=== PATIENT | female | born 1935 | race Caucasian/White ===

== ENCOUNTER → 2019-05-09 10:50 | Outpatient (BNVA) | payer MEDICARE, OTHER, SELFPAY | PROVIDERS: Family Provider Family Medicine; PCP Family Medicine; Visit Provider Family Medicine | DX: E78.5 Hyperlipidemia, unspecified (principal); R53.83 Other fatigue; I10 Essential (primary) hypertension | CPT/HCPCS: 80061; 84443 ==

== ENCOUNTER → 2019-06-29 11:04 | Outpatient (BNVA) | payer MEDICARE, OTHER, SELFPAY | PROVIDERS: Family Provider Family Medicine; PCP Family Medicine; Visit Provider Family Medicine | DX: R32 Unspecified urinary incontinence (principal) | CPT/HCPCS: 81000 ==

== ENCOUNTER 2019-06-30 12:39 | Outpatient (CLI) | payer MEDICARE, OTHER, SELFPAY | END 2019-06-30 12:40 | disposition home or self-care (01) | LOC: LAB 12:43 | PROVIDERS: Family Provider Family Medicine; PCP Family Medicine; Visit Provider Family Medicine | DX: R32 Unspecified urinary incontinence (principal) | CPT/HCPCS: 87086 ==

== ENCOUNTER 2019-07-04 10:34 | Outpatient (CLI) | payer MEDICARE, OTHER, SELFPAY ==
--- NOTE | 2019-07-04 10:44 | MR_ITS ---
WS: [id number] MRI LUMBAR SPINE NONCONTRAST TECHNIQUE: Sagittal T1, T2 and STIR imaging. Axial T1 and T2 imaging. CLINICAL INFORMATION: LOW BACK PAIN COMPARISON: MRI November 12, 2018 FINDINGS: Lumbar scoliosis convex left. No acute compression fractures. Multilevel degenerative disc disease. I ncidental hemangioma L2 vertebral body. Mild disc bulging lower thoracic spine. Slight anterolisthesi s L4 on L5 and L5 on S1. L1-L2: Mild disc bulging with narrowing of the right subarticular recess. Moderate facet arthropathy. Mild right and no significant left foraminal narrowing. L2-L3: Disc osteophyte complex with endplate ridging. Impingement on the subarticular recess bilatera lly. Impingement on the traversing L3 nerve roots. Mild central canal stenosis. Moderate facet arthro tia. Mild bilateral foraminal narrowing right greater than left. L3-L4: Disc osteophyte complex with endplate ridging. Moderate central canal stenosis. Impingement tr aversing L4 nerve roots. Moderate facet arthropathy with small facet effusions. Moderate right and mild left foraminal narrowing. L4-L5: Disc osteophyte protrusion impinges the left L5 nerve root with moderate central canal stenosi s. Advanced facet arthropathy. Mild to moderate left and no significant right foraminal narrowing. L5-S1: Mild disc bulging with osteophytic ridging. Impingement traversing S1 nerve roots. Advanced fa cet arthropathy. Moderate bilateral foraminal narrowing worse in the left. Small disc osteophyte protrusions in the cervical spine with mild/moderate central canal stenosis at C5-C6 and C6-C7. MR/MR lumbar spine wo con* [id number] IMPRESSION: 1. Lumbar scoliosis convex left. No acute appearing compression fractures. 2. Moderate central canal stenosis L3-L4 and moderate to severe central canal stenosis L4-5 due to disc osteophyte complexes with facet arthropathy ligament flavum hypertrophy. 3. Impingement on the subarticular recess and traversing bilateral L4 and L5 n erve roots at L3-4 and L4-5. The 4. Advanced facet arthropathy L3-L5. 5. Moderate foraminal narrowing worse at right L2-3, right L3-4, left L4-5, an d left L5-S1. 6. Overall no significant changes since November 12, 2018
--- NOTE | 2019-07-04 11:00 | XR_ITS ---
WS: [id number] Lumbar spine with flexion, extension, and neutral lateral, 07/04/2019 Clinical Data: Low back pain Comparison: Lateral lumbar spine, 12/22/2018. Findings: There is disc space narrowing of the lower thoracic and all the lumbar intervertebral disc spaces. T here is a 0.7 cm anterolisthesis of L4 on L5. On flexion it increases to 1.0 cm and does not change o n extension. There is osteoarthritis of the lower thoracic and all the lumbar vertebral bodies along with osteoporosis. No compression fractures are seen. There is calcification of the abdominal aorta b ut no aneurysm is present. There is limitation of motion on flexion and extension. XR/XR lumbar spine f/e only [id number] Impression: 1. Anterolisthesis of L4 on L5 which increases on flexion. 2. Extensive osteoarthritis and degenerative disc disease. 3. Osteoporosis.
== END 2019-07-04 10:35 | disposition home or self-care (01) ==
LOC: RADWPI 10:38
PROVIDERS: Family Provider Family Medicine; PCP Family Medicine; Visit Provider Licensed Practical Nurse
DX: M51.36 Other intervertebral disc degeneration, lumbar region (principal); M81.0 Age-related osteoporosis without current pathological fracture; M41.86 Other forms of scoliosis, lumbar region; M48.061 Spinal stenosis, lumbar region without neurogenic claudication; M47.816 Spondylosis without myelopathy or radiculopathy, lumbar region
CPT/HCPCS: 72120; 72148

== ENCOUNTER 2019-07-18 14:34 | Outpatient (CLI) | payer MEDICARE, OTHER, SELFPAY ==
--- NOTE | 2019-07-18 16:30 | CT_ITS ---
WS: [id number] CT LUMBAR SPINE, noncontrast. HISTORY: Low back pain TECHNIQUE: Contiguous 2.5 mm axial imaging are performed. Sagittal and coronal reformats are submitte d and reviewed. All CT scans at [facility] use at least one of these dose optimization te chniques: automated exposure control; mA and/or kV adjustment per patient size (includes targeted exa ms where dose is matched to clinical indication); or iterative reconstruction. IV contrast: None DLP: 1984.98 mGycm COMPARISON: 09/06/2016 and MRI 07/04/2019 Moderate LEFT convex curvature the lumbar spine. Advanced degenerative disc disease with vacuum disc phenomenon. Hemangioma at L2. L4 anterolisthesis by 5 mm. No fracture. T12-L1: Moderate osteophytic ridging around the vertebral bodies. Mild bilateral foraminal narrowing. L1-2: Osteophytic ridging with advanced degenerative disc disease. Osteophytes from the facet and bia tebral body causing mild RIGHT subarticular stenosis. L2-3: Diffuse osteophytic ridging around the vertebral bodies with additional facet joint osteophyte encroaching upon the thecal sac. Mild central stenosis with mild bilateral foraminal stenosis and mod erate subarticular recess stenosis. L3-4: Diffuse annular disc bulging and osteophytic ridging with facet joint osteophytes encroaching o n the thecal sac. Mild widening of the facet joints. Moderate central stenosis with moderate bilatera l foraminal stenosis and subarticular recess stenosis, greatest on the RIGHT. L4-5: Diffuse osteophytic ridging with severe facet joint arthritis. Osteophytes and facet disease an d ligamentum flavum disease causing significant central, subarticular recess and LEFT foraminal steno sis. Mild RIGHT foraminal stenosis. L5-S1: Diffuse osteophytic ridging and broad-based disc bulging. Moderate bilateral foraminal stenosi s. Disc and osteophyte encroachment into the subarticular recesses and foramen. Severe facet joint ar thritis. Atherosclerotic plaque throughout the visualized abdominal aorta. Diverticulosis without diverticulit is. Mild degenerative changes in the SI joints bilaterally. CT/CT lumbar spine wo con* [id number] IMPRESSION: 1. RIGHT convex lumbar scoliosis. Multilevel moderate to severe degenerative c hanges throughout the spine with marked facet arthritis. 2. Moderate to severe central stenosis at L3-4 and L4-5. Moderate bilateral fo raminal stenosis and subarticular recess stenosis at L3-4 and on the LEFT at L4 -5. 3. Severe facet joint arthritis throughout the lumbar spine. 4. Mild central with moderate subarticular recess stenosis at L2-3. 5. Moderate bilateral foraminal stenosis and subarticular recess stenosis at L 5-S1.
== END 2019-07-18 14:35 | disposition home or self-care (01) ==
LOC: RADWPI 14:36
PROVIDERS: Family Provider Family Medicine; PCP Family Medicine; Visit Provider Licensed Practical Nurse
DX: M54.5 Low back pain (principal); M48.062 Spinal stenosis, lumbar region with neurogenic claudication; M47.9 Spondylosis, unspecified; M48.07 Spinal stenosis, lumbosacral region
CPT/HCPCS: 72131

== ENCOUNTER 2019-07-21 12:25 | Outpatient (RCR) | payer MEDICARE, OTHER, SELFPAY | END 2019-08-16 23:59 | disposition home or self-care (01) | LOC: SPT 12:25 | PROVIDERS: PCP Family Medicine; Referring Provider Licensed Practical Nurse; Visit Provider Licensed Practical Nurse | DX: M43.16 Spondylolisthesis, lumbar region (principal); G62.9 Polyneuropathy, unspecified; M48.062 Spinal stenosis, lumbar region with neurogenic claudication | CPT/HCPCS: 97110; 97161; L0637 ==

== ENCOUNTER 2019-08-09 12:23 | Outpatient (CLI) | payer MEDICARE, OTHER, SELFPAY ==
--- NOTE | 2019-08-09 12:34 | MR_ITS ---
WS: [id number] MRI CERVICAL SPINE NONCONTRAST TECHNIQUE: Sagittal T1, T2 and STIR imaging. Axial T2, gradient, and fiesta imaging. CLINICAL INFORMATION: M50.020 Cervical disc disorder with myelopathy, mid-cervi... COMPARISON: None. FINDINGS: Straightening of the normal cervical lordosis. Disc bulging worse at C5-C6 and C6-C7 with moderate ce ntral canal stenosis. Cord signal remains normal. C2-C3: Normal. C3-C4: Mild disc osteophytic ridging. Moderate facet arthropathy. Mild bilateral bony foraminal narro wing. Spinal canal is patent. C4-C5: Mild disc osteophytic ridging. Spinal canal is patent. Mild bilateral foraminal narrowing. Mod erate facet arthropathy. C5-C6: Disc osteophyte complex with moderate central canal stenosis. Moderate left and mild right bon y foraminal narrowing. Moderate right facet arthropathy. C6-C7: Disc osteophyte complex with endplate ridging. Moderate central canal stenosis. Mild to modera te left greater than right bony foraminal narrowing. C7-T1: Mild/moderate left and no significant right foraminal narrowing. Visualized brain stem structures: Normal. Prevertebral soft tissues: Normal. MR/MR cervical spin wo con* [id number] IMPRESSION: 1. Disc osteophyte protrusion C5-C6 and C6-C7 with moderate central canal sten osis and indentation on the cervical cord. Cord signal remains normal. 2. Mild to moderate bony foraminal narrowing worse at left C5-C6, bilateral C6 -7, and left C7-T1. 3. Moderate facet arthropathy worse at right C3-4, bilateral C4-5, right C5-C6 ,
--- NOTE | 2019-08-09 13:45 | MR_ITS ---
WS: [id number] MRI LUMBAR SPINE NONCONTRAST TECHNIQUE: Sagittal T1, T2 and STIR imaging. Axial T1 and T2 imaging. CLINICAL INFORMATION: Low back pain COMPARISON: MRI July 04, [address] July 18, 2019 FINDINGS: Lumbar scoliosis convex Incidental hemangioma L2 vertebral body. Mild disc bulging lower thoracic spi ne. Slight anterolisthesis L4 on L5 and L5 on S1. L1-L2: Mild disc bulging with narrowing of the right subarticular recess. Moderate facet arthropathy. Mild right and no significant left foraminal narrowing. L2-L3: Disc osteophyte complex with endplate ridging. Impingement on the subarticular recess bilatera lly. Impingement on the traversing L3 nerve roots. Mild central canal stenosis. Moderate facet arthro tia. Mild bilateral foraminal narrowing right greater than left. L3-L4: Disc osteophyte complex with endplate ridging. Moderate central canal stenosis. Impingement tr aversing L4 nerve roots. Moderate facet arthropathy with small facet effusions unchanged. Moderate ri ght and mild left foraminal narrowing. L4-L5: Disc osteophyte protrusion impinges the left L5 nerve r oot with moderate central canal stenosis. Advanced facet arthropathy. Mild to moderate left and no si gnificant right foraminal narrowing. L5-S1: Mild disc bulging with osteophytic ridging. Impingement traversing S1 nerve roots. Advanced fa cet arthropathy. Moderate bilateral foraminal narrowing worse on the left. Small disc osteophyte protrusions in the cervical spine with mild/moderate central canal stenosis at C5-C6 and C6-C7 as previously described. MR/MR lumbar spine wo con* [id number] IMPRESSION: 1. Lumbar scoliosis convex left. No acute appearing compression fractures. 2. Moderate central canal stenosis L3-L4 and moderate to severe central canal stenosis L4-5 due to disc osteophyte complexes with facet arthropathy in combin ation with ligament flavum hypertrophy. 3. Moderate bony foraminal narrowing worse at right L2-3, right L3-4, left L4- 5, and left L5-S1 unchanged from previous. 4. Moderate to advanced facet arthropathy L3-L4, L4-L5 and L5-S1. 5. Overall no significant interval changes since July 04, 2019
--- NOTE | 2019-08-09 14:30 | XR_ITS ---
WS: [id number] CERVICAL SPINE FLEXION EXTENSION TECHNIQUE: 3 views of the cervical spine: lateral neutral, flexion and extension views. CLINICAL INFORMATION: Neck pain COMPARISON: None. FINDINGS: Straightening of the normal cervical lordosis. Osteopenia. Moderate spondylitic changes. No rmal C1-2 articulation. Disc space narrowing worse at C4-C5 C5-C6 and C6-C7 with anterior hypertrophi c changes. Slight anterolisthesis C3 on C4. No instability on flexion extension. XR/XR cervical spine fl/ex [id number] IMPRESSION: Moderate spondylitic changes. No instability on flexion extension.
== END 2019-08-09 12:24 | disposition home or self-care (01) ==
LOC: RADWPI 12:26
PROVIDERS: PCP Family Medicine; Visit Provider Licensed Practical Nurse
DX: M50.020 Cervical disc disorder with myelopathy, mid-cervical region, unspecified level (principal); M47.816 Spondylosis without myelopathy or radiculopathy, lumbar region; M48.061 Spinal stenosis, lumbar region without neurogenic claudication; M25.78 Osteophyte, vertebrae; M48.02 Spinal stenosis, cervical region; M47.812 Spondylosis without myelopathy or radiculopathy, cervical region
CPT/HCPCS: 72040; 72141; 72148

== ENCOUNTER → 2019-09-15 13:13 | Outpatient (BNVA) | payer MEDICARE, OTHER, SELFPAY | PROVIDERS: PCP Family Medicine; Visit Provider Family Medicine | DX: I10 Essential (primary) hypertension (principal); Z13.6 Encounter for screening for cardiovascular disorders; E11.9 Type 2 diabetes mellitus without complications; E66.9 Obesity, unspecified; R32 Unspecified urinary incontinence; F41.1 Generalized anxiety disorder | CPT/HCPCS: 80053; 80061; 82043; 82306 ==

== ENCOUNTER 2019-11-29 07:40 | Outpatient (CLI) | payer MEDICARE, OTHER, SELFPAY ==
--- NOTE | 2019-11-29 08:00 | US_ITS ---
WS: [id number] RIGHT UPPER QUADRANT ULTRASOUND HISTORY: ruq pain COMPARISON: None available. Liver: 15.9 cm in length. Normal size liver. No bile duct dilatation or mass. Gallbladder: Normally distended gallbladder with no stones or wall thickening. CBD: 0.4 cm Pancreas: Normal size and echogenicity. Right kidney: 10.7 cm in length. Normal size and echogenicity. No hydronephrosis or mass. Small extra renal pelvis. Aorta and IVC: Aorta is not well seen. Negative IVC. No ascites. US/US gall bladder [id number] IMPRESSION: Normal RIGHT upper quadrant ultrasound.
== END 2019-11-29 07:41 | disposition home or self-care (01) ==
LOC: RAD 07:43
PROVIDERS: PCP Family Medicine; Visit Provider Family Medicine
DX: R10.11 Right upper quadrant pain (principal)
CPT/HCPCS: 76705

== ENCOUNTER → 2020-02-02 15:23 | Outpatient (BNVA) | payer MEDICARE, OTHER, SELFPAY | PROVIDERS: PCP Family Medicine; Visit Provider Family Medicine | DX: R35.0 Frequency of micturition (principal); N39.3 Stress incontinence (female) (male); M51.16 Intervertebral disc disorders with radiculopathy, lumbar region | CPT/HCPCS: 81000; 87077; 87086; 87184 ==

== ENCOUNTER → 2020-02-16 13:15 | Outpatient (BNVA) | payer MEDICARE, OTHER, SELFPAY | PROVIDERS: PCP Family Medicine; Referring Provider Family Medicine; Visit Provider Nurse Practitioner Family | DX: R35.0 Frequency of micturition (principal) | CPT/HCPCS: 81003 ==

== ENCOUNTER → 2020-03-08 10:18 | Outpatient (BNVA) | payer MEDICARE, OTHER, SELFPAY | PROVIDERS: PCP Family Medicine; Visit Provider Family Medicine | DX: M79.641 Pain in right hand (principal); M79.642 Pain in left hand | CPT/HCPCS: 73130 ==

== ENCOUNTER 2020-03-08 11:11 | Outpatient (CLI) | payer MEDICARE, OTHER, SELFPAY | END 2020-03-08 11:12 | disposition home or self-care (01) | LOC: LAB 11:20 | PROVIDERS: PCP Family Medicine; Visit Provider Internal Medicine Cardiovascular Disease | DX: Z51.81 Encounter for therapeutic drug level monitoring (principal); Z79.01 Long term (current) use of anticoagulants | CPT/HCPCS: 36415; 80053; 81000; 85025; 85610; 85651; 86038; 86140; 86431 ==

== ENCOUNTER → 2020-03-09 10:04 | Outpatient (BNVA) | payer MEDICARE, OTHER, SELFPAY | PROVIDERS: PCP Family Medicine; Visit Provider Family Medicine | DX: R30.0 Dysuria (principal) | CPT/HCPCS: 81000; 87077; 87086; 87184 ==

== ENCOUNTER → 2020-03-15 13:44 | Outpatient (BNVA) | payer MEDICARE, OTHER, SELFPAY | PROVIDERS: PCP Family Medicine; Visit Provider Nurse Practitioner Family | DX: R30.0 Dysuria (principal); N39.46 Mixed incontinence | CPT/HCPCS: 81003 ==

== ENCOUNTER → 2020-04-06 09:02 | Outpatient (BNVA) | payer MEDICARE, OTHER, SELFPAY | PROVIDERS: PCP Family Medicine; Visit Provider Internal Medicine Cardiovascular Disease | DX: I48.92 Unspecified atrial flutter (principal) | CPT/HCPCS: 85610 ==

== ENCOUNTER → 2020-04-12 12:01 | Outpatient (BNVA) | payer MEDICARE, OTHER, SELFPAY | PROVIDERS: PCP Family Medicine; Visit Provider Internal Medicine Cardiovascular Disease | DX: Z51.81 Encounter for therapeutic drug level monitoring (principal); Z79.01 Long term (current) use of anticoagulants | CPT/HCPCS: 85610 ==

== ENCOUNTER → 2020-04-25 15:12 | Outpatient (BNVA) | payer MEDICARE, OTHER, SELFPAY | PROVIDERS: PCP Family Medicine; Visit Provider Family Medicine | DX: R30.0 Dysuria (principal); M15.9 Polyosteoarthritis, unspecified; Z68.30 Body mass index [BMI] 30.0-30.9, adult | CPT/HCPCS: 81000; 87077; 87086; 87184 ==

== ENCOUNTER → 2020-05-24 13:45 | Outpatient (BNVA) | payer MEDICARE, OTHER, SELFPAY | PROVIDERS: PCP Family Medicine; Visit Provider Nurse Practitioner Family | DX: N39.9 Disorder of urinary system, unspecified (principal); R35.0 Frequency of micturition; N39.0 Urinary tract infection, site not specified; N39.46 Mixed incontinence | CPT/HCPCS: 81003; 87077; 87086; 87184 ==

== ENCOUNTER → 2020-05-25 09:57 | Outpatient (BNVA) | payer MEDICARE, OTHER, SELFPAY | PROVIDERS: PCP Family Medicine; Visit Provider Family Medicine | DX: M79.672 Pain in left foot (principal); M21.612 Bunion of left foot; M77.32 Calcaneal spur, left foot | CPT/HCPCS: 73630 ==

== ENCOUNTER → 2020-07-11 14:33 | Outpatient (BNVA) | payer MEDICARE, OTHER, SELFPAY | PROVIDERS: PCP Family Medicine; Visit Provider Nurse Practitioner Family | DX: N39.0 Urinary tract infection, site not specified (principal); N39.46 Mixed incontinence | CPT/HCPCS: 81003 ==

== ENCOUNTER 2020-08-17 08:12 | Emergency (ER) | payer MEDICARE, OTHER, SELFPAY ==
[2020-08-17 08:27] VITALS: BP 171/79; PULSE 77; RESP 18; TEMP 36.6; O2SAT 93; BMI 29.9
--- NOTE | 2020-08-17 08:38 | CT_ITS ---
WS: [id number] CT HEAD NONCONTRAST HISTORY: L side headache; htn; on eliquis TECHNIQUE: Contiguous axial imaging performed through the brain in 2.5 mm imaging. Bone and soft tiss ue windows. Sagittal and coronal reformats reviewed. All CT scans at [facility] use at le ast one of these dose optimization techniques: automated exposure control; mA and/or kV adjustment pe r patient size (includes targeted exams where dose is matched to clinical indication); or iterative r econstruction. DLP: 891.4 mGy.cm COMPARISON: 09/04/2016 No acute intracranial hemorrhage, midline shift or mass effect. Mild atrophy with moderate chronic microvascular ischemic type changes in the white matter. Ventricles: Normal size with no hydrocephalus. Paranasal sinuses: As visualized are clear. Mastoid air cells: Well pneumatized. Calvarium and scalp: Skull is intact with no soft tissue edema or swelling. CT/CT head wo con* [id number] IMPRESSION: 1. No acute intracranial hemorrhage or edema. 2. Mild atrophy with moderate small vessel ischemic changes.
--- NOTE | 2020-08-17 08:38 | W.ED.HA ---
HPI - Headache General: Chief Complaint: Headache Stated Complaint: HEAD PAIN Time Seen by Provider: 08/17/20 08:26 Source: patient Mode of arrival: ambulatory Limitations: no limitations History of Present Illness: HPI Narrative: Headache started 2 days ago. Headache is intermittent. Patient states the pain starts in the left upper parietal scalp and radiates to the left upper forehead. Patient denies any injury. Patient states she does have hypertension and recently had her blood pressure medication increased. She is on Eliquis. elicited complaint: headache Pertinent past history: hypertension Onset (ago): day(s) (2) Onset description: while at rest Location: left, parietal and other (L upper forehead) Severity: mild Quality & Timing: sharp and intermittent Exacerbating factors: none Relieving factors: nothing Associated symptoms: Reports other (No trauma.); Deny chest pain, confusion, diaphoresis, eye pain, eye redness, fever(s), lightheadedness, loss of vision, malaise, nausea, neck stiffness, numbness, paresthesias, photophobia, pre-syncope, rash, short of breath, sound sensitivity, syncope, vomiting or weakness Review of Systems Const: Denies: fever(s), chills, body aches, malaise or diaphoresis Eyes: Denies: change in vision ENMT: Denies: throat pain Card: Denies: chest pain, lightheadedness, syncope or pre-syncope Resp: Denies: dyspnea or wheezing GI: Denies: abdominal pain, nausea or vomiting : Denies: flank pain Musc: Denies: neck pain or back pain Skin/Breast: Denies: rash Neuro: Reports: headache(s); Denies: numbness in extremities, weakness in extremities, sensory changes, lack of coordination, difficulty walking, dizziness, vertigo, confusion, Slurred speech present or involuntary movements Psych: Denies: anxiety Timothy/Lymph: Denies: enlarged lymph nodes PFSH ED PFSH: Medical History Allergic rhinitis ASHD (arteriosclerotic heart disease) Atrial flutter with rapid ventricular response AV heart block Benign essential HTN Central sleep apnea Cervical disc disorder with myelopathy of mid-cervical region Dyslipidemia Fibromyalgia KHUSHI (generalized anxiety disorder) Intervertebral disc disorder with radiculopathy of lumbar region Joint instability Lumbar stenosis with neurogenic claudication Menopausal syndrome (hot flashes) Nocturnal hypoxia Polyneuropathy Polyneuropathy, peripheral sensorimotor axonal Recurrent UTI Spinal stenosis of lumbar region with radiculopathy Spondylolisthesis, lumbar region Urinary incontinence, mixed URTI (infection of the upper respiratory tract) Surgical History H/O knee surgery H/O lumpectomy H/O: hysterectomy Family History Grandfather Diabetes Father Stroke Heart attack CAD (coronary artery disease) Mother Cancer Denies family history of Clotting disorder Dementia Chronic kidney disease (CKD) Suicide Anesthesia complication Bleeding disorder Lung disease Social History Smoking and tobacco status: never smoked Alcohol intake: never Household members: none Marital status: / Current occupational status: retired History of recent travel: No Physical Exam Const: COMMON NORMALS: no acute distress, patient oriented x3, no limitations and well nourished EXAM LIMITATIONS: altered mental status GENERAL APPEARANCE: cooperative HENMT: COMMON NORMALS: normocephalic and atraumatic HEAD & SCALP: normocephalic and atraumatic FACE & SINUS: normal facial exam OTHER: No pain with palpation of the scalp. No rash noticed. Eye: COMMON NORMALS: EOMs intact bilaterally DIRECT OPHTHALMOSCOPY: No photophobia Neck/C-Spine: COMMON NORMALS: full ROM, no lymphadenopathy, supple and no meningeal signs GENERAL: Yes normal visual inspection Lymph: LYMPHATIC: no lymphadenopathy noted Chest: COMMONS NORMALS: normal inspection of the chest and normal palpation of entire chest wall CHEST: No Ecchymosis present and No rash Resp: COMMON NORMALS: normal respiratory effort, No retractions and clear to auscultation bilaterally EFFORT & INSPECTION: No respiratory distress AUSCULTATION: clear to auscultation bilaterally Cardio: COMMON NORMALS: regular rate, regular rhythm and Peripheral pulses 2+ throughout JUGULAR VENOUS DISTENTION: no JVD RATE: regular rate RHYTHM: regular rhythm PERIPHERAL PULSES: Peripheral pulses 2+ throughout GI: COMMON NORMALS: Normal to inspection, nondistended, normoactive bowel sounds present and non-tender : COMMON NORMALS: Yes no CVA tenderness BLADDER/KIDNEY EXAM: Yes no CVA tenderness Back/Pelvis: COMMON NORMALS: no CVA tenderness Extremity: COMMON NORMALS: normal to inspection, full ROM and capillary refill normal Neuro: COMMON NORMALS: patient oriented x3, CN's II-XII intact bilaterally, no focal motor deficits, no sensory deficits noted and deep tendon reflexes 2+ bilaterally MENINGEAL SIGNS: Yes no meningeal signs and No nuccal rigidity SPEECH: speech normal Psych: COMMON NORMALS: mental status grossly normal and Normal thought process present THOUGHT PROCESS: Normal thought process present Skin: COMMON NORMALS: no rashes or lesions noted and no wounds GENERAL SKIN EXAM: no rashes or lesions noted Course Vital Signs: Vital signs: Vital Signs Temperature 97.9 F 08/17/20 08:27 Pulse Rate 69 08/17/20 09:12 Respiratory Rate 18 08/17/20 09:12 Blood Pressure 167/79 08/17/20 09:12 Pulse Oximetry 96 08/17/20 09:12 MDM - Headache MDM Narrative: Medical decision making narrative: I find no evidence of zoster. Patient already on tramadol, gabapentin, Lyrica. Since patient is on anticoagulant, will hold off on NSAIDs. Imaging Data^: CT Head: Radiologist's impression: [address] [id number] Scan ReportSigned Patient: Raven Elizondo #: [id number]: [id number]#:[id number]/Sex: 85 / FADM Date: 08/17/20Loc: ERRoom/Bed:Attending Dr: Ordering Provider/Ordering MD: Gerardo Sanford MD Date of Service: 08/17/20 Procedure(s): CT head wo con* [id number] Accession Number(s): [id number] Report Number: [id number] WS: [id number] CT HEAD NONCONTRAST HISTORY: L side headache; htn; on eliquis TECHNIQUE: Contiguous axial imaging performed through the brain in 2.5 mm imaging. Bone and soft tissue windows. Sagittal and coronal reformats reviewed. All CT scans at [facility] use at least one of these dose optimization techniques: automated exposure control; mA and/or kV adjustment per patient size (includes targeted exams where dose is matched to clinical indication); or iterative reconstruction. DLP: 891.4 mGy.cm COMPARISON: 09/04/2016 No acute intracranial hemorrhage, midline shift or mass effect. Mild atrophy with moderate chronic microvascular ischemic type changes in the white matter. Ventricles: Normal size with no hydrocephalus. Paranasal sinuses: As visualized are clear. Mastoid air cells: Well pneumatized. Calvarium and scalp: Skull is intact with no soft tissue edema or swelling. CT/CT head wo con* [id number] IMPRESSION: 1. No acute intracranial hemorrhage or edema. 2. Mild atrophy with moderate small vessel ischemic changes. Dictated By:Kristin Bai DOSigned By:Kristin Bai DOSigned Date/Time:08/17/20905 Discharge Plan Discharge Patient Disposition: Home Clinical Impression: Headache, Essential hypertension Condition: Stable Prescriptions: No Action methenamine hippurate 1 gram tablet 1 g PO BID Qty: 60 RF: 12 tramadol 50 mg tablet 50 mg PO DAILY RF: 0 nitroglycerin [Nitrostat] 0.4 mg tablet, sublingual 0.4 mg SUBLINGUAL Q5M PRN (Reason: chest pain) Qty: 25 RF: 3 montelukast [Singulair] 10 mg tablet 10 mg PO DAILY Qty: 90 RF: 1 fluticasone propionate 50 mcg/actuation spray,suspension 1 spray INTRANASAL BID Qty: 15.8 RF: 4 Eliquis 5 mg tablet 5 mg PO BID Qty: 60 RF: 5 omeprazole 40 mg capsule,delayed release(DR/EC) 40 mg PO DAILY Qty: 90 RF: 2 isosorbide mononitrate 60 mg tablet extended release 24 hr 60 mg PO DAILY 30 Days Qty: 30 RF: 5 losartan 100 mg tablet 100 mg PO DAILY Qty: 90 RF: 3 diltiazem HCl 60 mg tablet 60 mg PO TID Qty: 270 RF: 3 estradiol 0.5 mg tablet 0.5 mg PO DAILY Qty: 90 RF: 0 metoprolol tartrate 100 mg tablet 100 mg PO BID Qty: 180 RF: 1 pregabalin [Lyrica] 150 mg capsule 150 mg PO TID Qty: 90 RF: 0 alprazolam 0.5 mg tablet 0.5 mg PO BID Qty: 60 RF: 0 ezetimibe [Zetia] 10 mg tablet 10 mg PO DAILY Qty: 30 RF: 0 Discharge Orders: Discharge ED (Routine); Ordered 08/17/20 Ordered By: Gerardo Sanford Referrals: Nurys Dennison DO [Primary Care Provider] - Discharge Diet: Usual diet Discharge Activity: Resume usual activity Patient Instructions: Acute Headache (ED), DASH Eating Plan (ED), Hypertension (ED), Opioid Safety Activity Restrictions/Additional Instructions: Continue home medications for pain and hypertension. Return if any problems. CT scan of your brain was normal. You may take Tylenol for pain. Coding Level of Care Code ED Environmental Air Specialist for Chg Fwd Exam Comprehensive
[2020-08-17 08:40] VITALS: BP 171/103; PULSE 72; RESP 16; O2SAT 96
[2020-08-17 09:12] VITALS: BP 167/79; PULSE 69; RESP 18; O2SAT 96
[2020-08-17] MEDS: acetaminophen 325 mg Tablet 650 MG PO (10:13)
[2020-08-17 10:17] VITALS: BP 121/52; PULSE 72; RESP 18; O2SAT 95
== END 2020-08-17 10:19 | disposition home or self-care (01) ==
PROVIDERS: Emergency Provider Family Medicine; PCP Family Medicine
DX: R51.9 Headache, unspecified (principal); I10 Essential (primary) hypertension; Z79.01 Long term (current) use of anticoagulants; E78.5 Hyperlipidemia, unspecified
CPT/HCPCS: 70450; 99283

== ENCOUNTER → 2020-12-06 13:50 | Outpatient (BNVA) | payer MEDICARE, OTHER, SELFPAY | PROVIDERS: PCP Family Medicine; Visit Provider Family Medicine | DX: I10 Essential (primary) hypertension (principal); E78.5 Hyperlipidemia, unspecified | CPT/HCPCS: 80053; 80061; 85025 ==

== ENCOUNTER → 2020-12-07 08:49 | Outpatient (BNVA) | payer MEDICARE, OTHER, SELFPAY | PROVIDERS: PCP Family Medicine; Visit Provider Family Medicine | DX: I10 Essential (primary) hypertension (principal); E78.5 Hyperlipidemia, unspecified; M51.16 Intervertebral disc disorders with radiculopathy, lumbar region; D64.9 Anemia, unspecified | CPT/HCPCS: 82728; 83550 ==

== ENCOUNTER → 2020-12-19 15:01 | Outpatient (BNVA) | payer MEDICARE, OTHER, SELFPAY | PROVIDERS: PCP Family Medicine; Visit Provider Urology | DX: N39.0 Urinary tract infection, site not specified (principal); N39.46 Mixed incontinence; R35.0 Frequency of micturition | CPT/HCPCS: 81003 ==

== ENCOUNTER 2021-01-09 06:00 | Outpatient (RCR) | payer MEDICARE, OTHER, SELFPAY | END 2021-01-15 23:59 | disposition home or self-care (01) | LOC: SPT 06:00 | PROVIDERS: PCP Family Medicine; Referring Provider Family Medicine; Visit Provider Family Medicine | DX: R26.81 Unsteadiness on feet (principal) | CPT/HCPCS: 97162 ==

== ENCOUNTER → 2021-05-23 13:38 | Outpatient (BNVA) | payer MEDICARE, OTHER, SELFPAY | PROVIDERS: PCP Family Medicine; Visit Provider Internal Medicine Cardiovascular Disease | DX: I25.10 Atherosclerotic heart disease of native coronary artery without angina pectoris (principal); I48.92 Unspecified atrial flutter; E78.5 Hyperlipidemia, unspecified; I10 Essential (primary) hypertension; M54.9 Dorsalgia, unspecified; N39.0 Urinary tract infection, site not specified | CPT/HCPCS: 99214 ==

== ENCOUNTER → 2021-07-04 09:36 | Outpatient (BNVA) | payer MEDICARE, OTHER, SELFPAY | PROVIDERS: PCP Family Medicine; Visit Provider Internal Medicine Cardiovascular Disease | DX: I25.10 Atherosclerotic heart disease of native coronary artery without angina pectoris (principal); E78.5 Hyperlipidemia, unspecified; I48.92 Unspecified atrial flutter; Z79.01 Long term (current) use of anticoagulants; R06.02 Shortness of breath; I31.9 Disease of pericardium, unspecified; R07.9 Chest pain, unspecified; I11.0 Hypertensive heart disease with heart failure; I50.33 Acute on chronic diastolic (congestive) heart failure | CPT/HCPCS: 80048; 83880; 84484; 93005; 99214; 99215 ==

== ENCOUNTER 2021-10-07 12:52 | Outpatient (CLI) | payer MEDICARE, OTHER, SELFPAY ==
--- NOTE | 2021-10-07 13:03 | XRR_ITS ---
PROCEDURE INFORMATION: Exam: XR Right Knee Exam date and time: 10/07/2021 1:04 PM Age: 86 years old Clinical indication: Pain and injury or trauma; Fall; Work related; Blunt trauma; Knee; Right; Additional info: Acute right knee pain TECHNIQUE: Imaging protocol: Radiologic exam of the Right knee. Views: 3 views. COMPARISON: CR Knee 3 views, RIGHT* [id number] 09/06/2016 1:45 PM FINDINGS: Bones/joints: Severe tricompartmental osteoarthritis of the knee. Medial tibial plateau osteophyte appears somewhat displaced/fractured with sclerotic margins suggesting a chronic etiology, increased compared to prior exam. Soft tissues: Normal. Vasculature: Scattered vascular calcifications. XR/XR knee RT 3V* [id number] IMPRESSION: 1. Severe tricompartmental osteoarthritis of the knee. 2. Scattered vascular calcifications. 3. Medial tibial plateau osteophyte appears somewhat displaced/fractured with sclerotic margins suggesting a chronic etiology, increased compared to prior exam.
== END 2021-10-07 12:53 | disposition home or self-care (01) ==
PROVIDERS: PCP Family Medicine; Visit Provider Family Medicine
DX: M17.11 Unilateral primary osteoarthritis, right knee (principal)
CPT/HCPCS: 73562

== ENCOUNTER → 2021-10-15 13:16 | Outpatient (BNVA) | payer MEDICARE, OTHER, SELFPAY | PROVIDERS: PCP Family Medicine; Visit Provider Podiatrist Foot & Ankle Surgery | DX: M19.071 Primary osteoarthritis, right ankle and foot (principal); M19.072 Primary osteoarthritis, left ankle and foot; M20.11 Hallux valgus (acquired), right foot; M20.12 Hallux valgus (acquired), left foot; M20.41 Other hammer toe(s) (acquired), right foot; M20.42 Other hammer toe(s) (acquired), left foot; M79.89 Other specified soft tissue disorders; M19.079 Primary osteoarthritis, unspecified ankle and foot | CPT/HCPCS: 73630; 99203; 99204 ==

== ENCOUNTER → 2021-10-25 10:09 | Outpatient (BNVA) | payer MEDICARE, OTHER, SELFPAY | PROVIDERS: PCP Family Medicine; Visit Provider Nurse Practitioner Family | DX: I25.10 Atherosclerotic heart disease of native coronary artery without angina pectoris (principal); I10 Essential (primary) hypertension; I48.92 Unspecified atrial flutter; Z79.01 Long term (current) use of anticoagulants | CPT/HCPCS: 99214 ==

== ENCOUNTER → 2021-12-18 12:50 | Outpatient (BNVA) | payer MEDICARE, OTHER, SELFPAY | PROVIDERS: PCP Family Medicine; Visit Provider Internal Medicine Cardiovascular Disease | DX: R06.02 Shortness of breath (principal); R07.9 Chest pain, unspecified; R29.6 Repeated falls; T85.192D Other mechanical complication of implanted electronic neurostimulator of spinal cord electrode (lead), subsequent encounter; E66.9 Obesity, unspecified; Z68.30 Body mass index [BMI] 30.0-30.9, adult; F41.1 Generalized anxiety disorder; M79.7 Fibromyalgia; I10 Essential (primary) hypertension; I48.92 Unspecified atrial flutter | CPT/HCPCS: 99214 ==

== ENCOUNTER 2022-01-26 07:15 | Inpatient (IN) | payer MEDICARE, OTHER, SELFPAY ==
[2022-01-26] VITALS (13 sets, daily range): BP systolic 117–169; BP diastolic 66–94; PULSE 77–92; RESP 14–22; TEMP 36.4–36.9; O2SAT 93–100; BMI 32.4
--- NOTE | 2022-01-26 07:18 | ED_ITS ---
Documented by User: Hebert Jeffers MD 02/01/22 17:20 HPI - Chest Pain General: Chief Complaint: Chest Pain Stated Complaint: CHEST PAIN Time Seen by Provider: 01/26/22 07:18 History of Present Illness: Ms. Elizondo is an 86-year-old lady with significant past medical history of hypertension, hyperlipidemia, atrial flutter, chronic pain presenting to the emergency department due to palpitations. She reports longstanding history of palpitations however recently this has become more frequent and essentially more constant over the past week. Reports symptoms come and go at random times and when present are associated with lightheadedness, chest pressure, nausea, generalized malaise. Denies any specific known provoking factors. She has been compliant with her medication regimen. Intensity symptoms when present is moderate to severe. No other spec ific changes in health, exacerbating, or alleviating factors identified. Onset (ago): week(s) Timing of current episode: episodic and increasing Prior episodes: Yes Onset: during rest and during exertion Pain location: substernal Pain radiation: none Severity: moderate Quality: heaviness Relieving factors: nothing Exacerbating factors: exertion and movement Associated symptoms: Reports dyspnea, nausea and other Review of Systems General: Reports: 10 or more systems reviewed and unremarkable except in HPI and below Resp: Reports: dyspnea GI: Reports: nausea PFSH ED PFSH: Medical History Allergic rhinitis ASHD (arteriosclerotic heart disease) Atrial flutter with rapid ventricular response AV heart block Benign essential HTN Central sleep apnea Cervical disc disorder with myelopathy of mid-cervical region Dyslipidemia Fibromyalgia KHUSHI (generalized anxiety disorder) Intervertebral disc disorder with radiculopathy of lumbar region Joint instability Lumbar stenosis with neurogenic claudication Menopausal syndrome (hot flashes) Nocturnal hypoxia Polyneuropathy Polyneuropathy, peripheral sensorimotor axonal Recurrent UTI Spinal stenosis of lumbar region with radiculopathy Spondylolisthesis, lumbar region Urinary incontinence, mixed URTI (infection of the upper respiratory tract) Surgical History H/O knee surgery H/O lumpectomy H/O: hysterectomy Family History Grandfather Diabetes Father Stroke Heart attack CAD (coronary artery disease) Mother Cancer Denies family history of Clotting disorder Dementia Chronic kidney disease (CKD) Suicide Anesthesia complication Bleeding disorder Lung disease Social History Smoking and tobacco status: never smoked Alcohol intake: never Household members: none Marital status: / Current occupational status: retired History of recent travel: No Physical Exam Const: COMMON NORMALS: alert GENERAL APPEARANCE: cooperative and well developed HENMT: COMMON NORMALS: normocephalic and atraumatic HEAD & SCALP: normo cephalic and atraumatic Eye: COMMON NORMALS: conjunctivae normal CONJUNCTIVA: Yes conjunctivae normal SCLERA: sclerae normal Neck/C-Spine: COMMON NORMALS: supple GENERAL: Yes trachea midline Resp: COMMON NORMALS: clear to auscultation bilaterally EFFORT & INSPECTION: Yes able to speak in complete sentences AUSCULTATION: clear to auscultation bilaterally Cardio: COMMON NORMALS: regular rate and regular rhythm RATE: regular rate RHYTHM: regular rhythm GI: COMMON NORMALS: Soft to palpation PALPATION: Yes Soft to palpation and No Tenderness to palpation present (GI) Extremity: GENERAL: Yes normal exam except as noted and No edema Neuro: COMMON NORMALS: moves all extremities SENSORIUM/ORIENTATION: Yes alert and No Orientation impaired Psych: COMMON NORMALS: mental status grossly normal and Normal thought process present THOUGHT PROCESS: Normal thought process present Course Vital Signs: Vital signs: Vital Signs Temperature 97.8 F 01/30/22 17:14 Pulse Rate 62 01/30/22 17:14 Respiratory Rate 16 01/30/22 17:14 Blood Pressure 121/64 01/30/22 17:14 Pulse Oximetry 98 01/30/22 17:14 Oxygen Delivery Me thod 01/30/22 08:00 Oxygen Flow Rate 3 01/30/22 11:58 MDM - Chest Pain Medical Decision Making 86-year-old lady presenting with chest pain and shortness of breath. Exam as a cathy. EKG shows sinus rhythm with nonspecific ST segment abnormalities and sinus arrhythmia, no STEMI. No leukocytosis, anemia present, normal platelet count. No significant metabolic abnormalities. 2-hour delta troponin is negative. BNP mildly elevated. Negative influenza. Chest x-ray with no lobar consolidation or pneumothorax. Given progressive symptoms as well as underlying heart disease patient qualifies for recommended transfusion. Patient provided informed consent for blood trans fusion and transfusion was ordered. RT treatment, analgesia, Protonix given in the emergency department. Most likely etiology of patient's symptoms is symptomatic anemia. Given patient's underlying comorbidities I believe that she requires inpatient management to assess response to transfusion and manage fluid status. The results of ED evaluation were discussed with the patient including plan for admission due to requirement for level of care not available if discharged to prevent significant worsening/deterioration. Patient agreeable with plan. Discussed with hospitalist service who was agreeable to admit patient. Medical Records I reviewed the patient's medical records. Lab Data I reviewed the patient's lab results. 01/26/22 07:00 01/26/22 07:00 Radiology Impressions Chest X-Ray 01/26/22 07:25 IMPRESSION: 1. No confluent infiltrates in the lungs. 2. Mild prominence of the cardiac silhouette on this chest radiograph. Abdomen/Pelvis CT 01/27/22 13:36 IMPRESSION: No acute abdominal or pelvic findings. Laboratory Results WBC 8.3 10^3/uL (4.0-10.0) 01/27/22 02:38 RBC 3.98 10^6/uL (4.1-5.3) L 01/27/22 02:38 Hgb 8.6 g/dL (11.5-15.3) L 01/27/22 02:38 Hct 29.9 % (37.0-47.0) L 01/27/22 02:38 MCV 75.1 fl (81-99) L 01/27/22 02:38 MCH 21.6 pg (28.0-34.0) L 01/27/22 02:38 MCHC 28.8 g/dL (30.0-36.0) L 01/27/22 02:38 RDW 17.8 % (12.1-15.1) H 01/27/22 02:38 Plt Count 196 10^3/cmm (130-400) 01/27/22 02:38 MPV 11.6 fL (7.4-10.4) H 01/27/22 02:38 Neut % (Auto) 70.3 % 01/27/22 02:38 Lymph % (Auto) 17.1 % 01/27/22 02:38 [place] % (Auto) 10.0 % 01/27/22 02:38 Eos % (Auto) 1.0 % 01/27/22 02:38 Baso % (Auto) 0.8 % 01/27/22 02:38 Neut # (Auto) 5.85 10^3/uL (1.8-7.7) 01/27/22 02:38 Lymph # (Auto) 1.4 10^3/uL (0.8-4.8) 01/27/22 02:38 [place] # (Auto) 0.8 10^3/uL (0.2-0.9) 01/27/22 02:38 Eos # (Auto) 0.1 10^3/uL (0.0-0.8) 01/27/22 02:38 Baso # (Auto) 0.1 10^3/uL (0.0-0.1) 01/27/22 02:38 Nucleated RBC % (auto) 0 % 01/27/22 02:38 Nucleated RBCs # 0.0 /100WBC 01/27/22 02:38 Sodium 141 mmol/L (136-145) 01/27/22 02:38 Potassium 4.2 mmol/L (3.5-5.1) 01/27/22 02:38 Chloride 102 mmol/L (98-107) 01/27/22 02:38 Carbon Dioxide 28 mmol/L (22-29) 01/27/22 02:38 Anion Gap 15.2 (5-19) 01/27/22 02:38 BUN 11 mg/dL (8-23) 01/27/22 02:38 Creatinine 0.6 mg/dL (0.5-0.9) 01/27/22 02:38 GFR Calculation Not Reportable 01/27/22 02:38 Glucose 90 mg/dL (65-115) 01/27/22 02:38 Calculated Osmolality 291 mOsm/kg (285-295) 01/27/22 02:38 Calcium 8.9 mg/dL (8.5-10.5) 01/27/22 02:38 Phosphorus 2.9 mg/dL (2.5-4.5) 01/27/22 02:38 Magnesium 2.5 mg/dL (1.7-2.3) H 01/26/22 12:49 Iron 9 ug/dL (37-145) L 01/26/22 12:49 TIBC 373 mcg/dl 01/26/22 12:49 % Saturation 2.4 % (20-50) L 01/26/22 12:49 Unsat Iron Binding 364 ug/dL (112-347) H 01/26/22 12:49 Ferritin 15 ng/mL (15-150) 01/26/22 12:49 Total Bilirubin 0.2 mg/dL (0.15-1.2) 01/26/22 07:00 AST 11 U/L (0-32) 01/26/22 07:00 ALT 6 U/L (0-33) 01/26/22 07:00 Alkaline Phosphatase 72 U/L (35-105) 01/26/22 07:00 Troponin T Baseline 29 ng/L (0-10) H 01/26/22 07:00 Troponin T 120 Minute 23.29 ng/L (0-10) H 01/26/22 08:52 Delta Troponin T -5.71 ABS# (0-10) L 01/26/22 08:52 Troponin T Hi Sens 6Hr 22.95 ng/L (0-10) H 01/26/22 12:49 Troponin T Hi Sens 6Hr Delta -6.05 ng/L (0-12) L 01/26/22 12:49 NT-Pro-B Natriuret Pep 1207 pg/mL (0-450) H 01/26/22 07:00 Total Protein 6.4 g/dL (6.6-8.7) L 01/26/22 07:00 Albumin 4.2 g/dL (3.5-5.2) 01/26/22 07:00 Globulin 2.2 g/dL (1.3-4.6) 01/26/22 07:00 TSH 2.23 uIU/mL (0.27-4.20) 01/26/22 07:00 Urine Color Yellow (Yellow) 01/27/22 15:04 Urine Appearance Cloudy (CLEAR) A 01/27/22 15:04 Urine pH 6 (5-7) 01/27/22 15:04 Ur Specific Bath 1.020 (1.005-1.030) 01/27/22 15:04 Urine Protein 1+ (Negative) H 01/27/22 15:04 Urine Glucose (UA) Norm (Normal) 01/27/22 15:04 Urine Ketones Negative (Negative) 01/27/22 15:04 Urine Blood 2+ (Negative) H 01/27/22 15:04 Urine Nitrate Negative (Negative) 01/27/22 15:04 Urine Bilirubin Neg (Negative) 01/27/22 15:04 Urine Urobilinogen Norm mg/dL (Negative) 01/27/22 15:04 Ur Leukocyte Esterase 2+ (Negative) H 01/27/22 15:04 Urine RBC 5-10 /hpf (0-2) H 01/27/22 15:04 Urine WBC Too numerous to cnt /hpf (0-5) H 01/27/22 15:04 Ur Squamous Epith Cells None /hpf (0-5) 01/27/22 15:04 Amorphous Sediment Not Reportable 01/27/22 15:04 Urine Bacteria 4+ /hpf (NONE) H 01/27/22 15:04 Influenza Type A Ag negative (Negative) 01/26/22 14:00 Influenza Type B Ag negative (Negative) 01/26/22 14:00 Blood Type A Positive 01/26/22 12:05 Rho(D) Type Positive 01/26/22 12:05 Antibody Screen Negative 01/26/22 12:05 Crossmatch See Detail 01/26/22 12:05 Discharge Plan Discharge Patient Disposition: Placed in Observation Admit Provider: Sony Womack Clinical Impression: Symptomatic anemia, Chest pain, GI bleed, Anticoagulated, Hypomagnesemia, Increasing shortness of breath, Heart palpitations Discharge Diet: Cardiac Discharge Activity: Resume usual activity Coding Level of Care Code ED Peripheral Vascular Tech for Chg Fwd Exam Comprehensive Documented by User: Sony Womack MD 01/26/22 20:01 HPI - Chest Pain General: Chief Complaint: Chest Pain Stated Complaint: CHEST PAIN Time Seen by Provider: 01/26/22 07:18 PFSH ED PFSH: Medical History Allergic rhinitis ASHD (arteriosclerotic heart disease) Atrial flutter with rapid ventricular response AV heart block Benign essential HTN Central sleep apnea Cervical disc disorder with myelopathy of mid-cervical region Dyslipidemia Fibromyalgia KHUSHI (generalized anxiety disorder) Intervertebral disc disorder with radiculopathy of lumbar region Joint instability Lumbar stenosis with neurogenic claudication Menopausal syndrome (hot flashes) Nocturnal hypoxia Polyneuropathy Polyneuropathy, peripheral sensorimotor axonal Recurrent UTI Spinal stenosis of lumbar region with radiculopathy Spondylolisthesis, lumbar region Urinary incontinence, mixed URTI (infection of the upper respiratory tract) Surgical History H/O knee surgery H/O lumpectomy H/O: hysterectomy Family History Grandfather Diabetes Father Stroke Heart attack CAD (coronary artery disease) Mother Cancer Denies family history of Clotting disorder Dementia Chronic kidney disease (CKD) Suicide Anesthesia complication Bleeding disorder Lung disease Social History Smoking and tobacco status: never smoked Alcohol intake: never Household members: none Marital status: / Current occupational status: retired History of recent travel: No Course Vital Signs: Vital signs: Vital Signs Temperature 97.8 F 01/30/22 17:14 Pulse Rate 62 01/30/22 17:14 Respiratory Rate 16 01/30/22 17:14 Blood Pressure 121/64 01/30/22 17:14 Pulse Oximetry 98 01/30/22 17:14 Oxygen Delivery Me thod 01/30/22 08:00 Oxygen Flow Rate 3 01/30/22 11:58 MDM - Chest Pain Medical Decision Making Per ED provider Lab Data 01/26/22 07:00 01/26/22 07:00 Radiology Impressions Chest X-Ray 01/26/22 07:25 IMPRESSION: 1. No confluent infiltrates in the lungs. 2. Mild prominence of the cardiac silhouette on this chest radiograph. Abdomen/Pelvis CT 01/27/22 13:36
--- NOTE | 2022-01-26 07:25 | XRR_ITS ---
PROCEDURE INFORMATION: Exam: XR Chest Exam date and time: 01/26/2022 7:39 AM Age: 86 years old Clinical indication: Other: Palpitations TECHNIQUE: Imaging protocol: Radiologic exam of the chest. Views: 1 view. COMPARISON: CR XR cervical spine fl/ex [id number] 08/09/2019 2:12 PM FINDINGS: Lungs: Normal lung volumes. No confluent interstitial or airspace opacities. Age-related interstitial prominence is seen in the lungs. Pleural spaces: No pleural effusion. No pneumothorax. Heart/Mediastinum: Mild prominence of the cardiac silhouette on this chest radiograph. There is a mildly tortuous thoracic aorta. Midline trachea. Bones/joints: No acute abnormalities. Mild shoulder degenerative changes are seen. Multiple old healed left rib fractures are seen. Soft tissues: Multiple external densities are seen overlying the chest, limiting assessment. XR/XR chest 1V portable [id number] IMPRESSION: 1. No confluent infiltrates in the lungs. 2. Mild prominence of the cardiac silhouette on this chest radiograph.
--- NOTE | 2022-01-26 07:32 | ECG_ITS ---
[facility] Test Date: 2022-01-26 Pat Name: Raven Elizondo Department: Room: Gender: Female Data Acquisition Technician: : 1935 Requested By: Hebert Jeffers Order Number: [id number] Dinah MD: Gavin Gonzalez M.D. Measurements Intervals [place] Rate: 77 P: 50 NH: 162 QRS: -22 QRSD: 96 T: 22 QT: 378 QTc: 430 Interpretive Statements SINUS RHYTHM BORDERLINE LEFT AXIS DEVIATION [QRS AXIS < -20] LEFT VENTRICULAR HYPERTROPHY AND ST-T CHANGE [VOLTAGE CRITERIA PLUS ST/T ABNORMALITY] Compared to ECG 09/06/2016 18:17:11 Sinus tachycardia no longer present Myocardial infarct finding no longer present ST (T wave) deviation still present Electronically Signed On 01-26-2022 12:53:25 WEBSPHERE PORTAL ARCHITECT by Gavin Gonzalez M.D. [id number]
[2022-01-26 07:54] LABS: Basophils # 0.1 10^3/uL (0.0-0.1); Basophils % 1.3 %; Eosinophils # 0.2 10^3/uL (0.0-0.8); Eosinophils % 2.9 %; Hematocrit 25.9 % (37.0-47.0); Hemoglobin 7.3 g/dL (11.5-15.3); Lymphocytes # 1.5 10^3/uL (0.8-4.8); Mean Corpuscular HGB Conc 28.2 g/dL (30.0-36.0); Mean Corpuscular Hemoglobin 20.8 pg (28.0-34.0); Mean Corpuscular Volume 73.8 fl (81-99); Mean Platelet Volume 12.1 fL (7.4-10.4); Monocytes # 0.6 10^3/uL (0.2-0.9); Monocytes % 8.4 %; Neutrophils # 4.56 10^3/uL (1.8-7.7); Neutrophils % 66.3 %; Nucleated Red Blood Cells % 0 %; Platelet Count 237 10^3/cmm (130-400); Red Blood Count 3.51 10^6/uL (4.1-5.3); Red Cell Distribution Width 17.1 % (12.1-15.1); White Blood Count 6.9 10^3/uL (4.0-10.0)
[2022-01-26 08:17] LABS: Troponin(5th) Baseline 29 ng/L (0-10)
[2022-01-26 08:28] LABS: Alanine Aminotransferase 6 U/L (0-33); Albumin Level 4.2 g/dL (3.5-5.2); Alkaline Phosphatase 72 U/L (35-105); Anion Gap 12.7 (5-19); Aspartate Amino Transferase 11 U/L (0-32); Blood Urea Nitrogen 14 mg/dL (8-23); Calcium 9.4 mg/dL (8.5-10.5); Carbon Dioxide 30 mmol/L (22-29); Chloride 101 mmol/L (98-107); Globulin 2.2 g/dL (1.3-4.6); Glucose 114 mg/dL (65-115); Magnesium 1.4 mg/dL (1.7-2.3); NT Pro B Type Natriuretic Pept 1207 pg/mL (0-450); Osmolality Calculated 291 mOsm/kg (285-295); Potassium 3.7 mmol/L (3.5-5.1); Sodium 140 mmol/L (136-145); Thyroid Stimulating Hormone 2.23 uIU/mL (0.27-4.20); Total Bilirubin 0.2 mg/dL (0.15-1.2); Total Protein 6.4 g/dL (6.6-8.7)
[2022-01-26] MEDS: potassium chloride ER 20 mEq Tablet 40 MEQ PO (08:40)
[2022-01-26] MEDS: magnesium sulfate premix 4 GM/100 ML PREMIX IV (08:43)
[2022-01-26 09:21] LABS: Troponin 5 2HR 23.29 ng/L (0-10)
[2022-01-26 09:32] LABS: Troponin 5 2HR Delta -5.71 ABS# (0-10)
--- NOTE | 2022-01-26 10:13 | ECG_ITS ---
[facility] Test Date: 2022-01-26 Pat Name: Raven Elizondo Department: Room: Gender: Female Protein Specialist: : 1935 Requested By: Hebert Jeffers Order Number: [id number] Dinah MD: Gavin Gonzalez M.D. Measurements Intervals [place] Rate: 89 P: 47 MI: 161 QRS: -29 QRSD: 96 T: 45 QT: 353 QTc: 431 Interpretive Statements SINUS RHYTHM BORDERLINE LEFT AXIS DEVIATION [QRS AXIS < -20] LEFT VENTRICULAR HYPERTROPHY AND ST-T CHANGE [VOLTAGE CRITERIA PLUS ST/T ABNORMALITY] Compared to ECG 01/26/2022 07:32:55 No significant changes Electronically Signed On 01-26-2022 12:55:39 DIVISION SALES MANAGER by Gavin Gonzalez M.D. [id number]
[2022-01-26] MEDS: fentaNYL 50 mcg/mL INJ 2mL IVP (11:24)
--- NOTE | 2022-01-26 12:05 | P.HP_ITS ---
Providers/Chief Complaint Admitting Physician: Sony Womack MD Primary Care Provider: Nurys Dennison DO Chief Complaint: CHEST PAIN History of Present Illness Raven Elizondo is a 86 year old female with a past medical history significant for atrial flutter, hypertension, sleep apnea, generalized anxiety disorder, and spinal stenosis who presents with palpitations x1 day. Patient has a history of atrial flutter. She is on apixaban, metoprolol and diltiazem. She states that she is had a abnormal heart rhythm ever since she was a child. She also endorses chest pain. Describes it as substernal. She states that this is chronic for her and she has it several days out of the week. She endorses associated symptoms of anxiety, shortness of breath, and orthopnea. She also s tates that her stools turn black 2 days ago. She denies prior colonoscopy or EGD. She takes omeprazole. Labs revealed a microcytic anemia with a hemoglobin of 7.3. Most recent prior hemoglobin was in November 2020 when it was 10.1, and prior to that February 2020 when it was 12.1. Patient endorses diffuse weakness and poor exercise tolerance. She states that she could not even walk more than few steps. Reports exertion makes her symptoms worse. Denies alleviating factors. Review of Systems Narrative: A complete review of systems was obtained and is negative except as stated in HPI. Medications/Allergies Home Medications Medication Instructions Recorded Confirmed Last Taken Type rolling walker #1 ea 12/25/20 01/21/22 Unknown Rx docusate sodium 100 mg capsule See Rx Instructions .Route 05/08/21 01/21/22 Unknown Rx (Stool Softener) .COMPLEX #60 caps ascorbic acid (vitamin C) 1,000 mg 1 g PO BID 05/23/21 01/21/22 Unknown History tablet diltiazem HCl 60 mg tablet 60 mg PO TID #270 tabs 08/26/21 01/21/22 Unknown Rx losartan 100 mg tablet 100 mg PO DAILY #90 tabs 08/26/21 01/21/22 Unknown Rx metoprolol tartrate 100 mg tablet 100 mg PO BID #180 tabs 08/26/21 01/21/22 Unknown Rx nitroglycerin 0.4 mg sublingual 0.4 mg sublingual Q5M PRN chest 08/28/21 01/21/22 Unknown Rx tablet (Nitrostat) pain #50 tabs apixaban 5 mg tablet (Eliquis) See Rx Instructions .Route 09/13/21 01/21/22 Un known Rx .COMPLEX #60 tabs montelukast 10 mg tablet See Rx Instructions .Route 09/13/21 01/21/22 Unknown Rx .COMPLEX #90 tabs Orthopedic Shoes #1 ea 10/16/21 01/21/22 Unknown Rx ezetimibe 10 mg tablet See Rx Instructions .Route 10/18/21 01/21/22 Unknown Rx .COMPLEX #90 tabs isosorbide mononitrate 60 mg 120 mg PO DAILY #180 tabs 11/08/21 01/21/22 Unknown Rx tablet,extended release 24 hr omeprazole 40 mg capsule,delayed 40 mg PO DAILY #90 caps 11/11/21 01/21/22 Un known Rx release estradiol 0.5 mg tablet See Rx Instructions .Route 12/05/21 01/21/22 Unknown Rx .COMPLEX #90 tabs fluticasone propionate 50 See Rx Instructions .Route 12/06/21 01/21/22 Unknown Rx mcg/actuation nasal .COMPLEX #16 grams spray,suspension alprazolam 0.5 mg tablet 0.5 mg PO BID PRN anxiety #60 tabs 01/08/22 01/21/22 Unknown Rx pregabalin 150 mg capsule (Lyrica) 150 mg PO TID #270 caps 01/24/22 Unknown Rx Allergies Allergy/AdvReac Type Severity Reaction Status Date / Time atorvastatin [From Lipitor] Allergy Unknown Verified 12/23/21 13:39 codeine Allergy Unknown Verified 12/23/21 13:39 morphine Allergy Unknown Verified 12/23/21 13:39 omega-3 acid ethyl esters Allergy Unknown Verified 12/23/21 13:39 [From Lovaza] Penicillins Allergy Unknown Verified 12/23/21 13:39 PFSH Acute PFSH: Medical History Allergic rhinitis ASHD (arteriosclerotic heart disease) Atrial flutter with rapid ventricular response AV heart block Benign essential HTN Central sleep apnea Cervical disc disorder with myelopathy of mid-cervical region Dyslipidemia Fibromyalgia KHUSHI (generalized anxiety disorder) Intervertebral disc disorder with radiculopathy of lumbar region Joint instability Lumbar stenosis with neurogenic claudication Menopausal syndrome (hot flashes) Nocturnal hypoxia Polyneuropathy Polyneuropathy, peripheral sensorimotor axonal Recurrent UTI Spinal stenosis of lumbar region with radiculopathy Spondylolisthesis, lumbar region Urinary incontinence, mixed URTI (infection of the upper respiratory tract) Surgical History H/O knee surgery H/O lumpectomy H/O: hysterectomy Family History Grandfather Diabetes Father Stroke Heart attack CAD (coronary artery disease) Mother Cancer Denies family history of Clotting disorder Dementia Chronic kidney disease (CKD) Suicide Anesthesia complication Bleeding disorder Lung disease Social History Smoking and tobacco status: never smoked Alcohol intake: never Household members: none Marital status: / Current occupational status: retired History of recent travel: No Vitals/I&O/Wt Last Vital Signs Pulse 92 01/26/22 07:54 Resp 22 H 01/26/22 11:24 BP 117/94 01/26/22 07:54 Pulse Ox 93 01/26/22 11:24 O2 Del Method 01/26/22 07:54 O2 Flow Rate 2 01/26/22 07:54 Physical Exam Narrative: General: Patient is awake. She is in moderate respiratory distress. Head: Normocephalic. Atraumatic. EOM intact. Neck: No JVD. Cardiovascular: RRR. No gallops. No murmurs. Lungs: Tachypneic. Moderate respiratory distress. Skin: No jaundice. No rashes. Abdomen: Abdomen is distended. Not tender to palpation though. Genito Urinary: Genital exam not performed since complaints not related. Extremities: No cyanosis or clubbing. Musculoskeletal: No overt joint deformity. Neurological: Moves all 4 extremities. No myoclonus. Very anxious. Data 01/26/22 07:00 01/26/22 07:00 A&P Assessment and plan (1) Symptomatic anemia: With reported melena concerning for GI bleed Transfusing 1 packed red blood cell in ED Trend hemoglobin Iron studies Telemetry Continue PPI transfusion N.p.o. General surgery consult Hold apixaban (2) ASHD (arteriosclerotic heart disease): With associated atypical chest pain Elevated troponin consistent with acute myocardial injury Elevated BNP Transthoracic echocardiogram ordered Telemetry Consider cardiology consultation, she follows with Dr Murcia (3) Heart palpitations: Patient endorses longstanding history of palpitations and arrhythmias Continuous telemetry monitoring (4) Chest pain: As above (5) Hypomagnesemia: Replace magnesium (6) GERD (gastroesophageal reflux disease): PPI as above Qualifiers: Esophagitis presence: without esophagitis Qualified Code(s): K21.9 - Gastro-esophageal reflux disease without esophagitis (7) Atrial flutter with rapid ventricular response: Continue home metoprolol Continue home diltiazem Holding apixaban due to concern for GI bleed (8) Benign essential HTN: Continue metoprolol Hold losartan for now (9) Allergic rhinitis: Qualifiers: Allergic rhinitis seasonality: non-seasonal Allergic rhinitis trigger: other Qualified Code(s): J30.89 - Other allergic rhinitis Attestations Medical Necessity Statement*: Patient presents with symptomatic anemia in the setting of melena as well as chest pain requiring transfusion, echocardiogram, general surgery evaluation, and telemetry monitoring with expected hospital course not to cross 2 midnights. Coding Level of Care Code Acute Police Service Technician for [facility] Fwd Diagnoses Symptomatic anemia D64.9 ASHD (arteriosclerotic heart disease) I25.10 Heart palpitations R00.2 Chest pain R07.9 Hypomagnesemia E83.42 GERD (gastroesophageal reflux disease) K21.9 Esophagitis presence: without esophagitis Atrial flutter with rapid ventricular response I48.92 Benign essential HTN I10 Allergic rhinitis J30.89 Allergic rhinitis seasonality: non-seasonal Allergic rhinitis trigger: other
[2022-01-26] MEDS: pantoprazole 40 mg SDV 80 MG IVP (12:33)
[2022-01-26] MEDS: ipratropium-albuterol 3 mL Neb INHALATION (12:33)
--- NOTE | 2022-01-26 12:48 | USCV_ITS ---
Raven Elizondo Age: 86 Gender: F : 1935 Exam Date: 01/26/2022 14:10 Ordering Phys: Sony Womack MD Technologist: BOUBACAR Exam Location: [facility] [place] Indication: chest pain BP: 157 / 69 HR: 94 Rhythm: Sinus Technical Quality: Adequate MEASUREMENTS (Male / Female) Normal Values 2D ECHO LV Diastolic Diameter PLAX 5.8 cm 4.2 - 5.9 / 3.9 - 5.3 cm LV Systolic Diameter PLAX 4.2 cm IVS Diastolic Thickness 0.9 cm 0.6 - 1.0 / 0.6 - 0.9 cm IVS Systolic Thickness 1.1 cm LVPW Diastolic Thickness 0.8 cm 0.6 - 1.0 / 0.6 - 0.9 cm LVPW Systolic Thickness 1.3 cm LVOT Diameter 2.0 cm LV Ejection Fraction 2D Teich 53.3 % LV Ejection Fraction MOD 2C 44.0 % LV Ejection Fraction 2C AL 44.5 % LA Diameter 4.4 cm IVC Diameter 1.6 cm M-MODE Aortic Annulus Diameter 2.6 cm LA Ao Ratio MM 1.9 MV E Point Septal Separation 0.5 cm DOPPLER AV Peak Velocity 144.0 cm/s LVOT Peak Velocity 116.0 cm/s AV Area Cont Eq vti 2.3 cm squared AV Area Cont Eq pk 2.6 cm squared MV Area PHT 5.5 cm squared Mitral E to A Ratio 1.5 MV E' Velocity 90.5 cm/s Mitral E to MV E' Ratio 21.9 Mitral E to LV E' Lateral Ratio 20.8 Mitral E to LV E' Septal Ratio 23.4 TR Peak Velocity 281.7 cm/s TR Peak Gradient 31.7 mmHg Right Atrial Pressure 9.0 mmHg Pulmonary Artery Systolic Pressu 40.7 mmHg PV Peak Velocity 66.0 cm/s FINDINGS Left Ventricle Normal left ventricular size and systolic function, EF 55%. Grade III/IV diastolic dysfunction (restrictive filling pattern), severely elevated filling pressures. Right Ventricle The right ventricle is normal in size and function. Right Atrium The right atrium is normal in size. Left Atrium Mildly increased left atrial size. Mitral Valve Thickened mitral valve. Moderate mitral annular calcification. Moderate mitral valve regurgitation. Aortic Valve Thickened aortic valve. Trace aortic valve regurgitation. Tricuspid Valve Mild tricuspid valve regurgitation. Pulmonic Valve Pulmonic valve not well visualized. Pericardium No pericardial effusion. Aorta Normal aortic annulus size. IVC Normal IVC dimension with >50% respiratory change of the inferior vena cava. CONCLUSIONS Normal left ventricular size and systolic function, EF 55%. Grade III/IV diastolic dysfunction (restrictive filling pattern), severely elevated filling pressures. Mildly increased left atrial size. Thickened mitral valve. Moderate mitral annular calcification. Moderate mitral valve regurgitation. Thickened aortic valve. Trace aortic valve regurgitation. Mild tricuspid valve regurgitation. Estimated pulmonary artery peak systolic pressure 41 mmHg There is no pericardial effusion. Technically difficult study because of comparison with the previous study is difficult because of the difference in the technical quality. the poor ultrasonic window. Dr Jorge Murcia MD FACC (Electronically Signed) Final Date: 27 January 2022 19:13 S
[2022-01-26 13:14] LABS: Troponin 5 6HR 22.95 ng/L (0-10)
[2022-01-26 13:17] LABS: Troponin 5 6HR Delta -6.05 ng/L (0-12)
[2022-01-26 13:20] LABS: Ferritin 15 ng/mL (15-150); Iron 9 ug/dL (37-145); Percent Saturation 2.4 % (20-50); Total Iron Binding Capacity 373 mcg/dl; Unsaturated Iron Binding 364 ug/dL (112-347)
[2022-01-26] MEDS: sodium chloride 0.9% 100 mL Bag 50 ML IV (13:42)
--- NOTE | 2022-01-26 13:43 | ECG_ITS ---
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 Measurements Intervals [place] Rate: 87 P: 43 WI: 158 QRS: -26 QRSD: 94 T: 19 QT: 364 QTc: 440 Interpretive Statements SINUS RHYTHM WITH OCCASIONAL ECTOPIC PREMATURE COMPLEXES BORDERLINE LEFT AXIS DEVIATION [QRS AXIS < -20] LEFT VENTRICULAR HYPERTROPHY AND ST-T CHANGE [VOLTAGE CRITERIA PLUS ST/T ABNORMALITY] Compared to ECG 01/26/2022 10:13:50 No significant changes Electronically Signed On 01-27-2022 15:00:34 MANAGER DELIVERY by Gavin Gonzalez M.D. [id number]
[2022-01-26] MEDS: pantoprazole 40 MG in sodium chloride 0.9% (plus) 100 ML 20 MG IV (13:56)
[2022-01-26 14:47] LABS: Influenza A by IFA negative (Negative); Influenza B by IFA negative (Negative)
[2022-01-26 16:00] LABS: Magnesium 2.5 mg/dL (1.7-2.3)
[2022-01-26] MEDS: pregabalin 150 mg Capsule PO ×2 (16:22→20:48)
[2022-01-26] MEDS: dilTIAZem 60 mg Tablet PO ×2 (16:22→20:48)
[2022-01-26] MEDS: metoprolol tartrate 50 mg Tablet 100 MG PO (16:23)
[2022-01-26 17:19] LABS: Hematocrit 31.1 % (37.0-47.0); Hemoglobin 8.5 g/dL (11.5-15.3)
[2022-01-26] MEDS: ondansetron 2 mg/ML SDV 2 mL 4 MG IVP (17:52)
[2022-01-26] MEDS: ALPRAZolam 0.5 mg Tablet PO (20:51)
[2022-01-26] MEDS: peg /e-lyte soln 4,000 mL Btl 4000 ML PO (23:30)
[2022-01-27] VITALS (7 sets, daily range): BP systolic 117–146; BP diastolic 66–74; PULSE 69–78; RESP 15–20; TEMP 36.4–36.9; O2SAT 93–99
[2022-01-27 03:41] LABS: Basophils # 0.1 10^3/uL (0.0-0.1); Basophils % 0.8 %; Eosinophils # 0.1 10^3/uL (0.0-0.8); Hematocrit 29.9 % (37.0-47.0); Hemoglobin 8.6 g/dL (11.5-15.3); Lymphocytes # 1.4 10^3/uL (0.8-4.8); Lymphocytes % 17.1 %; Mean Corpuscular HGB Conc 28.8 g/dL (30.0-36.0); Mean Corpuscular Hemoglobin 21.6 pg (28.0-34.0); Mean Corpuscular Volume 75.1 fl (81-99); Mean Platelet Volume 11.6 fL (7.4-10.4); Monocytes # 0.8 10^3/uL (0.2-0.9); Neutrophils # 5.85 10^3/uL (1.8-7.7); Neutrophils % 70.3 %; Nucleated Red Blood Cells % 0 %; Platelet Count 196 10^3/cmm (130-400); Red Blood Count 3.98 10^6/uL (4.1-5.3); Red Cell Distribution Width 17.8 % (12.1-15.1); White Blood Count 8.3 10^3/uL (4.0-10.0)
[2022-01-27 04:02] LABS: Blood Urea Nitrogen 11 mg/dL (8-23); Calcium 8.9 mg/dL (8.5-10.5); Carbon Dioxide 28 mmol/L (22-29); Chloride 102 mmol/L (98-107); Glucose 90 mg/dL (65-115); Osmolality Calculated 291 mOsm/kg (285-295); Phosphorus 2.9 mg/dL (2.5-4.5); Sodium 141 mmol/L (136-145)
[2022-01-27 04:26] LABS: Anion Gap 15.2 (5-19); Potassium 4.2 mmol/L (3.5-5.1)
[2022-01-27] MEDS: isosorbide mononitrate ER 60 mg Tablet 120 MG PO (08:12)
[2022-01-27] MEDS: montelukast sodium 10 mg Tablet PO (08:13)
[2022-01-27] MEDS: pregabalin 150 mg Capsule PO ×3 (08:13→20:21)
[2022-01-27] MEDS: metoprolol tartrate 50 mg Tablet 100 MG PO ×2 (08:13→17:01)
[2022-01-27] MEDS: acetaminophen 325 mg Tablet 650 MG PO (08:13)
[2022-01-27] MEDS: dilTIAZem 60 mg Tablet PO ×3 (08:13→20:21)
[2022-01-27] MEDS: fluticasone nasal spray 16gm Btl 1 SPRAY INTRANASAL ×2 (08:14→17:01)
--- NOTE | 2022-01-27 10:50 | PC.CHAP ---
Pastoral Care Encounter/Spiritual Assessment Type of Contact [] Declined title examiner visit [] Patient/Family/Request visit [] Outpatient visit [] Follow-up visit [] Physician referral [] Code/Alert [VX] Routine visit [] Staff referral [] Actively dying [] Patient sleeping [] Family support [] [] Out of room [] Palliative care [] [] Receiving care in room [] Pre-surgical visit [] Trauma [] Long length of stay [] ICU visit [] Other: Relational/Emotional Strength [X] Patient feels connected with others/family/visitors/staff [] Distress [] Loneliness/isolation [] Abandonment Spirituality of Patient []X Person of Tatiana [X] Attends Sabianist of their Tatiana [X] Believes in Prayer [] Reads Bible or Adventist materials [] There are Spiritual issues to be addressed Electrical And Radio Mechanic Interventions [X] Prayer [X] Active listening [X] Non-anxious presence [X] Spiritual/emotional support [] Crisis/trauma care [] Spiritual counseling [] Bereavement support [] Provided bereavement packet [] Provided Bible/devotional materials [] Provided toy/stuffed animal, coloring book to patient or family member [] Provided Communion [] Anointing/[place] [] Salvation [X] Completed spiritual assessment [] Other: Impact on Illness or Injury [] Angry [] Fearful [] Anxious [] Often cries [] Exhaustion [] Unable to work [] Unable to attend mosque [] Unable to walk/stand [] Unable to read [] Unable to drive [] Unable to eat/drink [] Unable to sleep [] Unable to be with family [] Patient intubated [] Other: Summary Time spent with patient 15 M IN
[2022-01-27] MEDS: iron sucrose 200 MG in sodium chloride 0.9% (100 ml) 100 ML 220 MG IV (11:46)
--- NOTE | 2022-01-27 11:50 | PM.CONSULT ---
Providers/Reason For Consult Consulting Physician/Specialty*: Dr. Marty Zazueta, /General surgery Reason for Consult*: Melena Attending Physician: Bartolo Nunez MD Primary Care Provider: Nurys Dennison DO History of Present Illness History of Present Illness Raven Elizondo is a 86 year old female, who is on apixaban for A. fib, presented to the hospital with progressive respiratory difficulty and weakness. She takes 40 mg of omeprazole a day and had to take Tums in the last few days. She reports she is never had a colonoscopy. Denies any abdominal pain, nausea, emesis. She reports 2 episodes of dark bloody stool but has not had one since then. Review of Systems General: Reports: 10 or more systems reviewed and unremarkable except in HPI and below Medications/Allergies Home Medications Medication Instructions Recorded Confirmed Last Taken Type ingris neumann #1 ea 12/25/20 01/27/22 Unknown Rx ascorbic acid (vitamin C) 1,000 mg 1 g PO BID 05/23/21 01/27/22 Unknown History tablet diltiazem HCl 60 mg tablet 60 mg PO TID #270 tabs 08/26/21 01/27/22 Unknown Rx losartan 100 mg tablet 100 mg PO DAILY #90 tabs 08/26/21 01/27/22 Unknown Rx metoprolol tartrate 100 mg tablet 100 mg PO BID #180 tabs 08/26/21 01/27/22 Unknown Rx nitroglycerin 0.4 mg sublingual 0.4 mg sublingual Q5M PRN chest 08/28/21 01/27/22 Unknown Rx tablet (Nitrostat) pain #50 tabs apixaban 5 mg tablet (Eliquis) See Rx Instructions .Route 09/13/21 01/27/22 Unknown Rx .COMPLEX #60 tabs montelukast 10 mg tablet See Rx Instructions .Route 09/13/21 01/27/22 Unknown Rx .COMPLEX #90 tabs Orthopedic Shoes #1 ea 10/16/21 01/27/22 Unknown Rx ezetimibe 10 mg tablet See Rx Instructions .Route 10/18/21 01/27/22 Unknown Rx .COMPLEX #90 tabs isosorbide mononitrate 60 mg 120 mg PO DAILY #180 tabs 11/08/21 01/27/22 Unknown Rx tablet,extended release 24 hr omeprazole 40 mg capsule,delayed 40 mg PO DAILY #90 caps 11/11/21 01/27/22 Unknown Rx release estradiol 0.5 mg tablet See Rx Instructions .Route 12/05/21 01/27/22 Unknown Rx .COMPLEX #90 tabs fluticasone propionate 50 See Rx Instructions .Route 12/06/21 01/27/22 Unknown Rx mcg/actuation nasal .COMPLEX #16 grams spray,suspension alprazolam 0.5 mg tablet 0.5 mg PO BID PRN anxiety #60 tabs 01/08/22 01/27/22 Unknown Rx pregabalin 150 mg capsule (Lyrica) 150 mg PO TID #270 caps 01/24/22 01/27/22 Unknown Rx tramadol 50 mg tablet 25 mg PO BID PRN Pain 01/27/22 01/27/22 Unknown History Allergies Allergy/AdvReac Type Severity Reaction Status Date / Time atorvastatin [From Lipitor] Allergy Unknown Verified 12/23/21 13:39 codeine Allergy Unknown Verified 12/23/21 13:39 morphine Allergy Unknown Verified 12/23/21 13:39 omega-3 acid ethyl esters Allergy Unknown Verified 12/23/21 13:39 [From Lovaza] Penicillins Allergy Unknown Verified 12/23/21 13:39 Current Medications Generic Name Dose Route Start Last Admin Trade Name Freq PRN Reason Stop Dose Admin Acetaminophen 650 mg 01/26/22 15:32 01/27/22 08:13 Acetaminophen 325 Mg Tablet PO 650 mg Q6H PRN Administration Mild/Mod Pain Or Temp >/= 101 Alprazolam 0.5 mg 01/26/22 15:32 01/26/22 20:51 Alprazolam 0.5 Mg Tablet PO 0.5 mg BID PRN Administration anxiety Diltiazem HCl 60 mg 01/26/22 15:32 01/27/22 08:13 Diltiazem 60 Mg Tablet PO 60 mg TID OKSANA Administration Fluticasone Propionate 1 spray 01/26/22 15:32 01/27/22 08:14 Fluticasone Nasal [place] 16gm Btl INTRANASAL 1 spray BID OKSANA Administration Iron Sucrose 200 mg/ Sodium 110 mls @ 220 mls/hr 01/27/22 11:00 01/27/22 11:46 Chloride IV 01/31/22 11:29 220 mls/hr Q24H OKSANA Administration Isosorbide Mononitrate 120 mg 01/27/22 09:00 01/27/22 08:12 Isosorbide Mononitrate Er 60 Mg Tablet PO 120 mg DAILY OKSANA Administration Metoprolol Tartrate 100 mg 01/26/22 18:00 01/27/22 08:13 Metoprolol Tartrate 50 Mg Tablet PO 100 mg BID OKSANA Administration Montelukast Sodium 10 mg 01/27/22 09:00 01/27/22 08:13 Montelukast Sodium 10 Mg Tablet PO 10 mg DAILY OKSANA Administration Ondansetron HCl 4 mg 01/26/22 15:32 01/26/22 17:52 Ondansetron 2 Mg/Ml Sdv 2 Ml IVP 4 mg Q8H PRN Administration vomiting, or N/V if npo Pregabalin 150 mg 01/26/22 15:32 01/27/22 08:13 Pregabalin 150 Mg Capsule PO 150 mg TID OKSANA Administration PFSH Acute PFSH: Medical History Allergic rhinitis ASHD (arteriosclerotic heart disease) Atrial flutter with rapid ventricular response AV heart block Benign essential HTN Central sleep apnea Cervical disc disorder with myelopathy of mid-cervical region Dyslipidemia Fibromyalgia KHUSHI (generalized anxiety disorder) Intervertebral disc disorder with radiculopathy of lumbar region Joint instability Lumbar stenosis with neurogenic claudication Menopausal syndrome (hot flashes) Nocturnal hypoxia Polyneuropathy Polyneuropathy, peripheral sensorimotor axonal Recurrent UTI Spinal stenosis of lumbar region with radiculopathy Spondylolisthesis, lumbar region Urinary incontinence, mixed URTI (infection of the upper respiratory tract) Surgical History H/O knee surgery H/O lumpectomy H/O: hysterectomy Family History Grandfather Diabetes Father Stroke Heart attack CAD (coronary artery disease) Mother Cancer Denies family history of Clotting disorder Dementia Chronic kidney disease (CKD) Suicide Anesthesia complication Bleeding disorder Lung disease Social History Smoking and tobacco status: never smoked Alcohol intake: never Household members: none Marital status: / Current occupational status: retired History of recent travel: No Vitals/I&O/Wt Last Vital Signs Temp 98.5 F 01/27/22 11:38 Pulse 78 01/27/22 11:38 Resp 20 H 01/27/22 11:38 BP 134/74 01/27/22 11:38 Pulse Ox 97 01/27/22 11:38 O2 Del Method 01/27/22 11:38 O2 Flow Rate 2 01/26/22 15:44 01/26/22 01/27/22 01/27/22 22:59 06:59 14:59 Intake Total 450 / 450 Balance 450 / 450 Weight last 48 hrs Weight 197 lb 11.2 oz Weight 189 lb Physical Exam Narrative: General : Patient is well developed , no acute distress, oriented x3 Head : Normal cephalic, a-traumatic. Ears : Pinnae and external canal are normal. Hearing is normal. Eyes : PERRLA, Sclera and injection are normal. No conjunctival discharge. Nose : Mucous membranes are without erythema. Throat : buccal mucosa is normal, gums are without significant recession or hypertrophy. Lungs : Equal chest rise bilaterally, no use of accessory muscles, trachea is midline. Cor : Rate and rhythm are normal. Abdomen : Soft, ND, NT, no g/r/m Extremities : No edema, no cyanosis or clubbing, dorsalis pedis pulses are present bilaterally, non-tender to palpation of calves. Upper extremities are normal bilaterally. Back : non-tender to palpation, no CVA tenderness. Neuro : CN II - XII intact, Upper and lower extremities have equal and full strength Data 01/27/22 02:38 01/27/22 02:38 A&P Assessment and plan (1) GI bleed: (2) Anticoagulated: (3) Acute blood loss anemia: Plan She last took her Eliquis the night before last. She will be ready for EGD and colonoscopy tomorrow. She should finish her bowel prep and be n.p.o. after midnight. Clear liquids for now. Protonix EGD Colonoscopy The risks and benefits of the procedure, including bleeding, infection, intestinal perforation requiring surgery, missed lesion were explained to the patient. She is understanding of the risks and wishes to proceed. 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
--- NOTE | 2022-01-27 13:36 | CT_ITS ---
WS: [id number] CT ABDOMEN PELVIS TECHNIQUE: Noncontrast CT of the abdomen and pelvis with coronal and sagittal reformatted images. CLINICAL INFORMATION: RLQ pain COMPARISON: CT abdomen pelvis June 19, 2009 DLP: 811.[address] scans at [facility] use at least one of these dose optimization techniques: automated e xposure control; mA and/or kV adjustment per patient size (includes targeted exams where dose is matc hed to clinical indication); or iterative reconstruction. FINDINGS: Prior hysterectomy. Subsegmental atelectasis in the lung bases LEFT greater than RIGHT. Normal append ix in the RIGHT lower quadrant. No evidence of acute appendicitis. Sigmoid diverticulosis. No evidence of acute diverticulitis. No evidence of high-grade small or large bowel obstruction. Cardiomegaly. Noncontrast liver and spleen appear normal. Hepatic granulomas. Splenic granulomas. Nor mal GE junction. Adrenal glands are normal. No hydronephrosis in either kidney. Fatty atrophy of the pancreas. Splenic artery calcification. Small fat-containing umbilical hernia. Partially visualized dorsal spinal cath eter. Advanced spondylitic changes lumbar spine. Slight anterolisthesis L4 on L5. CT/CT abdomen pelvis con [id number] IMPRESSION: No acute abdominal or pelvic findings.
[2022-01-27 15:46] LABS: Add Urine Microscopic? YES; Bilirubin Urine Neg (Negative); Blood Urine 2+ (Negative); Glucose Urine UA Norm (Normal); Ketones Urine Negative (Negative); Leukocyte Esterase Urine 2+ (Negative); Nitrate Urine Negative (Negative); Protein Urine 1+ (Negative); Urine Appearance Cloudy (CLEAR); Urine Color Yellow (Yellow); Urobilinogen Urine Norm (Negative); pH Urine 6 (5-7)
[2022-01-27 15:47] LABS: Bacteria Urine 4+ /hpf; WBC Urine TOO NUMEROUS TO CNT /hpf (0-5)
[2022-01-27 15:48] LABS: Add Urine Culture? Yes
--- NOTE | 2022-01-27 15:58 | P.PN_ITS ---
Subjective Subjective: Patient was seen this morning she denies any bloody or black stools, no lightheadedness, dizziness, she denies any history of colonoscopy, she denies history of colon cancer, she tells me that she has a lot of back pain but she has been using Tylenol she was on narcotics at one point but has not f ollowed up with her pain doctor, she also does complain of some lower abdominal pain, right lower and left lower quadrant abdominal pain, no flank pain, she does have chronic back pain she tells me that she has a spinal stimulator in place, and she fell and knocked it out of place she takes, she followed up with her pain management doctor almost a year ago and they said that there is nothing much that they can do Vitals/I&O/Wt Last Vital Signs Temp 98.5 F 01/27/22 11:38 Pulse 78 01/27/22 11:38 Resp 20 H 01/27/22 11:38 BP 134/74 01/27/22 11:38 Pulse Ox 97 01/27/22 11:38 O2 Del Method 01/27/22 11:38 O2 Flow Rate 2 01/27/22 08:00 01/27/22 01/27/22 01/27/22 06:59 14:59 22:59 Intake Total 590 / 590 Balance 590 / 590 Weight last 48 hrs Weight 89.675 kg Weight 85.729 kg Physical Exam Const: COMMON NORMALS: no acute distress and patient oriented x3 Resp: COMMON NORMALS: normal respiratory effort, No retractions, No use of accessory muscles and clear to auscultation bilaterally AUSCULTATION: clear to auscultation bilaterally Cardio: COMMON NORMALS: regular rate, regular rhythm, S1 normal heart sound present and S2 normal heart sound present RATE: regular rate RHYTHM: regular rhythm HEART SOUNDS: S1 normal heart sound present and S2 normal heart sound present GI: COMMON NORMALS: Normal to inspection, nondistended, normoactive bowel sounds present PALPATION: Yes Tenderness to palpation present (GI) Details: LLQ and RLQ Extremity: COMMON NORMALS: no pedal edema Neuro: COMMON NORMALS: patient oriented x3 Psych: COMMON NORMALS: mental status grossly normal Data 01/27/22 02:38 01/27/22 02:38 A&P Assessment and plan (1) Symptomatic anemia: With reported melena concerning for GI bleed Status post 1 unit PRBC Trend hemoglobin Iron studies evidence of iron deficiency anemia, start IV Venofer here Telemetry Continue Protonix, Carafate N.p.o. midnight for EGD colonoscopy tomorrow General surgery consult Hold apixaban She did have complaints of right and left lower quadrant pain, on examination she has tenderness in the right and left lower quadrant we will do abdominal CT (2) ASHD (arteriosclerotic heart disease): With associated atypical chest pain Elevated troponin consistent with acute myocardial injury Elevated BNP Transthoracic echocardiogram ordered Telemetry Likely some component of supply demand ischemia from anemia as above Consider cardiology consultation, she follows with Dr Murcia (3) Heart palpitations: Patient endorses longstanding history of palpitations and arrhythmias Continuous telemetry monitoring (4) Chest pain: As above (5) Hypomagnesemia: Replace magnesium (6) GERD (gastroesophageal reflux disease): PPI as above Qualifiers: Esophagitis presence: without esophagitis Qualified Code(s): K21.9 - Gastro-esophageal reflux disease without esophagitis (7) Atrial flutter with rapid ventricular response: Continue home metoprolol Continue home diltiazem Holding apixaban due to concern for GI bleed (8) Benign essential HTN: Continue metoprolol Hold losartan for now (9) Allergic rhinitis: Qualifiers: Allergic rhinitis trigger: other Allergic rhinitis seasonality: non- seasonal Qualified Code(s): J30.89 - Other allergic rhinitis (10) Iron deficiency anemia: (11) UTI (urinary tract infection): Start Rocephin Plan Plan for today start Rocephin for UTI, monitor hemoglobin, start IV Venofer here, n.p.o. 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
[2022-01-27] MEDS: cefTRIAXone 1,000 MG in sodium chloride 0.9% (plus) 50 ML 100 MG IV (17:01)
[2022-01-27] MEDS: sucralfate 1 gm Tablet PO (17:01)
[2022-01-27] MEDS: pantoprazole 40 mg SDV IVP (17:02)
[2022-01-28] VITALS (11 sets, daily range): BP systolic 101–136; BP diastolic 61–76; PULSE 63–74; RESP 16–18; TEMP 36.1–36.9; O2SAT 90–98
[2022-01-28 02:47] LABS: Basophils # 0.1 10^3/uL (0.0-0.1); Basophils % 1.1 %; Eosinophils # 0.2 10^3/uL (0.0-0.8); Eosinophils % 2.7 %; Hematocrit 27.1 % (37.0-47.0); Hemoglobin 7.6 g/dL (11.5-15.3); Lymphocytes # 1.3 10^3/uL (0.8-4.8); Lymphocytes % 17.2 %; Mean Corpuscular Hemoglobin 21.6 pg (28.0-34.0); Mean Platelet Volume 11.3 fL (7.4-10.4); Monocytes # 0.8 10^3/uL (0.2-0.9); Monocytes % 10.5 %; Neutrophils # 4.97 10^3/uL (1.8-7.7); Neutrophils % 67.8 %; Nucleated Red Blood Cells % 0.3 %; Platelet Count 198 10^3/cmm (130-400); Red Blood Count 3.52 10^6/uL (4.1-5.3); Red Cell Distribution Width 18.2 % (12.1-15.1); White Blood Count 7.3 10^3/uL (4.0-10.0)
[2022-01-28] MEDS: pantoprazole 40 mg SDV IVP ×2 (02:58→15:38)
[2022-01-28 03:15] LABS: Alanine Aminotransferase < 5 U/L (0-33); Albumin Level 3.5 g/dL (3.5-5.2); Alkaline Phosphatase 69 U/L (35-105); Anion Gap 12.5 (5-19); Aspartate Amino Transferase 14 U/L (0-32); Blood Urea Nitrogen 7 mg/dL (8-23); C Reactive Protein 15.9 mg/L (0.0-4.9); Calcium 7.8 mg/dL (8.5-10.5); Carbon Dioxide 30 mmol/L (22-29); Chloride 102 mmol/L (98-107); Globulin 2.3 g/dL (1.3-4.6); Glucose 89 mg/dL (65-115); Magnesium 1.9 mg/dL (1.7-2.3); Osmolality Calculated 289 mOsm/kg (285-295); Phosphorus 2.7 mg/dL (2.5-4.5); Potassium 3.5 mmol/L (3.5-5.1); Sodium 141 mmol/L (136-145); Total Bilirubin 0.2 mg/dL (0.15-1.2); Total Protein 5.8 g/dL (6.6-8.7)
[2022-01-28 03:24] LABS: NT Pro B Type Natriuretic Pept 1221 pg/mL (0-450)
--- NOTE | 2022-01-28 04:08 | PC.NURSE ---
Preop check list gone over with patient. Patient stated no past surgeries, no reaction to anesthesia, and no reaction to blood transfusions in past. Patient's IV patent. Patient name band, allergy band, and fall risk band on. Patient stated that she would remove dentures and rings prior to procedure this morning. Patient has dentures and gold rings on at this time and was educated to remove them prior to procedure.
--- NOTE | 2022-01-28 06:02 | PC.NURSE ---
Carafate held per Dr Echols's instructions due to patient being NPO.
[2022-01-28] MEDS: isosorbide mononitrate ER 60 mg Tablet 120 MG PO (08:54)
[2022-01-28] MEDS: dilTIAZem 60 mg Tablet PO ×3 (08:54→20:10)
[2022-01-28] MEDS: pregabalin 150 mg Capsule PO ×3 (08:55→20:10)
[2022-01-28] MEDS: montelukast sodium 10 mg Tablet PO (08:55)
[2022-01-28] MEDS: metoprolol tartrate 50 mg Tablet 100 MG PO ×2 (08:55→17:40)
[2022-01-28] MEDS: fluticasone nasal spray 16gm Btl 1 SPRAY INTRANASAL ×2 (09:00→17:40)
--- NOTE | 2022-01-28 11:45 | P.ANESASSM_ITS ---
Pre-Anesthetic Assessment Height/Weight: Height 1.63 m Weight 89.312 kg Temp Pulse Resp BP Pulse Ox O2 Del Method O2 Flow Rate 97.0 F L 68 18 101/62 98 2 01/28/22 11:38 01/28/22 11:38 01/28/22 11:38 01/28/22 11:38 01/28/22 11:38 01/28/22 11:38 01/28/22 11:38 Operation Date: 01/28/22 12:00 Proposed Procedures p EGD(Not Applicable) - Marty Zazueta DO s Colonoscopy(Not Applicable) - Marty Zazueta DO Familial anesthetic complications: none Was Beta Dao taken within 24 hours: Yes Was Clonidine taken within 24 hours: N/A Last intake: Intake Last Liquid Date 01/27/22 Last Liquid Time 23:59 Last Solid Date 01/27/22 Last Solid Time 23:59 Social No alcohol and No tobacco Exam alert, oriented x 3, clear to auscultation bilaterally and regular rate & rhythm Airway Mallampati: Class II Dentition: false CV/HEM Anemia, Arrythmia, Coronary Artery Disease and Hypertension GI Gastroesophageal Reflux Disease [facility] Osteoarthritis/DJD Neuropsych Anxiety and Neuropathy Anesthetic Plan ASA status: 3 Anesthesia: MAC Risk of > 500 ml blood loss (7ml/kg in children): No Medications/Allergies Home Medications Medication Instructions Recorded Confirmed Last Taken Type rolling walker #1 ea 12/25/20 01/27/22 Unknown Rx ascorbic acid (vitamin C) 1,000 mg 1 g PO BID 05/23/21 01/27/22 Unknown History tablet diltiazem HCl 60 mg tablet 60 mg PO TID #270 tabs 08/26/21 01/27/22 Unknown Rx losartan 100 mg tablet 100 mg PO DAILY #90 tabs 08/26/21 01/27/22 Unknown Rx metoprolol tartrate 100 mg tablet 100 mg PO BID #180 tabs 08/26/21 01/27/22 Unknown Rx nitroglycerin 0.4 mg sublingual 0.4 mg sublingual Q5M PRN chest 08/28/2101/16 Unknown Rx tablet (Nitrostat) pain #50 tabs apixaban 5 mg tablet (Eliquis) See Rx Instructions .Route 09/13/21 01/27/22 Unknown Rx .COMPLEX #60 tabs montelukast 10 mg tablet See Rx Instructions .Route 09/13/21 01/27/22 Unknown Rx .COMPLEX #90 tabs Orthopedic Shoes #1 ea 10/16/21 01/27/22 Unknown Rx ezetimibe 10 mg tablet See Rx Instructions .Route 10/18/21 01/27/22 Unknown Rx .COMPLEX #90 tabs isosorbide mononitrate 60 mg 120 mg PO DAILY #180 tabs 11/08/21 01/27/22 Unknown Rx tablet,extended release 24 hr omeprazole 40 mg capsule,delayed 40 mg PO DAILY #90 caps 11/11/21 01/27/22 Unknown Rx release estradiol 0.5 mg tablet See Rx Instructions .Route 12/05/21 01/27/22 Unknown Rx .COMPLEX #90 tabs fluticasone propionate 50 See Rx Instructions .Route 12/06/21 01/27/22 Unknown Rx mcg/actuation nasal .COMPLEX #16 grams spray,suspension alprazolam 0.5 mg tablet 0.5 mg PO BID PRN anxiety #60 tabs 01/08/22 01/27/22 Unknown Rx pregabalin 150 mg capsule (Lyrica) 150 mg PO TID #270 caps 01/24/22 01/27/22 Unknown Rx tramadol 50 mg tablet 25 mg PO BID PRN Pain 01/27/22 01/27/22 Unknown History Allergies Allergy/AdvReac Type Severity Reaction Status Date / Time atorvastatin [From Lipitor] Allergy Unknown Verified 12/23/21 13:39 codeine Allergy Unknown Verified 12/23/21 13:39 morphine Allergy Unknown Verified 12/23/21 13:39 omega-3 acid ethyl esters Allergy Unknown Verified 12/23/21 13:39 [From Lovaza] Penicillins Allergy Unknown Verified 12/23/21 13:39 Current Medications Generic Name Dose Route Start Last Admin Trade Name Freq PRN Reason Stop Dose Admin Acetaminophen 650 mg 01/26/22 15:32 01/27/22 08:13 Acetaminophen 325 Mg Tablet PO 650 mg Q6H PRN Administration Mild/Mod Pain Or Temp >/= 101 Alprazolam 0.5 mg 01/26/22 15:32 01/26/22 20:51 Alprazolam 0.5 Mg Tablet PO 0.5 mg BID PRN Administration anxiety Diltiazem HCl 60 mg 01/26/22 15:32 01/28/22 08:54 Diltiazem 60 Mg Tablet PO 60 mg TID OKSANA Administration Fluticasone Propionate 1 spray 01/26/22 15:32 01/28/22 09:00 Fluticasone Nasal [place] 16gm Btl INTRANASAL 1 spray BID OKSANA Administration Iron Sucrose 200 mg/ Sodium 110 mls @ 220 mls/hr 01/27/22 11:00 01/27/22 13:16 Chloride IV Infused Q24H OKSANA Infusion Ceftriaxone Sodium 1,000 mg/ 50 mls @ 100 mls/hr 01/27/22 16:00 01/27/22 18:01 Sodium Chloride IV Infused Q24H OKSANA Infusion Protocol Sodium Chloride 1,000 mls @ 30 mls/hr 01/28/22 12:00 01/28/22 12:00 Sodium Chloride 0.9% IV 01/29/22 11:59 30 mls/hr .Q24H OKSANA Administration Isosorbide Mononitrate 120 mg 01/27/22 09:00 01/28/22 08:54 Isosorbide Mononitrate Er 60 Mg Tablet PO 120 mg DAILY OKSANA Administration Metoprolol Tartrate 100 mg 01/26/22 18:00 01/28/22 08:55 Metoprolol Tartrate 50 Mg Tablet PO 100 mg BID OKSANA Administration Montelukast Sodium 10 mg 01/27/22 09:00 01/28/22 08:55 Montelukast Sodium 10 Mg Tablet PO 10 mg DAILY OKSANA Administration Ondansetron HCl 4 mg 01/26/22 15:32 01/26/22 17:52 Ondansetron 2 Mg/Ml Sdv 2 Ml IVP 4 mg Q8H PRN Administration vomiting, or N/V if npo Pantoprazole Sodium 40 mg 01/27/22 12:00 01/28/22 02:58 Pantoprazole 40 Mg Sdv IVP 40 mg Q12H OKSANA Administration Pregabalin 150 mg 01/26/22 15:32 01/28/22 08:55 Pregabalin 150 Mg Capsule PO 150 mg TID OKSANA Administration Sucralfate 1 gm 01/27/22 17:00 01/28/22 06:02 Sucralfate 1 Gm Tablet PO Not Given [facility] PFSH Anesthesia Medical History Allergic rhinitis ASHD (arteriosclerotic heart disease) Atrial flutter with rapid ventricular response AV heart block Benign essential HTN Central sleep apnea Cervical disc disorder with myelopathy of mid-cervical region Dyslipidemia Fibromyalgia KHUSHI (generalized anxiety disorder) Intervertebral disc disorder with radiculopathy of lumbar region Joint instability Lumbar stenosis with neurogenic claudication Menopausal syndrome (hot flashes) Nocturnal hypoxia Polyneuropathy Polyneuropathy, peripheral sensorimotor axonal Recurrent UTI Spinal stenosis of lumbar region with radiculopathy Spondylolisthesis, lumbar region Urinary incontinence, mixed URTI (infection of the upper respiratory tract) Surgical History H/O knee surgery H/O lumpectomy H/O: hysterectomy Family History Grandfather Diabetes Father Stroke Heart attack CAD (coronary artery disease) Mother Cancer Denies family history of Clotting disorder Dementia Chronic kidney disease (CKD) Suicide Anesthesia complication Bleeding disorder Lung disease Social History Smoking and tobacco status: never smoked Alcohol intake: never Household members: none Marital status: / Current occupational status: retired History of recent travel: No Data Anesthesia 01/28/22 02:18 01/28/22 02:18 Short CBC 01/26/22 01/27/22 01/28/22 Range/Units 17:10 02:38 02:18 WBC 8.3 7.3 (4.0-10.0) 10^3/uL Hgb 8.5 L 8.6 L 7.6 L (11.5-15.3) g/dL Hct 31.1 L 29.9 L 27.1 L (37.0-47.0) % MCV 75.1 L 77.0 L (81-99) fl Plt Count 196 198 (130-400) 10^3/cmm Neut % (Auto) 70.3 67.8 % Neut # (Auto) 5.85 4.97 (1.8-7.7) 10^3/uL BMP 01/27/22 01/28/22 02:38 02:18 Sodium 141 141 Potassium 4.2 3.5 Chloride 102 102 Carbon Dioxide 28 30 H BUN 11 7 L Creatinine 0.6 0.8 Glucose 90 89 Calcium 8.9 7.8 L Cardiac Enzymes 01/26/22 01/28/22 Range/Units 12:49 02:18 Troponin T Hi Sens 6Hr 22.95 H (0-10) ng/L Troponin T Hi Sens 6Hr Delta -6.05 L (0-12) ng/L NT-Pro-B Natriuret Pep 1221 H (0-450) pg/mL Liver Function 01/28/22 Range/Units 02:18 Total Bilirubin 0.2 (0.15-1.2) mg/dL AST 14 (0-32) U/L ALT < 5 (0-33) U/L Alkaline Phosphatase 69 (35-105) U/L Albumin 3.5 (3.5-5.2) g/dL Urine 01/27/22 Range/Units 15:04 Urine Color Yellow (Yellow) Urine Appearance Cloudy A (CLEAR) Urine pH 6 (5-7) Ur Specific [place] 1.020 (1.005-1.030) Urine Protein 1+ H (Negative) Urine Glucose (UA) Norm (Normal) Urine Ketones Negative (Negative) Urine Nitrate Negative (Negative) Urine Bilirubin Neg (Negative) Ur Leukocyte Esterase 2+ H (Negative) Urine RBC 5-10 H (0-2) /hpf Urine WBC Too numerous to cnt H (0-5) /hpf Blood Bank 01/26/22 12:05 Blood Type A Positive Rho(D) Type Positive Antibody Screen Negative Coags 01/28/22 02:18 C-Reactive Protein 15.9 H Microbiology 01/27/22 15:04 Urine Culture - Preliminary Urine,Clean Catch Gram Negative Rods Cardiac Studies: 2 Echocardiogram 01/26/22
[2022-01-28] MEDS: sodium chloride 0.9% 1,000 ML 30 ML IV (12:00)
--- NOTE | 2022-01-28 12:02 | W.PM.OPSUD ---
Surgery/Procedure H&P Update DATE OF PROCEDURE: January 28, 2022 DATE H&P PERFORMED: 01/27/22 PLANNED PROCEDURE: Operation Date: 01/28/22 12:00 Proposed Procedures p EGD(Not Applicable) - DO orestes Wood Colonoscopy(Not Applicable) - Marty Zazueta DO
--- NOTE | 2022-01-28 12:55 | ANE.PACU2 ---
Inpatient post-anesthesia follow up: Airway intact: Yes Vital signs: Temperature 97.0 F Pulse Rate 68 Respiratory Rate 18 Blood Pressure 101/62 Pulse Oximetry 98 Oxygen Delivery Me thod [ Room Air Current Rate & Del miguel] Oxygen Delivery Me thod Nasal Cannula Oxygen Flow Rate [ Current Rate 2 & Delivery] Oxygen Flow Rate 2 Fraction of Inspir ed Oxygen Hydration adequate: Yes Nausea and vomiting: No Pain level: 1 Mental status: Baseline
--- NOTE | 2022-01-28 13:30 | ANE.PACU2 ---
Inpatient post-anesthesia follow up: Airway intact: Yes Vital signs: Temperature 97.0 F Pulse Rate 66 Respiratory Rate 18 Blood Pressure 134/76 Pulse Oximetry 97 Oxygen Delivery Me thod [ Room Air Current Rate & Del miguel] Oxygen Delivery Me thod Nasal Cannula Oxygen Flow Rate [ Current Rate 2 & Delivery] Oxygen Flow Rate 3 Fraction of Inspir ed Oxygen Hydration adequate: Yes Nausea and vomiting: No Pain level: 1 Mental status: Baseline
--- NOTE | 2022-01-28 15:13 | PM.PN ---
Subjective Subjective: Patient was seen this morning, patient has no complaint, no bloody or black stools, she is awaiting her EGD and colonoscopy Vitals/I&O/Wt Last Vital Signs Temp 98.2 F 01/28/22 15:09 Pulse 71 01/28/22 15:09 Resp 16 01/28/22 15:09 BP 133/76 01/28/22 15:09 Pulse Ox 93 01/28/22 15:09 O2 Del Method 01/28/22 13:30 O2 Flow Rate 3 01/28/22 13:05 01/28/22 01/28/22 01/28/22 06:59 14:59 22:59 Intake Total 0 / 1320 600 / 600 Balance 0 / 520 600 / 600 Weight last 48 hrs Weight 89.312 kg Weight 89.675 kg Weight 85.729 kg Physical Exam Const: COMMON NORMALS: no acute distress and patient oriented x3 Resp: COMMON NORMALS: normal respiratory effort, No retractions, No use of accessory muscles and clear to auscultation bilaterally AUSCULTATION: clear to auscultation bilaterally Cardio: COMMON NORMALS: regular rate, regular rhythm, S1 normal heart sound present and S2 normal heart sound present RATE: regular rate RHYTHM: regular rhythm HEART SOUNDS: S1 normal heart sound present and S2 normal heart sound present GI: COMMON NORMALS: Normal to inspection, nondistended, normoactive bowel sounds present and non-tender Extremity: COMMON NORMALS: no pedal edema Neuro: COMMON NORMALS: patient oriented x3 Psych: COMMON NORMALS: mental status grossly normal Data 01/28/22 02:18 01/28/22 02:18 Micro: Microbiology 01/27/22 15:04 Urine Culture - Preliminary Urine,Clean Catch Gram Negative Rods A&P Assessment and plan (1) Symptomatic anemia: With reported melena concerning for GI bleed Status post 1 unit PRBC EGD shows which is within upper limits Colonoscopy shows mild ascending colon, and nonobstructive large sized mass, not bleeding, ascending colon, 2 sessile polyps, mid sigmoid colon widemouth diverticula, which was not actively bleeding Iron studies evidence of iron deficiency anemia, day 2 of 5 of IV Venofer here Telemetry Continue Protonix, Carafate Patient is on Eliquis for atrial fibrillation, as no active bleeding was found on EGD, hemoglobin 7.6, no recurrent bloody or black stools, will do a trial of anticoagulation started on heparin drip no bolus, started on low rate monitor hemoglobin closely, monitor for bloody or black stools -If her hemoglobin drops or she develops bloody or black stools then we will have to indefinitely discontinue anticoagulation -If she can tolerate it then I will transition her to [facility] General surgery consult Hold apixaban (2) ASHD (arteriosclerotic heart disease): With associated atypical chest pain Elevated troponin consistent with acute myocardial injury Elevated BNP Telemetry Likely some component of supply demand ischemia from anemia as above (3) Heart palpitations: Patient endorses longstanding history of palpitations and arrhythmias Continuous telemetry monitoring (4) Chest pain: As above (5) Hypomagnesemia: Replace magnesium (6) GERD (gastroesophageal reflux disease): PPI as above Qualifiers: Esophagitis presence: without esophagitis Qualified Code(s): K21.9 - Gastro-esophageal reflux disease without esophagitis (7) Atrial flutter with rapid ventricular response: Continue home metoprolol Continue home diltiazem Holding apixaban due to concern for GI bleed (8) Benign essential HTN: Continue metoprolol Hold losartan for now (9) Allergic rhinitis: Qualifiers: Allergic rhinitis trigger: other Allergic rhinitis seasonality: non-seasonal Qualified Code(s): J30.89 - Other allergic rhinitis (10) Iron deficiency anemia: (11) UTI (urinary tract infection): Start Rocephin (12) Colonic mass: Plan Plan for today to do trial of anticoagulation continue IV Venofer monitor hemoglobin monitor for bloody or black stools potential discharge tomorrow Attestations Medical Necessity Statement*: Patient requires hospitalization for anemia, colonic mass Coding Level of Care Code 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
[2022-01-28] MEDS: iron sucrose 200 MG in sodium chloride 0.9% (100 ml) 100 ML 220 MG IV (15:18)
[2022-01-28] MEDS: cefTRIAXone 1,000 MG in sodium chloride 0.9% (plus) 50 ML 100 MG IV (15:38)
[2022-01-28] MEDS: sucralfate 1 gm Tablet PO (16:16)
[2022-01-28] MEDS: heparin drip 25,000 UNIT/500 ML PREMIX 25 UNIT IV (17:18)
[2022-01-28 17:38] LABS: Hematocrit 26.7 % (37.0-47.0); Hemoglobin 7.2 g/dL (11.5-15.3)
[2022-01-29] VITALS (11 sets, daily range): BP systolic 111–152; BP diastolic 61–78; PULSE 65–90; RESP 16–46; TEMP 36.3–36.9; O2SAT 94–100; BMI 33.6
[2022-01-29 00:35] LABS: Hematocrit 24.9 % (37.0-47.0); Hemoglobin 7.1 g/dL (11.5-15.3)
--- NOTE | 2022-01-29 00:35 | PC.NURSE ---
Patient's PTT came back at 250. Dr Echols was notified via telephone and instructed nurse to hold heparin drip for 4 hours, and decrease by 2 units after 4 hours have passed.
[2022-01-29] MEDS: ALPRAZolam 0.5 mg Tablet PO ×3 (00:56→21:47)
[2022-01-29] MEDS: pantoprazole 40 mg SDV IVP ×2 (03:07→15:41)
[2022-01-29] MEDS: sucralfate 1 gm Tablet PO ×2 (06:00→15:39)
[2022-01-29 06:32] LABS: Hemoglobin 7.3 g/dL (11.5-15.3)
[2022-01-29 07:22] LABS: NT Pro B Type Natriuretic Pept 1310 pg/mL (0-450)
[2022-01-29] MEDS: montelukast sodium 10 mg Tablet PO (08:44)
[2022-01-29] MEDS: isosorbide mononitrate ER 60 mg Tablet 120 MG PO (08:44)
[2022-01-29] MEDS: pregabalin 150 mg Capsule PO ×3 (08:44→21:47)
[2022-01-29] MEDS: metoprolol tartrate 50 mg Tablet 100 MG PO ×2 (08:44→16:59)
[2022-01-29] MEDS: dilTIAZem 60 mg Tablet PO ×3 (08:44→21:47)
[2022-01-29] MEDS: fluticasone nasal spray 16gm Btl 1 SPRAY INTRANASAL ×2 (08:45→16:58)
[2022-01-29] MEDS: acetaminophen 325 mg Tablet 650 MG PO (08:50)
[2022-01-29 10:43] LABS: INR 1.24 (0.8-1.2)
[2022-01-29] MEDS: FUROsemide 10 mg/mL SDV 4mL 40 MG IVP (11:04)
[2022-01-29] MEDS: potassium chloride ER 20 mEq Tablet 40 MEQ PO (11:04)
[2022-01-29] MEDS: sodium chloride 0.9% (100 ml) 100 ML 20 ML (11:05)
[2022-01-29 11:13] LABS: Partial Thromboplastin Time 229.9 SECONDS (23.9-36.7)
[2022-01-29 11:42] LABS: Carcinoembryonic Antigen 3.7 ng/mL (0.0-4.7)
--- NOTE | 2022-01-29 11:58 | PM.PN ---
Subjective Subjective: Patient reporting no abdominal pain today. She is not had a bowel movement since endoscopy. Vitals/I&O/Wt Last Vital Signs Temp 97.8 F 01/29/22 11:28 Pulse 66 01/29/22 11:28 Resp 18 01/29/22 11:28 BP 136/66 01/29/22 11:28 Pulse Ox 96 01/29/22 11:28 O2 Del Method 01/29/22 08:00 O2 Flow Rate 2 01/29/22 08:00 01/28/22 01/29/22 01/29/22 22:59 06:59 14:59 Intake Total 880 / 1480 480 / 1960 721.25 / 721.25 Output Total 200 / 200 Balance 880 / 1480 280 / 1760 721.25 / 721.25 Weight last 48 hrs Weight 196 lb Weight 196 lb 14.4 oz Physical Exam Narrative: General: No acute distress, awake alert and oriented x3 Abdomen: Soft, nontender, nondistended, no guarding rebound or masses Data 01/29/22 06:22 01/28/22 02:18 Micro: Microbiology 01/27/22 15:04 Urine Culture - Final Urine,Clean Catch Klebsiella pneumoniae A&P Assessment and plan (1) Colonic mass: Plan Ascending colon mass. Its unclear if this is malignant. It was not bleeding prior to biopsy. CEA ordered. Chest x-ray and CT abdomen pelvis already performed. Patient is cleared for discharge from a surgical standpoint. 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
--- NOTE | 2022-01-29 12:50 | PM.PN ---
Subjective Subjective: Patient was seen this morning, she complains of weakness, fatigue, tiredness, shortness of breath, no bloody or black stools Vitals/I&O/Wt Last Vital Signs Temp 97.8 F 01/29/22 11:28 Pulse 65 01/29/22 12:00 Resp 18 01/29/22 11:28 BP 114/70 01/29/22 12:00 Pulse Ox 98 01/29/22 12:00 O2 Del Method 01/29/22 08:00 O2 Flow Rate 2 01/29/22 08:00 01/28/22 01/29/22 01/29/22 22:59 06:59 14:59 Intake Total 880 / 1480 480 / 1960 721.25 / 721.25 Output Total 200 / 200 Balance 880 / 1480 280 / 1760 721.25 / 721.25 Weight last 48 hrs Weight 88.904 kg Weight 89.312 kg Physical Exam Const: COMMON NORMALS: no acute distress and patient oriented x3 Resp: COMMON NORMALS: normal respiratory effort, No retractions, No use of accessory muscles and clear to auscultation bilaterally AUSCULTATION: clear to auscultation bilaterally Cardio: COMMON NORMALS: regular rate, regular rhythm, S1 normal heart sound present and S2 normal heart sound present RATE: regular rate RHYTHM: regular rhythm HEART SOUNDS: S1 normal heart sound present and S2 normal heart sound present GI: COMMON NORMALS: Normal to inspection, nondistended, normoactive bowel sounds present and non-tender Extremity: COMMON NORMALS: no clubbing, cyanosis or edema and no pedal edema Neuro: COMMON NORMALS: patient oriented x3 Psych: COMMON NORMALS: mental status grossly normal Data 01/29/22 06:22 01/28/22 02:18 Micro: Microbiology 01/27/22 15:04 Urine Culture - Final Urine,Clean Catch Klebsiella pneumoniae A&P Assessment and plan (1) Symptomatic anemia: With reported melena concerning for GI bleed Status post 1 unit PRBC EGD shows which is within normal limits Colonoscopy shows mild ascending colon, and nonobstructive large sized mass, not bleeding, ascending colon, 2 sessile polyps, mid sigmoid colon widemouth diverticula, which was not actively bleeding Iron studies evidence of iron deficiency anemia, day 3 of 5 of IV Venofer here She continued to complain of weakness fatigue this morning hemoglobin 7 with a we will give her 1 more unit of PRBC Telemetry Continue Protonix, Carafate Patient is on Eliquis for atrial fibrillation, as no active bleeding was found on EGD, hemoglobin 7.3, no recurrent bloody or black stools, she tolerated heparin drip with no recurrent symptomatology, her PTT is elevated at 229, stop heparin, resume Lovenox, likely will discharge on Lovenox twice daily -If her hemoglobin drops or she develops bloody or black stools then we will have to indefinitely discontinue anticoagulation -Likely will discharge her on Lovenox as there is plans on hemicolectomy General surgery consult Hold apixaban (2) ASHD (arteriosclerotic heart disease): With associated atypical chest pain Elevated troponin consistent with acute myocardial injury Elevated BNP Telemetry Likely some component of supply demand ischemia from anemia as above (3) Heart palpitations: Patient endorses longstanding history of palpitations and arrhythmias Continuous telemetry monitoring (4) Chest pain: As above (5) Hypomagnesemia: Replace magnesium (6) GERD (gastroesophageal reflux disease): PPI as above Qualifiers: Esophagitis presence: without esophagitis Qualified Code(s): K21.9 - Gastro-esophageal reflux disease without esophagitis (7) Atrial flutter with rapid ventricular response: Continue home metoprolol Continue home diltiazem Holding apixaban due to concern for GI bleed (8) Benign essential HTN: Continue metoprolol Hold losartan for now (9) Allergic rhinitis: Qualifiers: Allergic rhinitis trigger: other Allergic rhinitis seasonality: non-seasonal Qualified Code(s): J30.89 - Other allergic rhinitis (10) Iron deficiency anemia: (11) UTI (urinary tract infection): Start Rocephin (12) Colonic mass: Plan Plan for today to switch to Lovenox continue IV Venofer will give 1 unit PRBC, PT OT, Lasix therapy Attestations Medical Necessity Statement*: Patient requires hospitalization for iron deficiency anemia, right colonic mass, persistent anemia Coding Level of Care Code 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
[2022-01-29] MEDS: cefTRIAXone 1,000 MG in sodium chloride 0.9% (plus) 50 ML 100 MG IV (15:38)
[2022-01-29] MEDS: iron sucrose 200 MG in sodium chloride 0.9% (100 ml) 100 ML 220 MG IV (15:41)
[2022-01-29] MEDS: enoxaparin 100 mg/mL Syringe 90 MG SUBCUT (17:00)
[2022-01-30] VITALS (8 sets, daily range): BP systolic 118–132; BP diastolic 59–76; PULSE 62–73; RESP 16–17; TEMP 36.4–36.7; O2SAT 95–99
[2022-01-30] MEDS: pantoprazole 40 mg SDV IVP (02:54)
[2022-01-30 04:23] LABS: Basophils # 0.1 10^3/uL (0.0-0.1); Eosinophils # 0.1 10^3/uL (0.0-0.8); Eosinophils % 1.7 %; Hematocrit 30.3 % (37.0-47.0); Hemoglobin 8.6 g/dL (11.5-15.3); Lymphocytes # 1.3 10^3/uL (0.8-4.8); Lymphocytes % 18.2 %; Mean Corpuscular HGB Conc 28.4 g/dL (30.0-36.0); Mean Platelet Volume 12.1 fL (7.4-10.4); Monocytes # 0.7 10^3/uL (0.2-0.9); Neutrophils # 4.85 10^3/uL (1.8-7.7); Neutrophils % 68.3 %; Nucleated Red Blood Cells # 0.1 /100WBC; Nucleated Red Blood Cells % 0.8 %; Platelet Count 203 10^3/cmm (130-400); Red Blood Count 3.74 10^6/uL (4.1-5.3); Red Cell Distribution Width 19.9 % (12.1-15.1); White Blood Count 7.1 10^3/uL (4.0-10.0)
[2022-01-30 05:11] LABS: NT Pro B Type Natriuretic Pept 1243 pg/mL (0-450)
[2022-01-30] MEDS: enoxaparin 100 mg/mL Syringe 90 MG SUBCUT (06:14)
[2022-01-30] MEDS: sucralfate 1 gm Tablet PO ×2 (06:14→16:55)
[2022-01-30] MEDS: metoprolol tartrate 50 mg Tablet 100 MG PO ×2 (08:26→17:14)
[2022-01-30] MEDS: fluticasone nasal spray 16gm Btl 1 SPRAY INTRANASAL (08:26)
[2022-01-30] MEDS: dilTIAZem 60 mg Tablet PO ×2 (08:26→15:13)
[2022-01-30] MEDS: pregabalin 150 mg Capsule PO ×2 (08:27→15:13)
[2022-01-30] MEDS: isosorbide mononitrate ER 60 mg Tablet 120 MG PO (08:27)
[2022-01-30] MEDS: montelukast sodium 10 mg Tablet PO (08:27)
[2022-01-30] MEDS: ALPRAZolam 0.5 mg Tablet PO (08:29)
--- NOTE | 2022-01-30 11:07 | P.DS_ITS ---
Discharge Providers Date of Admission: 01/27/22 17:32 Date of Discharge: January 30, 2022 Attending Provider at Admission: Sony Womack MD Attending Provider at Discharge: Bartolo Nunez MD Primary Care Provider: Nurys Dennison DO Diagnoses at Discharge Discharge Diagnosis (1) Symptomatic anemia: Status: Acute (2) ASHD (arteriosclerotic heart disease): Status: Acute (3) Heart palpitations: Status: Acute (4) Chest pain: Status: Acute (5) Hypomagnesemia: Status: Acute (6) GERD (gastroesophageal reflux disease): Status: Acute Qualifiers: Esophagitis presence: without esophagitis Qualified Code(s): K21.9 - Gastro-esophageal reflux disease without esophagitis (7) Atrial flutter with rapid ventricular response: Status: Acute (8) Benign essential HTN: Status: Chronic (9) Allergic rhinitis: Status: Chronic Qualifiers: Allergic rhinitis trigger: other Allergic rhinitis seasonality: non- seasonal Qualified Code(s): J30.89 - Other allergic rhinitis (10) Iron deficiency anemia: Status: Acute (11) UTI (urinary tract infection): Status: Acute (12) Colonic mass: Status: Acute Reason for Visit Reason for Visit: CHEST PAIN Hospital Course Hospital Course Raven Elizondo is a 86 year old female with a past medical history significant for atrial flutter, hypertension, sleep apnea, generalized anxiety disorder, and spinal stenosis who presents with palpitations x1 day.? Patient presented to [facility] for symptomatic anemia, iron deficiency anemia, concerning for slow GI bleed, blood work showed evidence of i jeremias deficiency anemia, she received 2 units PRBC, IV Venofer here, and clinically monitored with Protonix, Carafate. Her anticoagulation Eliquis was held. General surgery was consulted, she underwent a colonoscopy which showed nonobstructing large sized mass in the ascending colon which was not bleeding, 2 sessile polyps, which were not actively bleeding, no active source of bleeding was found on EGD or colonoscopy. However I have my suspicion that she might of been bleeding from one of her diverticula. so far pathology on ascending colon polyp showed tubulovillous adenoma no high-grade dysplasia identified. Descending colon polyp, rare fragments of diminutive adenoma, no high-grade dysplasia. She will follow-up with general surgery as outpatient for surgical intervention. Patient was monitored for over 48 hours here and [facility] on anticoagulation, hemoglobin remained stable between 7 and 8, no hemodynamic compromise, no bloody or black stools. Had a detailed discussion with patient about resuming anticoagulation for atrial fibrillation to decrease risk of stroke. Certainly this is a difficult situation, we need to weigh the risks and benefits, risks include worsening GI bleed, however if we hold anticoagulation due to risk of strokes. After discussing the risks and benefits she wishes adding, all questions answered, decision was made to resume anticoagulation. As she has done well here 48 hours of the hospitalization with anticoagulation, hemoglobin remained stable no hemodynamic compromise no blood or black stools we will resume her Eliquis. However am have her follow-up with primary care provider for recheck hemoglobin. She was advised if she were to have recurrent bloody stools or lightheadedness or dizziness or palpitations to go to the emergency room. If patient becomes further anemic or develops a recurrent bleed her anticoagulation might be required to be discontinued permanently, as she might require referral for capsule endoscopy. I will need to have her follow-up with general surgery, follow-up with a primary care provider. In addition to her iron deficiency anemia she received 4 treatments of IV Venofer here, discharged on p.o. iron follow-up with hematology as outpatient Physical Exam Const: COMMON NORMALS: no acute distress and patient oriented x3 Resp: COMMON NORMALS: normal respiratory effort, No retractions, No use of accessory muscles and clear to auscultation bilaterally AUSCULTATION: clear to auscultation bilaterally Cardio: COMMON NORMALS: regular rate, regular rhythm, S1 normal heart sound present and S2 normal heart sound present RATE: regular rate RHYTHM: regular rhythm HEART SOUNDS: S1 normal heart sound present and S2 normal heart sound present GI: COMMON NORMALS: Normal to inspection, nondistended, normoactive bowel so unds present and non-tender Extremity: COMMON NORMALS: no pedal edema Neuro: COMMON NORMALS: patient oriented x3 Psych: COMMON NORMALS: mental status grossly normal Discharge Data Studies Completed and Pending Completed Studies During Hospitalization Category Date Time Status CT abdomen pelvis wo con [id number] Routine Cat Scan 01/27/22 13:36 Completed XR chest 1V portable [id number] Stat Exams 01/26/22 07:25 Completed Pathology: Surgical [PTH] Routine Pth 01/28/22 12:53 Completed US echo complete [CV. echo complete* [id number]] Stat Ultrasound 01/26/22 12:48 Completed Pending at discharge Category Date Time Status Complete Blood Count w/Auto AM LABS Lab 01/31/22 04:00 Ordered Complete Blood Count w/Auto AM LABS Lab 02/01/22 04:00 Ordered Radiology Impressions Chest X-Ray 01/26/22 07:25 IMPRESSION: 1. No confluent infiltrates in the lungs. 2. Mild prominence of the cardiac silhouette on this chest radiograph. Abdomen/Pelvis CT 01/27/22 13:36 IMPRESSION: No acute abdominal or pelvic findings. Laboratory Results WBC 7.1 10^3/uL (4.0-10.0) 01/30/22 03:46 RBC 3.74 10^6/uL (4.1-5.3) L 01/30/22 03:46 Hgb 8.6 g/dL (11.5-15.3) L 01/30/22 03:46 Hct 30.3 % (37.0-47.0) L 01/30/22 03:46 MCV 81.0 fl (81-99) 01/30/22 03:46 MCH 23.0 pg (28.0-34.0) L 01/30/22 03:46 MCHC 28.4 g/dL (30.0-36.0) L 01/30/22 03:46 RDW 19.9 % (12.1-15.1) H 01/30/22 03:46 Plt Count 203 10^3/cmm (130-400) 01/30/22 03:46 MPV 12.1 fL (7.4-10.4) H 01/30/22 03:46 Neut % (Auto) 68.3 % 01/30/22 03:46 Lymph % (Auto) 18.2 % 01/30/22 03:46 [place] % (Auto) 10.0 % 01/30/22 03:46 Eos % (Auto) 1.7 % 01/30/22 03:46 Baso % (Auto) 1.0 % 01/30/22 03:46 Neut # (Auto) 4.85 10^3/uL (1.8-7.7) 01/30/22 03:46 Lymph # (Auto) 1.3 10^3/uL (0.8-4.8) 01/30/22 03:46 [place] # (Auto) 0.7 10^3/uL (0.2-0.9) 01/30/22 03:46 Eos # (Auto) 0.1 10^3/uL (0.0-0.8) 01/30/22 03:46 Baso # (Auto) 0.1 10^3/uL (0.0-0.1) 01/30/22 03:46 Nucleated RBC % (auto) 0.8 % 01/30/22 03:46 Nucleated RBCs # 0.1 /100WBC 01/30/22 03:46 PT 16.00 SECONDS (12.1-14.9) H 01/29/22 10:11 INR 1.24 (0.8-1.2) H 01/29/22 10:11 APTT 45.0 SECONDS (23.9-36.7) H D 01/29/22 15:05 Sodium 141 mmol/L (136-145) 01/28/22 02:18 Potassium 3.5 mmol/L (3.5-5.1) 01/28/22 02:18 Chloride 102 mmol/L (98-107) 01/28/22 02:18 Carbon Dioxide 30 mmol/L (22-29) H 01/28/22 02:18 Anion Gap 12.5 (5-19) 01/28/22 02:18 BUN 7 mg/dL (8-23) L 01/28/22 02:18 Creatinine 0.8 mg/dL (0.5-0.9) 01/28/22 02:18 GFR Calculation Not Reportable 01/28/22 02:18 Glucose 89 mg/dL (65-115) 01/28/22 02:18 Calculated Osmolality 289 mOsm/kg (285-295) 01/28/22 02:18 Calcium 7.8 mg/dL (8.5-10.5) L 01/28/22 02:18 Phosphorus 2.7 mg/dL (2.5-4.5) 01/28/22 02:18 Magnesium 1.9 mg/dL (1.7-2.3) 01/28/22 02:18 Iron 9 ug/dL (37-145) L 01/26/22 12:49 TIBC 373 mcg/dl 01/26/22 12:49 % Saturation 2.4 % (20-50) L 01/26/22 12:49 Unsat Iron Binding 364 ug/dL (112-347) H 01/26/22 12:49 Ferritin 15 ng/mL (15-150) 01/26/22 12:49 Total Bilirubin 0.2 mg/dL (0.15-1.2) 01/28/22 02:18 AST 14 U/L (0-32) 01/28/22 02:18 ALT < 5 U/L (0-33) 01/28/22 02:18 Alkaline Phosphatase 69 U/L (35-105) 01/28/22 02:18 Troponin T Baseline 29 ng/L (0-10) H 01/26/22 07:00 Troponin T 120 Minute 23.29 ng/L (0-10) H 01/26/22 08:52 Delta Troponin T -5.71 ABS# (0-10) L 01/26/22 08:52 Troponin T Hi Sens 6Hr 22.95 ng/L (0-10) H 01/26/22 12:49 Troponin T Hi Sens 6Hr Delta -6.05 ng/L (0-12) L 01/26/22 12:49 C-Reactive Protein 15.9 mg/L (0.0-4.9) H 01/28/22 02:18 NT-Pro-B Natriuret Pep 1243 pg/mL (0-450) H 01/30/22 03:46 Total Protein 5.8 g/dL (6.6-8.7) L 01/28/22 02:18 Albumin 3.5 g/dL (3.5-5.2) 01/28/22 02:18 Globulin 2.3 g/dL (1.3-4.6) 01/28/22 02:18 Carcinoembryonic Ag 3.7 ng/mL (0.0-4.7) 01/29/22 06:22 TSH 2.23 uIU/mL (0.27-4.20) 01/26/22 07:00 Urine Color Yellow (Yellow) 01/27/22 15:04 Urine Appearance Cloudy (CLEAR) A 01/27/22 15:04 Urine pH 6 (5-7) 01/27/22 15:04 Ur Specific [place] 1.020 (1.005-1.030) 01/27/22 15:04 Urine Protein 1+ (Negative) H 01/27/22 15:04 Urine Glucose (UA) Norm (Normal) 01/27/22 15:04 Urine Ketones Negative (Negative) 01/27/22 15:04 Urine Blood 2+ (Negative) H 01/27/22 15:04 Urine Nitrate Negative (Negative) 01/27/22 15:04 Urine Bilirubin Neg (Negative) 01/27/22 15:04 Urine Urobilinogen Norm mg/dL (Negative) 01/27/22 15:04 Ur Leukocyte Esterase 2+ (Negative) H 01/27/22 15:04 Urine RBC 5-10 /hpf (0-2) H 01/27/22 15:04 Urine WBC Too numerous to cnt /hpf (0-5) H 01/27/22 15:04 Ur Squamous Epith Cells None /hpf (0-5) 01/27/22 15:04 Amorphous Sediment Not Reportable 01/27/22 15:04 Urine Bacteria 4+ /hpf (NONE) H 01/27/22 15:04 Influenza Type A Ag negative (Negative) 01/26/22 14:00 Influenza Type B Ag negative (Negative) 01/26/22 14:00 Blood Type A Positive 01/26/22 12:05 Rho(D) Type Positive 01/26/22 12:05 Antibody Screen Negative 01/26/22 12:05 Crossmatch See Detail 01/26/22 12:05 Vitals Last Vital Signs Temp 97.8 F 01/30/22 07:56 Pulse 64 01/30/22 08:00 Resp 16 01/30/22 07:56 BP 131/59 01/30/22 07:56 Pulse Ox 95 01/30/22 08:00 O2 Del Method 01/30/22 08:00 O2 Flow Rate 2 01/30/22 08:00 Discharge Plan Discharge Patient Disposition: Home Health Service Condition: Stable Prescriptions: New ferrous sulfate 324 mg (65 mg iron) tablet,delayed release (DR/EC) 324 mg PO BID 30 Days Qty: 60 0RF cefdinir 300 mg capsule 300 mg PO BID 5 Days Qty: 10 0RF pantoprazole [Protonix] 40 mg tablet,delayed release (DR/EC) 40 mg PO BID 30 Days Qty: 60 0RF Continued ascorbic acid (vitamin C) 1,000 mg tablet 1 g PO BID (DME) rolling walker See Rx Instructions .Route .MEDSUPPLY Qty: 1 0RF Rx Instructions: As directed diltiazem HCl 60 mg tablet 60 mg PO TID Qty: 270 3RF metoprolol tartrate 100 mg tablet 100 mg PO BID Qty: 180 3RF nitroglycerin [Nitrostat] 0.4 mg tablet, sublingual 0.4 mg SUBLINGUAL Q5M PRN (Reason: chest pain) Qty: 50 3RF Eliquis 5 mg tablet See Rx Instructions .ROUTE .COMPLEX Qty: 60 3RF Dose Instruction: TAKE 1 TABLET BY MOUTH TWICE DAILY Rx Instructions: TAKE 1 TABLET BY MOUTH TWICE DAILY montelukast 10 mg tablet See Rx Instructions .ROUTE .COMPLEX Qty: 90 1RF Dose Instruction: TAKE 1 TABLET BY MOUTH EVERY DAY Rx Instructions: TAKE 1 TABLET BY MOUTH EVERY DAY (DME) Orthopedic Shoes See Rx Instructions .Route .MEDSUPPLY Qty: 1 0RF Rx Instructions: As directed with heat molded insoles ezetimibe 10 mg tablet See Rx Instructions .ROUTE .COMPLEX Qty: 90 0RF Dose Instruction: TAKE 1 TABLET BY MOUTH EVERY DAY Rx Instructions: TAKE 1 TABLET BY MOUTH EVERY DAY isosorbide mononitrate 60 mg tablet extended release 24 hr 120 mg PO DAILY Qty: 180 3RF estradiol 0.5 mg tablet See Rx Instructions .ROUTE .COMPLEX Qty: 90 0RF Dose Instruction: TAKE 1 TABLET BY MOUTH EVERY DAY Rx Instructions: TAKE 1 TABLET BY MOUTH EVERY DAY fluticasone propionate 50 mcg/actuation spray,suspension See Rx Instructions .ROUTE .COMPLEX Qty: 16 4RF Dose Instruction: USE 1 SPRAY INTRANASAL TWO TIMES DAILY Rx Instructions: USE 1 SPRAY INTRANASAL TWO TIMES DAILY alprazolam 0.5 mg tablet 0.5 mg PO BID PRN (Reason: anxiety) Qty: 60 0RF Rx Instructions: Filled for Dr. Dennison while out of office. pregabalin [Lyrica] 150 mg capsule 150 mg PO TID Qty: 270 1RF tramadol 50 mg Tablet 25 mg PO BID PRN (Reason: Pain) Discontinued losartan 100 mg tablet 100 mg PO DAILY Qty: 90 3RF omeprazole 40 mg capsule,delayed release(DR/EC) 40 mg PO DAILY Qty: 90 2RF Discharge Orders: Discharge Order (Routine); Ordered 01/30/22 Ordered By: Bartolo Nunez Referrals: [facility] [Outside] Marty Zazueta DO [Physician] - 1 week Nurys Dennison DO [Primary Care Provider] - 1-3 days Perla Burton MD [Staff Physician] - 1 week (anemia) Discharge Diet: Cardiac Discharge Activity: Resume usual activity Patient Instructions: GI Discharge Instructions, Opioid Safety Activity Restrictions/Additional Instructions: - If you develop recurrent bloody or black stools please go to the emergency room -Please take iron supplementation as prescribed -You feel lightheaded or dizzy or short of breath or chest pain go to emergency room -See your primary care provider in 1 week for recheck hemoglobin -Please follow-up with general surgery -Please take antibiotics for UTI -I am discharging her back on her Eliquis, you are anemic however you have tolerated anticoagulation during her hospitalization however if you develop lig htheadedness or dizziness if you feel weak, bloody or black stools please come back to the emergency room Discharge Attestations Time Spent in Discharge Care*: greater than 30 min Quality Metrics Clinical Quality Measures [ No reported AMI, CVA or VTE this stay] Coding Level of Care Code Acute Chg FW DC note Diagnoses Symptomatic anemia D64.9 ASHD (arteriosclerotic heart disease) I25.10 Heart palpitations R00.2 Chest pain R07.9 Hypomagnesemia E83.42 GERD (gastroesophageal reflux disease) K21.9 Esophagitis presence: without esophagitis Atrial flutter with rapid ventricular response I48.92 Benign essential HTN I10 Allergic rhinitis J30.89 Allergic rhinitis trigger: other Allergic rhinitis seasonality: non-seasonal Iron deficiency anemia D50.9 UTI (urinary tract infection) N39.0 Colonic mass K63.89
--- NOTE | 2022-01-30 17:15 | PC.NURSE ---
patient waiting for ride for d/c, resting in bed. AAOx4, VSS, no needs at this time.
--- NOTE | 2022-01-30 18:30 | PM.PN ---
Subjective Subjective: Patient reporting no abdominal pain today. No acute events. Vitals/I&O/Wt Last Vital Signs Temp 97.8 F 01/30/22 17:14 Pulse 62 01/30/22 17:14 Resp 16 01/30/22 17:14 BP 121/64 01/30/22 17:14 Pulse Ox 98 01/30/22 17:14 O2 Del Method 01/30/22 08:00 O2 Flow Rate 3 01/30/22 11:58 01/30/22 01/30/22 01/30/22 06:59 14:59 22:59 Intake Total 800 / 800 400 / 1200 Balance 800 / 800 400 / 1200 Weight last 48 hrs Weight 196 lb Physical Exam Narrative: General: No acute distress, awake alert and oriented x3 Abdomen: Soft, nontender, nondistended, no guarding rebound or masses Data 01/30/22 03:46 01/28/22 02:18 A&P Assessment and plan (1) Colonic mass: Plan Ascending colon mass. Pathology came back as benign mass. It was not bleeding prior to biopsy. CEA ordered. Chest x-ray and CT abdomen pelvis already performed. Patient is cleared for discharge from a surgical standpoint. I like to see her next week in follow-up to discuss laparoscopic ileocecectomy. Attestations Medical Necessity Statement*: Further hospitalization per hospitalist Coding Level of Care Code Acute Sales Planning Manager for Alessandrag Linda Diagnoses Colonic mass K63.89
== END 2022-01-30 19:16 | disposition home health service (06) | DRG 378 ==
LOC: ER 13:51 → MEDSURG 13:53
PROVIDERS: Internal Medicine; Surgery; Admitting Provider Internal Medicine; Emergency Provider Emergency Medicine; PCP Family Medicine; Visit Provider Family Medicine
PROC: 0DJ08ZZ Inspection of Upper Intestinal Tract, Via Natural or Artificial Opening Endoscopic (ICD-10-PCS; CPT 43235; principal; 2022-01-28 12:00)
PROC: 0DJD8ZZ Inspection of Lower Intestinal Tract, Via Natural or Artificial Opening Endoscopic (ICD-10-PCS; CPT 45378; 2022-01-28 12:00)
DX: K57.31 Diverticulosis of large intestine without perforation or abscess with bleeding (principal); I48.92 Unspecified atrial flutter; N39.0 Urinary tract infection, site not specified; D50.0 Iron deficiency anemia secondary to blood loss (chronic); I25.10 Atherosclerotic heart disease of native coronary artery without angina pectoris; E83.42 Hypomagnesemia; K21.9 Gastro-esophageal reflux disease without esophagitis; I10 Essential (primary) hypertension; G47.31 Primary central sleep apnea; F41.1 Generalized anxiety disorder; D12.4 Benign neoplasm of descending colon; K64.8 Other hemorrhoids; G60.8 Other hereditary and idiopathic neuropathies; M54.16 Radiculopathy, lumbar region; M48.062 Spinal stenosis, lumbar region with neurogenic claudication; M79.7 Fibromyalgia; Z79.891 Long term (current) use of opiate analgesic; Z79.01 Long term (current) use of anticoagulants
CPT/HCPCS: 36415; 36430; 43235; 45380; 45381; 45385; 71045; 74176; 80048; 80053; 81001; 82378; 82728; 83540; 83550; 83735; 83880; 84100; 84443; 84484; 85014; 85018; 85025; 85610; 85730; 86140; 86850; 86900; 86920; 87077; 87086; 87186; 87804; 88305; 93005; 93306; 94640; 94760; 96365; 96367; 96372; 96375; 97161; 97165; 99285; C9113; G0378; J0696; J1644; J1650; J1756; J1940; J2405; J2704; J3010; J3475; J7030; P9016

== ENCOUNTER → 2022-02-04 08:28 | Outpatient (BNVA) | payer MEDICARE, OTHER, SELFPAY | PROVIDERS: PCP Family Medicine; Visit Provider Surgery | DX: K63.89 Other specified diseases of intestine (principal) | CPT/HCPCS: 99203 ==

== ENCOUNTER 2022-02-24 18:32 | Inpatient (IN) | payer MEDICARE, OTHER, SELFPAY ==
[2022-02-21 14:06] VITALS: BMI 30.5
[2022-02-24] VITALS (18 sets, daily range): BP systolic 145–199; BP diastolic 63–97; PULSE 72–95; RESP 12–19; TEMP 35.8–36.8; O2SAT 92–99
[2022-02-24] MEDS: sodium chloride 0.9% 1,000 ML 30 ML IV (10:06)
[2022-02-24 10:11] LABS: Basophils # 0.1 10^3/uL (0.0-0.1); Basophils % 0.8 %; Eosinophils # 0.1 10^3/uL (0.0-0.8); Eosinophils % 1.7 %; Hematocrit 42.7 % (37.0-47.0); Hemoglobin 12.7 g/dL (11.5-15.3); Lymphocytes # 0.8 10^3/uL (0.8-4.8); Lymphocytes % 12.9 %; Mean Corpuscular HGB Conc 29.7 g/dL (30.0-36.0); Mean Corpuscular Hemoglobin 24.5 pg (28.0-34.0); Mean Corpuscular Volume 82.3 fl (81-99); Mean Platelet Volume 10.3 fL (7.4-10.4); Monocytes # 0.5 10^3/uL (0.2-0.9); Neutrophils # 4.97 10^3/uL (1.8-7.7); Neutrophils % 77.3 %; Nucleated Red Blood Cells % 0 %; Platelet Count 244 10^3/cmm (130-400); Red Blood Count 5.19 10^6/uL (4.1-5.3); Red Cell Distribution Width 24.4 % (12.1-15.1); White Blood Count 6.4 10^3/uL (4.0-10.0)
[2022-02-24 10:28] LABS: Anion Gap 15.4 (5-19); Blood Urea Nitrogen 6 mg/dL (8-23); Calcium 9.3 mg/dL (8.5-10.5); Carbon Dioxide 30 mmol/L (22-29); Chloride 100 mmol/L (98-107); Glucose 114 mg/dL (65-115); Osmolality Calculated 292 mOsm/kg (285-295); Potassium 3.4 mmol/L (3.5-5.1); Sodium 142 mmol/L (136-145)
--- NOTE | 2022-02-24 10:32 | P.ANESASSM_ITS ---
Pre-Anesthetic Assessment Height/Weight: Height 1.63 m Weight 80.739 kg Temp Pulse Resp BP Pulse Ox O2 Del Method 98.3 F 72 18 199/97 96 02/24/22 09:44 02/24/22 09:44 02/24/22 09:44 02/24/22 09:44 02/24/22 09:44 02/24/22 09:59 Preop Diagnosis: Right colon mass Operation Date: 02/24/22 11:35 Proposed Procedures p Laparoscopic Right Hemicolectomy 64599 K63.89 Inpatient(Right) - Marty Zazueta DO Familial anesthetic complications: None Was Beta Dao taken within 24 hours: Yes Was Clonidine taken within 24 hours: N/A Last intake: Intake Last Liquid Date 02/23/22 Last Liquid Time 19:00 Last Solid Date 02/22/22 Last Solid Time 20:00 Social No alcohol and No tobacco Exam alert, oriented x 3, clear to auscultation bilaterally and regular rate & rhythm Airway Mallampati: Class II Dentition: false Pulmonary Sleep Apnea CV/HEM Atrial Fibrillation, Anemia, Arrythmia, Coronary Artery Disease and Hypertension GI Gastroesophageal Reflux Disease [facility] [place] Fibromyalgia and Osteoarthritis/DJD Neuropsych Anxiety and Neuropathy Anesthetic Plan ASA status: 3 Anesthesia: General Risk of > 500 ml blood loss (7ml/kg in children): No Medications/Allergies Home Medications Medication Instructions Recorded Confirmed Last Taken Type rolling walker #1 ea 12/25/20 02/04/22 Unknown Rx ascorbic acid (vitamin C) 1,000 mg 1 g PO BID 05/23/21 02/21/22 02/23/22 History tablet diltiazem HCl 60 mg tablet 60 mg PO TID #270 tabs 08/26/21 02/21/22 02/23/22 Rx metoprolol tartrate 100 mg tablet 100 mg PO BID #180 tabs 08/26/21 02/21/22 02/23/22 21:00 Rx nitroglycerin 0.4 mg sublingual 0.4 mg sublingual Q5M PRN chest 08/28/21 02/21/22 Unknown Rx tablet (Nitrostat) pain #50 tabs montelukast 10 mg tablet See Rx Instructions .Route 09/13/21 02/24/22 02/23/22 Rx .COMPLEX #90 tabs Orthopedic Shoes #1 ea 10/16/21 02/04/22 Unknown Rx ezetimibe 10 mg tablet See Rx Instructions .Route 10/18/21 02/21/22 02/23/22 Rx .COMPLEX #90 tabs isosorbide mononitrate 60 mg 120 mg PO DAILY #180 tabs 11/08/21 02/21/22 02/23/22 Rx tablet,extended release 24 hr estradiol 0.5 mg tablet See Rx Instructions .Route 12/05/21 02/21/22 02/23/22 Rx .COMPLEX #90 tabs fluticasone propionate 50 See Rx Instructions .Route 12/06/21 02/21/22 02/21/22 Rx mcg/actuation nasal .COMPLEX #16 grams spray,suspension pregabalin 150 mg capsule (Lyrica) 150 mg PO TID #270 caps 01/24/22 02/21/22 02/23/22 Rx ferrous sulfate 324 mg (65 mg 324 mg PO BID 30 days #60 tabs 01/30/22 02/21/22 02/23/22 Rx iron) tablet,delayed release pantoprazole 40 mg tablet,delayed 40 mg PO BID 30 days #60 tabs 01/30/22 02/21/22 02/23/22 Rx release (Protonix) apixaban 5 mg tablet (Eliquis) See Rx Instructions .Route 02/05/22 02/21/22 02/20/22 Rx .COMPLEX #60 tabs alprazolam 0.5 mg tablet 0.5 mg PO BID PRN anxiety #60 tabs 02/23/22 02/24/22 02/23/22 Rx Allergies Allergy/AdvReac Type Severity Reaction Status Date / Time atorvastatin [From Lipitor] Allergy Unknown Verified 02/04/22 11:18 codeine Allergy Unknown Verified 02/04/22 11:18 morphine Allergy Unknown Verified 02/04/22 11:18 omega-3 acid ethyl esters Allergy Unknown Verified 02/04/22 11:18 [From Lovaza] Penicillins Allergy Unknown Verified 02/04/22 11:18 Current Medications Generic Name Dose Route Start Last Admin Trade Name Freq PRN Reason Stop Dose Admin Sodium Chloride 1,000 mls @ 30 mls/hr 02/24/22 09:30 02/24/22 10:06 Sodium Chloride 0.9% IV 02/25/22 09:29 30 mls/hr .Q24H OKSANA Administration PFSH Anesthesia Medical History Allergic rhinitis ASHD (arteriosclerotic heart disease) Atrial flutter with rapid ventricular response AV heart block Benign essential HTN Central sleep apnea Cervical disc disorder with myelopathy of mid-cervical region Dyslipidemia Fibromyalgia KHUSHI (generalized anxiety disorder) Intervertebral disc disorder with radiculopathy of lumbar region Joint instability Lumbar stenosis with neurogenic claudication Menopausal syndrome (hot flashes) Nocturnal hypoxia Polyneuropathy Polyneuropathy, peripheral sensorimotor axonal Recurrent UTI Spinal stenosis of lumbar region with radiculopathy Spondylolisthesis, lumbar region Urinary incontinence, mixed URTI (infection of the upper respiratory tract) Surgical History H/O knee surgery H/O lumpectomy H/O: hysterectomy Family History Grandfather Diabetes Father Stroke Heart attack CAD (coronary artery disease) Mother Cancer Denies family history of Clotting disorder Dementia Chronic kidney disease (CKD) Suicide Anesthesia complication Bleeding disorder Lung disease Social History Smoking and tobacco status: never smoked Alcohol intake: never Household members: none Marital status: / Current occupational status: retired History of recent travel: No Data Anesthesia 02/24/22 10:03 02/24/22 10:03 Short CBC 02/24/22 Range/Units 10:03 WBC 6.4 (4.0-10.0) 10^3/uL Hgb 12.7 (11.5-15.3) g/dL Hct 42.7 (37.0-47.0) % MCV 82.3 (81-99) fl Plt Count 244 (130-400) 10^3/cmm Neut % (Auto) 77.3 % Neut # (Auto) 4.97 (1.8-7.7) 10^3/uL BMP 02/24/22 10:03 Sodium 142 Potassium 3.4 L Chloride 100 Carbon Dioxide 30 H BUN 6 L Creatinine 0.7 Glucose 114 Calcium 9.3 Cardiac Studies: Echocardiogram 01/26/22
[2022-02-24] MEDS: midazolam 1 mg/mL INJ 2 mL 2 MG IVP (10:56)
[2022-02-24] MEDS: levofloxacin-dextrose 5 % 500 MG/100 ML PREMIX 100 MG IV (16:05)
--- NOTE | 2022-02-24 18:59 | P.OP_ITS ---
Operative Report Date of procedure: February 24, 2022 Pre-op diagnosis: Preop Diagnosis Right colon mass Post-op diagnosis: same Procedure done: Laparoscopic right hemicolectomy Specimens removed/disposition: Right colon Surgeon: Dr. Marty Zazueta DO Anesthesia: General Estimated blood loss (mL): 75 Complications: None apparent Brief History: This is a very pleasant 86-year-old female who was having GI bleeding and a right colon mass was identified on colonoscopy. Biopsies came back benign. Laparoscopic right hemicolectomy was indicated. The risks and benefits were explained and documented. Procedure: Patient was wheeled in the OR room and placed on the OR table in the supine position. The abdomen was inspected prepped and draped in usual sterile fashion. Timeout was performed. All present were in agreement. 1% lidocaine with epinephrine was used to anesthetize the skin in the left upper quadrant. A stab incision was made with a 15 blade scalpel. A Veress needle was then inserted in the abdomen and the abdomen was insufflated to 15 mmHg. A 12 mm trocar was then placed into the umbilicus through a small umbilical hernia. A 5 mm trocar was then placed suprapubically and a second 1 was placed in the right lower quadrant, under direct visualization. There were adhesions from the right colon to the right abdominal wall. These adhesions were taken down with the Enseal. The right white line of Toldt was then taken down bluntly and with the Enseal. The hepatic flexure was then taken down bluntly and with the Enseal. The Enseal was then carried over across the top of the transverse colon to 5 cm distal to the ink. After adequate mobilization, a 15 blade scalpel was then used to extend the umbilical incision caudad and cephalad. The specimen was ex tracorporealized. And enterotomy was made 5 cm proximal to the ileocecal valve and a colotomy was made 5 cm distal to the ink on the colon. 100 mm blue KINJAL stapler was then used to anastomose the bowels. A second load was then used to transect the specimen. The Enseal was then used to ligate the mesentery, including the right colic artery at its base. The specimen was passed off. Hemostasis was noted. The corners of the anastomosis were then buried with 3-0 silk suture. The abdomen was reinsufflated and the abdomen was inspected. There was minimal blood in the abdomen, which was irrigated and suctioned. After looking at the anastomosis, the small bowel side began to look cyanotic. Therefore I again extracorporealized and used another 100 mm blue load of the KINJAL to take 1 cm off of the anastomosis. The anastomosis then looked pink and viable. The corners were again. In a similar fashion. Bowel was placed back into the abdomen. The laparotomy incision was then closed #1 PDS in a running fashion x2. 3-0 Vicryl dermal stitches were placed. Trochars were removed. Skin was closed with rebeca. Skin was washed and dried. Sterile dressings were applied.
--- NOTE | 2022-02-24 19:29 | P.PCN_ITS ---
PACU note Narrative: VSS, Good respiratory effort, report to RN PHYSICIAN OFFICE Exam: awake
--- NOTE | 2022-02-24 19:29 | PM.PACU ---
PACU note Narrative: VSS, Good respiratory effort, report to NET PROGRAMMER Exam: awake
[2022-02-24] MEDS: fentaNYL 50 mcg/mL INJ 2mL IVP (19:38)
--- NOTE | 2022-02-24 20:00 | ANE.PACU2 ---
Inpatient post-anesthesia follow up: Airway intact: Yes Vital signs: Temperature 97.8 F Pulse Rate 88 Respiratory Rate 16 Blood Pressure 136/66 Pulse Oximetry 96 Oxygen Delivery Me thod Nasal Cannula Oxygen Flow Rate 2 Fraction of Inspir ed Oxygen Hydration adequate: Yes Nausea and vomiting: No Pain level: 1 Mental status: Baseline
[2022-02-24] MEDS: ondansetron 2 mg/ML SDV 2 mL 4 MG IVP ×2 (20:14→21:24)
[2022-02-24] MEDS: heparin 5,000 unit/mL INJ 1 mL 5000 UNIT SUBCUT (21:24)
[2022-02-24] MEDS: sodium chloride 0.9% 1,000 ML 125 ML IV (21:24)
[2022-02-24] MEDS: HYDROmorphone 1 mg/mL INJ 1 mL IVP (21:24)
--- NOTE | 2022-02-24 22:01 | PC.NURSE ---
Patient had NG tube already in place upon arrival to the floor from surgery.
[2022-02-24] MEDS: LORazepam 2 mg/mL INJ 1 mL 0.5 MG IVP (22:11)
--- NOTE | 2022-02-24 23:20 | PC.NURSE ---
When patient was asked where she is at, she states, the [facility]. Patient has asked me x3 the date and time. Patient has received IV Dialudid and Ativan. Orientation status was not assessed prior to receiving these medications.
[2022-02-24 23:40] LABS: Glucose Point of Care 144 mg/dL (70-110)
[2022-02-25] VITALS (16 sets, daily range): BP systolic 122–161; BP diastolic 65–78; PULSE 79–146; RESP 14–20; TEMP 36.4–36.6; O2SAT 94–98
[2022-02-25] MEDS: sodium chloride 0.9% 1,000 ML 125 ML IV (02:39)
[2022-02-25] MEDS: ondansetron 2 mg/ML SDV 2 mL 4 MG IVP ×2 (02:41→17:59)
[2022-02-25] MEDS: HYDROmorphone 1 mg/mL INJ 1 mL IVP ×4 (02:42→20:03)
[2022-02-25 06:22] LABS: Basophils # 0.1 10^3/uL (0.0-0.1); Basophils % 0.2 %; Hemoglobin 11.6 g/dL (11.5-15.3); Lymphocytes # 0.2 10^3/uL (0.8-4.8); Mean Corpuscular HGB Conc 28.3 g/dL (30.0-36.0); Mean Corpuscular Hemoglobin 24.9 pg (28.0-34.0); Mean Corpuscular Volume 88.2 fl (81-99); Mean Platelet Volume 10.9 fL (7.4-10.4); Monocytes # 0.8 10^3/uL (0.2-0.9); Monocytes % 3.3 %; Neutrophils # 21.85 10^3/uL (1.8-7.7); Neutrophils % 95.1 %; Nucleated Red Blood Cells % 0 %; Platelet Count 238 10^3/cmm (130-400); Red Blood Count 4.65 10^6/uL (4.1-5.3); Red Cell Distribution Width 24.9 % (12.1-15.1)
[2022-02-25 06:56] LABS: Anion Gap 16.2 (5-19); Blood Urea Nitrogen 8 mg/dL (8-23); Carbon Dioxide 29 mmol/L (22-29); Chloride 105 mmol/L (98-107); Glucose 157 mg/dL (65-115); Magnesium 1.2 mg/dL (1.7-2.3); Osmolality Calculated 306 mOsm/kg (285-295); Potassium 3.2 mmol/L (3.5-5.1); Sodium 147 mmol/L (136-145)
[2022-02-25] MEDS: heparin 5,000 unit/mL INJ 1 mL 5000 UNIT SUBCUT ×2 (08:39→21:45)
--- NOTE | 2022-02-25 10:07 | PM.PN ---
Subjective Subjective: Patient seen and examined. She reports that her abdominal pain is well controlled. Denies any nausea or vomiting. Denies any flatus or bowel movement. Vitals/I&O/Wt Last Vital Signs Temp 97.8 F 02/25/22 07:49 Pulse 88 02/25/22 07:49 Resp 18 02/25/22 08:36 BP 136/66 02/25/22 07:49 Pulse Ox 96 02/25/22 08:36 O2 Del Method 02/25/22 07:49 O2 Flow Rate 2 02/24/22 22:14 02/24/22 02/25/22 02/25/22 22:59 06:59 14:59 Intake Total 1236.5 / 1236.5 656.75 / 1893.25 Output Total 100 / 100 550 / 650 Balance 1136.5 / 1136.5 106.75 / 1243.25 Physical Exam Narrative: General: No acute distress, awake alert and oriented x3 Abdomen: Soft, nondistended, appropriately tender to palpation. No guarding rebound or masses Dressings clean dry and intact NG tube with bilious material Guevara in place Urinary Catheter Management: Guevara: Cath Placed During This Visit: yes Reason for Continuing Indwelling Catheter: Perioperative Use in Selected Surgeries Urinary Catheter Date of Insertion: 02/24/22 Urinary Catheter Time of Insertion: 16:10 Data 02/25/22 06:00 02/25/22 06:00 A&P Assessment and plan (1) Colonic mass: (2) Status post right hemicolectomy: Laparoscopic (3) Leukocytosis: Plan IV fluids N.p.o./NG tube to low intermittent suction May have ice cubes while on suction DC Guevara Incentive spirometer Hospitalist consult for medical management Will trend WBCs tomorrow Await return of bowel function Attestations Medical Necessity Statement*: Patient requires at least 2 more nights in the hospital for medical management and return of bowel function after laparoscopic right hemicolectomy for colon mass. Coding Level of Care Code Acute Air Support Operations Operator for Chg Fwd Diagnoses Colonic mass K63.89 Status post right hemicolectomy Z90.49 Leukocytosis D72.829
--- NOTE | 2022-02-25 10:40 | P.CONIM_ITS ---
Providers/Reason For Consult Consulting Physician/Specialty*: Prashant Bo MD, hospitalist Reason for Consult*: Medical management Attending Physician: Marty Zazueta DO Primary Care Provider: Nurys Dennison DO History of Present Illness History of Present Illness Raven Elizondo is a 86 year old female who underwent a right hemicolectomy laparoscopically on February 24 secondary to colonic mass. She has a past medical history of hypertension and atrial fibrillation, and is currently n.p.o. which necessitates medical management. From my understanding her surgery went well. She reports her pain is under control. She has no immediate concerns and does not feel short of breath currently. She reports no history of myocardial infarction or lung disease. She does have history of diastolic heart dysfunction. She was recently in the hospital secondary to anemia where she was transfused and received iron transfusions. As part of her work-up for this she underwent EGD and colonoscopy, the colonoscopy showing mass on the right side of her colon and EGD being normal. Review of Systems General: Reports: 10 or more systems reviewed and unremarkable except in HPI and below Const: Denies: fever(s) or chills Eyes: Denies: change in vision ENMT: Denies: throat pain Card: Denies: chest pain Resp: Denies: dyspnea GI: Reports: abdominal pain : Denies: flank pain Musc: Denies: neck pain Skin/Breast: Denies: rash Neuro: Denies: headache(s) Psych: Denies: anxiety or depression Endo: Denies: polyuria Timothy/Lymph: Denies: easy bruising All/Imm: Denies: urticaria Medications/Allergies Home Medications Medication Instructions Recorded Confirmed Last Taken Type rolling walker #1 ea 12/25/20 02/25/22 Unknown Rx diltiazem HCl 60 mg tablet 60 mg PO TID #270 tabs 08/26/21 02/21/22 02/23/22 Rx metoprolol tartrate 100 mg tablet 100 mg PO BID #180 tabs 08/26/21 02/21/22 02/23/22 21:00 Rx nitroglycerin 0.4 mg sublingual 0.4 mg sublingual Q5M PRN chest 08/28/21 02/21/22 Unknown Rx tablet (Nitrostat) pain #50 tabs montelukast 10 mg tablet See Rx Instructions .Route 09/13/21 02/24/2223 Rx .COMPLEX #90 tabs Orthopedic Shoes #1 ea 10/16/21 02/25/22 Unknown Rx ezetimibe 10 mg tablet See Rx Instructions .Route 10/18/21 02/21/22 02/23/22 Rx .COMPLEX #90 tabs isosorbide mononitrate 60 mg 120 mg PO DAILY #180 tabs 11/08/21 02/21/22 02/23/22 Rx tablet,extended release 24 hr estradiol 0.5 mg tablet See Rx Instructions .Route 12/05/21 02/21/22 02/23/22 Rx .COMPLEX #90 tabs fluticasone propionate 50 See Rx Instructions .Route 12/06/21 02/21/22 02/21/22 Rx mcg/actuation nasal .COMPLEX #16 grams spray,suspension pregabalin 150 mg capsule (Lyrica) 150 mg PO TID #270 caps 01/24/22 02/21/22 02/23/22 Rx pantoprazole 40 mg tablet,delayed 40 mg PO BID 30 days #60 tabs 01/30/22 02/21/22 02/23/22 Rx release (Protonix) apixaban 5 mg tablet (Eliquis) See Rx Instructions .Route 02/05/22 02/21/22 02/20/22 Rx .COMPLEX #60 tabs alprazolam 0.5 mg tablet 0.5 mg PO BID PRN anxiety #60 tabs 02/23/22 02/24/22 02/23/22 Rx losartan 100 mg tablet 100 mg PO DAILY 02/25/22 02/25/22 Unknown History Allergies Allergy/AdvReac Type Severity Reaction Status Date / Time atorvastatin [From Lipitor] Allergy Unknown Verified 02/04/22 11:18 codeine Allergy Unknown Verified 02/04/22 11:18 morphine Allergy Unknown Verified 02/04/22 11:18 omega-3 acid ethyl esters Allergy Unknown Verified 02/04/22 11:18 [From Lovaza] Penicillins Allergy Unknown Verified 02/04/22 11:18 Current Medications Generic Name Dose Route Start Last Admin Trade Name Freq PRN Reason Stop Dose Admin Heparin Sodium (Porcine) 5,000 unit 02/25/22 09:30 02/25/22 08:39 Heparin 5,000 Unit/Ml Inj 1 Ml SUBCUT 5,000 unit Q12H OKSANA Administration Hydromorphone HCl 1 mg 02/24/22 19:09 02/25/22 08:36 Hydromorphone 1 Mg/Ml Inj 1 Ml IVP 1 mg Q3H PRN Administration PAIN Sodium Chloride 1,000 mls @ 125 mls/hr 02/24/22 19:15 02/25/22 02:39 Sodium Chloride 0.9% IV 125 mls/hr .Q8H OKSANA Administration Lorazepam 0.5 mg 02/24/22 19:12 02/24/22 22:11 Lorazepam 2 Mg/Ml Inj 1 Ml IVP 0.5 mg BID PRN Administration ANXIETY Ondansetron HCl 4 mg 02/24/22 19:09 02/25/22 02:41 Ondansetron 2 Mg/Ml Sdv 2 Ml IVP 4 mg Q6H PRN Administration NAUSEA AND VOMITING PFSH Acute PFSH: Medical History Allergic rhinitis ASHD (arteriosclerotic heart disease) Atrial flutter with rapid ventricular response AV heart block Benign essential HTN Central sleep apnea Cervical disc disorder with myelopathy of mid-cervical region Dyslipidemia Fibromyalgia KHUSHI (generalized anxiety disorder) Intervertebral disc disorder with radiculopathy of lumbar region Joint instability Lumbar stenosis with neurogenic claudication Menopausal syndrome (hot flashes) Nocturnal hypoxia Polyneuropathy Polyneuropathy, peripheral sensorimotor axonal Recurrent UTI Spinal stenosis of lumbar region with radiculopathy Spondylolisthesis, lumbar region Urinary incontinence, mixed URTI (infection of the upper respiratory tract) Surgical History H/O knee surgery H/O lumpectomy H/O: hysterectomy Family History Grandfather Diabetes Father Stroke Heart attack CAD (coronary artery disease) Mother Cancer Denies family history of Clotting disorder Dementia Chronic kidney disease (CKD) Suicide Anesthesia complication Bleeding disorder Lung disease Social History Smoking and tobacco status: never smoked Alcohol intake: never Household members: none Marital status: / Current occupational status: retired History of recent travel: No Vitals/I&O/Wt Last Vital Signs Temp 97.8 F 02/25/22 07:49 Pulse 88 02/25/22 07:49 Resp 18 02/25/22 08:36 BP 136/66 02/25/22 07:49 Pulse Ox 96 02/25/22 08:36 O2 Del Method 02/25/22 07:49 O2 Flow Rate 2 02/24/22 22:14 02/24/22 02/25/22 02/25/22 22:59 06:59 14:59 Intake Total 1236.5 / 1236.5 656.75 / 1893.25 Output Total 100 / 100 550 / 650 Balance 1136.5 / 1136.5 106.75 / 1243.25 Physical Exam Narrative: General exam is a conversant white female in no apparent distress. She is on telemetry HEENT: Atraumatic and normocephalic. Pupils equally round. Oropharynx with NG visible posterior Neck is supple no lymphadenopathy thyromegaly Cardiovascular irregular, irregular with heart rate controlled currently Lungs clear no wheezing or crackles Abdomen to demonstrate surgical dressing, area clean and dry. Extremities no cyanosis clubbing or edema, cap refill brisk Skin no rash Neuro no obvious focal deficits. Urinary Catheter Management: Guevara: Cath Placed During This Visit: yes Reason for Continuing Indwelling Catheter: Perioperative Use in Selected Surgeries Urinary Catheter Date of Insertion: 02/24/22 Urinary Catheter Time of Insertion: 16:10 Data 02/25/22 06:00 02/25/22 06:00 Other Labs: Previous echocardiogram in January 2022 demonstrated normal EF, 3/4 diastolic d ysfunction, moderate mitral regurgitation and pulmonary artery pressure 41 A&P Assessment and plan (1) Status post right hemicolectomy: Patient is postoperative day #1 status post right hemicolectomy (2) Colonic mass: Pathology pending (3) Atrial flutter with rapid ventricular response: Patient has history of atrial flutter with RVR. She is maintained on anticoagulation, diltiazem, metoprolol As she is currently n.p.o. Will initiate metoprolol 5 mg IV every 4 hours. If heart rate is not controlled on this regimen we will have to review with surgeon if medicine can be initiated as early as tomorrow with clamping of NG for 30 minutes following medication administration Anticoagulation is held secondary to recent surgery. Perhaps can restart as early as . Is receiving DVT prophylaxis with heparin. (4) Spinal stenosis of lumbar region with radiculopathy: Patient with history of chronic back pain with spinal stenosis Pain medicine as noted Cannot substitute her pregabalin with any medication. When able, initiate this p.o., with clamping of NG perhaps as early as tomorrow. (5) Hypertension: Hydralazine as needed Metoprolol IV (6) Hypokalemia: Supplement IV. Change IV fluids to half-normal saline with 20 mill equivalents of potassium per liter at 100 cc an hour. Overall rate of IV fluids lowered slightly secondary to patient's history of significant diastolic dysfunction. Monitor for any fluid overload. (7) Hypomagnesemia: Supplement IV Plan History of diastolic dysfunction on last echo Multiple other medical problems as outlined by past medical history Thank you for this consult Heparin and SCDs for DVT prophylaxis Consult Attestations Medical Necessity Statement: As per primary Coding Level of Care Code Acute Bale Tie Machine Operator for Madyson Mckeon Diagnoses Status post right hemicolectomy Z90.49 Colonic mass K63.89 Atrial flutter with rapid ventricular response I48.92 Spinal stenosis of lumbar region with radiculopathy M48.061; M54.16 Hypertension I10 Hypokalemia E87.6 Hypomagnesemia E83.42
[2022-02-25] MEDS: sodium chlor 0.45% +KCl 20 mEq 20 MEQ/1,000 ML BAG 100 MEQ IV ×2 (10:59→21:44)
[2022-02-25] MEDS: metoprolol tartrate 1 mg/1 mL SDV 5 mL 5 MG IVP ×4 (11:00→21:45)
[2022-02-25] MEDS: magnesium sulfate premix 2 GM/50 ML PIGGYBACK IV (11:00)
[2022-02-25] MEDS: lidocaine 1% 5 ML in potassium chloride premix 100 ML 25 ML IV (11:45)
--- NOTE | 2022-02-25 17:51 | PC.NURSE ---
Patient resting in bed, AAOx4 with confusion, HR elevated off/on throughout shift and physicians aware. Remaining VSS on supplemental oxygen per nasal cannula. Patient accidently removed NGT trying to get it comfortable. Physician notified of self removal. Patient OOBTC and BSC. C/o minimal pain relieved by pain medication per MAR. Voiding without difficulty. Room clean and clutter free with call light in reach. All questions addressed throughout shift.
[2022-02-25] MEDS: LORazepam 2 mg/mL INJ 1 mL 0.5 MG IVP (17:59)
[2022-02-25] MEDS: nystatin powder 15 gm Btl 1 APPLIC TOPICAL (18:10)
[2022-02-25] MEDS: scopolamine 1.5 Patch 1 PATCH TRANSDERMA (21:21)
[2022-02-25] MEDS: diphenhydrAMINE 50 mg/mL SDV 1mL 12.5 MG IVP (22:01)
[2022-02-26] VITALS (14 sets, daily range): BP systolic 125–167; BP diastolic 56–84; PULSE 72–99; RESP 15–19; TEMP 36.5–36.9; O2SAT 93–99
[2022-02-26] MEDS: metoprolol tartrate 1 mg/1 mL SDV 5 mL 5 MG IVP ×2 (02:12→06:03)
[2022-02-26] MEDS: HYDROmorphone 1 mg/mL INJ 1 mL IVP ×3 (02:16→12:28)
--- NOTE | 2022-02-26 03:55 | PC.NURSE ---
Pt was attempting to turn off the heat in her room and pulled her IV to L FA out. IV restarted to R AC 20G x 4 attempts. Successful, good blood return noted, and site flushes w/ease. IV fluids restarted.
[2022-02-26 05:56] LABS: Basophils % 0.1 %; Hemoglobin 10.6 g/dL (11.5-15.3); Lymphocytes # 0.8 10^3/uL (0.8-4.8); Lymphocytes % 4.9 %; Mean Corpuscular HGB Conc 28.6 g/dL (30.0-36.0); Mean Corpuscular Hemoglobin 25.5 pg (28.0-34.0); Mean Corpuscular Volume 89.2 fl (81-99); Mean Platelet Volume 11.3 fL (7.4-10.4); Monocytes # 0.9 10^3/uL (0.2-0.9); Monocytes % 5.6 %; Neutrophils # 14.12 10^3/uL (1.8-7.7); Neutrophils % 88.9 %; Nucleated Red Blood Cells % 0 %; Platelet Count 206 10^3/cmm (130-400); Red Blood Count 4.15 10^6/uL (4.1-5.3); Red Cell Distribution Width 25.4 % (12.1-15.1); White Blood Count 15.9 10^3/uL (4.0-10.0)
[2022-02-26] MEDS: ondansetron 2 mg/ML SDV 2 mL 4 MG IVP ×2 (06:03→15:59)
[2022-02-26 06:15] LABS: Anion Gap 12.1 (5-19); Blood Urea Nitrogen 12 mg/dL (8-23); Calcium 8.4 mg/dL (8.5-10.5); Carbon Dioxide 27 mmol/L (22-29); Chloride 106 mmol/L (98-107); Glucose 100 mg/dL (65-115); Magnesium 1.9 mg/dL (1.7-2.3); Osmolality Calculated 292 mOsm/kg (285-295); Potassium 4.1 mmol/L (3.5-5.1); Sodium 141 mmol/L (136-145)
--- NOTE | 2022-02-26 09:42 | PM.PN ---
Subjective Subjective: Raven reports she is doing okay this morning. Abdomen is a little tender. She passed some air, and had a bowel movement according to the patient. She is glad to have her NG out. Nursing alerts me she was little confused this morning but got Ativan last night. Medications: Reviewed: Yes Vitals/I&O/Wt Last Vital Signs Temp 97.7 F 02/26/22 07:40 Pulse 84 02/26/22 07:40 Resp 18 02/26/22 07:40 BP 134/70 02/26/22 07:40 Pulse Ox 98 02/26/22 07:40 O2 Del Method 02/26/22 07:40 O2 Flow Rate 2 02/26/22 08:00 02/25/22 02/26/22 02/26/22 22:59 06:59 14:59 Intake Total 1105 / 2155 120 / 2275 1000 / 1000 Output Total 200 / 200 50 / 250 Balance 905 / 1955 70 / 2025 1000 / 1000 Physical Exam Narrative: General exam is a conversant white female in no apparent distress. She is on telemetry HEENT: Atraumatic and normocephalic. Pupils equally round. Oropharynx with NG visible posterior Neck is supple no lymphadenopathy thyromegaly Cardiovascular irregular, irregular with heart rate controlled currently Lungs clear no wheezing or crackles Abdomen to demonstrate surgical dressing, area clean and dry. Extremities no cyanosis clubbing or edema, cap refill brisk Skin no rash Neuro no obvious focal deficits. Urinary Catheter Management: Guevara: Cath Placed During This Visit: yes, but has since been removed by the nurse Reason for Continuing Indwelling Catheter: Decision to DC Catheter Urinary Catheter Date of Insertion: 02/24/22 Urinary Catheter Time of Insertion: 16:10 Date Urinary Catheter Removed: 02/25/22 Time Urinary Catheter Discontinued: 10:54 Data 02/26/22 04:19 02/26/22 04:19 A&P Assessment and plan (1) Status post right hemicolectomy: Patient is postoperative day #2 status post right hemicolectomy Overall appears to be doing well (2) Colonic mass: Pathology pending (3) Atrial flutter with rapid ventricular response: Patient has history of atrial flutter with RVR. She is maintained on anticoagulation, diltiazem, metoprolol Discontinue metoprolol IV Reinitiate diltiazem and metoprolol p.o. Anticoagulation is held secondary to recent surgery. Perhaps can restart as early as . Is receiving DVT prophylaxis with heparin. (4) Spinal stenosis of lumbar region with radiculopathy: Patient with history of chronic back pain with spinal stenosis Pain medicine as noted Restart her Lyrica 50 mg 3 times daily (5) Hypertension: Restart metoprolol and Cardizem. Hold on other medicines currently. Reevaluate tomorrow. (6) Hypokalemia: Corrected following supplementation (7) Hypomagnesemia: Supplement IV and normal today Plan History of diastolic dysfunction on last echo Multiple other medical problems as outlined by past medical history Thank you for this consult Heparin and SCDs for DVT prophylaxis Attestations Medical Necessity Statement*: As per primary Coding Level of Care Code Acute Armoring Machine Operator for Madyson Mckeon Diagnoses Status post right hemicolectomy Z90.49 Colonic mass K63.89 Atrial flutter with rapid ventricular response I48.92 Spinal stenosis of lumbar region with radiculopathy M48.061; M54.16 Hypertension I10 Hypokalemia E87.6 Hypomagnesemia E83.42
[2022-02-26] MEDS: sodium chlor 0.45% +KCl 20 mEq 20 MEQ/1,000 ML BAG 100 MEQ IV ×2 (09:46→22:50)
[2022-02-26] MEDS: nystatin powder 15 gm Btl 1 APPLIC TOPICAL ×2 (09:47→18:04)
[2022-02-26] MEDS: heparin 5,000 unit/mL INJ 1 mL 5000 UNIT SUBCUT (09:47)
--- NOTE | 2022-02-26 10:22 | PC.CHAP ---
Pastoral Care Encounter/Spiritual Assessment Type of Contact [] Declined cad intern visit [] Patient/Family/Request visit [] Outpatient visit [] Follow-up visit [] Physician referral [] Code/Alert x[x] xRoutine visit [] Staff referral [] Actively dying [] Patient sleeping [x] Family support [] [] Out of room [] Palliative care [] [] Receiving care in room [] Pre-surgical visit [] Trauma [] Long length of stay [] ICU visit [] Other: Relational/Emotional Strength [x] Patient feels connected with others/family/visitors/staff [] Distress [] Loneliness/isolation [] Abandonment Spirituality of Patient [x] Person of Tatiana [] Attends Temple of their Tatiana [x] Believes in Prayer [] Reads Bible or Zoroastrianism materials [] There are Spiritual issues to be addressed Batch Dumper Interventions [x] Prayer [x] Active listening x[] Non-anxious presence [x Spiritual/emotional support [] Crisis/trauma care [] Spiritual counseling [] Bereavement support [] Provided bereavement packet [] Provided Bible/devotional materials [] Provided toy/stuffed animal, coloring book to patient or family member [] Provided Communion [] Anointing/[place] [] Salvation [x] Completed spiritual assessment [] Other: Impact on Illness or Injury [] Angry [] Fearful [] Anxious [] Often cries [] Exhaustion [] Unable to work [] Unable to attend mandaen [] Unable to walk/stand [] Unable to read [] Unable to drive [] Unable to eat/drink [] Unable to sleep [] Unable to be with family [] Patient intubated [] Other: Summary Time spent with patient 10 min
[2022-02-26] MEDS: metoprolol tartrate 50 mg Tablet 100 MG PO ×2 (11:20→18:04)
--- NOTE | 2022-02-26 14:57 | P.PN_ITS ---
Subjective Subjective: Patient is sitting up comfortably in the chair. She pulled her NG tube last night. Reports some nausea but denies any emesis. She says that she has been using her incentive spirometer but when I asked her to use it she did not know how and is still only pulling 500 cc. No BM or flatus Vitals/I&O/Wt Last Vital Signs Temp 97.7 F 02/26/22 07:40 Pulse 94 02/26/22 11:06 Resp 18 02/26/22 12:28 BP 134/70 02/26/22 07:40 Pulse Ox 95 02/26/22 12:28 O2 Del Method 02/26/22 11:06 O2 Flow Rate 2 02/26/22 11:06 02/25/22 02/26/22 02/26/22 22:59 06:59 14:59 Intake Total 1105 / 2155 120 / 2275 1000 / 1000 Output Total 200 / 200 50 / 250 Balance 905 / 1955 70 / 2025 1000 / 1000 Physical Exam 2 Narrative: General: No acute distress, awake alert and oriented x3 Abdomen: Soft, nondistended, appropriately tender to palpation. No guarding rebound or masses Incisions intact without erythema or exudate Urinary Catheter Management: Guevara: Cath Placed During This Visit: yes, but has since been removed by the nurse Reason for Continuing Indwelling Catheter: Decision to DC Catheter Urinary Catheter Date of Insertion: 02/24/22 Urinary Catheter Time of Insertion: 16:10 Date Urinary Catheter Removed: 02/25/22 Time Urinary Catheter Discontinued: 10:54 Data 02/26/22 04:19 02/26/22 04:19 A&P Assessment and plan (1) Colonic mass: (2) Status post right hemicolectomy: Laparoscopic (3) Leukocytosis: Plan IV fluids May have sips and chips and meds orally Incentive spirometer Hospitalist following. Appreciate recommendations Will trend WBCs tomorrow Await return of bowel function Attestations Medical Necessity Statement*: Patient requires at least 1 more night in the hospital for return of bowel function after hemicolectomy. Coding Level of Care Code Acute Central Office Frame Wirer for Chg Fwd Diagnoses Colonic mass K63.89 Status post right hemicolectomy Z90.49 Leukocytosis D72.829
[2022-02-26] MEDS: oxyCODONE 5 mg IR Tab/Cap PO (15:48)
[2022-02-26] MEDS: dilTIAZem 60 mg Tablet PO ×2 (15:51→20:50)
[2022-02-26] MEDS: pregabalin 150 mg Capsule 50 MG PO (15:51)
[2022-02-26 17:09] LABS: Glucose Point of Care 95 mg/dL (70-110)
--- NOTE | 2022-02-26 17:27 | CTR_ITS ---
PROCEDURE INFORMATION: Exam: CTA Head With Contrast, Arteriography Exam date and time: 02/26/2022 5:47 PM Age: 86 years old Clinical indication: Stroke-like symptoms; Speech disturbance and other: See below; Additional info: AMS, slurring, and word salad TECHNIQUE: Imaging protocol: Computed tomographic angiography of the head with contrast. Exam focused on the arteries. 3D rendering (Not supervised by radiologist): MIP and/or 3D reconstructed images were created by the technologist. Radiation optimization: All CT scans at this facility use at least one of these dose optimization techniques: automated exposure control; mA and/or kV adjustment per patient size (includes targeted exams where dose is matched to clinical indication); or iterative reconstruction. Contrast material: OMNI 350; Contrast volume: 95 ml; Contrast route: INTRAVENOUS (IV); COMPARISON: CT head wo con* [id number] 09/06/2016 11:57 AM RADIATION DOSE METRICS: Total DLP (mGy-cm): 2020.88 FINDINGS: ANTERIOR CIRCULATION: Right internal carotid artery: Intracranial segment is patent with no significant stenosis. No aneurysm. Right middle cerebral artery: No occlusion or significant stenosis. No aneurysm. Right anterior cerebral artery: No occlusion or significant stenosis. No aneurysm. Left internal carotid artery: Intracranial segment is patent with no significant stenosis. The distal left cavernous internal has mild fusiform dilatation to 7 mm for example on series 21, image 31. Left middle cerebral artery: No occlusion or significant stenosis. No aneurysm. Left anterior cerebral artery: No occlusion or significant stenosis. No aneurysm. POSTERIOR CIRCULATION: Right vertebral artery: No occlusion or significant stenosis. No aneurysm. Left vertebral artery: No occlusion or significant stenosis. No aneurysm. Basilar artery: No occlusion or significant stenosis. No aneurysm. Right posterior cerebral artery: No occlusion or significant stenosis. No aneurysm. Left posterior cerebral artery: No occlusion or significant stenosis. No aneurysm. Brain: Moderate involutional changes of the white matter. ASPECTS ([place] Stroke Program Early CT Score) is 10. Cerebral ventricles: No ventriculomegaly. Bones/joints: Unremarkable. No acute fracture. Soft tissues: Unremarkable. Other findings: Noncontrast CT images degraded by motion. PROCEDURE INFORMATION: Exam: CTA Neck With Contrast Exam date and time: 02/26/2022 5:47 PM Age: 86 years old Clinical indication: Stroke-like symptoms; Speech disturbance and other: See below; Additional info: AMS, slurring, and word salad TECHNIQUE: Imaging protocol: Computed tomographic angiography of the neck with contrast. 3D rendering (Not supervised by radiologist): MIP and/or 3D reconstructed images were created by the technologist. Radiation optimization: All CT scans at this facility use at least one of these dose optimization techniques: automated exposure control; mA and/or kV adjustment per patient size (includes targeted exams where dose is matched to clinical indication); or iterative reconstruction. Contrast material: OMNI 350; Contrast volume: 95 ml; Contrast route: INTRAVENOUS (IV); COMPARISON: MR cervical spin wo con* [id number] 08/09/2019 12:44 PM RADIATION DOSE METRICS: Total DLP (mGy-cm): 2019.88 FINDINGS: Right common carotid artery: No stenosis. No dissection or occlusion. Right internal carotid artery: Moderate calcified atherosclerotic plaque proximal right internal carotid artery, not causing significant stenosis, less than 30%. Right external carotid artery: No occlusion or stenosis of the origin. Left common carotid artery: No stenosis. No dissection or occlusion. Left internal carotid artery: Moderate calcified atherosclerotic plaque in the proximal left internal carotid artery with approximately 30% stenosis, not considered significant. Left external carotid artery: No occlusion or stenosis of the origin. Right vertebral artery: No stenosis. No dissection or occlusion. Left vertebral artery: No stenosis. No dissection or occlusion. Soft tissues: Normal. No significant soft tissue swelling. Bones/joints: No acute fracture. Lungs: Ground-glass density medial left lung apex, suspicious for pneumonia. CT/CT angio headneck* [id number] IMPRESSION: 1. Negative noncontrast CT of the head. 2. No large vessel occlusion intracranially. 3. Fusiform dilatation of the distal left cavernous internal carotid artery to 7 mm. IMPRESSION: 1. No significant stenosis or occlusion. 2. Patchy infiltrate left lung apex, suspicious for pneumonia. REFERENCES: NASCET CRITERIA. The degree of stenosis in the cervical segment of the internal carotid artery is based on NASCET criteria. Normal is no stenosis. Mild is less than 50% stenosis. Moderate is 50-69% stenosis. Severe is 70% to 99% stenosis. Total occlusion is no detectable patent lumen.
--- NOTE | 2022-02-26 17:27 | P.EN_ITS ---
Event Note Event Note: Stroke alert called. I was informed by the nurse the patient was not acting right, word salad, confusion, seem to be touching her cheek when she was told to touch her nose. I evaluated her and found her to be significantly confused, with word substitution and word salad. No slurred speech. Strength is not affected bilaterally. Possibly some ataxia left upper extremity. No facial droop. No extraocular movement abnormality. It did not appear she had any visual field defects. She had no obvious drift. Overall NIH score 5. CT head CTA head ordered per stroke protocol and is pending. Blood sugar normal. Briefly visited with neurology regarding the patient. Will await testing, cont inue neurochecks. She had recently had a oxycodone, and had a scopolamine patch on which both could potentially contribute to confusion. These were discontinued. She had not received any Ativan but will discontinue this as well. If scans negative we will continue neurochecks. I discussed with Dr. Zazueta as well and he is okay with initiating anticoagulation for her A. fib. I think stroke is unlikely, and that her confusion is most likely secondary to medication effect. I did receive a call back from radiology, reporting no thrombus, no stroke. There is a question of mall 3 to 4 mm subdural. This could also be artifact. At this point secondary to her need for one-on-one sitter, need for medication to calm her, concerned on CT we will go ahead moved to the ICU overnight. Repeat his CT scan at some point tomorrow morning and continue neurologic checks. She has had no falls in the hospital.
[2022-02-26 18:31] LABS: Add Urine Culture? No; Bacteria Urine TRACE /hpf; Bilirubin Urine Neg (Negative); Blood Urine Neg (Negative); Glucose Urine UA Norm (Normal); Ketones Urine 1+ (Negative); Leukocyte Esterase Urine Negative (Negative); Nitrate Urine Negative (Negative); Protein Urine Neg (Negative); RBC Urine 0-4 /hpf (0-2); Specific Gravity, Urine 1.015 (1.005-1.030); Urine Appearance Clear (CLEAR); Urine Color Yellow (Yellow); Urobilinogen Urine Norm (Negative); WBC Urine 0-4 /hpf (0-5); pH Urine 6 (5-7)
[2022-02-26] MEDS: haloperidol inj 5 mg/mL INJ 1 mL IM (18:52)
[2022-02-26] MEDS: haloperidol inj 5 mg/mL INJ 1 mL (18:59)
--- NOTE | 2022-02-26 19:10 | PC.NURSE ---
Approximately 1635 this nurse and orientee was making rounds and found patient sitting in chair and talking in word salad. This nurse performed NIH on patient and found score of 7. Immediately notified Dr. Bo and he came bedside to evaluate patient. Determined to call Stroke Alert. This nurse attempted to call Glory but got busy signal and was not able to attempt to retry phone call as this nurse got called back to patients room as she was becoming combative and impulsive. She through cup of water at this nurse and threatened to push this nurse and said, I am going to push you out and leave the store. Patient will not stay in bed, physician notified and orders received and given out. Room is clean and clutter free with call light in reach and oncoming nurse is sitting with patient and report given bedside.
--- NOTE | 2022-02-26 19:40 | XRR_ITS ---
PROCEDURE INFORMATION: Exam: XR Chest Exam date and time: 02/26/2022 7:45 PM Age: 86 years old Clinical indication: Shortness of breath; Additional info: Infiltrate seen on cta neck TECHNIQUE: Imaging protocol: Radiologic exam of the chest. Views: 1 view. COMPARISON: CR (CHEST, ) 01/26/2022 7:39 AM FINDINGS: Tubes, catheters and devices: Stable thoracic neurostimulator. Lungs: Mild bilateral perihilar infiltrates. Pleural spaces: Unremarkable. No pleural effusion. No pneumothorax. Heart/Mediastinum: Stable heart size. Bones/joints: Stable bones. XR/XR chest 1V portable [id number] IMPRESSION: Mild perihilar infiltrates. Correlate for pulmonary vascular congestion versus pneumonia.
[2022-02-26] MEDS: cefTRIAXone 1,000 MG in sodium chloride 0.9% (plus) 50 ML 100 MG IV (20:47)
--- NOTE | 2022-02-26 20:59 | PC.NURSE ---
patient has passed gas and had a smearing liquid brown stool
[2022-02-27] VITALS (13 sets, daily range): BP systolic 130–158; BP diastolic 53–84; PULSE 74–93; RESP 13–24; TEMP 36.6–36.9; O2SAT 94–100
[2022-02-27 04:29] LABS: Basophils % 0.3 %; Eosinophils % 0.1 %; Hematocrit 34.1 % (37.0-47.0); Hemoglobin 9.7 g/dL (11.5-15.3); Mean Corpuscular HGB Conc 28.4 g/dL (30.0-36.0); Mean Corpuscular Hemoglobin 24.7 pg (28.0-34.0); Mean Platelet Volume 10.8 fL (7.4-10.4); Monocytes # 0.8 10^3/uL (0.2-0.9); Monocytes % 6.7 %; Neutrophils % 84.4 %; Nucleated Red Blood Cells % 0 %; Platelet Count 207 10^3/cmm (130-400); Red Blood Count 3.92 10^6/uL (4.1-5.3); Red Cell Distribution Width 25.3 % (12.1-15.1); White Blood Count 11.8 10^3/uL (4.0-10.0)
[2022-02-27 04:46] LABS: Anion Gap 16.9 (5-19); Blood Urea Nitrogen 12 mg/dL (8-23); Calcium 8.4 mg/dL (8.5-10.5); Carbon Dioxide 24 mmol/L (22-29); Chloride 102 mmol/L (98-107); Glucose 85 mg/dL (65-115); Magnesium 1.9 mg/dL (1.7-2.3); Osmolality Calculated 287 mOsm/kg (285-295); Potassium 3.9 mmol/L (3.5-5.1); Sodium 139 mmol/L (136-145)
--- NOTE | 2022-02-27 07:00 | CT_ITS ---
WS: [id number] CT HEAD TECHNIQUE: Noncontrast CT of the head obtained from the skullbase to the vertex. CLINICAL INFORMATION: follow up abnormality, possibly small subdural COMPARISON: August 17, 2020 DLP: 1068.[address] scans at [facility] use at least one of these dose optimization techniques: automated e xposure control; mA and/or kV adjustment per patient size (includes targeted exams where dose is matc hed to clinical indication); or iterative reconstruction. FINDINGS: No evidence of intracranial hemorrhage or mass effect. No Ventricular system and basal cisterns are p atent. Moderate small vessel changes with moderate parenchymal volume loss worse in the frontal lobes . No extra-axial fluid collections. No evidence of mass or mass effect. Vascular calcification. Stabl e Small incidental meningioma along the anterior falx measuring 7.7 x 5.5 mm unchanged since 2016. Va scular calcification. Paranasal sinuses and mastoid air cells are well aerated. .Normal visualized soft tissues. CT/CT head wo con* [id number] IMPRESSION: 1. No evidence of intracranial hemorrhage or mass effect. Previously described possible small subdural hematoma not visualized today 2. Moderate small vessel changes with moderate parenchymal volume loss worse i n the frontal lobes. 3. Stable Small incidental meningioma along the anterior falx measuring 7.7 x 5.5 mm unchanged since 2016 4. No acute intracranial findings. Notified Prashant Bo MD at 02/27/2022 9:18 AM.
[2022-02-27] MEDS: metoprolol tartrate 50 mg Tablet 100 MG PO (08:04)
[2022-02-27] MEDS: dilTIAZem 60 mg Tablet PO ×2 (08:04→22:14)
--- NOTE | 2022-02-27 09:43 | PC.NURSE ---
Patient scored a 0 on the NIHSS upon morning assessment, however had a mental status decline about an hour later. Was originally alert to person, place, time, and situation. Patient then started insisting to be tranfserred to the [facility] and thinks she is in [place], she continued to insist on going to [place] even after reoriented to place. Patient is seeing bugs crawling on the ground which are not there. Patient cant tell if it is night or day outside despite the curtains being open and it clearly being light out.
--- NOTE | 2022-02-27 09:48 | PM.PN ---
Subjective Subjective: Raven is alert this morning. She knows the month, but looks quickly at the board to confirm this before telling me. Nurse reports she is little confused, but better than what was then report from last night. CT scan of head this morning demonstrated no subdural which was the concern on previous CT. Medications: Reviewed: Yes Vitals/I&O/Wt Last Vital Signs Temp 98.4 F 02/27/22 04:00 Pulse 93 02/27/22 06:00 Resp 15 02/27/22 06:00 BP 151/66 02/27/22 06:00 Pulse Ox 100 02/27/22 06:00 O2 Del Method 02/27/22 04:00 O2 Flow Rate 2 02/27/22 04:00 02/26/22 02/27/22 02/27/22 22:59 06:59 14:59 Intake Total 498.333 / 1498.333 120 / 1618.333 Output Total 250 / 250 275 / 525 Balance 248.333 / 1248.333 -155 / 1093.333 Weight last 48 hrs Weight 86.409 kg Physical Exam Narrative: General exam is a conversant white female in no apparent distress. Mild confusion Neck is supple no lymphadenopathy thyromegaly Cardiovascular irregular, irregular with heart rate controlled currently Lungs clear no wheezing or crackles Abdomen to demonstrate surgical dressing, area clean and dry. Extremities no cyanosis clubbing or edema, cap refill brisk Skin no rash Neuro no obvious focal deficits. Urinary Catheter Management: Guevara: Cath Placed During This Visit: yes, but has since been removed by the nurse Reason for Continuing Indwelling Catheter: Decision to DC Catheter Urinary Catheter Date of Insertion: 02/24/22 Urinary Catheter Time of Insertion: 16:10 Date Urinary Catheter Removed: 02/25/22 Time Urinary Catheter Discontinued: 10:54 Data 02/27/22 04:03 02/27/22 04:03 A&P Assessment and plan (1) Status post right hemicolectomy: Patient is postoperative day #3 status post right hemicolectomy Overall appears to be doing well. Diet being advanced (2) Colonic mass: Pathology pending (3) Atrial flutter with rapid ventricular response: Patient has history of atrial flutter with RVR. She is maintained on anticoagulation, diltiazem, metoprolol Continue diltiazem and metoprolol p.o. Anticoagulation is held secondary to recent surgery. Restart anticoagulation today (4) Spinal stenosis of lumbar region with radiculopathy: Patient with history of chronic back pain with spinal stenosis Pain medicine held secondary to delirium (5) Hypertension: Continue t metoprolol and Cardizem. Restart losartan lower dose (6) Hypokalemia: Corrected following supplementation (7) Hypomagnesemia: Supplemented, normal currently (8) Delirium: Patient with significant delirium and concern of neurologic defect yesterday. Stroke alert was called. CTA no thrombus. CT had question subdural. She was moved to the ICU, anticoagulation held, close follow-up today on CT demonstrates no subdural. Initiating patient's Eliquis Continue to reorient Transfer to floor May have underlying dementia. Discussed briefly with daughter yesterday. (9) Pneumonia: Pneumonia noted on CTA, chest x-ray Rocephin added Encourage incentive spirometry She has weaned to room air Plan History of diastolic dysfunction on last echo Multiple other medical problems as outlined by past medical history Thank you for this consult Heparin and SCDs for DVT prophylaxis Attestations Medical Necessity Statement*: Transfer out of ICU today, needs continued hospital stay for close monitoring secondary to delirium and recent right hemicolectomy Coding Level of Care Code Acute [employer]ator for Madyson Mckeon Diagnoses Status post right hemicolectomy Z90.49 Colonic mass K63.89 Atrial flutter with rapid ventricular response I48.92 Spinal stenosis of lumbar region with radiculopathy M48.061; M54.16 Hypertension I10 Hypokalemia E87.6 Hypomagnesemia E83.42 Delirium R41.0 Pneumonia J18.9
[2022-02-27] MEDS: isosorbide mononitrate ER 60 mg Tablet PO (10:39)
[2022-02-27] MEDS: apixaban 5 mg Tablet PO (10:39)
[2022-02-27] MEDS: nystatin powder 15 gm Btl 1 APPLIC TOPICAL (11:49)
--- NOTE | 2022-02-27 12:17 | PC.NURSE ---
ICU nurse gave report to nurse song on med surge. Patient transferred to med [facility]. ALl belongings sent with patient. WHile on ICU, christiano has 2 liquid, brown, bowel movements.
--- NOTE | 2022-02-27 13:55 | PM.PN ---
Subjective Subjective: Patient seen and examined. She became acutely confused and combative last night and was transferred to the ICU. She is less confused this morning and passing flatus. Still only pulling 500 cc on incentive spirometer Vitals/I&O/Wt Last Vital Signs Temp 97.9 F 02/27/22 08:00 Pulse 79 02/27/22 10:00 Resp 24 H 02/27/22 10:00 BP 152/84 02/27/22 10:00 Pulse Ox 94 02/27/22 08:00 O2 Del Method 02/27/22 04:00 O2 Flow Rate 2 02/27/22 04:00 02/26/22 02/27/22 02/27/22 22:59 06:59 14:59 Intake Total 498.333 / 1498.333 120 / 8507.982 0976 / 1000 Output Total 250 / 250 275 / 525 550 / 550 Balance 248.333 / 1248.333 -155 / 1093.333 450 / 450 Weight last 48 hrs Weight 190 lb 8 oz Physical Exam Narrative: General: No acute distress, awake alert and oriented x3 Abdomen: Soft, nondistended, appropriately tender to palpation. No guarding rebound or masses Incisions intact without erythema or exudate Urinary Catheter Management: Guevara: Cath Placed During This Visit: yes, but has since been removed by the nurse Reason for Continuing Indwelling Catheter: Decision to DC Catheter Urinary Catheter Date of Insertion: 02/24/22 Urinary Catheter Time of Insertion: 16:10 Date Urinary Catheter Removed: 02/25/22 Time Urinary Catheter Discontinued: 10:54 Data 02/27/22 04:03 02/27/22 04:03 A&P Assessment and plan (1) Colonic mass: (2) Status post right hemicolectomy: Laparoscopic (3) Leukocytosis: Plan IV fluids Clear liquid diet Incentive spirometer Hospitalist following. Appreciate recommendations Will trend WBCs tomorrow Will possibly discharge tomorrow Attestations Medical Necessity Statement*: Patient requires at least 1 more night in the hospital for observation and diet advancement following right hemicolectomy Coding Level of Care Code Acute Code for Chg Fwd Diagnoses Colonic mass K63.89 Status post right hemicolectomy Z90.49 Leukocytosis D72.829
--- NOTE | 2022-02-27 15:15 | PC.NURSE ---
Addendum entered by Mariana Wiggins LPN 02/27/22 15:28: PT BEHAVIOR: Pt began demanding to leave floor and started exit seeking. Multiple staff members attempted redirection to ensure safety of pt. Pt then began calling multiple family members, friends, and fire department from her personal cell phone. Charge nurse notified Dr. Bo. Physician ordered a one time dose of 5 mg Zyprexa IM. Zyprexa 5 mg IM given to pt in left deltoid. Injection site cleaned with alcohol and band aid applied afterwards. No active signs of bleeding. Pt tolerated well. Original Note: PT BEHAVIOR: Pt began demanding to leave floor and started exit seeking. Multiple staff members attempted redirection to ensure safety of pt. Charge nurse notified Dr. Bo. Physician ordered a one time dose of 5 mg Zyprexa IM. Zyprexa 5 mg IM given to pt in left deltoid. Injection site cleaned with alcohol and band aid applied afterwards. No active signs of bleeding. Pt tolerated well.
[2022-02-27] MEDS: OLANZapine 10 mg VIAL 5 MG IM (15:22)
[2022-02-27] MEDS: haloperidol inj 5 mg/mL INJ 1 mL IM (19:15)
[2022-02-27] MEDS: cefdinir 300 MG CAPSULE PO (22:46)
[2022-02-28] VITALS (7 sets, daily range): BP systolic 144–179; BP diastolic 74–82; PULSE 76–111; RESP 18–23; TEMP 36.4–36.9; O2SAT 93–97
[2022-02-28 05:07] LABS: Basophils % 0.3 %; Hematocrit 36.1 % (37.0-47.0); Hemoglobin 10.8 g/dL (11.5-15.3); Lymphocytes # 0.5 10^3/uL (0.8-4.8); Lymphocytes % 4.2 %; Mean Corpuscular HGB Conc 29.9 g/dL (30.0-36.0); Mean Corpuscular Hemoglobin 25.1 pg (28.0-34.0); Monocytes # 0.7 10^3/uL (0.2-0.9); Monocytes % 6.2 %; Neutrophils # 9.63 10^3/uL (1.8-7.7); Neutrophils % 88.6 %; Nucleated Red Blood Cells % 0 %; Platelet Count 232 10^3/cmm (130-400); Red Cell Distribution Width 25.1 % (12.1-15.1); White Blood Count 10.9 10^3/uL (4.0-10.0)
[2022-02-28 05:37] LABS: Blood Urea Nitrogen 9 mg/dL (8-23); Calcium 8.8 mg/dL (8.5-10.5); Carbon Dioxide 21 mmol/L (22-29); Chloride 101 mmol/L (98-107); Glucose 127 mg/dL (65-115); Osmolality Calculated 292 mOsm/kg (285-295); Sodium 141 mmol/L (136-145)
[2022-02-28] MEDS: potassium chloride ER 20 mEq Tablet 40 MEQ PO (07:40)
--- NOTE | 2022-02-28 07:41 | PM.PN ---
Subjective Subjective: Raven is conversive, and relatively pleasant with me. She could not tell me initially why she was in the hospital, reporting it was surgery on her arm. I tried to delineate with her how often she took her pregabalin. She is familiar with the medicine, and indicates to me that she was taking it just as needed and would often skip several days. I have a call in with the pharmacy to see if she is feeling this regularly or not. Yesterday evening she decompensated and was very confused and agitated and required Haldol. Medications: Reviewed: Yes Vitals/I&O/Wt Last Vital Signs Temp 98.0 F 02/28/22 04:00 Pulse 111 H 02/28/22 04:00 Resp 23 H 02/28/22 04:00 BP 179/81 02/28/22 04:00 Pulse Ox 93 02/28/22 04:00 O2 Del Method 02/27/22 04:00 O2 Flow Rate 2 02/27/22 04:00 02/27/22 02/28/22 02/28/22 22:59 06:59 14:59 Intake Total 240 / 1240 120 / 1360 Output Total 6 / 556 Balance 240 / 690 114 / 804 Weight last 48 hrs Weight 85.91 kg Weight 86.409 kg Physical Exam Narrative: General exam is a conversant white female in no apparent distress. More interactive and appropriate today although still some confusion Neck is supple no lymphadenopathy thyromegaly Cardiovascular irregular, irregular with heart rate controlled currently Lungs clear no wheezing or crackles Abdomen to demonstrate surgical dressing, area clean and dry. Extremities no cyanosis clubbing or edema, cap refill brisk Skin no rash Neuro no obvious focal deficits. Urinary Catheter Management: Guevara: Cath Placed During This Visit: yes, but has since been removed by the nurse Reason for Continuing Indwelling Catheter: Decision to DC Catheter Urinary Catheter Date of Insertion: 02/24/22 Urinary Catheter Time of Insertion: 16:10 Date Urinary Catheter Removed: 02/25/22 Time Urinary Catheter Discontinued: 10:54 Data 02/28/22 04:57 02/28/22 04:57 A&P Assessment and plan (1) Status post right hemicolectomy: Patient is postoperative day #4 status post right hemicolectomy Overall appears to be doing well from a surgical standpoint. Tolerating clear liquid diet (2) Colonic mass: Pathology pending (3) Atrial flutter with rapid ventricular response: Patient has history of atrial flutter with RVR. She is maintained on anticoagulation, diltiazem, metoprolol Continue diltiazem and metoprolol p.o. Anticoagulation has been restarted as well (4) Spinal stenosis of lumbar region with radiculopathy: Patient with history of chronic back pain with spinal stenosis Lyrica have been discontinued as she was n.p.o. I had restarted this at a lower dose when she could take p.o. to try to prevent any withdrawal. At this point with her given history I do not think it is worth restarting. The dose was relatively high for her age. It is hard to know whether withdrawal of Lyrica, or Lyrica itself considering her possible as needed usage may have contributed to her confusion (5) Hypertension: Continue t metoprolol and Cardizem. Restart losartan lower dose (6) Hypokalemia: Supplement (7) Hypomagnesemia: Supplemented, normal currently (8) Delirium: Patient with significant delirium and concern of neurologic defect 02/26. Stroke alert was called. CTA no thrombus. CT had question subdural. She was moved to the ICU, anticoagulation held, close follow-up today on CT demonstrates no subdural. She has continued to have some confusion, mainly in the afternoons most consistent with ing. Recent TSH was normal. B12 level pending. There has been a concern Lyrica administration or withdrawal may have played a role. She does appear somewhat improved today. It is hard to know her competence on discharge alone back to senior housing. Continue to reorient May have underlying dementia. Discussed with daughter (9) Pneumonia: Pneumonia noted on CTA, chest x-ray As IV access has been lost she has been moved to cefdinir Encourage incentive spirometry She has weaned to room air Plan History of diastolic dysfunction on last echo Multiple other medical problems as outlined by past medical history Thank you for this consult Heparin and SCDs for DVT prophylaxis Attestations Medical Necessity Statement*: As per primary Coding Level of Care Code Acute Code for Chg Fwd Diagnoses Status post right hemicolectomy Z90.49 Colonic mass K63.89 Atrial flutter with rapid ventricular response I48.92 Spinal stenosis of lumbar region with radiculopathy M48.061; M54.16 Hypertension I10 Hypokalemia E87.6 Hypomagnesemia E83.42 Delirium R41.0 Pneumonia J18.9
[2022-02-28 08:56] LABS: Vitamin B12 827 pg/mL (232-1245)
[2022-02-28] MEDS: losartan 50 mg Tablet 100 MG PO (11:13)
[2022-02-28] MEDS: metoprolol tartrate 50 mg Tablet 100 MG PO ×2 (11:14→17:54)
[2022-02-28] MEDS: isosorbide mononitrate ER 60 mg Tablet 120 MG PO (11:15)
[2022-02-28] MEDS: cefdinir 300 MG CAPSULE PO ×2 (11:15→21:32)
[2022-02-28] MEDS: apixaban 5 mg Tablet PO ×2 (11:15→17:54)
[2022-02-28] MEDS: dilTIAZem 60 mg Tablet PO ×3 (11:15→21:32)
--- NOTE | 2022-02-28 15:20 | PM.PN ---
Subjective Subjective: Patient is acutely confused this morning. She does not know what year it is or where she is at. One-on-one sitter reports that she had a bowel movement and 1 episode of emesis. She is tolerating clear liquids otherwise. Patient reports no nausea at this time. Vitals/I&O/Wt Last Vital Signs Temp 98.3 F 02/28/22 12:00 Pulse 93 02/28/22 12:00 Resp 18 02/28/22 12:00 BP 169/78 02/28/22 12:00 Pulse Ox 96 02/28/22 12:00 O2 Del Method 02/28/22 12:00 O2 Flow Rate 2 02/27/22 04:00 02/28/22 02/28/22 02/28/22 06:59 14:59 22:59 Intake Total 120 / 1360 480 / 480 Output Total 6 / 556 Balance 114 / 804 480 / 480 Weight last 48 hrs Weight 189 lb 6.4 oz Weight 190 lb 8 oz Physical Exam Narrative: General: No acute distress, awake alert and oriented x3 Abdomen: Soft, nondistended, appropriately tender to palpation. No guarding rebound or masses Incisions intact without erythema or exudate Urinary Catheter Management: Guevara: Cath Placed During This Visit: yes, but has since been removed by the nurse Reason for Continuing Indwelling Catheter: Decision to DC Catheter Urinary Catheter Date of Insertion: 02/24/22 Urinary Catheter Time of Insertion: 16:10 Date Urinary Catheter Removed: 02/25/22 Time Urinary Catheter Discontinued: 10:54 Data 02/28/22 04:57 02/28/22 04:57 A&P Assessment and plan (1) Colonic mass: (2) Status post right hemicolectomy: Laparoscopic (3) Leukocytosis: Plan IV fluids Advance to regular diet Incentive spirometer Hospitalist following. Appreciate recommendations Psych eval due to acute confusion Discharge plan is to discharge home with daughter with home health but psychiatry evaluation is pending Will possibly discharge tomorrow Attestations Medical Necessity Statement*: Patient requires at least 1 more night in the hospital for psychiatric evaluation and discharge planning following laparoscopic right hemicolectomy Coding Level of Care Code Acute Code for Chg Fwd Diagnoses Colonic mass K63.89 Status post right hemicolectomy Z90.49 Leukocytosis D72.829
[2022-02-28] MEDS: ondansetron 4 MG Tablet PO (15:28)
--- NOTE | 2022-02-28 16:26 | XRR_ITS ---
PROCEDURE INFORMATION: Exam: XR Complete Acute Abdomen Series Including Chest Exam date and time: 02/28/2022 4:43 PM Age: 86 years old Clinical indication: Nausea and vomiting; Additional info: Post op complications TECHNIQUE: Imaging protocol: Radiologic exam. Complete acute abdomen series, including 2 or more views of the abdomen and a single view chest. COMPARISON: CR (CHEST, ) 02/26/2022 7:45 PM FINDINGS: Tubes, catheters and devices: There is a spinal stimulator device with the battery pack in the left flank and the paddles at the T7 and T8 vertebral body levels. Lungs: Lungs are clear bilaterally. Pleural spaces: No pleural effusions. No pneumothorax. Heart/Mediastinum: Cardiac silhouette is moderately enlarged. Mediastinal contours are unremarkable. Gastrointestinal tract: No evidence for bowel obstruction or perforation. Intraperitoneal space: No free intraperitoneal air. Organs: No organomegaly. Vasculature: Vascular calcifications in the aorta. The aorta is tortuous. Bones/joints: Bones are diffusely osteopenic. Degenerative changes in the spine and shoulders. Mild scoliosis in the visualized spine. Old fractures of the left posterolateral 4th through 8th ribs. Mild degenerative changes at both the right and left hips. Mild degenerative changes of the right and left sacroiliac joints. Soft tissues: Skin rebeca over the lower abdomen and over the right and left groins. XR/XR acute abdomen series [id number] IMPRESSION: 1. No evidence for bowel obstruction or perforation. 2. No acute cardiopulmonary process. 3. Incidental/nonacute findings are listed in the report.
[2022-02-28] MEDS: nystatin powder 15 gm Btl 1 APPLIC TOPICAL (17:54)
[2022-03-01] VITALS (7 sets, daily range): BP systolic 148–181; BP diastolic 71–82; PULSE 67–73; RESP 16–18; TEMP 36.3–37; O2SAT 93–95; BMI 32.5
[2022-03-01 05:23] LABS: Basophils % 0.2 %; Hematocrit 38.2 % (37.0-47.0); Hemoglobin 11.7 g/dL (11.5-15.3); Lymphocytes # 0.7 10^3/uL (0.8-4.8); Lymphocytes % 6.1 %; Mean Corpuscular HGB Conc 30.6 g/dL (30.0-36.0); Mean Corpuscular Volume 81.6 fl (81-99); Mean Platelet Volume 10.9 fL (7.4-10.4); Monocytes # 0.8 10^3/uL (0.2-0.9); Monocytes % 7.2 %; Neutrophils # 9.33 10^3/uL (1.8-7.7); Nucleated Red Blood Cells % 0 %; Platelet Count 301 10^3/cmm (130-400); Red Blood Count 4.68 10^6/uL (4.1-5.3); Red Cell Distribution Width 24.8 % (12.1-15.1); White Blood Count 10.8 10^3/uL (4.0-10.0)
[2022-03-01 05:59] LABS: Anion Gap 16.7 (5-19); Blood Urea Nitrogen 15 mg/dL (8-23); Calcium 9.2 mg/dL (8.5-10.5); Carbon Dioxide 25 mmol/L (22-29); Chloride 103 mmol/L (98-107); Glucose 141 mg/dL (65-115); Magnesium 1.8 mg/dL (1.7-2.3); Osmolality Calculated 297 mOsm/kg (285-295); Sodium 142 mmol/L (136-145)
[2022-03-01 06:16] LABS: Potassium 2.7 mmol/L (3.5-5.1)
[2022-03-01] MEDS: lidocaine 1% 5 ML in potassium chloride premix 100 ML 26.25 ML IV (08:23)
[2022-03-01] MEDS: nystatin powder 15 gm Btl 1 APPLIC TOPICAL ×2 (08:30→20:31)
[2022-03-01] MEDS: metoprolol tartrate 50 mg Tablet 100 MG PO ×2 (08:37→17:14)
[2022-03-01] MEDS: isosorbide mononitrate ER 60 mg Tablet 120 MG PO (08:37)
[2022-03-01] MEDS: losartan 50 mg Tablet 100 MG PO (08:37)
[2022-03-01] MEDS: apixaban 5 mg Tablet PO ×2 (08:38→17:15)
[2022-03-01] MEDS: dilTIAZem 60 mg Tablet PO ×3 (08:41→21:09)
--- NOTE | 2022-03-01 09:28 | PM.PN ---
Subjective Subjective: Patient vomited last night and was switched to clear liquid diet. She is passing flatus and having bowel movements. Still awaiting psychiatry consult Vitals/I&O/Wt Last Vital Signs Temp 98.6 F 03/01/22 08:00 Pulse 73 03/01/22 08:00 Resp 16 03/01/22 08:00 BP 148/80 03/01/22 08:37 Pulse Ox 93 03/01/22 08:00 O2 Del Method 03/01/22 08:00 O2 Flow Rate 2 02/27/22 04:00 02/28/22 03/01/22 03/01/22 22:59 06:59 14:59 Intake Total 440 / 920 Output Total 200 / 200 Balance 440 / 920 -200 / 720 Weight last 48 hrs Weight 189 lb 6.4 oz Weight 189 lb 6.4 oz Physical Exam Narrative: General: No acute distress, awake alert and oriented x3 Abdomen: Soft, nondistended, appropriately tender to palpation. No guarding rebound or masses Incisions intact without erythema or exudate Urinary Catheter Management: Guevara: Cath Placed During This Visit: yes, but has since been removed by the nurse Reason for Continuing Indwelling Catheter: Decision to DC Catheter Urinary Catheter Date of Insertion: 02/24/22 Urinary Catheter Time of Insertion: 16:10 Date Urinary Catheter Removed: 02/25/22 Time Urinary Catheter Discontinued: 10:54 Data 03/01/22 04:40 03/01/22 04:40 A&P Assessment and plan (1) Colonic mass: (2) Status post right hemicolectomy: Laparoscopic (3) Leukocytosis: Plan IV fluids Advance to regular diet Incentive spirometer Hospitalist following. Appreciate recommendations Psych eval due to acute confusion Discharge plan is to discharge home with daughter with home health but psychiatry evaluation is pending Will possibly discharge tomorrow Attestations Medical Necessity Statement*: Patient still awaiting psychiatry evaluation. She needs diet advancement and tolerate along with electrolyte replacement. This requires 1 more night in the hospital Coding Level of Care Code Acute Code for Chg Fwd Diagnoses Colonic mass K63.89 Status post right hemicolectomy Z90.49 Leukocytosis D72.829
[2022-03-01] MEDS: potassium chloride ER 20 mEq Tablet 40 MEQ PO (09:58)
--- NOTE | 2022-03-01 12:14 | PC.SOCIAL ---
IMM Update pg 2 of IMM updated and reviewed w/ patient. Copy provided and Copy in chart dated, and initialed.
[2022-03-01] MEDS: cefdinir 300 MG CAPSULE PO ×2 (12:16→21:09)
[2022-03-01] MEDS: lidocaine 1% 5 ML in potassium chloride premix 100 ML 26.5 ML IV (12:22)
--- NOTE | 2022-03-01 14:00 | PC.NURSE ---
[facility] called and stated there is no bed at this time and a updated set of vitals were given.
--- NOTE | 2022-03-01 15:29 | PM.PN ---
Subjective Subjective: Patient was noted to have emesis yesterday. Patient reports abdominal pain is improved. Denies fevers, chills, or chest pains. Medications: Reviewed: Yes Vitals/I&O/Wt Last Vital Signs Temp 97.7 F 03/01/22 12:00 Pulse 67 03/01/22 12:00 Resp 18 03/01/22 12:00 BP 151/73 03/01/22 12:00 Pulse Ox 95 03/01/22 12:00 O2 Del Method 03/01/22 12:00 O2 Flow Rate 2 02/27/22 04:00 03/01/22 03/01/22 03/01/22 06:59 14:59 22:59 Intake Total 345 / 345 Output Total 200 / 200 Balance -200 / 720 345 / 345 Weight last 48 hrs Weight 85.91 kg Weight 85.91 kg Physical Exam Narrative: General: Patient is awake and alert. Head: Normocephalic. Atraumatic. EOM intact. Neck: No JVD. Cardiovascular: RRR. No gallops. No murmurs. No peripheral edema. Lungs: Clear to auscultation, no use of accessory muscles, no crackles or wheezes. Skin: No jaundice. No rashes. Abdomen: Normal bowel sounds, abdomen soft and nontender. Surgical incision. Genito Urinary: Genital exam not performed since complaints not related. Rectal: Rectal exam not performed since no symptoms indicated blood loss. Extremities: No cyanosis or clubbing. Musculoskeletal: 5/5 strength, normal range of motion, no swollen or erythematous joints. Neurological: Moves all 4 extremities. No myoclonus. Urinary Catheter Management: Guevara: Cath Placed During This Visit: yes, but has since been removed by the nurse Reason for Continuing Indwelling Catheter: Decision to DC Catheter Urinary Catheter Date of Insertion: 02/24/22 Urinary Catheter Time of Insertion: 16:10 Date Urinary Catheter Removed: 02/25/22 Time Urinary Catheter Discontinued: 10:54 Data 03/01/22 04:40 03/01/22 04:40 A&P Assessment and plan (1) Status post right hemicolectomy: Status post right hemicolectomy on 02/24 Diet per primary (2) Colonic mass: Pathology pending (3) Atrial flutter with rapid ventricular response: Continue apixaban Continue diltiazem Continue metoprolol (4) Spinal stenosis of lumbar region with radiculopathy: She was apparently on Lyrica which has been discontinued Continue to monitor (5) Hypertension: Continue metoprolol Continue losartan Hydralazine as needed for elevated blood pressures (6) Hypokalemia: Severe, potassium was 2.7 Replace as needed (7) Hypomagnesemia: Replace as needed (8) Delirium: Hospital course complicated by delirium Code stroke was called on 02/26 Imaging was unremarkable for acute findings TSH within normal limits Vitamin B12 within normal limits Frequent reorientation (9) Pneumonia: Encourage pulmonary toilet Continue cefdinir Plan 1ank you for this consult DVT prophylaxis per CODE STATUS: Full code Attestations Medical Necessity Statement*: Patient requires ongoing hospitalization for serial neurological exams, monitoring of mentation, monitoring of electrolytes, and supportive care Coding Level of Care Code Acute Code for Chg Fwd Diagnoses Status post right hemicolectomy Z90.49 Colonic mass K63.89 Atrial flutter with rapid ventricular response I48.92 Spinal stenosis of lumbar region with radiculopathy M48.061; M54.16 Hypertension I10 Hypokalemia E87.6 Hypomagnesemia E83.42 Delirium R41.0 Pneumonia J18.9
[2022-03-02] VITALS: BP 174/66; PULSE 71; RESP 17; TEMP 36.4; O2SAT 93
[2022-03-02 04:00] VITALS: BP 175/79; PULSE 75; RESP 17; TEMP 36.5; O2SAT 94
[2022-03-02 04:47] LABS: Basophils % 0.1 %; Hematocrit 39.9 % (37.0-47.0); Hemoglobin 11.9 g/dL (11.5-15.3); Lymphocytes # 0.8 10^3/uL (0.8-4.8); Lymphocytes % 7.1 %; Mean Corpuscular HGB Conc 29.8 g/dL (30.0-36.0); Mean Corpuscular Hemoglobin 24.6 pg (28.0-34.0); Mean Corpuscular Volume 82.6 fl (81-99); Mean Platelet Volume 10.6 fL (7.4-10.4); Monocytes # 0.9 10^3/uL (0.2-0.9); Monocytes % 7.3 %; Neutrophils # 10.12 10^3/uL (1.8-7.7); Neutrophils % 84.9 %; Nucleated Red Blood Cells % 0 %; Platelet Count 326 10^3/cmm (130-400); Red Blood Count 4.83 10^6/uL (4.1-5.3); Red Cell Distribution Width 25.5 % (12.1-15.1); White Blood Count 11.9 10^3/uL (4.0-10.0)
[2022-03-02 05:35] LABS: Alanine Aminotransferase 13 U/L (0-33); Alkaline Phosphatase 79 U/L (35-105); Anion Gap 14.2 (5-19); Aspartate Amino Transferase 12 U/L (0-32); Blood Urea Nitrogen 20 mg/dL (8-23); Calcium 9.4 mg/dL (8.5-10.5); Carbon Dioxide 21 mmol/L (22-29); Chloride 106 mmol/L (98-107); Globulin 2.6 g/dL (1.3-4.6); Glucose 126 mg/dL (65-115); Magnesium 1.8 mg/dL (1.7-2.3); Osmolality Calculated 290 mOsm/kg (285-295); Phosphorus 2.6 mg/dL (2.5-4.5); Potassium 3.2 mmol/L (3.5-5.1); Sodium 138 mmol/L (136-145); Total Bilirubin 0.4 mg/dL (0.15-1.2); Total Protein 6.6 g/dL (6.6-8.7)
[2022-03-02 07:35] VITALS: BP 181/82; PULSE 72; RESP 16; TEMP 36.7; O2SAT 94
[2022-03-02 08:40] VITALS: BP 181/82
[2022-03-02] MEDS: losartan 50 mg Tablet 100 MG PO (08:40)
[2022-03-02] MEDS: isosorbide mononitrate ER 60 mg Tablet 120 MG PO (08:40)
[2022-03-02] MEDS: dilTIAZem 60 mg Tablet PO (08:40)
[2022-03-02] MEDS: metoprolol tartrate 50 mg Tablet 100 MG PO (08:40)
[2022-03-02] MEDS: apixaban 5 mg Tablet PO (08:41)
[2022-03-02] MEDS: cefdinir 300 MG CAPSULE PO (09:07)
[2022-03-02] MEDS: potassium chloride ER 20 mEq Tablet 40 MEQ PO (09:42)
--- NOTE | 2022-03-02 10:08 | PM.DCS ---
Discharge Providers Date of Admission: 02/24/22 18:32 Date of Discharge: March 02, 2022 Attending Provider at Admission: Marty Zazueta DO Attending Provider at Discharge: Marty Zazueta DO Consults: Hospitalist Primary Care Provider: Nursy Dennison DO Diagnoses at Discharge Discharge Diagnosis (1) Status post right hemicolectomy: Status: Acute (2) Colonic mass: Status: Acute (3) Atrial flutter with rapid ventricular response: Status: Acute (4) Spinal stenosis of lumbar region with radiculopathy: Status: Acute (5) Hypertension: Status: Acute (6) Hypokalemia: Status: Acute (7) Hypomagnesemia: Status: Acute (8) Delirium: Status: Acute (9) Pneumonia: Status: Acute Reason for Visit Reason for Visit: other specified diseases of intestine Hospital Course Hospital Course This very pleasant 86-year-old female who was admitted to the hospital following laparoscopic right hemicolectomy for right colon mass. She did well postoperatively and was eating regular diet and having bowel movements prior to discharge. Postoperatively she did develop some sundowning and required a one-on-one sitter. She was seen by psychiatry and cleared to go home, however his note was not placed by the time of discharge. Patient was discharged home in good condition with home health Physical Exam Narrative: General : Patient is well developed , no acute distress, oriented x3 Head : Normal cephalic, a-traumatic. Ears : Pinnae and external canal are normal. Hearing is normal. Eyes : PERRLA, Sclera and injection are normal. No conjunctival discharge. Nose : Mucous membranes are without erythema. Throat : buccal mucosa is normal, gums are without significant recession or hypertrophy. Lungs : Equal chest rise bilaterally, no use of accessory muscles, trachea is midline. Cor : Rate and rhythm are normal. Abdomen : Soft, ND, appropriately tender to palpation, no g/r/m Incisions intact without erythema or exudate Extremities : No edema, no cyanosis or clubbing, dorsalis pedis pulses are present bilaterally, non-tender to palpation of calves. Upper extremities are normal bilaterally. Back : non-tender to palpation, no CVA tenderness. Neuro : CN II - XII intact, Upper and lower extremities have equal and full strength Urinary Catheter Management: Guevara: Cath Placed During This Visit: yes, but has since been removed by the nurse Reason for Continuing Indwelling Catheter: Decision to DC Catheter Urinary Catheter Date of Insertion: 02/24/22 Urinary Catheter Time of Insertion: 16:10 Date Urinary Catheter Removed: 02/25/22 Time Urinary Catheter Discontinued: 10:54 Discharge Data Studies Completed and Pending Completed Studies During Hospitalization Category Date Time Status CT head wo con* [id number] Routine Cat Scan 02/27/22 07:00 Completed CTA head neck [CT angio headneck* [id number]] Stat Cat Scan 02/26/22 17:27 Completed XR acute abdomen series [id number] Routine Exams 02/28/22 16:26 Completed XR chest 1V portable [id number] Routine Exams 02/26/22 19:40 Completed Pending at discharge Category Date Time Status Pathology: Surgical [PTH] Routine Pth 02/24/22 19:47 Received Radiology Impressions Head/Neck CTA 02/26/22 17:27 IMPRESSION: 1. Negative noncontrast CT of the head. 2. No large vessel occlusion intracranially. 3. Fusiform dilatation of the distal left cavernous internal carotid artery to 7 mm. IMPRESSION: 1. No significant stenosis or occlusion. 2. Patchy infiltrate left lung apex, suspicious for pneumonia. REFERENCES: NASCET CRITERIA. The degree of stenosis in the cervical segment of the internal carotid artery is based on NASCET criteria. Normal is no stenosis. Mild is less than 50% stenosis. Moderate is 50-69% stenosis. Severe is 70% to 99% stenosis. Total occlusion is no detectable patent lumen. ADDENDUM: 02/26/22 1904 [facility] REPORT CONTAINS FINDINGS THAT MAY BE CRITICAL TO PATIENT CARE. The findings were verbally communicated via telephone conference with PRASHANT Painter at 7:02 PM WINDERMAN on 02/26/2022. The findings were acknowledged and understood. I also discussed with Dr. Bo the on series 5, image 84 a 3 mm left cerebral convexity subdural hematoma is suspected. Less likely differential diagnosis is motion artifact/volume averaging. Recommend follow-up noncontrast CT head in 4-6 hours to assess stability. Chest X-Ray 02/26/22 19:40 IMPRESSION: Mild perihilar infiltrates. Correlate for pulmonary vascular congestion versus pneumonia. Head CT 02/27/22 07:00 IMPRESSION: 1. No evidence of intracranial hemorrhage or mass effect. Previously described possible small subdural hematoma not visualized today 2. Moderate small vessel changes with moderate parenchymal volume loss worse in the frontal lobes. 3. Stable Small incidental meningioma along the anterior falx measuring 7.7 x 5.5 mm unchanged since 2017 4. No acute intracranial findings. Notified Prashant Bo MD at 02/27/2022 9:18 AM. Chest/Abdomen X-ray 02/28/22 16:26 IMPRESSION: 1. No evidence for bowel obstruction or perforation. 2. No acute cardiopulmonary process. 3. Incidental/nonacute findings are listed in the report. Laboratory Results WBC 11.9 10^3/uL (4.0-10.0) H 03/02/22 03:57 RBC 4.83 10^6/uL (4.1-5.3) 03/02/22 03:57 Hgb 11.9 g/dL (11.5-15.3) 03/02/22 03:57 Hct 39.9 % (37.0-47.0) 03/02/22 03:57 MCV 82.6 fl (81-99) 03/02/22 03:57 MCH 24.6 pg (28.0-34.0) L 03/02/22 03:57 MCHC 29.8 g/dL (30.0-36.0) L 03/02/22 03:57 RDW 25.5 % (12.1-15.1) H 03/02/22 03:57 Plt Count 326 10^3/cmm (130-400) 03/02/22 03:57 MPV 10.6 fL (7.4-10.4) H 03/02/22 03:57 Neut % (Auto) 84.9 % 03/02/22 03:57 Lymph % (Auto) 7.1 % 03/02/22 03:57 [place] % (Auto) 7.3 % 03/02/22 03:57 Eos % (Auto) 0.0 % 03/02/22 03:57 Baso % (Auto) 0.1 % 03/02/22 03:57 Neut # (Auto) 10.12 10^3/uL (1.8-7.7) H 03/02/22 03:57 Lymph # (Auto) 0.8 10^3/uL (0.8-4.8) 03/02/22 03:57 [place] # (Auto) 0.9 10^3/uL (0.2-0.9) 03/02/22 03:57 Eos # (Auto) 0.0 10^3/uL (0.0-0.8) 03/02/22 03:57 Baso # (Auto) 0.0 10^3/uL (0.0-0.1) 03/02/22 03:57 Nucleated RBC % (auto) 0 % 03/02/22 03:57 Nucleated RBCs # 0.0 /100WBC 03/02/22 03:57 Sodium 138 mmol/L (136-145) 03/02/22 03:57 Potassium 3.2 mmol/L (3.5-5.1) L 03/02/22 03:57 Chloride 106 mmol/L (98-107) 03/02/22 03:57 Carbon Dioxide 21 mmol/L (22-29) L 03/02/22 03:57 Anion Gap 14.2 (5-19) 03/02/22 03:57 BUN 20 mg/dL (8-23) 03/02/22 03:57 Creatinine 0.8 mg/dL (0.5-0.9) 03/02/22 03:57 GFR Calculation Not Reportable 03/02/22 03:57 Glucose 126 mg/dL (65-115) H 03/02/22 03:57 POC Glucose 95 mg/dL (70-110) 02/26/22 17:02 Calculated Osmolality 290 mOsm/kg (285-295) 03/02/22 03:57 Calcium 9.4 mg/dL (8.5-10.5) 03/02/22 03:57 Phosphorus 2.6 mg/dL (2.5-4.5) 03/02/22 03:57 Magnesium 1.8 mg/dL (1.7-2.3) 03/02/22 03:57 Total Bilirubin 0.4 mg/dL (0.15-1.2) 03/02/22 03:57 AST 12 U/L (0-32) 03/02/22 03:57 ALT 13 U/L (0-33) 03/02/22 03:57 Alkaline Phosphatase 79 U/L (35-105) 03/02/22 03:57 Total Protein 6.6 g/dL (6.6-8.7) 03/02/22 03:57 Albumin 4.0 g/dL (3.5-5.2) 03/02/22 03:57 Globulin 2.6 g/dL (1.3-4.6) 03/02/22 03:57 Vitamin B12 827 pg/mL (232-1245) 02/28/22 04:57 Urine Color Yellow (Yellow) 02/26/22 18:00 Urine Appearance Clear (CLEAR) 02/26/22 18:00 Urine pH 6 (5-7) 02/26/22 18:00 Ur Specific [place] 1.015 (1.005-1.030) 02/26/22 18:00 Urine Protein Neg (Negative) 02/26/22 18:00 Urine Glucose (UA) Norm (Normal) 02/26/22 18:00 Urine Ketones 1+ (Negative) H 02/26/22 18:00 Urine Blood Neg (Negative) 02/26/22 18:00 Urine Nitrate Negative (Negative) 02/26/22 18:00 Urine Bilirubin Neg (Negative) 02/26/22 18:00 Urine Urobilinogen Norm mg/dL (Negative) 02/26/22 18:00 Ur Leukocyte Esterase Negative (Negative) 02/26/22 18:00 Urine RBC 0-4 /hpf (0-2) H 02/26/22 18:00 Urine WBC 0-4 /hpf (0-5) H 02/26/22 18:00 Ur Squamous Epith Cells 5-10 /hpf (0-5) H 02/26/22 18:00 Amorphous Sediment Not Reportable 02/26/22 18:00 Urine Bacteria Trace /hpf (NONE) 02/26/22 18:00 Blood Type A Positive 02/24/22 10:03 Rho(D) Type Positive 02/24/22 10:03 Antibody Screen Negative 02/24/22 10:03 Procedures Performed Laparoscopic right hemicolectomy Vitals Last Vital Signs Temp 98.1 F 03/02/22 07:35 Pulse 72 03/02/22 07:35 Resp 16 03/02/22 07:35 BP 181/82 03/02/22 08:40 Pulse Ox 94 03/02/22 07:35 O2 Del Method 03/02/22 07:35 O2 Flow Rate 2 02/27/22 04:00 Discharge Plan Discharge Patient Disposition: Home Health Service Condition: Stable Prescriptions: New DOK 100 mg capsule 100 mg PO BID Qty: 20 0RF hydrocodone-acetaminophen 7.5-325 mg tablet 1 tab PO Q6H PRN (Reason: pain) Qty: 20 0RF Continued (DME) rolling walker See Rx Instructions .Route .MEDSUPPLY Qty: 1 0RF Rx Instructions: As directed diltiazem HCl 60 mg tablet 60 mg PO TID Qty: 270 3RF metoprolol tartrate 100 mg tablet 100 mg PO BID Qty: 180 3RF nitroglycerin [Nitrostat] 0.4 mg tablet, sublingual 0.4 mg SUBLINGUAL Q5M PRN (Reason: chest pain) Qty: 50 3RF montelukast 10 mg tablet See Rx Instructions .ROUTE .COMPLEX Qty: 90 1RF Dose Instruction: TAKE 1 TABLET BY MOUTH EVERY DAY Rx Instructions: TAKE 1 TABLET BY MOUTH EVERY DAY (DME) Orthopedic Shoes See Rx Instructions .Route .MEDSUPPLY Qty: 1 0RF Rx Instructions: As directed with heat molded insoles ezetimibe 10 mg tablet See Rx Instructions .ROUTE .COMPLEX Qty: 90 0RF Dose Instruction: TAKE 1 TABLET BY MOUTH EVERY DAY Rx Instructions: TAKE 1 TABLET BY MOUTH EVERY DAY isosorbide mononitrate 60 mg tablet extended release 24 hr 120 mg PO DAILY Qty: 180 3RF estradiol 0.5 mg tablet See Rx Instructions .ROUTE .COMPLEX Qty: 90 0RF Dose Instruction: TAKE 1 TABLET BY MOUTH EVERY DAY Rx Instructions: TAKE 1 TABLET BY MOUTH EVERY DAY fluticasone propionate 50 mcg/actuation spray,suspension See Rx Instructions .ROUTE .COMPLEX Qty: 16 4RF Dose Instruction: USE 1 SPRAY INTRANASAL TWO TIMES DAILY Rx Instructions: USE 1 SPRAY INTRANASAL TWO TIMES DAILY pregabalin [Lyrica] 150 mg capsule 150 mg PO TID Qty: 270 1RF Eliquis 5 mg tablet See Rx Instructions .ROUTE .COMPLEX Qty: 60 3RF Dose Instruction: TAKE 1 TABLET BY MOUTH TWICE DAILY Rx Instructions: TAKE 1 TABLET BY MOUTH TWICE DAILY alprazolam 0.5 mg tablet 0.5 mg PO BID PRN (Reason: anxiety) Qty: 60 5RF Rx Instructions: Filled for Dr. Dennison while out of office. pantoprazole [Protonix] 40 mg tablet,delayed release (DR/EC) 40 mg PO BID 30 Days Qty: 60 0RF losartan 100 mg Tablet 100 mg PO DAILY Discharge Orders: Discharge Order (Routine); Ordered 03/02/22 Ordered By: Marty Zazueta Referrals: [facility] [Other] Marty Zazueta DO [Physician] - 1 week (f/u with Dr. Zazueta on 03/11/2022. Pleae call thursday to schedule your followup appointment. If you have any questions or concerns please call the office at [phone].) Discharge Diet: Advance as tolerated Discharge Activity: Resume usual activity Patient Instructions: Opioid Safety Activity Restrictions/Additional Instructions: Shower daily. Do not soak incisions underwater for 2 weeks. Discharge Attestations Time Spent in Discharge Care*: less than 30 min Quality Metrics Clinical Quality Measures [ No reported AMI, CVA or VTE this stay] Coding Level of Care Code Acute Chg FW DC note Diagnoses Status post right hemicolectomy Z90.49 Colonic mass K63.89 Atrial flutter with rapid ventricular response I48.92 Spinal stenosis of lumbar region with radiculopathy M48.061; M54.16 Hypertension I10 Hypokalemia E87.6 Hypomagnesemia E83.42 Delirium R41.0 Pneumonia J18.9
[2022-03-02 11:20] VITALS: BP 162/60; PULSE 88; RESP 18; TEMP 36.6
--- NOTE | 2022-03-02 11:45 | PC.NURSE ---
Addendum entered by Suly Siegel RN 03/02/22 12:29: Patient refused portable oxygen tank brought up by HOME. Original Note: Discharge education provided to patient and verbal acknowledgement of POC post d/c. All questions answered.
--- NOTE | 2022-03-02 14:57 | PM.PN ---
Subjective Subjective: Patient denies abdominal pain. Denies nausea or emesis. Discussed disposition and she adamantly refuses any option other than discharging to home. Medications: Reviewed: Yes Vitals/I&O/Wt Last Vital Signs Temp 98 F 03/02/22 11:20 Pulse 88 03/02/22 11:20 Resp 18 03/02/22 11:20 BP 162/60 03/02/22 11:20 Pulse Ox 94 03/02/22 07:35 O2 Del Method 03/02/22 07:35 O2 Flow Rate 2 02/27/22 04:00 03/01/22 03/02/22 03/02/22 22:59 06:59 14:59 Intake Total 945 / 1290 540 / 540 Balance 945 / 1290 540 / 540 Weight last 48 hrs Weight 80.739 kg Weight 85.91 kg Physical Exam Narrative: General: Patient is awake and alert. Head: Normocephalic. Atraumatic. EOM intact. Neck: No JVD. Cardiovascular: RRR. No gallops. No murmurs. Lungs: Clear to auscultation, no use of accessory muscles, no crackles or wheezes. Skin: No jaundice. No rashes. Abdomen: Normal bowel sounds, abdomen soft and nontender. Surgical incision. Genito Urinary: Genital exam not performed since complaints not related. Rectal: Rectal exam not performed since no symptoms indicated blood loss. Extremities: No cyanosis or clubbing. Musculoskeletal: Normal range of motion, no swollen or erythematous joints. Neurological: Moves all 4 extremities. No myoclonus. Urinary Catheter Management: Guevara: Cath Placed During This Visit: yes, but has since been removed by the nurse Reason for Continuing Indwelling Catheter: Decision to DC Catheter Urinary Catheter Date of Insertion: 02/24/22 Urinary Catheter Time of Insertion: 16:10 Date Urinary Catheter Removed: 02/25/22 Time Urinary Catheter Discontinued: 10:54 Data 03/02/22 03:57 03/02/22 03:57 A&P Assessment and plan (1) Status post right hemicolectomy: Status post right hemicolectomy on 02/24 Diet per primary (2) Colonic mass: Pathology pending Will need oncology follow up (3) Atrial flutter with rapid ventricular response: Continue apixaban Continue diltiazem Continue metoprolol (4) Spinal stenosis of lumbar region with radiculopathy: She was apparently on Lyrica which has been discontinued Continue to monitor (5) Hypertension: Continue metoprolol Continue losartan Hydralazine as needed for elevated blood pressures (6) Hypokalemia: Replace potassium (7) Hypomagnesemia: Replace as needed (8) Delirium: Resolved Mentation at baseline (9) Pneumonia: Encourage pulmonary toilet Continue cefdinir Plan Thank you for this consult DVT prophylaxis per CODE STATUS: Full code Attestations Medical Necessity Statement*: Patient requires ongoing hospitalization for electrolyte monitoring, supportive care, and general surgery management of post op state. Coding Level of Care Code Acute Code for Chg Fwd Diagnoses Status post right hemicolectomy Z90.49 Colonic mass K63.89 Atrial flutter with rapid ventricular response I48.92 Spinal stenosis of lumbar region with radiculopathy M48.061; M54.16 Hypertension I10 Hypokalemia E87.6 Hypomagnesemia E83.42 Delirium R41.0 Pneumonia J18.9
== END 2022-03-02 11:45 | disposition home health service (06) | DRG 329 ==
LOC: MEDSURG 18:34 → ICU 02-26 22:07 → MEDSURG 02-27 12:05
PROVIDERS: Anesthesiology; Internal Medicine; Admitting Provider Surgery; PCP Family Medicine; Visit Provider Surgery
PROC: 0DTF4ZZ Resection of Right Large Intestine, Percutaneous Endoscopic Approach (ICD-10-PCS; CPT 44205; principal; 2022-02-24 11:25)
DX: K63.89 Other specified diseases of intestine (principal); J18.9 Pneumonia, unspecified organism; I48.92 Unspecified atrial flutter; M48.062 Spinal stenosis, lumbar region with neurogenic claudication; M54.16 Radiculopathy, lumbar region; I10 Essential (primary) hypertension; E87.6 Hypokalemia; E83.42 Hypomagnesemia; Z79.890 Hormone replacement therapy; Z79.01 Long term (current) use of anticoagulants; I25.10 Atherosclerotic heart disease of native coronary artery without angina pectoris; G47.31 Primary central sleep apnea; E78.5 Hyperlipidemia, unspecified; M79.7 Fibromyalgia; F41.1 Generalized anxiety disorder; G62.9 Polyneuropathy, unspecified; Z87.440 Personal history of urinary (tract) infections; R41.0 Disorientation, unspecified; Z88.5 Allergy status to narcotic agent; Z88.0 Allergy status to penicillin
CPT/HCPCS: 36415; 36416; 51702; 51798; 70450; 70496; 70498; 71045; 74022; 80048; 80053; 81001; 82607; 82962; 83735; 84100; 85025; 86850; 86900; 88309; 96372; J0696; J1100; J1170; J1200; J1630; J1644; J1956; J2060; J2250; J2405; J2704; J3010; J3475; J3480; J3490; J7030; Q0162

== ENCOUNTER → 2022-03-11 09:44 | Outpatient (BNVA) | payer MEDICARE, OTHER, SELFPAY | PROVIDERS: PCP Family Medicine; Visit Provider Surgery | DX: D12.6 Benign neoplasm of colon, unspecified (principal); Z98.890 Other specified postprocedural states | CPT/HCPCS: 99024 ==

== ENCOUNTER → 2022-03-25 12:59 | Outpatient (BNVA) | payer MEDICARE, OTHER, SELFPAY | PROVIDERS: PCP Family Medicine; Visit Provider Surgery | DX: Z98.890 Other specified postprocedural states (principal); Z90.49 Acquired absence of other specified parts of digestive tract | CPT/HCPCS: 99024 ==

== ENCOUNTER → 2022-04-09 10:36 | Outpatient (BNVA) | payer MEDICARE, OTHER, SELFPAY | PROVIDERS: PCP Family Medicine; Visit Provider Family Medicine | DX: D50.0 Iron deficiency anemia secondary to blood loss (chronic) (principal); I10 Essential (primary) hypertension; Z90.49 Acquired absence of other specified parts of digestive tract; R53.83 Other fatigue | CPT/HCPCS: 80053; 83735; 84100; 84443; 85025 ==

== ENCOUNTER 2022-04-10 12:49 | Emergency (ER) | payer MEDICARE, OTHER, SELFPAY ==
[2022-04-10] VITALS (20 sets, daily range): BP systolic 125–164; BP diastolic 56–88; PULSE 60–96; RESP 15–23; TEMP 36.7; O2SAT 93–96; BMI 31.9
--- NOTE | 2022-04-10 12:55 | XR_ITS ---
WS: [id number] Exam: XR chest 1V portable [id number] Date/Time of Exam: 04/10/2022 1:03 PM Reason For Exam: dyspnea/cough Comparison 02/26/2022. The lungs are fully expanded and clear. Mild cardiac enlargement unchanged. No pleural effusions. The mediastinum is normal in contour. Numerous old left-sided rib fractures. Neurostimulator electrodes in the thoracic spinal region. Thoracolumbar scoliosis. Bilateral partially encapsulated breast impla nts. XR/XR chest 1V portable [id number] IMPRESSION: 1. Mild cardiac enlargement. No acute process identified.
--- NOTE | 2022-04-10 12:55 | ECG_ITS ---
[facility] Test Date: 2022-04-10 Pat Name: Raven Elizondo Department: Room: Gender: Female Osha Inspector: : [id number] Requested By: Andrew Kimbrough Order Number: [id number] Dinah MD: Jorge Murcia M.D. Measurements Intervals [place] Rate: 77 P: -40 [place]: 153 QRS: -30 QRSD: 93 T: -2 QT: 402 QTc: 456 Interpretive Statements SINUS RHYTHM VOLTAGE CRITERIA FOR LVH [MEETS CRITERIA IN ONE OF: R(aVL), S(V1), R(V5), R(V5/V6)+S(V1)] POSSIBLE ANTERIOR MYOCARDIAL INFARCTION , OF INDETERMINATE AGE [30 ms Q WAVE IN V3/V4, OR R < 0.2 mV IN V4] Compared to ECG 01/26/2022 13:43:03 Myocardial infarct finding now present ST (T wave) deviation no longer present Electronically Signed On 04-10-2022 22:21:35 [employer]MICAL [employer]ODUCTION ENGINE[employer] by Jorge Murcia M.D. [id number]
--- NOTE | 2022-04-10 13:03 | W.ED.RECABL ---
HPI - Recheck/Abnormal Lab/Rx General: Chief Complaint: Recheck/Abnormal Lab/Rx Stated Complaint: LOW MAGNESIUM/ LOW CALCIUM Time Seen by Provider: 04/10/22 12:53 Source: patient Mode of arrival: ambulatory History of Present Illness: 87-year-old female directed to the emergency room by her primary care doctor for abnormal electrolytes she had lab work done and is found to be hypocalcemic hypomagnesemic and hypokalemic. When she arrives here she is complaining of cramping in her hands describes tetany sensation. MD complaint: abnormal lab Context: called for abnormal lab result Associated symptoms: none Review of Systems Const: Denies: fever(s), chills, body aches, change in appetite, fatigue or malaise ENMT: Denies: throat pain, ear or mastoid pain, nasal discharge or nasal congestion Card: Denies: chest pain, edema, dyspnea on exertion or orthopnea Resp: Denies: dyspnea, productive cough or non-productive cough GI: Denies: abdominal pain, nausea, vomiting, hematemesis, coffee ground emesis, diarrhea, constipation, bloating, hematochezia or melena : Denies: flank pain, difficulty voiding, dysuria, urinary frequency or urinary urgency Skin/Breast: Denies: rash or pruritus PFSH ED PFSH: Medical History Allergic rhinitis ASHD (arteriosclerotic heart disease) Atrial flutter with rapid ventricular response AV heart block Benign essential HTN Central sleep apnea Cervical disc disorder with myelopathy of mid-cervical region Dyslipidemia Fibromyalgia KHUSHI (generalized anxiety disorder) Intervertebral disc disorder with radiculopathy of lumbar region Joint instability Lumbar stenosis with neurogenic claudication Menopausal syndrome (hot flashes) Nocturnal hypoxia Polyneuropathy Polyneuropathy, peripheral sensorimotor axonal Recurrent UTI Spinal stenosis of lumbar region with radiculopathy Spondylolisthesis, lumbar region Tubulovillous adenoma of colon Urinary incontinence, mixed URTI (infection of the upper respiratory tract) Surgical History H/O knee surgery H/O lumpectomy H/O: hysterectomy Status post right hemicolectomy Family History Grandfather Diabetes Father Stroke Heart attack CAD (coronary artery disease) Mother Cancer Denies family history of Clotting disorder Dementia Chronic kidney disease (CKD) Suicide Anesthesia complication Bleeding disorder Lung disease Social History Smoking and tobacco status: never smoked Alcohol intake: never Household members: none Marital status: / Current occupational status: retired Physical Exam Const: COMMON NORMALS: no acute distress GENERAL APPEARANCE: cooperative and comfortable ORIENTATION/CONSCIOUSNESS: Yes awake, Yes oriented to person, Yes oriented to place and Yes oriented to time HENMT: COMMON NORMALS: normocephalic, atraumatic and hearing grossly normal bilaterally HEAD & SCALP: normocephalic and atraumatic Resp: COMMON NORMALS: normal respiratory effort, No retractions, No use of accessory muscles and clear to auscultation bilaterally AUSCULTATION: clear to auscultation bilaterally Cardio: COMMON NORMALS: regular rate, regular rhythm and No murmurs present (Cardio) RATE: regular rate RHYTHM: regular rhythm GI: COMMON NORMALS: Soft to palpation and No hepatosplenomegaly present AUSCULTATION: Yes normoactive bowel sounds PALPATION: Yes Soft to palpation, No Tenderness to palpation present (GI), No Guarding due to palpation present (GI) and Yes No hepatosplenomegaly present Extremity: COMMON NORMALS: normal to inspection, capillary refill normal, no clubbing, cyanosis or edema, no calf tenderness and no pedal edema Neuro: SENSORIUM/ORIENTATION: Yes oriented to person, Yes oriented to place and Yes oriented to time Skin: COMMON NORMALS: no rashes or lesions noted GENERAL SKIN EXAM: no rashes or lesions noted Course Vital Signs: Vital signs: Vital Signs Temperature 98.1 F 04/10/22 12:51 Pulse Rate 85 04/10/22 17:15 Respiratory Rate 20 H 04/10/22 17:15 Blood Pressure 141/74 04/10/22 17:15 Pulse Oximetry 95 04/10/22 17:15 Oxygen Delivery Me thod 04/10/22 12:51 MDM - Recheck/Abnormal Lab/Rx Medical Decision Making Patient given supplements for all of her deficits and after a time her Lasix electrolytes were rechecked her magnesium potassium and calcium have all essentially normalized. Her PTH is low. She will need to have this reevaluated. Her magnesium is still borderline low but is adequate at this time. She states the tetany sensation she had in her hands is gone she overall states she feels much better will discharge home with calcium carbonate 600 mg 3 times daily magnesium oxide 400 twice daily and potassium supplement 20 daily. Now that her magnesium was replaced she may not need as much potassium supplement. Discussed with her the importance of follow-up we will set her up to see endocrinology to follow-up on her parathyroid abnormality. Reviewing her chart I do not see where it is a medication that she has been given that would have been likely to cause all of these abnormalities. Medical Records I reviewed the patient's medical records. Lab Data I reviewed the patient's lab results. 04/10/22 12:56 04/10/22 16:34 Radiology Impressions Chest X-Ray 04/10/22 12:55 IMPRESSION: 1. Mild cardiac enlargement. No acute process identified. Laboratory Results WBC 6.3 10^3/uL (4.0-10.0) 04/10/22 12:56 RBC 4.14 10^6/uL (4.1-5.3) 04/10/22 12:56 Hgb 10.4 g/dL (11.5-15.3) L 04/10/22 12:56 Hct 34.1 % (37.0-47.0) L 04/10/22 12:56 MCV 82.4 fl (81-99) 04/10/22 12:56 MCH 25.1 pg (28.0-34.0) L 04/10/22 12:56 MCHC 30.5 g/dL (30.0-36.0) 04/10/22 12:56 RDW 17.7 % (12.1-15.1) H 04/10/22 12:56 Plt Count 277 10^3/cmm (130-400) 04/10/22 12:56 MPV 10.2 fL (7.4-10.4) 04/10/22 12:56 Neut % (Auto) 67.5 % 04/10/22 12:56 Lymph % (Auto) 20.8 % 04/10/22 12:56 [place] % (Auto) 8.9 % 04/10/22 12:56 Eos % (Auto) 1.9 % 04/10/22 12:56 Baso % (Auto) 0.6 % 04/10/22 12:56 Neut # (Auto) 4.22 10^3/uL (1.8-7.7) 04/10/22 12:56 Lymph # (Auto) 1.3 10^3/uL (0.8-4.8) 04/10/22 12:56 [place] # (Auto) 0.6 10^3/uL (0.2-0.9) 04/10/22 12:56 Eos # (Auto) 0.1 10^3/uL (0.0-0.8) 04/10/22 12:56 Baso # (Auto) 0.0 10^3/uL (0.0-0.1) 04/10/22 12:56 Nucleated RBC % (auto) 0 % 04/10/22 12:56 Nucleated RBCs # 0.0 /100WBC 04/10/22 12:56 Sodium 143 mmol/L (136-145) 04/10/22 16:34 Potassium 4.4 mmol/L (3.5-5.1) 04/10/22 16:34 Chloride 102 mmol/L (98-107) 04/10/22 16:34 Carbon Dioxide 28 mmol/L (22-29) 04/10/22 16:34 Anion Gap 17.4 (5-19) 04/10/22 16:34 BUN 10 mg/dL (8-23) 04/10/22 16:34 Creatinine 0.7 mg/dL (0.5-0.9) 04/10/22 16:34 GFR Calculation Not Reportable 04/10/22 16:34 Glucose 105 mg/dL (65-115) 04/10/22 16:34 Calculated Osmolality 295 mOsm/kg (285-295) 04/10/22 16:34 Calcium 9.0 mg/dL (8.5-10.5) 04/10/22 16:34 Ionized Calcium Jean 0.8 mmol/L (1.1-1.4) L 04/10/22 12:56 Phosphorus 3.0 mg/dL (2.5-4.5) 04/10/22 12:56 Magnesium 1.3 mg/dL (1.7-2.3) L 04/10/22 16:34 Total Bilirubin 0.2 mg/dL (0.15-1.2) 04/10/22 12:56 AST 11 U/L (0-32) 04/10/22 12:56 ALT 6 U/L (0-33) 04/10/22 12:56 Alkaline Phosphatase 71 U/L (35-105) 04/10/22 12:56 Total Protein 6.1 g/dL (6.6-8.7) L 04/10/22 12:56 Albumin 3.4 g/dL (3.5-5.2) L 04/10/22 12:56 Globulin 2.7 g/dL (1.3-4.6) 04/10/22 12:56 PTH Intact 57.5 pg/mL (15-65) 04/10/22 12:56 Calcium (PTH Intact) 6.2 mg/dL (8.5-10.5) L 04/10/22 12:56 Urine Color Yellow (Yellow) 04/10/22 17:35 Urine Appearance Hazy (CLEAR) A 04/10/22 17:35 Urine pH 6 (5-7) 04/10/22 17:35 Ur Specific [place] 1.010 (1.005-1.030) 04/10/22 17:35 Urine Protein Neg (Negative) 04/10/22 17:35 Urine Glucose (UA) Norm (Normal) 04/10/22 17:35 Urine Ketones Negative (Negative) 04/10/22 17:35 Urine Blood Neg (Negative) 04/10/22 17:35 Urine Nitrate Negative (Negative) 04/10/22 17:35 Urine Bilirubin Neg (Negative) 04/10/22 17:35 Urine Urobilinogen Neg mg/dL (Negative) 04/10/22 17:35 Ur Leukocyte Esterase 1+ (Negative) H 04/10/22 17:35 Urine RBC Rare /hpf (0-2) 04/10/22 17:35 Urine WBC 25-40 /hpf (0-5) H 04/10/22 17:35 Ur Squamous Epith Cells 0-4 /hpf (0-5) H 04/10/22 17:35 Amorphous Sediment Not Reportable 04/10/22 17:35 Urine Bacteria Trace /hpf (NONE) 04/10/22 17:35 Discharge Plan Discharge Patient Disposition: Home Clinical Impression: Hypomagnesemia, Hypokalemia, Hypocalcemia Condition: Stable Prescriptions: New magnesium oxide 400 mg magnesium capsule 400 mg PO BID Qty: 60 0RF calcium carbonate 600 mg calcium (1,500 mg) tablet 600 mg PO TID Qty: 90 0RF potassium chloride 20 mEq tablet extended release 20 meq PO TID Qty: 90 0RF No Action (DME) rolling walker See Rx Instructions .Route .MEDSUPPLY Qty: 1 0RF Rx Instructions: As directed diltiazem HCl 60 mg tablet 60 mg PO TID Qty: 270 3RF metoprolol tartrate 100 mg tablet 100 mg PO BID Qty: 180 3RF nitroglycerin [Nitrostat] 0.4 mg tablet, sublingual 0.4 mg SUBLINGUAL Q5M PRN (Reason: chest pain) Qty: 50 3RF (DME) Orthopedic Shoes See Rx Instructions .Route .MEDSUPPLY Qty: 1 0RF Rx Instructions: As directed with heat molded insoles pregabalin [Lyrica] 150 mg capsule 150 mg PO TID Qty: 270 1RF alprazolam 0.5 mg tablet 0.5 mg PO BID PRN (Reason: anxiety) Qty: 60 5RF Rx Instructions: Filled for Dr. Dennison while out of office. pantoprazole [Protonix] 40 mg tablet,delayed release (DR/EC) 40 mg PO BID 30 Days Qty: 60 0RF sulfamethoxazole-trimethoprim [Bactrim DS] 800-160 mg tablet 1 tab PO BID 7 Days Qty: 14 0RF Rx Instructions: rx filled 04/03/22 7d/s losartan 100 mg Tablet 100 mg PO DAILY isosorbide mononitrate 60 mg tablet extended release 24 hr 60 mg PO BID montelukast 10 mg tablet 10 mg PO DAILY estradiol 0.5 mg tablet 0.5 mg PO DAILY ezetimibe 10 mg tablet 10 mg PO DAILY Eliquis 5 mg tablet 5 mg PO BID Discharge Orders: Discharge ED (Routine); Ordered 04/10/22 Ordered By: Andrew Choi Referrals: Oneil Ibrahim DO [Primary Care Provider] - Patient Instructions: Opioid Safety, Pain Management Activity Restrictions/Additional Instructions: You were seen today for low levels of calcium magnesium and potassium. All of which were replaced in the ER. Your levels are at safe points at this time. We will provide prescriptions for oral supplementation. You should follow-up with your doctor within the next week to reevaluate for further care. Coding Level of Care Code ED Resident Care Manager for Madyson Mckeon
[2022-04-10 13:34] LABS: Basophils % 0.6 %; Eosinophils # 0.1 10^3/uL (0.0-0.8); Eosinophils % 1.9 %; Hematocrit 34.1 % (37.0-47.0); Hemoglobin 10.4 g/dL (11.5-15.3); Lymphocytes # 1.3 10^3/uL (0.8-4.8); Lymphocytes % 20.8 %; Mean Corpuscular HGB Conc 30.5 g/dL (30.0-36.0); Mean Corpuscular Hemoglobin 25.1 pg (28.0-34.0); Mean Corpuscular Volume 82.4 fl (81-99); Mean Platelet Volume 10.2 fL (7.4-10.4); Monocytes # 0.6 10^3/uL (0.2-0.9); Monocytes % 8.9 %; Neutrophils # 4.22 10^3/uL (1.8-7.7); Neutrophils % 67.5 %; Nucleated Red Blood Cells % 0 %; Platelet Count 277 10^3/cmm (130-400); Red Blood Count 4.14 10^6/uL (4.1-5.3); Red Cell Distribution Width 17.7 % (12.1-15.1); White Blood Count 6.3 10^3/uL (4.0-10.0)
[2022-04-10 13:41] LABS: Ionized Calcium 0.8 mmol/L (1.1-1.4)
[2022-04-10 13:55] LABS: Alanine Aminotransferase 6 U/L (0-33); Albumin Level 3.4 g/dL (3.5-5.2); Alkaline Phosphatase 71 U/L (35-105); Anion Gap 16.1 (5-19); Aspartate Amino Transferase 11 U/L (0-32); Blood Urea Nitrogen 9 mg/dL (8-23); Calcium 6.1 mg/dL (8.5-10.5); Carbon Dioxide 26 mmol/L (22-29); Chloride 105 mmol/L (98-107); Globulin 2.7 g/dL (1.3-4.6); Glucose 114 mg/dL (65-115); Osmolality Calculated 298 mOsm/kg (285-295); Potassium 3.1 mmol/L (3.5-5.1); Sodium 144 mmol/L (136-145); Total Bilirubin 0.2 mg/dL (0.15-1.2); Total Protein 6.1 g/dL (6.6-8.7)
[2022-04-10 13:59] LABS: Magnesium 0.5 mg/dL (1.7-2.3)
[2022-04-10] MEDS: magnesium sulfate premix 2 GM/50 ML PIGGYBACK IV (14:25)
[2022-04-10] MEDS: potassium chloride oral liq 20 mEq/15 mL UDC 60 MEQ PO (14:28)
[2022-04-10] MEDS: calcium chloride 10% Syr 10 mL 2 GM IVP (14:41)
--- NOTE | 2022-04-10 14:48 | PC.PHAR ---
pt states she takes care of her own medications-pt states still taking eliquis 5mg bid [facility] states last filled 01/15/22 states pt couldnt use 340b plan till deductible was met before using 340b again mary @ [facility] [place] states copay was like 500 dollars-pt states still takes imdur er 60mg bid filled 11/08/21 90d/s rx has refills and losartan 100mg daily filled 12/04/21 90d/s rx has refills at [facility]-pt states she is unsure if she is taking protonix 40mg daily filled 03/11/22 30d/s and bactrim ds 1 tab bid filled 04/03/22 7d/s-notes are made in the pharmacy comments
[2022-04-10 15:03] LABS: Calcium 6.2 mg/dL (8.5-10.5)
[2022-04-10 15:06] LABS: Parathyroid Hormone 57.5 pg/mL (15-65)
[2022-04-10 17:21] LABS: Anion Gap 17.4 (5-19); Blood Urea Nitrogen 10 mg/dL (8-23); Carbon Dioxide 28 mmol/L (22-29); Chloride 102 mmol/L (98-107); Glucose 105 mg/dL (65-115); Magnesium 1.3 mg/dL (1.7-2.3); Osmolality Calculated 295 mOsm/kg (285-295); Potassium 4.4 mmol/L (3.5-5.1); Sodium 143 mmol/L (136-145)
[2022-04-10 17:55] LABS: Add Urine Microscopic? YES; Bilirubin Urine Neg (Negative); Blood Urine Neg (Negative); Glucose Urine UA Norm (Normal); Ketones Urine Negative (Negative); Leukocyte Esterase Urine 1+ (Negative); Nitrate Urine Negative (Negative); Protein Urine Neg (Negative); Urine Appearance Hazy (CLEAR); Urine Color Yellow (Yellow); Urobilinogen Urine Neg (Negative); pH Urine 6 (5-7)
[2022-04-10 18:14] LABS: Add Urine Culture? Yes; Bacteria Urine TRACE /hpf; RBC Urine RARE /hpf (0-2); Squamous Epithelial Cell Urine 0-4 /hpf (0-5); WBC Urine 25-40 /hpf (0-5)
--- NOTE | 2022-04-11 09:40 | DCPLANNER ---
Addendum entered by Celine Johnson 06/12/22 09:17: This appointment was rescheduled Addendum entered by Celine Johnson 04/15/22 15:16: Patient has a follow up appointment scheduled for Friday, June 10, 2022 at 2:[address] Ruiz at endocrinology. Clinic will call patient with appointment information. Original Note: senior program manager had message to schedule a follow up appointment for patient with endocrinology. senior program manager sent patients information to the front office staff at endocrinology. Patients information will be printed and reviewed. Clinic will call patient with appointment information.
== END 2022-04-10 17:52 | disposition home or self-care (01) ==
PROVIDERS: Emergency Provider Family Medicine; PCP Family Medicine
DX: E83.51 Hypocalcemia (principal); E83.42 Hypomagnesemia; E87.6 Hypokalemia; Z79.01 Long term (current) use of anticoagulants; I10 Essential (primary) hypertension; E78.5 Hyperlipidemia, unspecified
CPT/HCPCS: 36415; 71045; 80048; 80053; 81001; 82310; 82330; 83735; 83970; 84100; 85025; 87086; 93005; 99285; J3475; J3490

== ENCOUNTER → 2022-04-23 11:04 | Outpatient (BNVA) | payer MEDICARE, OTHER, SELFPAY | PROVIDERS: PCP Family Medicine; Visit Provider Internal Medicine Cardiovascular Disease | DX: I25.10 Atherosclerotic heart disease of native coronary artery without angina pectoris (principal); I10 Essential (primary) hypertension; E78.5 Hyperlipidemia, unspecified; I48.92 Unspecified atrial flutter; G47.31 Primary central sleep apnea; Z79.01 Long term (current) use of anticoagulants | CPT/HCPCS: 99214 ==

== ENCOUNTER → 2022-05-27 11:02 | Outpatient (BNVA) | payer MEDICARE, OTHER, SELFPAY | PROVIDERS: PCP Family Medicine; Referring Provider Family Medicine; Visit Provider Orthopaedic Surgery | DX: M47.814 Spondylosis without myelopathy or radiculopathy, thoracic region (principal); M47.816 Spondylosis without myelopathy or radiculopathy, lumbar region | CPT/HCPCS: 72070; 72110; 99204 ==

== ENCOUNTER → 2022-06-03 11:07 | Outpatient (BNVA) | payer MEDICARE, OTHER, SELFPAY | PROVIDERS: PCP Family Medicine; Visit Provider Family Medicine | DX: D64.9 Anemia, unspecified (principal); E83.42 Hypomagnesemia; E87.6 Hypokalemia | CPT/HCPCS: 80053; 83735; 85025 ==

== ENCOUNTER 2022-06-10 19:19 | Emergency (ER) | payer MEDICARE, OTHER, SELFPAY ==
[2022-06-10] VITALS (7 sets, daily range): BP systolic 137–179; BP diastolic 66–92; PULSE 75–87; RESP 16; TEMP 36.6; O2SAT 93–97
[2022-06-10 20:09] LABS: Basophils # 0.1 10^3/uL (0.0-0.1); Basophils % 0.7 %; Eosinophils # 0.1 10^3/uL (0.0-0.8); Hematocrit 37.9 % (37.0-47.0); Hemoglobin 11.6 g/dL (11.5-15.3); Lymphocytes # 1.6 10^3/uL (0.8-4.8); Lymphocytes % 23.2 %; Mean Corpuscular HGB Conc 30.6 g/dL (30.0-36.0); Mean Corpuscular Hemoglobin 25.1 pg (28.0-34.0); Mean Platelet Volume 10.6 fL (7.4-10.4); Monocytes # 0.6 10^3/uL (0.2-0.9); Monocytes % 8.5 %; Neutrophils # 4.46 10^3/uL (1.8-7.7); Neutrophils % 65.3 %; Nucleated Red Blood Cells % 0 %; Platelet Count 287 10^3/cmm (130-400); Red Blood Count 4.62 10^6/uL (4.1-5.3); Red Cell Distribution Width 15.4 % (12.1-15.1); White Blood Count 6.8 10^3/uL (4.0-10.0)
--- NOTE | 2022-06-10 20:24 | XRR_ITS ---
PROCEDURE INFORMATION: Exam: XR Left Hip Exam date and time: 06/10/2022 8:57 PM Age: 87 years old Clinical indication: Hip pain; Left hip; Additional info: Fall TECHNIQUE: Imaging protocol: Radiologic exam of the left hip. Views: 2 or 3 views hip with pelvis when performed. COMPARISON: CT abdomen pelvis wo con [id number] 01/28/2022 7:58 AM FINDINGS: Bones/joints: Unremarkable. No acute fracture. Soft tissues: Unremarkable. Vasculature: Scattered vascular calcifications. XR/XR hip LT 2-3V wo/w pel* [id number] IMPRESSION: No acute findings.
[2022-06-10 20:33] LABS: Alanine Aminotransferase 9 U/L (0-33); Albumin Level 4.2 g/dL (3.5-5.2); Alkaline Phosphatase 76 U/L (35-105); Anion Gap 17.9 (5-19); Aspartate Amino Transferase 16 U/L (0-32); Blood Urea Nitrogen 12 mg/dL (8-23); Calcium 6.3 mg/dL (8.5-10.5); Carbon Dioxide 26 mmol/L (22-29); Chloride 102 mmol/L (98-107); Globulin 2.8 g/dL (1.3-4.6); Glucose 71 mg/dL (65-115); Osmolality Calculated 294 mOsm/kg (285-295); Sodium 143 mmol/L (136-145); Total Bilirubin 0.2 mg/dL (0.15-1.2)
[2022-06-10 20:44] LABS: Magnesium 0.4 mg/dL (1.7-2.3); Potassium 2.9 mmol/L (3.5-5.1)
--- NOTE | 2022-06-10 21:06 | ECG_ITS ---
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 Measurements Intervals [place] Rate: 78 P: 42 RI: 155 QRS: -28 QRSD: 85 T: 59 QT: 389 QTc: 445 Interpretive Statements SINUS RHYTHM LEFT VENTRICULAR HYPERTROPHY AND ST-T CHANGE [VOLTAGE CRITERIA PLUS ST/T ABNORMALITY] POSSIBLE SEPTAL MYOCARDIAL INFARCTION , PROBABLY OLD [30 ms Q WAVE IN V1/V2] Compared to ECG 04/10/2022 13:05:32 ST (T wave) deviation now present Myocardial infarct finding still present Electronically Signed On 06-11-2022 11:01:15 CDT by Igor Nieves M.D. [email or web address] [email or web address]/OM/[id number]
--- NOTE | 2022-06-10 21:06 | W.ED.RECABL ---
HPI - Recheck/Abnormal Lab/Rx General: Chief Complaint: Recheck/Abnormal Lab/Rx Stated Complaint: Sent by PCP due to blood results Time Seen by Provider: 06/10/22 20:23 Source: patient Mode of arrival: ambulatory Limitations: no limitations History of Present Illness: 87-year-old female states that her PCP called her today and told her she had a critically low magnesium level was 0.6 states that she has been feeling well otherwise she states she had some slight neck pain denies any shortness of breath denies any vomiting or diarrhea she has had a history of low magnesium in the past. Review of Systems Const: Denies: fever(s), chills, body aches or change in appetite Eyes: Denies: blurry vision or eye discomfort ENMT: Denies: throat pain or dental pain Card: Denies: chest pain Resp: Denies: dyspnea GI: Denies: abdominal pain, nausea, vomiting or diarrhea : Denies: dysuria Musc: Denies: neck pain or back pain Skin/Breast: Denies: rash Neuro: Denies: headache(s) Psych: Denies: depression Timothy/Lymph: Denies: easy bruising All/Imm: Denies: urticaria PFSH ED PFSH: Medical History Allergic rhinitis ASHD (arteriosclerotic heart disease) Atrial flutter with rapid ventricular response AV heart block Benign essential HTN Central sleep apnea Cervical disc disorder with myelopathy of mid-cervical region Dyslipidemia Fibromyalgia KHUSHI (generalized anxiety disorder) Intervertebral disc disorder with radiculopathy of lumbar region Joint instability Lumbar stenosis with neurogenic claudication Menopausal syndrome (hot flashes) Nocturnal hypoxia Polyneuropathy Polyneuropathy, peripheral sensorimotor axonal Recurrent UTI Spinal stenosis of lumbar region with radiculopathy Spondylolisthesis, lumbar region Tubulovillous adenoma of colon Urinary incontinence, mixed URTI (infection of the upper respiratory tract) Surgical History H/O knee surgery H/O lumpectomy H/O: hysterectomy Status post right hemicolectomy Family History Grandfather Diabetes Father Stroke Heart attack CAD (coronary artery disease) Mother Cancer Denies family history of Clotting disorder Dementia Chronic kidney disease (CKD) Suicide Anesthesia complication Bleeding disorder Lung disease Social History Smoking and tobacco status: never smoked Alcohol intake: never Substance/Drug Use: never Household members: none Marital status: / Current occupational status: retired Physical Exam Const: COMMON NORMALS: no acute distress, patient oriented x3 and healthy appearing HENMT: COMMON NORMALS: normocephalic and atraumatic HEAD & SCALP: normocephalic and atraumatic Eye: COMMON NORMALS: conjunctivae normal CONJUNCTIVA: Yes conjunctivae normal Neck/C-Spine: COMMON NORMALS: full ROM and supple Chest: COMMONS NORMALS: normal inspection of the chest and normal palpation of entire chest wall Resp: COMMON NORMALS: normal respiratory effort, No retractions, No use of accessory muscles and clear to auscultation bilaterally AUSCULTATION: clear to auscultation bilaterally Cardio: COMMON NORMALS: regular rate, regular rhythm and No murmurs present (Cardio) RATE: regular rate RHYTHM: regular rhythm GI: COMMON NORMALS: Normal to inspection, nondistended, normoactive bowel sounds present, Soft to palpation, non-tender and no masses PALPATION: Yes Soft to palpation Extremity: COMMON NORMALS: normal to inspection and full ROM Neuro: COMMON NORMALS: patient oriented x3, moves all extremities and no focal motor deficits Psych: COMMON NORMALS: mental status grossly normal, Normal thought process present and cooperative THOUGHT PROCESS: Normal thought process present Skin: COMMON NORMALS: no rashes or lesions noted and no wounds GENERAL SKIN EXAM: no rashes or lesions noted Course Vital Signs: Vital signs: Vital Signs Temperature 97.9 F 06/10/22 19:25 Pulse Rate 82 06/10/22 22:54 Respiratory Rate 16 06/10/22 22:54 Blood Pressure 137/66 06/10/22 22:54 Pulse Oximetry 94 06/10/22 22:54 Oxygen Delivery Me thod Room Air 06/10/22 21:00 MDM - Recheck/Abnormal Lab/Rx Medical Decision Making Patient presents with hypomagnesia she is asymptomatic she is given 4 g of IV magnesium here her magnesium level has improved but still low. I did offer admission she states she would like to try oral replacement. I did speak to her PCP who is going to see her on for recheck of her mag level we will refill her replacement she was supposed to be on that she was not taking she is return if worsening she understands agrees to plan. Lab Data 06/10/22 19:43 06/10/22 19:43 Radiology Impressions Hip/Pelvis X-Ray 06/10/22 20:24 IMPRESSION: No acute findings. Laboratory Results WBC 6.8 10^3/uL (4.0-10.0) 06/10/22 19:43 RBC 4.62 10^6/uL (4.1-5.3) 06/10/22 19:43 Hgb 11.6 g/dL (11.5-15.3) 06/10/22 19:43 Hct 37.9 % (37.0-47.0) 06/10/22 19:43 MCV 82.0 fl (81-99) 06/10/22 19:43 MCH 25.1 pg (28.0-34.0) L 06/10/22 19:43 MCHC 30.6 g/dL (30.0-36.0) 06/10/22 19:43 RDW 15.4 % (12.1-15.1) H 06/10/22 19:43 Plt Count 287 10^3/cmm (130-400) 06/10/22 19:43 MPV 10.6 fL (7.4-10.4) H 06/10/22 19:43 Neut % (Auto) 65.3 % 06/10/22 19:43 Lymph % (Auto) 23.2 % 06/10/22 19:43 [place] % (Auto) 8.5 % 06/10/22 19:43 Eos % (Auto) 2.0 % 06/10/22 19:43 Baso % (Auto) 0.7 % 06/10/22 19:43 Neut # (Auto) 4.46 10^3/uL (1.8-7.7) 06/10/22 19:43 Lymph # (Auto) 1.6 10^3/uL (0.8-4.8) 06/10/22 19:43 [place] # (Auto) 0.6 10^3/uL (0.2-0.9) 06/10/22 19:43 Eos # (Auto) 0.1 10^3/uL (0.0-0.8) 06/10/22 19:43 Baso # (Auto) 0.1 10^3/uL (0.0-0.1) 06/10/22 19:43 Nucleated RBC % (auto) 0 % 06/10/22 19:43 Nucleated RBCs # 0.0 /100WBC 06/10/22 19:43 Sodium 143 mmol/L (136-145) 06/10/22 19:43 Potassium 2.9 mmol/L (3.5-5.1) L 06/10/22 19:43 Chloride 102 mmol/L (98-107) 06/10/22 19:43 Carbon Dioxide 26 mmol/L (22-29) 06/10/22 19:43 Anion Gap 17.9 (5-19) 06/10/22 19:43 BUN 12 mg/dL (8-23) 06/10/22 19:43 Creatinine 1.0 mg/dL (0.5-0.9) H 06/10/22 19:43 GFR Calculation Not Reportable 06/10/22 19:43 Glucose 71 mg/dL (65-115) 06/10/22 19:43 Calculated Osmolality 294 mOsm/kg (285-295) 06/10/22 19:43 Calcium 6.3 mg/dL (8.5-10.5) L 06/10/22 19:43 Magnesium 0.8 mg/dL (1.7-2.3) L* 06/10/22 21:50 Total Bilirubin 0.2 mg/dL (0.15-1.2) 06/10/22 19:43 AST 16 U/L (0-32) 06/10/22 19:43 ALT 9 U/L (0-33) 06/10/22 19:43 Alkaline Phosphatase 76 U/L (35-105) 06/10/22 19:43 Troponin T Baseline 15 ng/L (0-10) H 06/10/22 19:23 Troponin T 120 Minute 14.48 ng/L (0-10) H 06/10/22 21:50 Delta Troponin T -0.52 ABS# (0-10) L 06/10/22 21:50 Total Protein 7.0 g/dL (6.6-8.7) 06/10/22 19:43 Albumin 4.2 g/dL (3.5-5.2) 06/10/22 19:43 Globulin 2.8 g/dL (1.3-4.6) 06/10/22 19:43 Discharge Plan Discharge Patient Disposition: Home Clinical Impression: Hypomagnesemia Condition: Stable Prescriptions: Continued magnesium oxide 400 mg magnesium capsule 400 mg PO BID Qty: 60 0RF No Action (DME) rolling walker See Rx Instructions .Route .MEDSUPPLY Qty: 1 0RF Rx Instructions: As directed diltiazem HCl 60 mg tablet 60 mg PO TID Qty: 270 3RF metoprolol tartrate 100 mg tablet 100 mg PO BID Qty: 180 3RF nitroglycerin [Nitrostat] 0.4 mg tablet, sublingual 0.4 mg SUBLINGUAL Q5M PRN (Reason: chest pain) Qty: 50 3RF (DME) Orthopedic Shoes See Rx Instructions .Route .MEDSUPPLY Qty: 1 0RF Rx Instructions: As directed with heat molded insoles pregabalin [Lyrica] 150 mg capsule 150 mg PO TID Qty: 270 1RF alprazolam 0.5 mg tablet 0.5 mg PO BID PRN (Reason: anxiety) Qty: 60 5RF Rx Instructions: Filled for Dr. Dennison while out of office. sulfamethoxazole-trimethoprim [Bactrim DS] 800-160 mg tablet 1 tab PO BID 7 Days Qty: 14 0RF Rx Instructions: rx filled 04/03/22 7d/s ezetimibe 10 mg tablet See Rx Instructions .ROUTE .COMPLEX Qty: 90 0RF Dose Instruction: TAKE 1 TABLET BY MOUTH EVERY DAY Rx Instructions: TAKE 1 TABLET BY MOUTH EVERY DAY pantoprazole 40 mg tablet,delayed release (/EC) See Rx Instructions .ROUTE .COMPLEX Qty: 60 0RF Dose Instruction: TAKE 1 TABLET BY MOUTH TWICE DAILY Rx Instructions: TAKE 1 TABLET BY MOUTH TWICE DAILY montelukast 10 mg tablet See Rx Instructions .ROUTE .COMPLEX Qty: 90 1RF Dose Instruction: TAKE 1 TABLET BY MOUTH EVERY DAY Rx Instructions: TAKE 1 TABLET BY MOUTH EVERY DAY estradiol 0.5 mg tablet See Rx Instructions .ROUTE .COMPLEX Qty: 90 0RF Dose Instruction: TAKE 1 TABLET BY MOUTH EVERY DAY Rx Instructions: TAKE 1 TABLET BY MOUTH EVERY DAY losartan 100 mg Tablet 100 mg PO DAILY isosorbide mononitrate 60 mg tablet extended release 24 hr 60 mg PO BID Eliquis 5 mg tablet 5 mg PO BID calcium carbonate 600 mg calcium (1,500 mg) tablet 600 mg PO TID Qty: 90 0RF potassium chloride 20 mEq tablet extended release 20 meq PO TID Qty: 90 0RF Discharge Orders: Discharge ED (Routine); Ordered 06/10/22 Ordered By: Tao Ruano Referrals: Oneil Ibrahim DO [Primary Care Provider] - 1-3 days Discharge Diet: Advance as tolerated Discharge Activity: Resume usual activity Patient Instructions: Hypomagnesemia (ED) Coding Level of Care Code ED Rn Document Improvement Specialist for Madyson Mckeon
[2022-06-10] MEDS: magnesium sulfate premix 4 GM/100 ML PREMIX IV (21:15)
[2022-06-10 21:54] LABS: Troponin(5th) Baseline 15 ng/L (0-10)
[2022-06-10 22:14] LABS: Troponin 5 2HR 14.48 ng/L (0-10)
[2022-06-10 22:17] LABS: Troponin 5 2HR Delta -0.52 ABS# (0-10)
[2022-06-10] MEDS: potassium chloride ER 20 mEq Tablet 40 MEQ PO (22:33)
[2022-06-10 22:44] LABS: Magnesium 0.8 mg/dL (1.7-2.3)
[2022-06-10] MEDS: magnesium oxide 400 mg tablet PO (22:53)
--- NOTE | 2022-06-10 23:06 | ECG_ITS ---
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 Measurements Intervals [place] Rate: 77 P: 58 VT: 161 QRS: -19 QRSD: 91 T: 47 QT: 418 QTc: 473 Interpretive Statements SINUS RHYTHM MINIMAL VOLTAGE CRITERIA FOR LVH, CONSIDER NORMAL VARIANT [MEETS CRITERIA IN ONE OF: R(aVL), S(V1), R(V5), R(V5/V6)+S(V1)] NONSPECIFIC ST & T-WAVE ABNORMALITY Compared to ECG 06/10/2022 21:13:20 T-wave abnormality now present ST (T wave) deviation no longer present Myocardial infarct finding no longer present Electronically Signed On 06-11-2022 11:04:37 CDT by Igor Nieves M.D. [email or web address]/[id number]
== END 2022-06-10 23:38 | disposition home or self-care (01) ==
PROVIDERS: Emergency Provider Emergency Medicine; PCP Family Medicine
DX: E83.42 Hypomagnesemia (principal); Z79.01 Long term (current) use of anticoagulants; I10 Essential (primary) hypertension; E78.5 Hyperlipidemia, unspecified
CPT/HCPCS: 36415; 73502; 80053; 83735; 84484; 85025; 93005; 96365; 96366; 99285; J3475

== ENCOUNTER → 2022-06-24 09:23 | Outpatient (BNVA) | payer MEDICARE, OTHER, SELFPAY | PROVIDERS: PCP Family Medicine; Visit Provider Family Medicine | DX: E83.42 Hypomagnesemia (principal); E87.6 Hypokalemia | CPT/HCPCS: 80048; 83735 ==

== ENCOUNTER → 2022-07-03 14:04 | Outpatient (BNVA) | payer MEDICARE, OTHER, SELFPAY | PROVIDERS: PCP Family Medicine; Visit Provider Orthopaedic Surgery | DX: M54.50 Low back pain, unspecified (principal); G89.29 Other chronic pain; Z96.698 Presence of other orthopedic joint implants | CPT/HCPCS: 99214 ==

== ENCOUNTER → 2022-07-22 15:24 | Outpatient (BNVA) | payer MEDICARE, OTHER, SELFPAY | PROVIDERS: PCP Family Medicine; Visit Provider Family Medicine | DX: Z01.818 Encounter for other preprocedural examination (principal) | CPT/HCPCS: 80053; 85025 ==

== ENCOUNTER 2022-07-25 05:39 | Day surgery (SDC) | payer MEDICARE, OTHER, SELFPAY ==
[2022-07-25] VITALS (7 sets, daily range): BP systolic 113–184; BP diastolic 66–86; PULSE 64–69; RESP 16–18; TEMP 36.1–36.6; O2SAT 94–96; BMI 29.5
--- NOTE | 2022-07-25 | XR_ITS ---
WS: [id number] XR lumbar spine 2-3V* [id number] REASON FOR EXAM: SPINAL CORD STIMULATOR REMOVAL FINDINGS: Dorsal column stimulator leads and battery pack have been removed. No residual bacteriologist medical. 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 No other significant abnormality. XR/XR lumbar spine 2-3V* [id number] IMPRESSION: Removal of dorsal column stimulator as above.
[2022-07-25] MEDS: sodium chloride 0.9% 1,000 ML 30 ML IV (06:22)
--- NOTE | 2022-07-25 06:37 | W.PM.OPSUD ---
Surgery/Procedure H&P Update DATE OF PROCEDURE: July 25, 2022 DATE H&P PERFORMED: 07/03/22 H&P UPDATE INFORMATION: I have reviewed H&P completed within last 30 days, I have examined patient prior to procedure and No changes to prior documentation PREOP DIAGNOSIS: Failed hardware spinal cord stimulator, chronic pain syndrome PLANNED PROCEDURE: Operation Date: 07/25/22 07:00 Proposed Procedures p Spinal cord stimulator generator removal (no leads): 09403,M54.50,G89.29(Not Applicable) - Woody Dennis DO
--- NOTE | 2022-07-25 06:51 | ANES.PREANE2 ---
Pre-Anesthetic Assessment Height/Weight: Height 1.63 m Weight 78.018 kg Temp Pulse Resp BP Pulse Ox O2 Del Method 97.4 F L 69 16 184/86 96 Room Air 07/25/22 06:06 07/25/22 06:06 07/25/22 06:06 07/25/22 06:06 07/25/22 06:06 07/25/22 06:09 Preop Diagnosis: Failed hardware spinal cord stimulator, chronic pain syndrome Operation Date: 07/25/22 07:00 Proposed Procedures p Spinal cord stimulator generator removal (no leads): 16308,M54.50,G89.29(Not Applicable) - Woody Dennis DO Familial anesthetic complications: possible telogen effluvium from previous surgery in july Was Beta Dao taken within 24 hours: N/A Was Clonidine taken within 24 hours: N/A Last intake: Intake Last Liquid Date 07/24/22 Last Liquid Time 20:30 Last Solid Date 07/24/22 Last Solid Time 19:30 Social No alcohol and No tobacco Exam alert, oriented x 3, clear to auscultation bilaterally and regular rate & rhythm Airway Mallampati: Class III Dentition: full CV/HEM Hypertension GI Gastroesophageal Reflux Disease Anesthetic Plan ASA status: 3 Anesthesia: General Risk of > 500 ml blood loss (7ml/kg in children): No Medications/Allergies Home Medications Medication Instructions Recorded Confirmed Last Taken Type rolling walker #1 ea 12/25/20 07/23/22 Unknown Rx diltiazem HCl 60 mg tablet 60 mg PO TID #270 tabs 08/26/21 07/23/22 07/24/22 Rx metoprolol tartrate 100 mg tablet 100 mg PO BID #180 tabs 08/26/21 07/23/22 07/24/22 Rx nitroglycerin 0.4 mg sublingual 0.4 mg sublingual Q5M PRN chest 08/28/21 07/23/22 Unknown Rx tablet (Nitrostat) pain #50 tabs Orthopedic Shoes #1 ea 10/16/21 07/23/22 Unknown Rx alprazolam 0.5 mg tablet 0.5 mg PO BID PRN anxiety #60 tabs 02/23/22 07/25/22 07/24/22 Rx isosorbide mononitrate 60 mg 60 mg PO BID 04/10/22 07/23/2223 History tablet,extended release 24 hr ezetimibe 10 mg tablet See Rx Instructions .Route 04/15/22 07/23/22 07/24/22 Rx .COMPLEX #90 tabs montelukast 10 mg tablet See Rx Instructions .Route 06/02/22 07/23/22 07/24/22 Rx .COMPLEX #90 tabs estradiol 0.5 mg tablet See Rx Instructions .Route 06/03/22 07/23/22 07/24/22 Rx .COMPLEX #90 tabs magnesium oxide 400 mg PO BID #60 caps 06/10/22 07/23/22 07/24/22 Rx tramadol 50 mg tablet 50 mg PO BID PRN pain #60 tabs 06/25/22 07/25/22 07/24/22 Rx pantoprazole 40 mg tablet,delayed See Rx Instructions .Route 07/15/22 07/23/22 07/24/22 Rx release .COMPLEX #60 tabs pregabalin 150 mg capsule (Lyrica) 150 mg PO TID #270 caps 07/16/22 07/23/22 07/24/22 Rx Allergies Allergy/AdvReac Type Severity Reaction Status Date / Time atorvastatin [From Lipitor] Allergy Unknown Verified 07/23/22 10:45 codeine Allergy Unknown Verified 07/23/22 10:45 morphine Allergy Unknown Verified 07/23/22 10:45 omega-3 acid ethyl esters Allergy Unknown Verified 07/23/22 10:45 [From Lovaza] Penicillins Allergy Unknown Verified 07/23/22 10:45 Current Medications Generic Name Dose Route Start Last Admin Trade Name Freq PRN Reason Stop Dose Admin Sodium Chloride 1,000 mls @ 30 mls/hr 07/25/22 06:00 07/25/22 06:22 Sodium Chloride 0.9% IV 07/26/22 05:59 30 mls/hr .Q24H OKSANA Administration PFSH Anesthesia Medical History Allergic rhinitis ASHD (arteriosclerotic heart disease) Atrial flutter with rapid ventricular response AV heart block Benign essential HTN Central sleep apnea Cervical disc disorder with myelopathy of mid-cervical region Dyslipidemia Fibromyalgia KHUSHI (generalized anxiety disorder) Intervertebral disc disorder with radiculopathy of lumbar region Joint instability Lumbar stenosis with neurogenic claudication Menopausal syndrome (hot flashes) Nocturnal hypoxia Polyneuropathy Polyneuropathy, peripheral sensorimotor axonal Recurrent UTI Spinal stenosis of lumbar region with radiculopathy Spondylolisthesis, lumbar region Tubulovillous adenoma of colon Urinary incontinence, mixed URTI (infection of the upper respiratory tract) Surgical History H/O knee surgery H/O lumpectomy H/O: hysterectomy Status post right hemicolectomy Family History Grandfather Diabetes Father Stroke Heart attack CAD (coronary artery disease) Mother Cancer Denies family history of Clotting disorder Dementia Chronic kidney disease (CKD) Suicide Anesthesia complication Bleeding disorder Lung disease Social History Smoking and tobacco status: never smoked Alcohol intake: never Substance/Drug Use: never Household members: none Marital status: / Current occupational status: retired Data Anesthesia Cardiac Studies: Echocardiogram 01/26/22
[2022-07-25] MEDS: clindamycin 600 MG/50 ML PREMIX 100 MG IV (06:57)
[2022-07-25] MEDS: lidocaine-epi 1% 20 mL INJ INJECTION (07:21)
[2022-07-25] MEDS: vancomycin 1,000 MG SDV 1000 MG XX (07:21)
--- NOTE | 2022-07-25 07:33 | PM.OP ---
Operative Report Date of procedure: July 25, 2022 Pre-op diagnosis: Preop Diagnosis Failed hardware spinal cord stimulator, chronic pain syndrome Post-op diagnosis: same Procedure done: 1. Removal of percutaneous spinal cord stimulator 2. Removal of Battery for spinal cord stimulator Surgeon: Woody Dennis News Production Assistant: Robin Velazquez News Production Assistant: The clerical administrative assistant, Robin Velazquez, DYAN was needed for his expertise with spine surgery. He was important and necessary throughout the procedure to complete in a safe and timely manner. He assisted with patient positioning prepping and draping tissue retraction suctioning of the operative field protection of the critical structures and tissue closure Estimated blood loss (mL): 5 Procedure: 1. Removal of percutaneous spinal cord stimulator 2. Removal of Battery for spinal cord stimulator Patient was brought to the operative suite after undergoing anesthesia placed in the prone position. All areas impingement well-padded. Skin incision made over the battery in the left side. The dissection was made down to the battery battery was pulled out wires that were attached to the battery were dissected out of the scar tissue. Hoffman was placed on this to hold it in place. Next tension was brought to the stimulator. The area where the wires were sutured in was dissected out. The 2 wires that held the wires in place were dissected out cut out. And then the wires were pulled out from the spinal column. Once wires were removed this was cut and then the remaining wires were pulled out through the battery incision and the battery was removed. X-ray was brought in to ensure that the battery and wires were all removed. Once this was completed then wounds were irrigated and closed in a layered fashion with 0 Vicryl 2-0 Vicryl and Monocryl suture. Sterile dressings were applied patient was transferred to the PACU in stable condition.
[2022-07-25] MEDS: HYDROcodone-acetaminophen 5-325 mg Tablet 1 TAB PO (08:24)
--- NOTE | 2022-07-25 14:00 | ANE.PACU2 ---
Inpatient post-anesthesia follow up: Airway intact: Yes Vital signs: Temperature 97.8 F Pulse Rate 64 Respiratory Rate 18 Blood Pressure 169/72 Pulse Oximetry 94 Oxygen Delivery Me thod Room Air Oxygen Flow Rate Fraction of Inspir ed Oxygen Hydration adequate: Yes Nausea and vomiting: Yes Pain level: 1 Mental status: Baseline
== END 2022-07-25 09:00 | disposition home or self-care (01) ==
PROVIDERS: PCP Family Medicine; Visit Provider Orthopaedic Surgery
PROC: (CPT 63661; principal; 2022-07-25 07:00)
DX: M54.50 Low back pain, unspecified (principal); T85.113A Breakdown (mechanical) of implanted electronic neurostimulator, generator, initial encounter; Y99.9 Unspecified external cause status; G89.29 Other chronic pain; K21.9 Gastro-esophageal reflux disease without esophagitis; E78.5 Hyperlipidemia, unspecified
CPT/HCPCS: 63661; 63688; 72100; 74021; 76000; J2704; J3010; J3370; J3490; J7030

== ENCOUNTER → 2022-07-31 10:50 | Outpatient (BNVA) | payer MEDICARE, OTHER, SELFPAY | PROVIDERS: PCP Family Medicine; Visit Provider Orthopaedic Surgery | DX: M54.50 Low back pain, unspecified (principal); G89.29 Other chronic pain; Z98.890 Other specified postprocedural states | CPT/HCPCS: 99024 ==

== ENCOUNTER → 2022-08-06 10:00 | Outpatient (BNVA) | payer MEDICARE, OTHER, SELFPAY | PROVIDERS: PCP Family Medicine; Visit Provider Nurse Practitioner Family | DX: R39.9 Unspecified symptoms and signs involving the genitourinary system (principal); R53.83 Other fatigue; N30.01 Acute cystitis with hematuria | CPT/HCPCS: 81000 ==

== ENCOUNTER 2022-08-20 11:49 | Outpatient (CLI) | payer MEDICARE, OTHER, SELFPAY ==
--- NOTE | 2022-08-20 11:45 | MR_ITS ---
WS: [id number] MRI LUMBAR SPINE NONCONTRAST HISTORY: Lumbar pain COMPARISON: 08/09/2019 TECHNIQUE: Sagittal and axial multisequence imaging is submitted. Thoracolumbar scoliosis. Marked LEFT curvature lumbar spine with asymmetric disc space narrowing. Mil d progression of the scoliosis since 2019. Disc and osteophyte disease at C5-6 and C6-7 encroaching u christian the ventral cervical cord with compression and stenosis. Advanced rotary scoliosis with LEFT curvature of the lumbar vertebral bodies. Advanced degenerative d isc space narrowing and osteophytic ridging around the vertebral bodies. Same numbering pattern will be used on today's examination as the study from 2019. L3 anterolisthesis by 3.7 mm. Very slight retrolisthesis of L1. Conus terminates normally at L1. T12-L1: Marked osteophytic ridging with osteophyte encroachment upon the RIGHT subarticular recess an d foramina. Additional mild encroachment upon the LEFT subarticular recess. Severe RIGHT subarticular recess and foraminal stenosis. Moderate on the LEFT. L1-L2: Mild annular disc bulging with a shallow central disc protrusion and osteophytic ridging. Bila teral facet arthritis, RIGHT greater than LEFT. Moderate RIGHT and mild LEFT foraminal stenosis and b ilateral subarticular recess encroachment, RIGHT greater than LEFT. L2-L3: Diffuse osteophytic ridging with facet arthritis. Mild central, bilateral subarticular recess and foraminal stenosis, LEFT greater than RIGHT. L3-L4: Diffuse annular disc bulging with osteophytic ridging. Ligamentum flavum and facet arthritis. Severe central, bilateral subarticular recess and foraminal stenosis. There is significant disc and o steophyte contact on the L3 and L4 nerve roots bilaterally. L4-L5: Diffuse annular disc bulging with facet and ligamentum flavum arthritis. Severe central, bilat eral subarticular recess and moderate foraminal stenosis. L5-S1: Diffuse annular disc bulging with a RIGHT paracentral disc protrusion and osteophytic ridging. Mild central stenosis with moderate bilateral subarticular recess and foraminal stenosis. There is s ignificant impingement upon the S1 nerve roots. MR/MR lumbar spine wo con* [id number] IMPRESSION: 1. Mild progression of degenerative rotoscoliosis lumbar spine to the LEFT. 2. L3-4: Severe central, bilateral subarticular recess and foraminal stenosis. There is significant disc and osteophyte contact on the L3 and L4 nerve roots. Progression since the prior study. 3. T12-L1: Osteophyte encroachment upon the RIGHT subarticular recess and fora men. Severe RIGHT subarticular recess and foraminal stenosis. Moderate on the L EFT. 4. L1-2: Moderate RIGHT and mild LEFT foraminal stenosis with bilateral subart icular recess stenosis. 5. L2-3: Mild central, bilateral subarticular recess and foraminal stenosis. 6. L5-S1: Moderate bilateral subarticular recess and foraminal stenosis. Signi ficant encroachment upon the S1 nerve roots 7. L4-5: Severe central, bilateral subarticular recess and moderate foraminal stenosis.
== END 2022-08-20 11:50 | disposition home or self-care (01) ==
LOC: RAD 11:51
PROVIDERS: PCP Family Medicine; Visit Provider Orthopaedic Surgery
DX: M48.07 Spinal stenosis, lumbosacral region (principal); G89.29 Other chronic pain; M41.86 Other forms of scoliosis, lumbar region; M25.78 Osteophyte, vertebrae; M47.816 Spondylosis without myelopathy or radiculopathy, lumbar region
CPT/HCPCS: 72148

== ENCOUNTER → 2022-09-03 11:57 | Outpatient (BNVA) | payer MEDICARE, OTHER, SELFPAY | PROVIDERS: PCP Family Medicine; Visit Provider Family Medicine | DX: M54.50 Low back pain, unspecified (principal); G89.29 Other chronic pain; M48.062 Spinal stenosis, lumbar region with neurogenic claudication; M43.16 Spondylolisthesis, lumbar region; G62.9 Polyneuropathy, unspecified; D50.9 Iron deficiency anemia, unspecified; D64.9 Anemia, unspecified; E83.42 Hypomagnesemia; E87.6 Hypokalemia; Z79.899 Other long term (current) drug therapy | CPT/HCPCS: 80048; 83735; 85025 ==

== ENCOUNTER → 2022-10-01 11:52 | Outpatient (BNVA) | payer MEDICARE, OTHER, SELFPAY | PROVIDERS: PCP Family Medicine; Visit Provider Family Medicine | DX: M15.9 Polyosteoarthritis, unspecified (principal); M79.641 Pain in right hand; M79.642 Pain in left hand; G60.8 Other hereditary and idiopathic neuropathies; M79.7 Fibromyalgia; M48.062 Spinal stenosis, lumbar region with neurogenic claudication; B96.89 Other specified bacterial agents as the cause of diseases classified elsewhere; N76.0 Acute vaginitis; R79.0 Abnormal level of blood mineral; E83.42 Hypomagnesemia; N39.0 Urinary tract infection, site not specified | CPT/HCPCS: 80053; 82607; 82728; 82746; 83735; 84100; 85025 ==

== ENCOUNTER → 2022-10-14 10:05 | Outpatient (BNVA) | payer MEDICARE, OTHER, SELFPAY | PROVIDERS: PCP Family Medicine; Visit Provider Family Medicine | DX: R30.0 Dysuria (principal) | CPT/HCPCS: 81000 ==

== ENCOUNTER → 2022-11-05 11:27 | Outpatient (BNVA) | payer MEDICARE, OTHER, SELFPAY | PROVIDERS: PCP Family Medicine; Visit Provider Internal Medicine Cardiovascular Disease | DX: I48.92 Unspecified atrial flutter (principal); G47.31 Primary central sleep apnea; I10 Essential (primary) hypertension; I25.10 Atherosclerotic heart disease of native coronary artery without angina pectoris; E78.5 Hyperlipidemia, unspecified | CPT/HCPCS: 99214 ==

== ENCOUNTER → 2022-11-11 15:52 | Outpatient (BNVA) | payer MEDICARE, OTHER, SELFPAY | PROVIDERS: PCP Family Medicine; Visit Provider Family Medicine | DX: M15.9 Polyosteoarthritis, unspecified (principal); M79.641 Pain in right hand; M79.642 Pain in left hand; G60.8 Other hereditary and idiopathic neuropathies; M79.7 Fibromyalgia; M48.062 Spinal stenosis, lumbar region with neurogenic claudication; R32 Unspecified urinary incontinence; Z79.899 Other long term (current) drug therapy | CPT/HCPCS: 81003; 87086 ==

== ENCOUNTER → 2022-12-03 11:21 | Outpatient (BNVA) | payer MEDICARE, OTHER, SELFPAY | PROVIDERS: PCP Family Medicine; Visit Provider Family Medicine | DX: N39.0 Urinary tract infection, site not specified (principal); H10.10 Acute atopic conjunctivitis, unspecified eye | CPT/HCPCS: 81000 ==

== ENCOUNTER → 2023-01-28 11:31 | Outpatient (BNVA) | payer MEDICARE, OTHER, SELFPAY | PROVIDERS: PCP Family Medicine; Visit Provider Family Medicine | DX: N39.0 Urinary tract infection, site not specified (principal); R39.9 Unspecified symptoms and signs involving the genitourinary system; M54.50 Low back pain, unspecified | CPT/HCPCS: 81000; 87077; 87086; 87184 ==

== ENCOUNTER → 2023-03-10 11:52 | Outpatient (BNVA) | payer MEDICARE, OTHER, SELFPAY | PROVIDERS: PCP Family Medicine; Visit Provider Family Medicine | DX: M15.9 Polyosteoarthritis, unspecified (principal); M79.641 Pain in right hand; M79.642 Pain in left hand; G60.8 Other hereditary and idiopathic neuropathies; M79.7 Fibromyalgia; M48.062 Spinal stenosis, lumbar region with neurogenic claudication; I10 Essential (primary) hypertension; I25.10 Atherosclerotic heart disease of native coronary artery without angina pectoris; R53.83 Other fatigue; E55.9 Vitamin D deficiency, unspecified; E83.42 Hypomagnesemia; R79.89 Other specified abnormal findings of blood chemistry; I95.1 Orthostatic hypotension | CPT/HCPCS: 80053; 80061; 82306; 82607; 82746; 83735; 84443; 85025 ==

== ENCOUNTER → 2023-03-27 11:52 | Outpatient (BNVA) | payer MEDICARE, OTHER, SELFPAY | PROVIDERS: PCP Family Medicine; Visit Provider Orthopaedic Surgery | DX: G89.29 Other chronic pain; M41.56 Other secondary scoliosis, lumbar region; M48.061 Spinal stenosis, lumbar region without neurogenic claudication | CPT/HCPCS: 72100; 99214 ==

== ENCOUNTER → 2023-04-06 10:20 | Outpatient (BNVA) | payer MEDICARE, OTHER, SELFPAY | PROVIDERS: PCP Family Medicine; Visit Provider Anesthesiology Pain Medicine | DX: M79.18 Myalgia, other site (principal); G89.29 Other chronic pain; M43.16 Spondylolisthesis, lumbar region; M51.16 Intervertebral disc disorders with radiculopathy, lumbar region; M50.020 Cervical disc disorder with myelopathy, mid-cervical region, unspecified level; G62.9 Polyneuropathy, unspecified; G60.8 Other hereditary and idiopathic neuropathies | CPT/HCPCS: 20553; 99205; J1030; J3490 ==

== ENCOUNTER → 2023-04-13 10:12 | Outpatient (BNVA) | payer MEDICARE, OTHER, SELFPAY | PROVIDERS: PCP Family Medicine; Visit Provider Anesthesiology Pain Medicine | DX: G89.29 Other chronic pain; M79.18 Myalgia, other site; M43.16 Spondylolisthesis, lumbar region; G62.9 Polyneuropathy, unspecified; M51.16 Intervertebral disc disorders with radiculopathy, lumbar region; M50.020 Cervical disc disorder with myelopathy, mid-cervical region, unspecified level; G60.8 Other hereditary and idiopathic neuropathies | CPT/HCPCS: 99214 ==

== ENCOUNTER → 2023-04-21 14:06 | Outpatient (BNVA) | payer MEDICARE, OTHER, SELFPAY | PROVIDERS: PCP Family Medicine; Visit Provider Anesthesiology Pain Medicine | DX: Z53.9 Procedure and treatment not carried out, unspecified reason | CPT/HCPCS: 64483; 64484; J1100; J3490 ==

== ENCOUNTER 2023-04-23 04:58 | Inpatient (IN) | payer MEDICARE, OTHER, SELFPAY ==
[2023-04-23] VITALS (55 sets, daily range): BP systolic 99–191; BP diastolic 54–108; PULSE 69–96; RESP 14–23; TEMP 36.4–36.7; O2SAT 95–99; BMI 32.5
--- NOTE | 2023-04-23 05:05 | ECG_ITS ---
[facility] Test Date: 2023-04-23 Pat Name: Raven Elizondo Department: Room: Gender: Female Inside Sales Person: : 1935 Requested By: Vadim Blanco Order Number: [id number] Dinah MD: Igor Nieves M.D. Measurements Intervals [place] Rate: 92 P: 80 NM: 170 QRS: -37 QRSD: 86 T: 70 QT: 343 QTc: 424 Interpretive Statements SINUS RHYTHM LEFT AXIS DEVIATION [QRS AXIS < -30] POSSIBLE RIGHT VENTRICULAR CONDUCTION DELAY [RSR (QR) IN V1/V2] MODERATE VOLTAGE CRITERIA FOR LVH, CONSIDER NORMAL VARIANT [MEETS CRITERIA IN ONE OF: R(aVL), S(V1), R(V5), R(V5/V6)+S(V1)] POSSIBLE ANTEROSEPTAL MYOCARDIAL INFARCTION , OF INDETERMINATE AGE [30 ms Q WAVE IN V1-V4] Compared to ECG 06/10/2022 23:04:32 Left-axis deviation now present Myocardial infarct finding now present T-wave abnormality no longer present Electronically Signed On 04-23-2023 14:44:45 TOOL PROGRAMMER by Igor Nieves M.D. [id number]
--- NOTE | 2023-04-23 05:05 | XRR_ITS ---
PROCEDURE INFORMATION: Exam: XR Chest Exam date and time: 04/23/2023 5:21 AM Age: 88 years old Clinical indication: Chest wall pain; Additional info: Chest pain TECHNIQUE: Imaging protocol: Radiologic exam of the chest. Views: 1 view. COMPARISON: CR XR chest 1V portable [id number] 04/10/2022 1:27 PM FINDINGS: Tubes, catheters and devices: The midthoracic neurostimulator has been removed. Lungs: Extensive pulmonary infiltrates have developed bilaterally, this likely represents a pneumonia. Pleural spaces: Unremarkable. No pleural effusion. No pneumothorax. Heart/Mediastinum: Unremarkable. No cardiomegaly. Bones/joints: Deformity from old left rib fractures. XR/XR chest 1V portable [id number] IMPRESSION: Developing bilateral pneumonia.
--- NOTE | 2023-04-23 05:07 | W.ED.CHESTPA ---
HPI - Chest Pain General: Chief Complaint: Chest Pain Stated Complaint: STEMI Time Seen by Provider: 04/23/23 05:07 History of Present Illness: Patient presents to the ER by EMS for STEMI alert. Patient's been having chest pain for about the last 2 hours being very diaphoretic and short of breath and lethargic. EMS gave her 2 sublingual nitro on route which has helped her pain substantially but she still has pain. They tried to give her an aspirin to chew up but she could not get it swallowed. Patient does not have a diagnosis of coronary artery disease but does see Dr. Murcia. Patient is on isosorbide metoprolol Zetia and diltiazem. Patient does have A-fib with RVR but per the chart for some unknown reason she is not on any anticoagulation. Patient does wear oxygen at night. 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 Allergic rhinitis Polyneuropathy Spondylolisthesis, lumbar region Menopausal syndrome (hot flashes) Benign essential HTN Atrial flutter with rapid ventricular response This patient was taken off the oral anticoagulant, other details are not known AV heart block Central sleep apnea Fibromyalgia Dyslipidemia ASHD (arteriosclerotic heart disease) Nocturnal hypoxia Surgical History Status post right hemicolectomy H/O knee surgery H/O: hysterectomy H/O lumpectomy Family History Grandfather Diabetes Father Stroke Heart attack CAD (coronary artery disease) Mother Cancer Denies family history of Clotting disorder Dementia Chronic kidney disease (CKD) Suicide Anesthesia complication Bleeding disorder Lung disease Social History Smoking and tobacco/nicotine status: never used tobacco/nicotine Alcohol intake: never Substance/Drug Use: never Household members: none Marital status: / Current occupational status: retired Physical Exam Const: COMMON NORMALS: no acute distress, average body habitus, patient oriented x3, no limitations, healthy appearing, alert and well nourished HENMT: COMMON NORMALS: normocephalic, atraumatic, hearing grossly normal bilaterally, external ears normal, Normal external nose present, moist oral mucous membranes and oropharynx normal HEAD & SCALP: normocephalic and atraumatic NOSE: Normal external nose present EXTERNAL EAR: Yes external ears normal Neck/C-Spine: COMMON NORMALS: no JVD Chest: COMMONS NORMALS: normal inspection of the chest and normal palpation of entire chest wall Resp: COMMON NORMALS: normal respiratory effort, No retractions, No use of accessory muscles and clear to auscultation bilaterally AUSCULTATION: clear to auscultation bilaterally Cardio: COMMON NORMALS: no JVD, regular rate, regular rhythm, S1 normal heart sound present, S2 normal heart sound present, No gallops present (Cardio), No clicks present (Cardio), No murmurs present (Cardio) and No rub (Cardio) RATE: regular rate RHYTHM: regular rhythm HEART SOUNDS: S1 normal heart sound present and S2 normal heart sound present GI: COMMON NORMALS: Normal to inspection, nondistended, normoactive bowel sounds present, Soft to palpation, non-tender, No hepatosplenomegaly present and no masses PALPATION: Yes Soft to palpation and Yes No hepatosplenomegaly present Neuro: COMMON NORMALS: patient oriented x3 SENSORIUM/ORIENTATION: Yes alert Course Vital Signs: Vital signs: Vital Signs Temperature 98.0 F 04/23/23 05:00 Pulse Rate 84 04/23/23 05:20 Respiratory Rate 20 H 04/23/23 05:00 Blood Pressure 191/102 04/23/23 05:20 Pulse Oximetry 98 04/23/23 05:00 Oxygen Delivery Me thod Room Air 04/23/23 05:00 MDM - Chest Pain Medical Decision Making EKG faxed immediately to Dr. Gonzalez, says it does not technically meet the diagnostic criteria for STEMI however does look worrisome. He is on his way to evaluate patient. Dr. Gonzalez came and evaluated the patient he decided that she was a poor historian, he decided to take her to the Admissions Officer. Differential Diagnosis Likely acute myocardial infarction; Unlikely acute massive pulmonary embolism, acute respiratory failure, cardiac arrest or sudden cardiac Medical Records I reviewed the patient's medical records. Lab Data I reviewed the patient's lab results. 04/23/23 04:55 04/23/23 04:55 Laboratory Results WBC 15.94 10^3/uL (3.29-11.43) H 04/23/23 04:55 RBC 5.44 10^6/uL (3.85-5.65) 04/23/23 04:55 Hgb 14.40 g/dL (11.27-16.99) 04/23/23 04:55 Hct 48.3 % (36-47) H 04/23/23 04:55 MCV 88.8 fl (85-98) 04/23/23 04:55 MCH 26.5 pg (27-33) L 04/23/23 04:55 MCHC 29.8 g/dL (30-55) L 04/23/23 04:55 RDW 14.9 % (12.1-15.1) 04/23/23 04:55 Plt Count 467 10^3/cmm (157-399) H 04/23/23 04:55 MPV 10.5 fL (7.4-10.4) H 04/23/23 04:55 Neut % (Auto) 70.2 % 04/23/23 04:55 Lymph % (Auto) 24.5 % 04/23/23 04:55 [place] % (Auto) 4.5 % 04/23/23 04:55 Eos % (Auto) 0.1 % 04/23/23 04:55 Baso % (Auto) 0.3 % 04/23/23 04:55 Neut # (Auto) 11.20 10^3/uL (1.8-7.7) H 04/23/23 04:55 Lymph # (Auto) 3.9 10^3/uL (0.8-4.8) 04/23/23 04:55 [place] # (Auto) 0.7 10^3/uL (0.2-0.9) 04/23/23 04:55 Eos # (Auto) 0.0 10^3/uL (0.0-0.8) 04/23/23 04:55 Baso # (Auto) 0.0 10^3/uL (0.0-0.1) 04/23/23 04:55 Nucleated RBC % (auto) 0 % 04/23/23 04:55 Nucleated RBCs # 0.0 /100WBC 04/23/23 04:55 PT 14.70 SECONDS (12.1-14.9) 04/23/23 04:55 INR 1.11 (0.8-1.2) 04/23/23 04:55 All radiology interpretation(s) finalized by discharge Discharge Plan Discharge Condition: Stable Coding Level of Care Code ED Printing Services Coordinator for Madyson Mckeon
--- NOTE | 2023-04-23 05:13 | XACV_ITS ---
Exam Room: 2 Ht: 163 cm Wt: 67 kg BSA: 1.75 m2 Gender: Female : 1935 Any Known Allergies: Other Exam Priority: Routine Indication(s): - ST changes Procedure(s): Procedure Description: Diagnostic procedure Procedure Description: PCI procedure Procedure Description: Drug Eluting Coronary Stent Procedure Description: PTCA Procedure Description: Coronary Angiography Lisa GALDAMEZ; Diagnostic Cath Status: Emergency Diagnostic Findings * Patient is an elderly female who came in with chest pain and shortness of breath and was rather noncommunicative when she arrived. Her EKG revealed subtle ST elevation in leads V1 and V2. Originally I made an attempt to perform the procedure from the right radial artery. I was able to place the sheath in the radial artery however I could not get the guide to seat in the left main coronary artery due to the size of the patient's aorta but more importantly the tortuosity of the axillary artery. I had to switch to the groin which delayed the procedure even more. I had to use a large guide, an XB 4.0 in order to access the left main and even that was somewhat difficult. The LAD is occluded just past the ostium. The left main is unremarkable. The circumflex is also unremarkable other than some minor luminal irregularities. There are 2 large marginal branches. The right coronary artery is the dominant vessel and is large and ends distally as 3 posterior left ventricular branches and a posterior descending artery. There were no significant stenoses.. PCI Status: Emergency PCI LVEF Assessed: No PCI Indication: Immediate PCI for STEMI Interventional Findings * With some difficulty a wire was placed. Initially balloon angioplasty was performed. The vessel was dissected and a large thrombus was present in the proximal vessel. There was also disease beyond the closure point. I initially placed a 2.75 x 18 mm stent in the proximal to mid vessel. More proximal to this the vessel was larger and so I placed a second stent which overlapped the first 1. This was a 3 x 12 mm stent. The end result was good with good distal flow. Decision for PCI with Surgical Consult: No PCI for Multi-vessel Disease: No Conclusions 1. Subacute anterior wall myocardial infarction with development of congestive heart failure. LAD occluded with subsequent angioplasty and stenting with good angiographic result. Recommendations * Medical therapy now. Interventional RX Recommendation: PCI w/o planned CABG Diagnostic RX Recommendation: PCI w/o planned CABG Anticoagulation: Heparin Pressures Phase:Rest AO : 114 / 80 ( 97 ) @ 5:46:00 AM 158 / 76 ( 113 ) @ 5:58:00 AM 161 / 84 ( 116 ) @ 6:01:00 AM 139 / 87 ( 112 ) @ 6:08:00 AM Clinical Evaluation EBL: 5mL-10mL Procedural Details Pre-Procedure Time Out. Identified patient by full name and date of as verbalized by the patient/guarantor. Does the consent match the physician's order: N/A Emergent. Accurate & Complete Informed Consent: N/A Emergent; Informed Consent not obtained due to time critical life threat. Inpatient/Outpatient History & Physical on Chart: N/A Emergent. If H&P is completed, is and addenduem needed: N/A Emergent; If yes, is the addendum complete: N/A Emergent. Visualize and Verify Site with Patient/Guarantor: N/A. Relevant Radiology Images available: N/A. The risks, benefits, and alternatives of sedation and/or procedure were discussed by physician. The patient agrees to continue. Procedure started. [facility] Clinical Fraility Score: 6: Moderately Frail. Gm Mobile Indications: ACS <= 24 hours. Chest Pain Symptom Assessment: Typical Angina Symptoms. Cardiovascular Instability: Yes, if yes, Persistant Ischemic Symptoms. Correct patient, site and procedure confirmed by cath team. Current diagnosis: STEMI. Current Diagnosis : STEMI. Admit Source: Emergency department. PERRLA. Strong, equal hand medical office coordinator bilaterally. Lungs clear x 5 lobes. IV Site on Arrival: 20 gauge in the right anticubital. IV Site on Arrival: 20 gauge in the left anticubital. IV Fluids: 0.9% NaCl at KVO. 0 mL infused prior to skilled laborer. Pre Procedural Pulses: right radial was 2+. Pre Procedural Pulses: bilateral dorsalis pedis was 2+. Oxygen started at 15liters/min via 100% non-rebreather mask. right groin was prepped with chloroprep then draped in the usual sterile fashion. right radial was prepped with chloroprep then draped in the usual sterile fashion. Baseline sample Acquired. HR: 80 BPM. Physician notified. Physician arrived. Physician scrubbed in. Immediate Pre-Procedure Time Out. Correct Patient: Yes; Correct Procedure: Yes; Correct Site: Yes; Correct Patient Position: Yes; Correct Supplies: Yes; Dried Flammable Prep: Yes; Blood Products Available: N/A;. AP pads applied to patient chest. Lidocaine 1% infiltrated to the right radial. Arterial access obtained. A 5 [place] TIG catheter in over wire. Multiple views taken of left coronary artery. Catheter removed over the exchange wire. PCI Indication: STEMI. 6 [place] XB 3 guide catheter was inserted over the wire. [place] guidewire was advanced through the guide catheter to lesion in the prox LAD. Wire out. Guide catheter out. Lidocaine 1% infiltrated to the right groin. Arterial access obtained. 6 [place] XB 3 guide catheter was inserted over the wire. Rashmi Ruano RN was relieved by RT Yesika(R) as monitoring person. Guide catheter out. 6 [place] XB 4 guide catheter was inserted over the wire. [place] guidewire was advanced through the guide catheter to lesion in the prox LAD. Inflation number : 1 A AB TREK 3.50X12 RX BALLOON was prepped and advanced across the Prox LAD , then inflated to 12 JACOB for 0:21 seconds. Balloon out. Inflation Number : 2 A KALEY Mendoza EVA 2.75X18 JADEN -Lot Number# _[id number] EXP: 07/12/2025 was prepped and advanced across the Prox LAD. The stent was deployed at 12 JACOB for 0:28 seconds. PCI Indication: STEMI. Stent balloon out over wire. Inflation Number : 3 A KALEY Mendoza EVA 3.0X15 JADEN -Lot Number# _[id number] EXP: 06/26/2025 was prepped and advanced across the Prox LAD. The stent was deployed at 12 JACOB for 0:25 seconds. Stent balloon out over wire. Results checked. Wire out. Guide catheter out. A 5 [place] TIG catheter in over wire. PCI Indication : Immediate PCI for STEMI. Multiple views taken of right coronary artery. Catheter removed over the standard wire. Physician scrubbed out. A TR Band was successful obtaining hemostatsis at the Right Radial artery insertion site. A Suture was successful obtaining hemostatsis at the Right Femoral artery insertion site. Arterial sheath flushed and connected to tranducer and pressure bag with heparinized saline. Post Procedure: Pulses reassessed and unchanged. PERRLA. Strong, equal hand medical office coordinator bilaterally. No VTE prophylaxis required. Vital chart was stopped. Medication's Wasted: Other = Fentanyl 50mcg Versed 1 mg. Medication's Wasted: Heparin = 4000 units. Medication's Wasted: Nitro = 49.8 mg. Complications: None. Estimated blood loss: 5mL-10mL. Airway - Unaffected, no intervention required; spontaneous ventilation. Circulation: W/N/L, pulses unchanged. Nausea/Vomiting: No. Procedure completed. Patient transferred by bed to ICU. Access Site Site: Right Radial artery Sheath Size: 6 Fr Hemostasis Method: TR Band Hemostasis Success: Successful Site: Right Femoral artery Sheath Size: 6 Fr Hemostasis Method: Suture Hemostasis Success: Successful Procedure Medications Start: 5:37 AM Stop: 5:37 AM Medication: Versed Amount: 1 mg Route: I.V. Start: 5:38 AM Stop: 5:38 AM Medication: Fentanyl Amount: 25 mcg Route: I.V. Start: 5:42 AM Stop: 5:42 AM Medication: Nitrogylcerin Amount: 200 mcg Route: I.A. Start: 5:51 AM Stop: 5:51 AM Medication: Heparin Amount: 5000 units Route: I.V. Start: 6:01 AM Stop: 6:01 AM Medication: Fentanyl Amount: 25 mcg Route: I.V. Start: 6:28 AM Stop: 6:28 AM Medication: Lasix (furosemide) Amount: 40 mg Route: I.V. I, the attending physician, have reviewed and verified all procedure medications. Yes, all medications given per verbal order History/Risk Factors Hypertension: No Dyslipidemia: No Peripheral Arterial Disease (PAD): No Myocardial Infarction (AR): No Obesity: No Renal Disease: No Prior Interventions PCI: No CABG: No Valve Surgery: No Report Signatures Finalized by Dr. Gavin Gonzalez MD on 04/23/2023 08:26 AM
[2023-04-23 05:15] LABS: Basophils % 0.3 %; Eosinophils % 0.1 %; Hematocrit 48.3 % (36-47); Lymphocytes # 3.9 10^3/uL (0.8-4.8); Lymphocytes % 24.5 %; Mean Corpuscular HGB Conc 29.8 g/dL (30-55); Mean Corpuscular Hemoglobin 26.5 pg (27-33); Mean Corpuscular Volume 88.8 fl (85-98); Mean Platelet Volume 10.5 fL (7.4-10.4); Monocytes # 0.7 10^3/uL (0.2-0.9); Monocytes % 4.5 %; Neutrophils % 70.2 %; Nucleated Red Blood Cells % 0 %; Platelet Count 467 10^3/cmm (157-399); Red Blood Count 5.44 10^6/uL (3.85-5.65); Red Cell Distribution Width 14.9 % (12.1-15.1); White Blood Count 15.94 10^3/uL (3.29-11.43)
[2023-04-23] MEDS: aspirin 81 mg Chew Tablet 324 MG PO (05:17)
[2023-04-23] MEDS: nitroglycerin 0.4 mg sublingual Tablet 0.400000000000000022 MG SUBLINGUAL (05:17)
[2023-04-23] MEDS: nitroglycerin 1 gm/inch oint Pkt 1 INCH TOPICAL (05:20)
[2023-04-23 05:24] LABS: INR 1.11 (0.8-1.2)
[2023-04-23 05:28] LABS: ABG PCO2 59.8 mmHg (35-45); ABG PH Result 7.26 (7.35-7.45); Alveolar-Arterial Oxygen Gradi 70.6 mmHg (5-10); Arterial Blood Gas Hematocrit 43.8 % (37-47); Base Excess ABG -1.9 mmol/L (-2.0-2.0); Blood Gas Allen Test Pos; Blood Gas Sample Site Radial, right; Blood Gas Sample Type Arterial; Carboxyhemoglobin 0.5 %THgb (0.4-20.1); HCO3 ABG 26.5 mmol/L (22-26); HGB O2 Sat 96.2 % (95-100); Ionized Calcium Level - ABG 0.7 mmol/L (1.1-1.4); Methemoglobin 0.4 % (0.4-1.5); Oxygen Device NRB; Oxygen Saturation ABG 97.1; PO2 ABG 96.2 mmHg (80.0-100.0); PO2 FiO2 Ratio Arterial Blood 0; Potassium Level - ABG 3.2 mmol/L (3.5-5.0); Total Hemoglobin 14.3 g/dL (12-16)
[2023-04-23 05:30] LABS: Troponin(5th) Baseline 77 ng/L (0-10)
[2023-04-23 05:31] LABS: Alanine Aminotransferase 8 U/L (0-33); Albumin Level 4.3 g/dL (3.5-5.2); Alkaline Phosphatase 107 U/L (35-105); Aspartate Amino Transferase 16 U/L (0-32); Blood Urea Nitrogen 21 mg/dL (8-23); Calcium 9.5 mg/dL (8.5-10.5); Carbon Dioxide 26 mmol/L (22-29); Chloride 102 mmol/L (98-107); Creatinine Clr Calc Pharmacy 43.6494; Globulin 2.5 g/dL (1.3-4.6); Glucose 299 mg/dL (65-115); Magnesium 2.4 mg/dL (1.7-2.3); Osmolality Calculated 308 mOsm/kg (285-295); Sodium 142 mmol/L (136-145); Total Bilirubin 0.3 mg/dL (0.15-1.2); Total Protein 6.8 g/dL (6.6-8.7)
--- NOTE | 2023-04-23 05:31 | PC.NURSE ---
Devan MIGUEL spoke with family member Glory and gave update on patient. Glory stated that she would call back later for a more detailed update on patient status.
[2023-04-23 05:33] LABS: Anion Gap 18.4 (5-19); Potassium 4.4 mmol/L (3.5-5.1)
[2023-04-23 06:40] LABS: NT Pro B Type Natriuretic Pept 1031 pg/mL (0-450)
--- NOTE | 2023-04-23 06:41 | USCV_ITS ---
Raven Elizondo Age: 88 Gender: F : 1935 Exam Date: 04/23/2023 06:30 Ordering Phys: Gavin Gonzalez MD ([email or web address]) Technologist: Exam Location: [facility] [place] Indication: ant wall mi BP: 155 / 90 HR: Rhythm: Sinus Technical Quality: Poor MEASUREMENTS (Male / Female) Normal Values 2D ECHO LVOT Diameter 2.0 cm LV Ejection Fraction MOD 2C 20.6 % LV Ejection Fraction 2C AL 20.6 % LA Diameter 3.5 cm RA Systolic Volume 4C AL 38.1 ml RA Systolic Volume 4C MOD 37.4 ml Aorta at Sinotubular Diameter 2.4 cm M-MODE LA Ao Ratio MM 1.3 AV Cusp Separation MM 2.0 cm DOPPLER AV Peak Velocity 92.0 cm/s LVOT Peak Velocity 76.0 cm/s AV Area Cont Eq vti 2.7 cm squared AV Area Cont Eq pk 2.6 cm squared MV Peak Velocity 90.0 cm/s MV Area PHT 3.9 cm squared Mitral E to A Ratio 1.0 TR Peak Velocity 294.0 cm/s TR Peak Gradient 34.6 mmHg TR Mean Velocity 202.0 cm/s TR Mean Gradient 19.3 mmHg TR Velocity Time Integral 101.6 cm Right Atrial Pressure 3.0 mmHg Pulmonary Artery Systolic Pressu 37.6 mmHg FINDINGS Left Ventricle Poor quality study with poor images. There is akinesis of the apex, apical anterior wall and apical septal wall. The overall ejection fraction is roughly estimated at 30 to 35% however in only 1 view the evaluation is suspected. Grade 2 diastolic dysfunction. Right Ventricle Normal right ventricular size and systolic function. Mild pulmonary hypertension, RVSP 37.6 mmHg. Right Atrium The right atrium is normal in size. Left Atrium The left atrium is normal in size. Mitral Valve Structurally normal mitral valve. Trace mitral valve regurgitation. Aortic Valve Structurally normal aortic valve without significant sclerosis or stenosis. There is no aortic regurgitation. Tricuspid Valve Tricuspid valve not well visualized. Pulmonic Valve Pulmonic valve not well visualized. Pericardium Normal pericardium without effusion. Aorta Normal ascending aorta dimension. IVC Inferior vena cava not visualized. CONCLUSIONS Poor quality study with poor images. There is akinesis of the apex, apical anterior wall and apical septal wall. The overall ejection fraction is roughly estimated at 30 to 35% however in only 1 view the evaluation is suspected. Grade 2 diastolic dysfunction. Structurally normal mitral valve. Trace mitral valve regurgitation. Previous study was performed January 27, 2022. This study represents an acute anterior wall [place] with reduction in left ventricular function from an LAD lesion. Otherwise, the study has not changed. Dr. Gavin Gonzalez MD (Electronically Signed) Final Date: 23 April 2023 08:31 S
--- NOTE | 2023-04-23 07:05 | ECG_ITS ---
[facility] Test Date: 2023-04-23 Pat Name: Raven Elizondo Department: Room: ICU08 Gender: Female Nurse'S Companion: : 1935 Requested By: Vadim Blanco Order Number: [id number] Dinah MD: Igor Nieves M.D. Measurements Intervals [place] Rate: 77 P: 0 NE: 0 QRS: -32 QRSD: 89 T: 26 QT: 386 QTc: 438 Interpretive Statements SUPRAVENTRICULAR RHYTHM LEFT AXIS DEVIATION [QRS AXIS < -30] MODERATE VOLTAGE CRITERIA FOR LVH, CONSIDER NORMAL VARIANT [MEETS CRITERIA IN ONE OF: R(aVL), S(V1), R(V5), R(V5/V6)+S(V1)] POSSIBLE ANTERIOR MYOCARDIAL INFARCTION , OF INDETERMINATE AGE [30 ms Q WAVE IN V3/V4, OR R < 0.2 mV IN V4] MODERATE T-WAVE ABNORMALITY, CONSIDER LATERAL ISCHEMIA [-0.1+ mV T-WAVE IN I/aVL/V5/V6] Compared to ECG 04/23/2023 05:03:45 Supraventricular rhythm now present T-wave abnormality now present Possible ischemia now present Sinus rhythm no longer present Myocardial infarct finding still present Electronically Signed On 04-23-2023 14:50:20 FINANCIAL OFFICER by Igor Nieves M.D. [email or web address]
--- NOTE | 2023-04-23 07:33 | P.HP_ITS ---
Providers/Chief Complaint 2 Admitting Physician: Prashant Bo MD Primary Care Provider: Oneil Ibrahim DO Chief Complaint: STEMI History of Present Illness Raven Elizondo is a 88 year old female presenting to the emergency department with severe chest discomfort, and shortness of breath. She reports this was going on 2 hours prior to presentation, left side of chest radiating down her left arm. She was nauseated but did not vomit. Nitroglycerin sublingual helped some, but did not alleviate discomfort completely. She had significant diaphoresis. She denies having this discomfort before. She reports recent injection into her back, on April 20 by pain management for her chronic back pain. I am seeing her directly after her STEMI activation where she received 2 stents, drug-eluting, per cardiology. She currently reports she is not short of breath, she is pain-free, and feels much better. She denies any recent cough/fever/other illness. Review of Systems 2 General: Reports: 10 or more systems reviewed and unremarkable except in HPI and below Card: Reports: chest pain Resp: Reports: dyspnea; Denies: productive cough or non-productive cough GI: Denies: abdominal pain, nausea, vomiting, hematochezia or melena Medications/Allergies Home Medications Medication Instructions Recorded Confirmed Last Taken Type metoprolol tartrate 100 mg tablet 100 mg PO BID #180 tabs 07/28/22 04/23/23 Unknown Rx isosorbide mononitrate 60 mg See Rx Instructions .Route 11/13/22 04/23/23 Unknown Rx tablet,extended release 24 hr .COMPLEX #180 tabs nitroglycerin 0.4 mg sublingual 0.4 mg sublingual Q5M PRN chest 11/17/22 04/23/23 Unknown Rx tablet (Nitrostat) pain #50 tabs montelukast 10 mg tablet See Rx Instructions .Route 12/03/22 04/23/23 Unknown Rx .COMPLEX #90 tabs olopatadine 0.1 % eye drops (Eye 1 drp ophthalmic (eye) BID #5 mL 12/03/22 04/23/23 Unknown Rx Allergy Itch-Redness Relief) estradiol 0.5 mg tablet See Rx Instructions .Route 12/15/22 04/23/23 Unknown Rx .COMPLEX #90 tabs diltiazem HCl 180 mg 180 mg PO DAILY #90 caps 12/24/22 04/23/23 Unknown Rx capsule,extended release 24 hr ezetimibe 10 mg tablet See Rx Instructions .Route 02/03/23 04/23/23 Unknown Rx .COMPLEX #90 tabs pregabalin 150 mg capsule (Lyrica) 150 mg PO TID #270 caps 02/17/23 04/23/23 Unknown Rx hydrocodone 10 mg-acetaminophen 1 tab PO BID PRN pain 30 days #60 03/10/23 04/23/23 Unknown Rx 325 mg tablet tabs alprazolam 0.5 mg tablet 0.5 mg PO BID PRN anxiety #60 tabs 03/24/23 04/23/23 Unknown Rx magnesium oxide 400 mg (241.3 mg See Rx Instructions .Route 04/06/23 04/23/23 Unknown Rx magnesium) tablet .COMPLEX #60 tabs pantoprazole 40 mg tablet,delayed See Rx Instructions .Route 04/20/23 04/23/23 Unknown Rx release .COMPLEX #60 tabs Allergies Allergy/AdvReac Type Severity Reaction Status Date / Time atorvastatin [From Lipitor] Allergy Unknown Verified 04/23/23 05:09 codeine Allergy Unknown Verified 04/23/23 05:09 morphine Allergy Unknown Verified 04/23/23 05:09 omega-3 acid ethyl esters Allergy Unknown Verified 04/23/23 05:09 [From Lovaza] Penicillins Allergy Unknown Verified 04/23/23 05:09 PFSH Acute 2 PFSH: Medical History Congestive heart failure Respiratory acidosis Acute transmural anterior wall VT Tubulovillous adenoma of colon Recurrent UTI Urinary incontinence, mixed URTI (infection of the upper respiratory tract) KHUSHI (generalized anxiety disorder) Polyneuropathy, 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 Joint instability Lumbar stenosis with neurogenic claudication Intervertebral disc disorder with radiculopathy of lumbar region Allergic rhinitis Polyneuropathy Spondylolisthesis, lumbar region Menopausal syndrome (hot flashes) Benign essential HTN Atrial flutter with rapid ventricular response This patient was taken off the oral anticoagulant, other details are not known AV heart block Central sleep apnea Fibromyalgia Dyslipidemia ASHD (arteriosclerotic heart disease) Nocturnal hypoxia Surgical History Status post right hemicolectomy H/O knee surgery H/O: hysterectomy H/O lumpectomy Family History Grandfather Diabetes Father Stroke Heart attack CAD (coronary artery disease) Mother Cancer Denies family history of Clotting disorder Dementia Chronic kidney disease (CKD) Suicide Anesthesia complication Bleeding disorder Lung disease Social History Smoking and tobacco/nicotine status: never used tobacco/nicotine Alcohol intake: never Substance/Drug Use: never Household members: none Marital status: / Current occupational status: retired Vitals/I&O/Wt Last Vital Signs Temp 98.0 F 04/23/23 05:00 Pulse 84 04/23/23 05:20 Resp 20 H 04/23/23 05:00 BP 191/102 04/23/23 05:20 Pulse Ox 98 04/23/23 05:00 O2 Del Method Room Air 04/23/23 05:00 Weight last 48 hrs Weight 88.904 kg Physical Exam 2 Narrative: General exam no distress, on 2 L and completing normal sentences HEENT: Atraumatic normocephalic. Neck supple no lymphadenopathy thyromegaly Cardiovascular regular rate and rhythm, no murmur Lungs clear Abdomen is soft, positive bowel sounds exams deferred Extremities no cyanosis, or edema Skin no rash Neuro no obvious focal deficits Data 04/23/23 04:55 04/23/23 04:55 Other Labs: ABG done in the emergency department while in respiratory distress demonstrated pH 7.26, pCO2 of 60, pO2 of 96 on 100% nonrebreather CMP demonstrated normal LFTs with exception of alk phos of 107 Magnesium 2.4 Calcium and albumin were normal BNP 1031 Troponin baseline 77 EKG by my review demonstrated left axis deviation, sinus rhythm, lots of artifact, poor R wave progression, ST elevation in V3 and 4 Chest x-ray by my read demonstrates pulmonary edema, cardiomegaly A&P Assessment and plan (1) Acute transmural anterior wall VT: Patient presents with an acute VT She was taken to the angiogram suite, and 2 LAD stents were placed with good result She has been loaded with Plavix and will continue Plavix 75 mg daily Aspirin 81 mg daily Low-dose AGUSTIN inhibitor Reinitiate her home metoprolol dosing Reduce fluids to 50 cc an hour secondary to impaired ejection fraction. Some of her reduced EF may be secondary to stunned myocardium from recent myocardial infarction. Hopefully this improves with medical treatment, and stenting that has been done She apparently has an allergy to statins. Currently on Zetia Discontinue estradiol (2) Congestive heart failure: She appears to be symptomatically improving with ability to wean down to room air (3) Atrial fibrillation: Patient has a past history of paroxysmal atrial fibrillation. Secondary to past history of anemia, anticoagulation has not been given I do note that she is on diltiazem as well as metoprolol. Plan Other medical problems as outlined in past medical history Full code currently She is just received a significant mount of anticoagulation and angiogram suite. Will reassess need for pharmacological DVT prophylaxis tomorrow morning. Do continue SCDs. Attestations 2 Medical Necessity Statement*: Will require greater than 2 midnight stay for evaluation and treatment of ST ovation myocardial infarction with intervention Diagnoses Acute transmural anterior wall VT I21.09 Congestive heart failure I50.9 Atrial fibrillation I48.91 Time Spent (min) 55
--- NOTE | 2023-04-23 07:59 | P.CONIM_ITS ---
Providers/Reason For Consult 2 Consulting Physician/Specialty*: Cardiovascular medicine Reason for Consult*: STEMI Requesting Physician: Emergency room Attending Physician: Gavin Gonzalez MD Primary Care Provider: Oneil Ibrahim DO History of Present Illness History of Present Illness Raven Elizondo is a 88 year old female who apparently has a history of coronary disease though this is not specified. She sees Dr. Murcia in the clinic. She called the ambulance at about 4:00 this morning with chest pain and shortness of breath. A STEMI alert was called. She was quite a ways out and it took the ambulance about 25 minutes to get her here. She was having difficulty breathing in the ambulance. She was given 2 nitroglycerin but no other medications. Upon arrival here she was short of breath. She was put on a 100% nonrebreather mask. The EKG shows some very subtle ST segment elevation in the anterior leads primarily V1 and V2. These findings are slightly different from her previous EKGs. When I spoke to her in the emergency room she was basically unable to talk to me. She was not answering questions. She was not able to swallow aspirin so it was given rectally. No labs were available other than the EKG. I made arrangements to bring her directly to the cardiac catheterization laboratory. This was primarily because of the small subtle changes in her EKG but also I saw her chest x-ray which showed what appears to be mild congestive heart failure. Review of Systems 2 Narrative: Review of systems is unavailable due to the patient's underlying health status Medications/Allergies Home Medications Medication Instructions Recorded Confirmed Last Taken Type metoprolol tartrate 100 mg tablet 100 mg PO BID #180 tabs 07/28/22 04/21/23 Unknown Rx isosorbide mononitrate 60 mg See Rx Instructions .Route 11/13/22 04/21/23 Unknown Rx tablet,extended release 24 hr .COMPLEX #180 tabs nitroglycerin 0.4 mg sublingual 0.4 mg sublingual Q5M PRN chest 11/17/22 04/21/23 Unknown Rx tablet (Nitrostat) pain #50 tabs montelukast 10 mg tablet See Rx Instructions .Route 12/03/22 04/21/23 Unknown Rx .COMPLEX #90 tabs olopatadine 0.1 % eye drops (Eye 1 drp ophthalmic (eye) BID #5 mL 12/03/22 04/21/23 Unknown Rx Allergy Itch-Redness Relief) estradiol 0.5 mg tablet See Rx Instructions .Route 12/15/22 04/21/23 Unknown Rx .COMPLEX #90 tabs diltiazem HCl 180 mg 180 mg PO DAILY #90 caps 12/24/22 04/21/23 Unknown Rx capsule,extended release 24 hr ezetimibe 10 mg tablet See Rx Instructions .Route 02/03/23 04/21/23 Unknown Rx .COMPLEX #90 tabs pregabalin 150 mg capsule (Lyrica) 150 mg PO TID #270 caps 02/17/23 04/21/23 Unknown Rx hydrocodone 10 mg-acetaminophen 1 tab PO BID PRN pain 30 days #60 03/10/23 04/21/23 Unknown Rx 325 mg tablet tabs alprazolam 0.5 mg tablet 0.5 mg PO BID PRN anxiety #60 tabs 03/24/23 04/21/23 Unknown Rx prednisone 20 mg tablet 20 mg PO DAILY #15 tabs 03/27/23 04/21/23 Unknown Rx magnesium oxide 400 mg (241.3 mg See Rx Instructions .Route 04/06/23 04/21/23 Unknown Rx magnesium) tablet .COMPLEX #60 tabs pantoprazole 40 mg tablet,delayed See Rx Instructions .Route 04/20/23 04/21/23 Unknown Rx release .COMPLEX #60 tabs Allergies Allergy/AdvReac Type Severity Reaction Status Date / Time atorvastatin [From Lipitor] Allergy Unknown Verified 04/23/23 05:09 codeine Allergy Unknown Verified 04/23/23 05:09 morphine Allergy Unknown Verified 04/23/23 05:09 omega-3 acid ethyl esters Allergy Unknown Verified 04/23/23 05:09 [From Lovaza] Penicillins Allergy Unknown Verified 04/23/23 05:09 Current Medications Generic Name Dose Route Start Last Admin Trade Name Freq PRN Reason Stop Dose Admin Clopidogrel Bisulfate 75 mg 04/23/23 09:00 04/23/23 07:44 Clopidogrel 75 Mg Tablet PO Not Given DAILY OKSANA Nitroglycerin 0.4 mg 04/23/23 05:05 04/23/23 05:17 Nitroglycerin 0.4 Mg Sublingual Tablet SUBLINGUAL 0.4 mg Q5M PRN Administration CHEST PAIN PFSH Acute 2 PFSH: Medical History (Updated 04/23/23 @ 08:12 by Gavin Gonzalez MD) Congestive heart failure Respiratory acidosis Acute transmural anterior wall VA Tubulovillous adenoma of colon Recurrent UTI Urinary incontinence, mixed URTI (infection of the upper respiratory tract) KHUSHI (generalized anxiety disorder) Polyneuropathy, 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 Joint instability Lumbar stenosis with neurogenic claudication Intervertebral disc disorder with radiculopathy of lumbar region Allergic rhinitis Polyneuropathy Spondylolisthesis, lumbar region Menopausal syndrome (hot flashes) Benign essential HTN Atrial flutter with rapid ventricular response This patient was taken off the oral anticoagulant, other details are not known AV heart block Central sleep apnea Fibromyalgia Dyslipidemia ASHD (arteriosclerotic heart disease) Nocturnal hypoxia Surgical History Status post right hemicolectomy H/O knee surgery H/O: hysterectomy H/O lumpectomy Family History Grandfather Diabetes Father Stroke Heart attack CAD (coronary artery disease) Mother Cancer Denies family history of Clotting disorder Dementia Chronic kidney disease (CKD) Suicide Anesthesia complication Bleeding disorder Lung disease Social History Smoking and tobacco/nicotine status: never used tobacco/nicotine Alcohol intake: never Substance/Drug Use: never Household members: none Marital status: / Current occupational status: retired Vitals/I&O/Wt Last Vital Signs Temp 98.0 F 04/23/23 05:00 Pulse 84 04/23/23 07:56 Resp 20 H 04/23/23 05:00 BP 191/102 04/23/23 07:56 Pulse Ox 98 04/23/23 05:00 O2 Del Method Room Air 04/23/23 05:00 Weight last 48 hrs Weight 196 lb Physical Exam 2 Narrative: GENERAL: In general she is rather noncommunicative on a nonrebreather mask not wanting to lie down. HEENT: Exam within normal limits. NECK: Supple without jugular vein distention. The carotid upstroke is normal without bruits. BACK: Exam normal. LUNGS: Clear. HEART: Regular rate and rhythm. ABDOMEN: Benign without organomegaly or tenderness. EXTREMITIES: No edema. NEUROLOGIC: Exam normal. SKIN: Unremarkable. Data 04/23/23 04:55 04/23/23 04:55 A&P Assessment and plan (1) ASHD (arteriosclerotic heart disease): (2) Dyslipidemia: (3) Atrial flutter with rapid ventricular response: (4) Benign essential HTN: (5) Acute transmural anterior wall VA: (6) Respiratory acidosis: (7) Congestive heart failure: Plan I suspect she has had an acute anterior wall VA but it is hard to tell how many hours this has been going on. She does appear to be in heart failure so it is probably a few hours old. I am going to take her to the catheterization laboratory mainly because of those findings. As I was heading to the catheterization laboratory I was made aware of her white blood cell count which is 16,000. Her arterial blood gas revealed a pO2 of 96, pCO2 of 60 and a pH of 7.26. I do not know if this was done on oxygen or not. Her creatinine is 1. Her BNP is 1031. The troponins are not back yet. I have asked Dr. Bo to admit her since she will need to go to the ICU after the procedure. I have just been notified that there is another acute myocardial infarction patient in the emergency room which will need my attention. I appreciate his help. and Moderate Time for a total of 45 minutes, includes reviewing past or interval history, examining/interviewing patient, placing orders, counseling patient/family/other support, updating patient/family/other support, discussing plan of care with staff, communicating with other healthcare providers, documenting encounter and coordinating care Diagnoses ASHD (arteriosclerotic heart disease) I25.10 Dyslipidemia E78.5 Atrial flutter with rapid ventricular response I48.92 Benign essential HTN I10 Acute transmural anterior wall VA I21.09 Respiratory acidosis E87.29 Congestive heart failure I50.9
[2023-04-23] MEDS: pantoprazole DR 40 mg Tablet PO (08:29)
[2023-04-23] MEDS: aspirin 81 mg EC Tablet PO (08:29)
--- NOTE | 2023-04-23 09:00 | PC.NURSE ---
Pt was admitted to ICU at 0650 this AM with TR band and right groin sheath in placed. Guevara placed. A&O x4.
[2023-04-23] MEDS: metoprolol tartrate 50 mg Tablet PO (10:26)
[2023-04-23] MEDS: ezetimibe 10 mg Tablet PO (10:27)
[2023-04-23] MEDS: montelukast sodium 10 mg Tablet PO (10:27)
--- NOTE | 2023-04-23 11:49 | ECG_ITS ---
[facility] Test Date: 2023-04-23 Pat Name: Raven Elizondo Department: Room: ICU08 Gender: Female Hospice Social Worker: : 1935 Requested By: Vadim Blanco Order Number: [id number] Nix MD: Igor Nieves M.D. Measurements Intervals [place] Rate: 77 P: -59 MD: 147 QRS: -34 QRSD: 98 T: 49 QT: 402 QTc: 456 Interpretive Statements ECTOPIC ATRIAL RHYTHM LEFT AXIS DEVIATION [QRS AXIS < -30] MINIMAL VOLTAGE CRITERIA FOR LVH, CONSIDER NORMAL VARIANT [MEETS CRITERIA IN ONE OF: R(aVL), S(V1), R(V5), R(V5/V6)+S(V1)] POSSIBLE ANTERIOR MYOCARDIAL INFARCTION , OF INDETERMINATE AGE [30 ms Q WAVE IN V3/V4, OR R < 0.2 mV IN V4] MODERATE T-WAVE ABNORMALITY, CONSIDER LATERAL ISCHEMIA [-0.1+ mV T-WAVE IN I/aVL/V5/V6] Compared to ECG 04/23/2023 10:27:15 Ectopic atrial rhythm now present Supraventricular rhythm no longer present Myocardial infarct finding still present T-wave abnormality still present Possible ischemia still present Electronically Signed On 04-23-2023 14:49:59 WOOD CABINETMAKER by Igor Nieves M.D. [id number]
--- NOTE | 2023-04-23 12:00 | PC.NURSE ---
Pt stated that this nurse did not need to verify belongings in purse or medications. All belongings placed at bedside.
[2023-04-23 12:35] LABS: Partial Thromboplastin Time 26.2 SECONDS (23.9-36.7)
--- NOTE | 2023-04-23 13:45 | PC.NURSE ---
TR band removed and sheath pulled at 1330. Dressings placed to non bleeding sites.
[2023-04-23] MEDS: pregabalin 150 mg Capsule PO ×2 (15:04→21:32)
[2023-04-23 15:18] LABS: Bilirubin Urine Neg (Negative); Blood Urine Neg (Negative); Glucose Urine UA Norm (Normal); Ketones Urine Negative (Negative); Leukocyte Esterase Urine 1+ (Negative); Nitrate Urine Negative (Negative); Protein Urine Neg (Negative); RBC Urine 0-4 /hpf (0-2); Specific Gravity, Urine 1.005 (1.005-1.030); Urine Appearance SL Hazy (CLEAR); Urine Color Light yellow (Yellow); Urobilinogen Urine Norm (Negative); pH Urine 5 (5-7)
[2023-04-23 15:19] LABS: Add Urine Culture? Yes; Bacteria Urine 2+ /hpf; Squamous Epithelial Cell Urine 0-4 /hpf (0-5); WBC Urine 25-40 /hpf (0-5)
[2023-04-23] MEDS: cefTRIAXone 1,000 MG in sodium chloride 0.9% (plus) 50 ML 100 MG IV (18:10)
[2023-04-23] MEDS: metoprolol tartrate 50 mg Tablet 100 MG PO (18:10)
[2023-04-23] MEDS: sodium chloride 0.9% 1,000 ML 50 ML IV (21:33)
[2023-04-24] VITALS (75 sets, daily range): BP systolic 89–152; BP diastolic 55–83; PULSE 62–90; RESP 13–25; TEMP 36.7–36.9; O2SAT 92–99; BMI 29.6
--- NOTE | 2023-04-24 03:41 | ECG_ITS ---
[facility] Test Date: 2023-04-24 Pat Name: Raven Elizondo Department: Room: ICU08 Gender: Female Machine Hostler: : 1935 Requested By: Alexa West Order Number: [id number] Dinah MD: Jorge Murcia M.D. Measurements Intervals [place] Rate: 70 P: -66 WV: 141 QRS: -56 QRSD: 110 T: 111 QT: 477 QTc: 517 Interpretive Statements ECTOPIC ATRIAL RHYTHM WITH OCCASIONAL VENTRICULAR PREMATURE COMPLEXES LEFT AXIS DEVIATION [QRS AXIS < -30] INCOMPLETE RIGHT BUNDLE BRANCH BLOCK [90+ ms QRS DURATION, TERMINAL R IN V1/V2, 40+ ms S IN I/aVL/V4/V5/V6] LEFT VENTRICULAR HYPERTROPHY AND ST-T CHANGE [VOLTAGE CRITERIA PLUS ST/T ABNORMALITY] ANTEROSEPTAL MYOCARDIAL INFARCTION , PROBABLY RECENT [40+ ms Q WAVE IN V1-V4] ACUTE WV Compared to ECG 04/23/2023 11:49:45.Ventricular premature complex(es) now present Incomplete right bundle-branch block now present ST (T wave) deviation now present.Possible ischemia no longer present Myocardial infarct finding still present Electronically Signed On 04-24-2023 18:01:31 BUTTON DECORATING MACHINE OPERATOR by Jorge Murcia M.D. [id number]
[2023-04-24] MEDS: nitroglycerin 0.4 mg sublingual Tablet 0.400000000000000022 MG SUBLINGUAL ×2 (03:43→03:53)
[2023-04-24] MEDS: ALPRAZolam 0.5 mg Tablet PO (04:05)
[2023-04-24] MEDS: fentaNYL 50 mcg/mL INJ 2mL 12.5 MCG IVP (04:06)
--- NOTE | 2023-04-24 04:13 | PC.NURSE ---
CP: pt awoke w/ 09/25 chest pain. EKG done. See MAR for administration of sublingual nitro. Dr. West notified @[phone]. Order to notify cardiology. Dr. Gonzalez called @8761. EKG image sent. New order for Fentanyl 12.5mcg IVP Q2HR severe pain. See MAR for administration. Pain 04/25 @9454.
[2023-04-24 04:45] LABS: Basophils % 0.4 %; Eosinophils % 0.4 %; Lymphocytes % 21.5 %; Mean Corpuscular HGB Conc 31.1 g/dL (30-55); Mean Corpuscular Hemoglobin 26.8 pg (27-33); Mean Corpuscular Volume 86.1 fl (85-98); Mean Platelet Volume 10.2 fL (7.4-10.4); Monocytes % 10.5 %; Neutrophils # 6.05 10^3/uL (1.8-7.7); Nucleated Red Blood Cells % 0 %; Platelet Count 278 10^3/cmm (157-399); Red Blood Count 5.11 10^6/uL (3.85-5.65); White Blood Count 9.05 10^3/uL (3.29-11.43)
[2023-04-24 05:14] LABS: Alanine Aminotransferase 21 U/L (0-33); Albumin Level 3.7 g/dL (3.5-5.2); Alkaline Phosphatase 93 U/L (35-105); Anion Gap 16.9 (5-19); Aspartate Amino Transferase 92 U/L (0-32); Blood Urea Nitrogen 16 mg/dL (8-23); Calcium 8.9 mg/dL (8.5-10.5); Carbon Dioxide 26 mmol/L (22-29); Chloride 101 mmol/L (98-107); Creatinine Clr Calc Pharmacy 54.5618; Globulin 2.6 g/dL (1.3-4.6); Glucose 85 mg/dL (65-115); Magnesium 1.8 mg/dL (1.7-2.3); Osmolality Calculated 290 mOsm/kg (285-295); Potassium 3.9 mmol/L (3.5-5.1); Sodium 140 mmol/L (136-145); Total Bilirubin 0.4 mg/dL (0.15-1.2); Total Protein 6.3 g/dL (6.6-8.7)
--- NOTE | 2023-04-24 07:43 | P.PN_ITS ---
Subjective 2 Subjective: Raven had an uneventful day yesterday after her angioplasty and stenting of the LAD. She had a nice diuresis. She had 1100 mL of urine output yesterday after 40 mg of Lasix yesterday morning. No further chest pain overnight until 4:00 this morning when she awoke with severe 8 out of 10 chest pain. She told the nurse. The nurse obtained an EKG and sent it to me. There did not appear to be any significant changes. We gave her some nitroglycerin and then a very small dose of fentanyl and the pain went away. She feels fine this morning. She has not had any more evidence of heart failure. Vitals/I&O/Wt Last Vital Signs Temp 98.5 F 04/24/23 04:41 Pulse 67 04/24/23 06:15 Resp 16 04/24/23 06:15 BP 133/70 04/24/23 06:15 Pulse Ox 97 04/24/23 06:15 O2 Del Method Nasal Cannula 04/24/23 06:15 O2 Flow Rate 1 04/24/23 06:15 04/23/23 04/24/23 04/24/23 22:59 06:59 14:59 Intake Total 50 / 2250 355.833 / 2605.833 Output Total 1100 / 1100 275 / 1375 Balance -1050 / 1150 80.833 / 1230.833 Weight last 48 hrs Weight 182 lb 9 oz Weight 196 lb Physical Exam 2 Narrative: GENERAL: In general she looks and feels well HEENT: Exam within normal limits. NECK: Supple without jugular vein distention. The carotid upstroke is normal without bruits. BACK: Exam normal. LUNGS: Clear. HEART: Regular rate and rhythm. ABDOMEN: Benign without organomegaly or tenderness. EXTREMITIES: No edema. NEUROLOGIC: Exam normal. SKIN: Unremarkable. Urinary Catheter Management: Guevara: Cath Placed During This Visit: yes Reason for Continuing Indwelling Catheter: Accurate Measurement of Urinary Output in Critically Ill Patients Urinary Catheter Date of Insertion: 04/23/23 Urinary Catheter Time of Insertion: 10:38 Data 04/24/23 03:51 04/24/23 03:51 A&P Assessment and plan (1) ASHD (arteriosclerotic heart disease): (2) Dyslipidemia: (3) Benign essential HTN: (4) Chest pain: (5) Hypertension: Qualifiers: Hypertension type: primary hypertension Qualified Code(s): I10 - Essential (primary) hypertension (6) Orthostatic hypotension: (7) Acute transmural anterior wall ND: (8) Congestive heart failure: Plan I do not think the pain she had this morning was cardiac. The EKG was unchanged and shows a typical evolution of an anterior wall ND. There is still minimal ST elevation in lead V1 and V2 though this is minimal. She has lost the R wave from V1 to V2 and the R waves in V3 and V4 are small. She feels fine this morning. I think we can get the Guevara catheter out and move her to the floor. If all goes well hopefully she may be discharged tomorrow. Attestations 2 Medical Necessity Statement*: Continued hospital stay for management of an acute anterior wall ND. and Moderate Time for a total of 40 minutes, includes reviewing past or interval history, examining/interviewing patient, placing orders, counseling patient/family/other support, updating patient/family/other support, discussing plan of care with staff, communicating with other healthcare providers, documenting encounter and coordinating care Diagnoses ASHD (arteriosclerotic heart disease) I25.10 Dyslipidemia E78.5 Benign essential HTN I10 Chest pain R07.9 Primary hypertension I10 Hypertension type: primary hypertension Orthostatic hypotension I95.1 Acute transmural anterior wall ND I21.09 Congestive heart failure I50.9
--- NOTE | 2023-04-24 07:49 | ECG_ITS ---
[facility] Test Date: 2023-04-24 Pat Name: Raven Elizondo Department: Room: [facility] Gender: Female Sportspersons: : 1935 Requested By: Prashant Coleman Order Number: [id number] Dinah MD: Jorge Murcia M.D. Measurements Intervals [place] Rate: 71 P: -75 [place]: 134 QRS: -53 QRSD: 113 T: 117 QT: 500 QTc: 543 Interpretive Statements Possible ectopic atrial rhythm LEFT AXIS DEVIATION [QRS AXIS < -30] LEFT VENTRICULAR HYPERTROPHY AND ST-T CHANGE [VOLTAGE CRITERIA PLUS ST/T ABNORMALITY] POSSIBLE ANTERIOR MYOCARDIAL INFARCTION , OF INDETERMINATE AGE [30 ms Q WAVE IN V3/V4, OR R < 0.2 mV IN V4] Compared to ECG 04/24/2023 03:44:23 Junctional rhythm now present Ectopic atrial rhythm no longer present Ventricular premature complex(es) no longer present Incomplete right bundle-branch block no longer present ST (T wave) deviation still present Myocardial infarct finding still present Electronically Signed On 04-24-2023 18:02:21 DIRECTOR SECURITY RISK MANAGEMENT by Jorge Murcia M.D. [id number]
[2023-04-24] MEDS: clopidogrel 75 mg Tablet PO (08:14)
[2023-04-24] MEDS: aspirin 81 mg EC Tablet PO (08:14)
[2023-04-24] MEDS: ezetimibe 10 mg Tablet PO (08:18)
[2023-04-24] MEDS: lisinopril 5 mg Tablet PO (08:18)
[2023-04-24] MEDS: pantoprazole DR 40 mg Tablet PO (08:19)
[2023-04-24] MEDS: pregabalin 150 mg Capsule PO ×3 (08:19→20:23)
[2023-04-24] MEDS: montelukast sodium 10 mg Tablet PO (08:19)
[2023-04-24] MEDS: metoprolol tartrate 50 mg Tablet 100 MG PO ×2 (08:19→18:28)
--- NOTE | 2023-04-24 09:37 | P.PN_ITS ---
Subjective 2 Subjective: Raven reports an episode of burning chest discomfort this morning. Cardiology evaluated, no intervention was needed. She has no discomfort now. Medications: Reviewed: Yes Vitals/I&O/Wt Last Vital Signs Temp 98.0 F 04/24/23 08:15 Pulse 90 04/24/23 08:15 Resp 23 H 04/24/23 08:15 BP 106/83 04/24/23 08:15 Pulse Ox 98 04/24/23 08:15 O2 Del Method Nasal Cannula 04/24/23 08:15 O2 Flow Rate 1 04/24/23 08:15 04/23/23 04/24/23 04/24/23 22:59 06:59 14:59 Intake Total 50 / 2250 355.833 / 2605.833 433.333 / 433.333 Output Total 1100 / 1100 275 / 1375 Balance -1050 / 1150 80.833 / 1230.833 433.333 / 433.333 Weight last 48 hrs Weight 82.809 kg Weight 88.904 kg Physical Exam 2 Narrative: General exam no distress, now on 1 L of oxygen Neck supple no lymphadenopathy thyromegaly Cardiovascular regular rate and rhythm, no murmur Lungs clear Abdomen is soft, positive bowel sounds exams Guevara Extremities no cyanosis, or edema Urinary Catheter Management: Guevara: Cath Placed During This Visit: yes Reason for Continuing Indwelling Catheter: Accurate Measurement of Urinary Output in Critically Ill Patients Urinary Catheter Date of Insertion: 04/23/23 Urinary Catheter Time of Insertion: 10:38 Data 04/24/23 03:51 04/24/23 03:51 A&P Assessment and plan (1) Acute transmural anterior wall MO: Patient presents with an acute MO She was taken to the angiogram suite, and 2 LAD stents were placed with good result She has been loaded with Plavix and will continue Plavix 75 mg daily Aspirin 81 mg daily Low-dose AGUSTIN inhibitor Metoprolol was resumed Cardizem discontinued Low-dose AGUSTIN inhibitor She apparently has an allergy to statins. Currently on Zetia Discontinue estradiol May transfer to C[facility] (2) Congestive heart failure: Compensated currently Note echo with EF around 35%, grade 2 diastolic dysfunction (3) Atrial fibrillation: Patient has a past history of paroxysmal atrial fibrillation. Secondary to past history of anemia, anticoagulation has not been given I do note that she is on diltiazem as well as metoprolol. Plan Other medical problems as outlined in past medical history Full code currently Lovenox and SCDs for DVT prophylaxis Requires continued close monitoring status post ST elevation myocardial infarction, stenting, low EF Discontinue Guevara Attestgiovany 2 Medical Necessity Statement*: Needs continued hospital stay for close monitoring following ST elevation myocardial infarction, stenting, chest discomfort after the procedure, low EF with adjustment of medication Diagnoses Acute transmural anterior wall MO I21.09 Congestive heart failure I50.9 Atrial fibrillation I48.91 Time Spent (min) 23
[2023-04-24] MEDS: cefTRIAXone 1,000 MG in sodium chloride 0.9% (plus) 50 ML 100 MG IV (14:48)
[2023-04-24] MEDS: ALPRAZolam 0.5 mg Tablet 0.25 MG PO (20:23)
[2023-04-24] MEDS: HYDROcodone-acetaminophen 10-325 mg Tablet 1 TAB PO (20:23)
[2023-04-25] VITALS (11 sets, daily range): BP systolic 116–149; BP diastolic 59–93; PULSE 67–83; RESP 13–25; TEMP 36.6–37.6; O2SAT 93–97
[2023-04-25] MEDS: temazepam 15 mg Capsule PO (00:55)
[2023-04-25] MEDS: ALPRAZolam 0.5 mg Tablet 0.25 MG PO ×2 (03:25→08:31)
[2023-04-25 06:13] LABS: Basophils % 0.4 %; Eosinophils # 0.1 10^3/uL (0.0-0.8); Eosinophils % 0.9 %; Hematocrit 50.2 % (36-47); Lymphocytes # 1.4 10^3/uL (0.8-4.8); Lymphocytes % 13.1 %; Mean Corpuscular HGB Conc 28.1 g/dL (30-55); Mean Corpuscular Hemoglobin 26.3 pg (27-33); Mean Corpuscular Volume 93.5 fl (85-98); Mean Platelet Volume 10.6 fL (7.4-10.4); Monocytes # 1.3 10^3/uL (0.2-0.9); Monocytes % 12.2 %; Neutrophils # 7.82 10^3/uL (1.8-7.7); Neutrophils % 73.2 %; Nucleated Red Blood Cells % 0 %; Platelet Count 231 10^3/cmm (157-399); Red Blood Count 5.37 10^6/uL (3.85-5.65); Red Cell Distribution Width 15.2 % (12.1-15.1); White Blood Count 10.68 10^3/uL (3.29-11.43)
[2023-04-25 06:29] LABS: Blood Urea Nitrogen 13 mg/dL (8-23); Calcium 8.8 mg/dL (8.5-10.5); Carbon Dioxide 25 mmol/L (22-29); Chloride 98 mmol/L (98-107); Creatinine Clr Calc Pharmacy 46.2541; Glucose 102 mg/dL (65-115); Magnesium 1.9 mg/dL (1.7-2.3); Osmolality Calculated 282 mOsm/kg (285-295); Sodium 136 mmol/L (136-145)
[2023-04-25 06:31] LABS: Anion Gap 16.9 (5-19); Potassium 3.9 mmol/L (3.5-5.1)
--- NOTE | 2023-04-25 07:30 | PM.PN ---
Subjective Subjective: Raven has been moved to the first floor. The Guevara catheter came out yesterday. She has had no further chest pain. This morning she complains of lower abdominal pain. No nausea, vomiting or diarrhea. She is a bit anxious. She said she had 3 formed bowel movements yesterday Vitals/I&O/Wt Last Vital Signs Temp 98.2 F 04/25/23 04:00 Pulse 78 04/25/23 06:00 Resp 20 H 04/25/23 04:00 BP 116/68 04/25/23 04:00 Pulse Ox 96 04/25/23 04:00 O2 Del Method Nasal Cannula 04/25/23 04:00 O2 Flow Rate 1 04/24/23 20:00 04/24/23 04/25/23 04/25/23 22:59 06:59 14:59 Intake Total 530 / 1203.333 300 / 1503.333 Balance 530 / 1203.333 300 / 1503.333 Weight last 48 hrs Weight 180 lb Weight 180 lb Weight 178 lb 3.2 oz Weight 182 lb 9 oz Physical Exam Narrative: GENERAL: In general she looks and feels well HEENT: Exam within normal limits. [] NECK: Supple without jugular vein distention. The carotid upstroke is normal without bruits. [] BACK: Exam normal. [] LUNGS: Clear. [] HEART: Regular rate and rhythm. [] ABDOMEN: Benign without organomegaly or tenderness. Bowel sounds are present. EXTREMITIES: No edema. [] NEUROLOGIC: Exam normal. [] SKIN: Unremarkable. [] Urinary Catheter Management: Guevara: Cath Placed During This Visit: yes, but has since been removed by the nurse Reason for Continuing Indwelling Catheter: Accurate Measurement of Urinary Output in Critically Ill Patients Urinary Catheter Date of Insertion: 04/23/23 Urinary Catheter Time of Insertion: 10:38 Date Urinary Catheter Removed: 04/24/23 Time Urinary Catheter Discontinued: 11:00 Data 04/25/23 04:56 04/25/23 04:56 A&P Assessment and plan (1) ASHD (arteriosclerotic heart disease): (2) Dyslipidemia: (3) Atrial flutter with rapid ventricular response: (4) Benign essential HTN: (5) Anticoagulated: (6) Hypertension: Qualifiers: Hypertension type: primary hypertension Qualified Code(s): I10 - Essential (primary) hypertension (7) Orthostatic hypotension: (8) Acute transmural anterior wall [place]: (9) Congestive heart failure: (10) Atrial fibrillation: (11) KHUSHI (generalized anxiety disorder): (12) Obesity (BMI 30.0-34.9): Plan She is doing very well from a cardiac standpoint. She lives alone and I think she is a little bit nervous about going home. She refuses rehab or a care home. I asked her to get up and move around today to see how her abdomen does. She states that she does have an appetite. Attestations Medical Necessity Statement*: Hospitalization for management of an acute anterior wall TX. She is very near going home. and Moderate Time for a total of 40 minutes, includes reviewing past or interval history, examining/interviewing patient, counseling patient/family/other support, updating patient/family/other support, discussing plan of care with staff, communicating with other healthcare providers and documenting encounter Diagnoses ASHD (arteriosclerotic heart disease) I25.10 Dyslipidemia E78.5 Atrial flutter with rapid ventricular response I48.92 Benign essential HTN I10 Anticoagulated Z79.01 Primary hypertension I10 Hypertension type: primary hypertension Orthostatic hypotension I95.1 Acute transmural anterior wall [place] I21.09 Congestive heart failure I50.9 Atrial fibrillation I48.91 KHUSHI (generalized anxiety disorder) F41.1 Obesity (BMI 30.0-34.9) E66.9
[2023-04-25] MEDS: metoprolol tartrate 50 mg Tablet 100 MG PO ×2 (08:31→18:09)
[2023-04-25] MEDS: magnesium hydroxide 30 mL UDC PO (08:31)
[2023-04-25] MEDS: pantoprazole DR 40 mg Tablet PO (08:32)
[2023-04-25] MEDS: pregabalin 150 mg Capsule PO ×3 (08:32→21:00)
[2023-04-25] MEDS: lisinopril 5 mg Tablet PO (08:32)
[2023-04-25] MEDS: clopidogrel 75 mg Tablet PO (08:32)
[2023-04-25] MEDS: ezetimibe 10 mg Tablet PO (08:32)
[2023-04-25] MEDS: montelukast sodium 10 mg Tablet PO (08:32)
[2023-04-25] MEDS: aspirin 81 mg EC Tablet PO (08:32)
--- NOTE | 2023-04-25 13:37 | P.PN_ITS ---
Subjective 2 Subjective: Hospital course, labs appreciated. Examination patient lying comfortably in bed on room air. Denies any nausea, vomiting, headache or chest pain. States she lives by herself and she is afraid to go back home right now as she still feels unsteady on her feet with occasional episode of dizziness specially when she stands up for the first time. She has not walked around the [place] yet. She is getting from bed to the commode by herself. Medications: Reviewed: Yes Vitals/I&O/Wt Last Vital Signs Temp 98.2 F 04/25/23 11:46 Pulse 83 04/25/23 11:46 Resp 22 H 04/25/23 11:46 BP 132/66 04/25/23 11:46 Pulse Ox 93 04/25/23 11:46 O2 Del Method Room Air 04/25/23 11:46 O2 Flow Rate 1 04/24/23 20:00 04/24/23 04/25/23 04/25/23 22:59 06:59 14:59 Intake Total 530 / 1203.333 300 / 1503.333 240 / 240 Balance 530 / 1203.333 300 / 1503.333 240 / 240 Weight last 48 hrs Weight 81.647 kg Weight 81.647 kg Weight 80.83 kg Weight 82.809 kg Physical Exam 2 Narrative: General exam no distress, on room air Neck supple no lymphadenopathy thyromegaly Cardiovascular regular rate and rhythm, no murmur Lungs clear Abdomen is soft, positive bowel sounds exams Guevara Extremities no cyanosis, or edema Urinary Catheter Management: Guevara: Cath Placed During This Visit: yes, but has since been removed by the nurse Reason for Continuing Indwelling Catheter: Accurate Measurement of Urinary Output in Critically Ill Patients Urinary Catheter Date of Insertion: 04/23/23 Urinary Catheter Time of Insertion: 10:38 Date Urinary Catheter Removed: 04/24/23 Time Urinary Catheter Discontinued: 11:00 Data 04/25/23 04:56 04/25/23 04:56 Micro: Microbiology 04/23/23 10:30 Urine Culture - Preliminary Urine,Clean Catch Gram Negative Rods A&P Assessment and plan (1) Acute transmural anterior wall KS: Appreciate cardiology recommendations. Post PCI and 2 LAD stents. Continue with aspirin, Plavix, low-dose beta-antonio and AGUSTIN inhibitor. Appreciate echocardiogram. Continue with Zetia. Patient is allergic to statin. Appreciate lipid panel. Check A1c. Echocardiogram results appreciated with a EF of 35% and grade 2 diastolic dysfunction. (2) Congestive heart failure: Currently euvolemic. Diastolic and systolic congestive heart failure. Discussed in detail about lifestyle modifications with congestive heart failure. Patient verbalized understanding. Note echo with EF around 35%, grade 2 diastolic dysfunction (3) Atrial fibrillation: Patient has a past history of paroxysmal atrial fibrillation. Secondary to past history of anemia, anticoagulation has not been given Continue with metoprolol. Heart rate well-controlled. Plan UTI: Continue with IV ceftriaxone. Follow urine culture. Past history of UTI with E. coli and Klebsiella. Appreciate sensitivities from past. Other medical problems as outlined in past medical history Full code currently Lovenox and SCDs for DVT prophylaxis Cardiac diet Discharge plan: Patient is by herself. She is afraid to go back home as she still feels unsteady on her feet and occasional dizziness. Check orthostatics. Physical therapy evaluation. The patient does well with both of the above we will plan to discharge home within next 24 hours. Patient does not want to discharge to SNF. Attestations 2 Medical Necessity Statement*: Requires further hospitalization in the elderly female who was admitted with acute anterior wall KS post PCI and systolic congestive heart failure while safe discharge planning is sought Diagnoses Acute transmural anterior wall KS I21.09 Congestive heart failure I50.9 Atrial fibrillation I48.91
[2023-04-25 14:29] LABS: Iron 28 ug/dL (37-145)
[2023-04-25 14:35] LABS: Total Iron Binding Capacity 279 mcg/dl; Unsaturated Iron Binding 251 ug/dL (112-347)
[2023-04-25] MEDS: cefTRIAXone 1,000 MG in sodium chloride 0.9% (plus) 50 ML 100 MG IV (14:51)
[2023-04-26 00:22] VITALS: BP 132/71; PULSE 79; RESP 19; O2SAT 97
[2023-04-26 04:21] VITALS: BP 122/61; PULSE 74; RESP 17; TEMP 36.7; O2SAT 93
[2023-04-26 05:22] LABS: Basophils % 0.3 %; Eosinophils # 0.2 10^3/uL (0.0-0.8); Eosinophils % 1.2 %; Lymphocytes # 1.5 10^3/uL (0.8-4.8); Lymphocytes % 12.4 %; Mean Corpuscular HGB Conc 30.5 g/dL (30-55); Mean Corpuscular Hemoglobin 26.4 pg (27-33); Mean Corpuscular Volume 86.5 fl (85-98); Mean Platelet Volume 10.9 fL (7.4-10.4); Monocytes % 8.5 %; Neutrophils # 9.36 10^3/uL (1.8-7.7); Neutrophils % 77.2 %; Nucleated Red Blood Cells % 0 %; Platelet Count 259 10^3/cmm (157-399); Red Blood Count 4.97 10^6/uL (3.85-5.65); Red Cell Distribution Width 14.7 % (12.1-15.1); White Blood Count 12.13 10^3/uL (3.29-11.43)
[2023-04-26 05:34] LABS: Estmated Average Glucose 97
[2023-04-26 05:55] LABS: Magnesium 1.8 mg/dL (1.7-2.3)
[2023-04-26 05:56] LABS: Alanine Aminotransferase 12 U/L (0-33); Albumin Level 3.5 g/dL (3.5-5.2); Alkaline Phosphatase 93 U/L (35-105); Anion Gap 15.5 (5-19); Aspartate Amino Transferase 24 U/L (0-32); Blood Urea Nitrogen 9 mg/dL (8-23); Carbon Dioxide 28 mmol/L (22-29); Chloride 102 mmol/L (98-107); Creatinine Clr Calc Pharmacy 46.4813; Globulin 2.6 g/dL (1.3-4.6); Glucose 98 mg/dL (65-115); Osmolality Calculated 293 mOsm/kg (285-295); Potassium 3.5 mmol/L (3.5-5.1); Sodium 142 mmol/L (136-145); Total Bilirubin 0.6 mg/dL (0.15-1.2); Total Protein 6.1 g/dL (6.6-8.7)
[2023-04-26 06:00] VITALS: PULSE 71
--- NOTE | 2023-04-26 08:52 | P.PN_ITS ---
Subjective 2 Subjective: Raven feels better today. No further abdominal pain. Bowels working normally. No chest pain. She has been up and around in the hallway and over to the bathroom. I asked her if she feels like she can go home and she says yes. I noticed that her home medication includes Zetia but not a statin. I asked her if she has been tried on a statin in the past and she said she did not think so however her allergy list states that she is intolerant of statins. I asked her specifically about Lipitor and she did not remember the name. Vitals/I&O/Wt Last Vital Signs Temp 98.1 F 04/26/23 04:21 Pulse 71 04/26/23 06:00 Resp 17 04/26/23 04:21 BP 122/61 04/26/23 04:21 Pulse Ox 93 04/26/23 04:21 O2 Del Method Nasal Cannula 04/25/23 20:00 O2 Flow Rate 1 04/25/23 20:00 04/25/23 04/26/23 04/26/23 21:59 06:59 14:59 Intake Total Balance Weight last 48 hrs Weight 178 lb 6.4 oz Weight 180 lb Weight 180 lb Weight 178 lb 3.2 oz Physical Exam 2 Narrative: GENERAL: In general she looks very comfortable this morning HEENT: Exam within normal limits. NECK: Supple without jugular vein distention. The carotid upstroke is normal without bruits. BACK: Exam normal. LUNGS: Clear. HEART: Regular rate and rhythm. ABDOMEN: Benign without organomegaly or tenderness. EXTREMITIES: No edema. NEUROLOGIC: Exam normal. SKIN: Unremarkable. Urinary Catheter Management: Guevara: Cath Placed During This Visit: yes, but has since been removed by the nurse Reason for Continuing Indwelling Catheter: Accurate Measurement of Urinary Output in Critically Ill Patients Urinary Catheter Date of Insertion: 04/23/23 Urinary Catheter Time of Insertion: 10:38 Date Urinary Catheter Removed: 04/24/23 Time Urinary Catheter Discontinued: 11:00 Data 04/26/23 04:05 04/26/23 04:05 Micro: Microbiology 04/23/23 10:30 Urine Culture - Preliminary Urine,Clean Catch Gram Negative Rods A&P Assessment and plan (1) ASHD (arteriosclerotic heart disease): (2) Dyslipidemia: (3) Atrial flutter with rapid ventricular response: (4) Benign essential HTN: (5) Acute transmural anterior wall NE: (6) Congestive heart failure: (7) Atrial fibrillation: Plan She can go home today. She declines the opportunity to utilize a care home even for a short period. She states she has people nearby to help her. I would discontinue the diltiazem given her myocardial infarction. I would also discontinue the isosorbide. She should continue the metoprolol tartrate 100 mg twice a day. The lisinopril will be important as a new medication for ventricular remodeling. Obviously the aspirin and Plavix should be continued. I would continue the Zetia but given the fact that the Lipitor is listed on her allergy list I would not send her home on a statin. She does not specifically remember it but it is listed. She should see the nurse practitioner in a week to 10 days for evaluation of her right wrist, right groin and chemistry panel. She sees Dr. Murcia in the office and should see him in about 3 months. Attestations 2 Medical Necessity Statement*: I think she can go home today. and Moderate Time for a total of 35 minutes, includes reviewing past or interval history, examining/interviewing patient, placing orders, counseling patient/family/other support, updating patient/family/other support, discussing plan of care with staff, communicating with other healthcare providers and documenting encounter Diagnoses ASHD (arteriosclerotic heart disease) I25.10 Dyslipidemia E78.5 Atrial flutter with rapid ventricular response I48.92 Benign essential HTN I10 Acute transmural anterior wall NE I21.09 Congestive heart failure I50.9 Atrial fibrillation I48.91
[2023-04-26] MEDS: aspirin 81 mg EC Tablet PO (09:32)
[2023-04-26] MEDS: clopidogrel 75 mg Tablet PO (09:32)
[2023-04-26] MEDS: pregabalin 150 mg Capsule PO (09:32)
[2023-04-26] MEDS: lisinopril 5 mg Tablet PO (09:32)
[2023-04-26] MEDS: pantoprazole DR 40 mg Tablet PO (09:33)
[2023-04-26] MEDS: ezetimibe 10 mg Tablet PO (09:33)
[2023-04-26] MEDS: metoprolol tartrate 50 mg Tablet 100 MG PO (09:33)
[2023-04-26] MEDS: montelukast sodium 10 mg Tablet PO (09:33)
[2023-04-26 09:42] VITALS: BP 121/73; PULSE 78; RESP 17; TEMP 36.8; O2SAT 94
--- NOTE | 2023-04-26 10:39 | P.DS_ITS ---
Discharge Providers Date of Admission: 04/23/23 06:41 Date of Discharge: April 26, 2023 Attending Provider at Admission: Gavin Gonzalez MD Attending Provider at Discharge: Steve Phan MD Primary Care Provider: Oneil Ibrahim DO Diagnoses at Discharge Discharge Diagnosis (1) ASHD (arteriosclerotic heart disease): Status: Acute (2) Dyslipidemia: Status: Chronic (3) Atrial flutter with rapid ventricular response: Status: Acute Permanent problem details: This patient was taken off the oral anticoagulant, other details are not known (4) Benign essential HTN: Status: Chronic (5) Acute transmural anterior wall SC: Status: Acute (6) Congestive heart failure: Status: Acute (7) Atrial fibrillation: Status: Acute Reason for Visit Reason for Visit: STEMI Brief History: History as per HPI: Raven Elizondo is a 88 year old female presenting to the emergency department with severe chest discomfort, and shortness of breath. She reports this was going on 2 hours prior to presentation, left side of chest radiating down her left arm. She was nauseated but did not vomit. Nitroglycerin sublingual helped some, but did not alleviate discomfort completely. She had significant diaphoresis. She denies having this discomfort before. She reports recent injection into her back, on April 20 by pain management for her chronic back pain. I am seeing her directly after her STEMI activation where she received 2 stents, drug-eluting, per cardiology. She currently reports she is not short of breath, she is pain-free, and feels much better. She denies any recent cough/fever/other illness. Hospital Course Hospital Course Patient was admitted to the hospital further evaluation and management of acute anterior wall SC. She was directly taken to the cardiac Manager Transmission where she underwent 2 JADEN in LAD. Postprocedure patient did have mild difficulty in breathing for which she received IV diuresis. She remained hemodynamically stable otherwise. Echocardiogram was done which showed EF of 30 to 35% with grade 2 diastolic dysfunction. Her hospitalization was otherwise unremarkable. She has been discharged in hemodynamically stable condition after home oxygen evaluation has been done. She was also seen by physical therapy who recommended home health. Patient states she has home health who comes and helps her and would not want any home health. She has been discharged on aspirin, Plavix, ezetimibe. Statins could not be given as patient is allergic. Her home dose of Cardizem and Imdur has been stopped while dose of metoprolol has been continued and lisinopril low-dose has been added. She was counseled in detail about lifestyle modification with chirag brumfieldive heart failure. Physical Exam Narrative: General exam no distress, on room air Neck supple no lymphadenopathy thyromegaly Cardiovascular regular rate and rhythm, no murmur Lungs clear Abdomen is soft, positive bowel sounds exams Guevara Extremities no cyanosis, or edema Urinary Catheter Management: Guevara: Cath Placed During This Visit: yes, but has since been removed by the nurse Reason for Continuing Indwelling Catheter: Accurate Measurement of Urinary Output in Critically Ill Patients Urinary Catheter Date of Insertion: 04/23/23 Urinary Catheter Time of Insertion: 10:38 Date Urinary Catheter Removed: 04/24/23 Time Urinary Catheter Discontinued: 11:00 Discharge Data Studies Completed and Pending Completed Studies During Hospitalization Category Date Time Status A[employer] MA[employer]GER request for service Stat Exams 04/23/23 05:13 Completed XR chest 1V portable [id number] Stat Exams 04/23/23 05:05 Completed CV. echo complete* [id number] Routine Ultrasound 04/23/23 06:41 Completed Pending at discharge Category Date Time Status Folate Level AM LABS Lab 04/26/23 04:05 Received MAG [Magnesium] AM LABS Lab 04/27/23 04:00 Ordered MAG [Magnesium] AM LABS Lab 04/28/23 04:00 Ordered Urine Culture Routine Lab 04/23/23 10:30 Results Radiology Impressions Chest X-Ray 04/23/23 05:05 IMPRESSION: Developing bilateral pneumonia. Laboratory Results WBC 12.13 10^3/uL (3.29-11.43) H 04/26/23 04:05 RBC 4.97 10^6/uL (3.85-5.65) 04/26/23 04:05 Hgb 13.10 g/dL (11.27-16.99) 04/26/23 04:05 Hct 43.0 % (36-47) 04/26/23 04:05 MCV 86.5 fl (85-98) D 04/26/23 04:05 MCH 26.4 pg (27-33) L 04/26/23 04:05 MCHC 30.5 g/dL (30-55) D 04/26/23 04:05 RDW 14.7 % (12.1-15.1) 04/26/23 04:05 Plt Count 259 10^3/cmm (157-399) 04/26/23 04:05 MPV 10.9 fL (7.4-10.4) H 04/26/23 04:05 Neut % (Auto) 77.2 % 04/26/23 04:05 Lymph % (Auto) 12.4 % 04/26/23 04:05 [place] % (Auto) 8.5 % 04/26/23 04:05 Eos % (Auto) 1.2 % 04/26/23 04:05 Baso % (Auto) 0.3 % 04/26/23 04:05 Neut # (Auto) 9.36 10^3/uL (1.8-7.7) H 04/26/23 04:05 Lymph # (Auto) 1.5 10^3/uL (0.8-4.8) 04/26/23 04:05 [place] # (Auto) 1.0 10^3/uL (0.2-0.9) H 04/26/23 04:05 Eos # (Auto) 0.2 10^3/uL (0.0-0.8) 04/26/23 04:05 Baso # (Auto) 0.0 10^3/uL (0.0-0.1) 04/26/23 04:05 Nucleated RBC % (auto) 0 % 04/26/23 04:05 Nucleated RBCs # 0.0 /100WBC 04/26/23 04:05 PT 14.70 SECONDS (12.1-14.9) 04/23/23 04:55 INR 1.11 (0.8-1.2) 04/23/23 04:55 APTT 26.2 SECONDS (23.9-36.7) D 04/23/23 11:55 Specimen Type Arterial 04/23/23 05:20 Sample Site Radial, right 04/23/23 05:20 ABG pH 7.26 (7.35-7.45) L 04/23/23 05:20 ABG pCO2 59.8 mmHg (35-45) H 04/23/23 05:20 ABG pO2 96.2 mmHg (80.0-100.0) 04/23/23 05:20 ABG PO2/FiO2 Ratio 0 04/23/23 05:20 ABG HCO3 26.5 mmol/L (22-26) H 04/23/23 05:20 ABG O2 Saturation 97.1 04/23/23 05:20 ABG Base Excess -1.9 mmol/L (-2.0-2.0) 04/23/23 05:20 Gregory Test Pos 04/23/23 05:20 A-a O2 Gradient 70.6 mmHg (5-10) H 04/23/23 05:20 Hematocrit 43.8 % (37-47) 04/23/23 05:20 Hgb O2 Saturation 96.2 % (95-100) 04/23/23 05:20 Carboxyhemoglobin 0.5 %THgb (0.4-20.1) 04/23/23 05:20 Methemoglobin 0.4 % (0.4-1.5) 04/23/23 05:20 Total Hemoglobin 14.3 g/dL (12-16) 04/23/23 05:20 Sodium 145.0 mmol/L (131-143) H 04/23/23 05:20 Potassium 3.2 mmol/L (3.5-5.0) L 04/23/23 05:20 Glucose 227.0 mg/dL (70-115) H 04/23/23 05:20 Ionized Calcium 0.7 mmol/L (1.1-1.4) L 04/23/23 05:20 O2 Delivery Device Nrb 04/23/23 05:20 O2 Liters/Min 15.0 % 04/23/23 05:20 FiO2 100.0 % 04/23/23 05:20 Concrete Finisher Apprentice ID [email or web address] 04/23/23 05:20 Sodium 142 mmol/L (136-145) 04/26/23 04:05 Potassium 3.5 mmol/L (3.5-5.1) 04/26/23 04:05 Chloride 102 mmol/L (98-107) 04/26/23 04:05 Carbon Dioxide 28 mmol/L (22-29) 04/26/23 04:05 Anion Gap 15.5 (5-19) 04/26/23 04:05 BUN 9 mg/dL (8-23) 04/26/23 04:05 Creatinine 0.9 mg/dL (0.5-0.9) 04/26/23 04:05 GFR Calculation Not Reportable 04/26/23 04:05 Glucose 98 mg/dL (65-115) 04/26/23 04:05 Estimat Average Glucose 97 04/26/23 04:05 Hemoglobin A1c 5.0 % (4.0-6.0) 04/26/23 04:05 Calculated Osmolality 293 mOsm/kg (285-295) 04/26/23 04:05 Calcium 9.0 mg/dL (8.5-10.5) 04/26/23 04:05 Magnesium 1.8 mg/dL (1.7-2.3) 04/26/23 04:05 Iron 28 ug/dL (37-145) L 04/25/23 04:58 TIBC 279 mcg/dl 04/25/23 04:58 % Saturation 10.0 % (20-50) L 04/25/23 04:58 Unsat Iron Binding 251 ug/dL (112-347) 04/25/23 04:58 Total Bilirubin 0.6 mg/dL (0.15-1.2) 04/26/23 04:05 AST 24 U/L (0-32) 04/26/23 04:05 ALT 12 U/L (0-33) 04/26/23 04:05 Alkaline Phosphatase 93 U/L (35-105) 04/26/23 04:05 Troponin T Baseline 77 ng/L (0-10) H 04/23/23 04:55 NT-Pro-B Natriuret Pep 1031 pg/mL (0-450) H 04/23/23 04:55 Total Protein 6.1 g/dL (6.6-8.7) L 04/26/23 04:05 Albumin 3.5 g/dL (3.5-5.2) 04/26/23 04:05 Globulin 2.6 g/dL (1.3-4.6) 04/26/23 04:05 Urine Color Light yellow (Yellow) 04/23/23 10:30 Urine Appearance Sl hazy (CLEAR) A 04/23/23 10:30 Urine pH 5 (5-7) 04/23/23 10:30 Ur Specific [place] 1.005 (1.005-1.030) 04/23/23 10:30 Urine Protein Neg (Negative) 04/23/23 10:30 Urine Glucose (UA) Norm (Normal) 04/23/23 10:30 Urine Ketones Negative (Negative) 04/23/23 10:30 Urine Blood Neg (Negative) 04/23/23 10:30 Urine Nitrate Negative (Negative) 04/23/23 10:30 Urine Bilirubin Neg (Negative) 04/23/23 10:30 Urine Urobilinogen Norm mg/dL (Negative) 04/23/23 10:30 Ur Leukocyte Esterase 1+ (Negative) H 04/23/23 10:30 Urine RBC 0-4 /hpf (0-2) H 04/23/23 10:30 Urine WBC 25-40 /hpf (0-5) H 04/23/23 10:30 Ur Squamous Epith Cells 0-4 /hpf (0-5) H 04/23/23 10:30 Amorphous Sediment Not Reportable 04/23/23 10:30 Urine Bacteria 2+ /hpf (NONE) H 04/23/23 10:30 Vitals Last Vital Signs Temp 98.3 F 04/26/23 09:42 Pulse 78 04/26/23 09:42 Resp 17 04/26/23 09:42 BP 121/73 04/26/23 09:42 Pulse Ox 94 04/26/23 09:42 O2 Del Method Nasal Cannula 04/25/23 20:00 O2 Flow Rate 1 04/25/23 20:00 Discharge Plan Discharge Patient Disposition: Home Condition: Stable Prescriptions: New clopidogrel 75 mg Tablet 75 mg PO DAILY Qty: 30 0RF aspirin 81 mg Tablet,Delayed Release (Dr/Ec) 81 mg PO DAILY Qty: 30 0RF lisinopril 5 mg Tablet 5 mg PO DAILY Qty: 30 0RF Lasix 20 mg tablet 20 mg PO DAILY PRN (Reason: weight gain) Qty: 10 0RF Continued montelukast 10 mg tablet See Rx Instructions .ROUTE .COMPLEX Qty: 90 1RF Dose Instruction: TAKE 1 TABLET BY MOUTH EVERY DAY Rx Instructions: TAKE 1 TABLET BY MOUTH EVERY DAY olopatadine [Eye Allergy Itch-Redness Rlf] 0.1 % drops 1 drp ophthalmic (eye) BID Qty: 5 1RF Rx Instructions: separate doses by at least 6-8 hours hydrocodone-acetaminophen 10-325 mg tablet 1 tab PO BID PRN (Reason: pain) 30 Days Qty: 60 0RF metoprolol tartrate 100 mg tablet 100 mg PO BID Qty: 180 3RF nitroglycerin [Nitrostat] 0.4 mg tablet, sublingual 0.4 mg SUBLINGUAL Q5M PRN (Reason: chest pain) Qty: 50 3RF estradiol 0.5 mg tablet See Rx Instructions .ROUTE .COMPLEX Qty: 90 0RF Dose Instruction: TAKE 1 TABLET BY MOUTH EVERY DAY Rx Instructions: TAKE 1 TABLET BY MOUTH EVERY DAY ezetimibe 10 mg tablet See Rx Instructions .ROUTE .COMPLEX Qty: 90 0RF Dose Instruction: TAKE 1 TABLET BY MOUTH EVERY DAY Rx Instructions: TAKE 1 TABLET BY MOUTH EVERY DAY pregabalin [Lyrica] 150 mg capsule 150 mg PO TID Qty: 270 1RF alprazolam 0.5 mg tablet 0.5 mg PO BID PRN (Reason: anxiety) Qty: 60 1RF magnesium oxide 400 mg (241.3 mg magnesium) tablet See Rx Instructions .ROUTE .COMPLEX Qty: 60 5RF Dose Instruction: TAKE 1 TABLET BY MOUTH TWICE DAILY Rx Instructions: TAKE 1 TABLET BY MOUTH TWICE DAILY pantoprazole 40 mg tablet,delayed release (DR/EC) See Rx Instructions .ROUTE .COMPLEX Qty: 60 0RF Dose Instruction: TAKE 1 TABLET BY MOUTH TWICE DAILY Rx Instructions: TAKE 1 TABLET BY MOUTH TWICE DAILY Discontinued isosorbide mononitrate 60 mg tablet extended release 24 hr See Rx Instructions .ROUTE .COMPLEX Qty: 180 3RF Dose Instruction: TAKE 2 TABLETS BY MOUTH EVERY DAY Rx Instructions: TAKE 2 TABLETS BY MOUTH EVERY DAY diltiazem HCl 180 mg capsule,extended release 24hr 180 mg PO DAILY Qty: 90 3RF Discharge Orders: Discharge Order (Routine); Ordered 04/26/23 Ordered By: Steve Phan Other Ambulatory Orders: DME: [facility] (Order) Location: None Selected Ordered By: Steve Phan Referrals: Oneil Ibrahim DO [Primary Care Provider] - 7-10 days (We have notified your physician's clinic of the need for a follow-up appointment to be scheduled. If you have not heard from them within the next 2 business days, please call them directly. ) Laure Diaz FNP [Nurse Practitioner] - 05/13/23 3:00 pm Discharge Diet: Cardiac Discharge Activity: Resume usual activity and Increase activity as tolerated Patient Instructions: Lisinopril (By mouth) (Prinivil, Zestril), Aspirin (By mouth), Clopidogrel (By mouth) (Plavix), Heart Attack (DC), Heart Failure (DC), Coronary Intravascular Stent Placement (DC), CHF Stoplight, Opioid Safety, Post Angiogram Home Care Instructions, Post Heart Attack Stoplight Activity Restrictions/Additional Instructions: Restrict fluid intake to less than 1500 cc, salt intake to less than 2 g daily. Advised to check his weight daily at home. Is advised that weight today would be the dry weight and if body weight increases by around 5 pounds, patient is to take an extra dose of Lasix daily till body weight comes down to weight today. If not able to come down to dry body weight in 1 week, then is to call cardiology office for further recommendations. Patient was counseled in detail to take medications regularly as prescribed. Take aspirin and Plavix daily as prescribed. Do not take your home dose of Cardizem and Imdur anymore. Instead take lisinopril 5 mg oral daily. Please follow-up with primary care provider within next 1 week and with Laure Diaz/nurse practitioner in cardiology office on set appointment. Discharge Attestations Time Spent in Discharge Care*: greater than 30 min Quality Metrics Clinical Quality Measures [ Acute Myocardial Infaction { Clinical Trial Participant: No; Contraindication to aspirin: None; Aspirin prescribed; Contraindication to statin: Drug intolerance; Contraindication to PCI: None; PCI performed; Contraindication to Fibrinolytics: None; fibrinolytics given}] Coding Level of Care Code Acute Code for [facility] Diagnoses ASHD (arteriosclerotic heart disease) I25.10 Dyslipidemia E78.5 Atrial flutter with rapid ventricular response I48.92 Benign essential HTN I10 Acute transmural anterior wall SC I21.09 Congestive heart failure I50.9 Atrial fibrillation I48.91
[2023-04-26 11:01] VITALS: BP 121/73; PULSE 78; RESP 17; TEMP 36.8; O2SAT 94
[2023-04-26 11:25] VITALS: BP 116/60; PULSE 72; RESP 20; TEMP 36.6
--- NOTE | 2023-04-26 12:47 | PC.NURSE ---
discharge instructions given and explained.pt verb understanding of instructions.discharged via w/c to exit at this time.cg to drive pt home
[2023-04-27 12:30] LABS: Folate Level 11.2 ng/mL (4.8-37.3)
== END 2023-04-26 12:48 | disposition home or self-care (01) | DRG 322 ==
LOC: ER 05:26 → CCL 05:27 → ICU 06:44 → CSU 04-24 20:56
PROVIDERS: Internal Medicine; Admitting Provider Internal Medicine Cardiovascular Disease; Emergency Provider Emergency Medicine; PCP Family Medicine; Visit Provider Student in an Organized Health Care Education/Training Program
PROC: B2111ZZ Fluoroscopy of Multiple Coronary Arteries using Low Osmolar Contrast (ICD-10-PCS; principal; 2023-04-23 05:00)
PROC: B2111ZZ Fluoroscopy of Multiple Coronary Arteries using Low Osmolar Contrast (ICD-10-PCS; 2023-04-23 05:00)
DX: I21.09 ST elevation (STEMI) myocardial infarction involving other coronary artery of anterior wall (principal); I48.20 Chronic atrial fibrillation, unspecified; N39.0 Urinary tract infection, site not specified; I25.10 Atherosclerotic heart disease of native coronary artery without angina pectoris; E78.5 Hyperlipidemia, unspecified; I11.0 Hypertensive heart disease with heart failure; I50.9 Heart failure, unspecified; M54.9 Dorsalgia, unspecified; G89.29 Other chronic pain
CPT/HCPCS: 36415; 36600; 51702; 64483; 71045; 80048; 80051; 80053; 81001; 82330; 82746; 82805; 83036; 83540; 83550; 83735; 83880; 84484; 85025; 85610; 85730; 87077; 87086; 87186; 93005; 93306; 93454; 96365; 96374; 96376; 97161; 97530; 99152; 99153; 99285; C1725; C1769; C1874; C1887; C1894; C9600; J0696; J1100; J1644; J1940; J2250; J3010; J3490; J7030; Q9967

== ENCOUNTER 2023-05-26 16:52 | Inpatient (IN) | payer MEDICARE, SELFPAY ==
[2023-05-26 16:58] VITALS: BP 190/96; RESP 15; O2SAT 94
--- NOTE | 2023-05-26 17:03 | CTR_ITS ---
PROCEDURE INFORMATION: Exam: CT Head Without Contrast Exam date and time: 05/26/2023 5:16 PM Age: 88 years old Clinical indication: Injury or trauma; Fall; Other: Lac top of head; Additional info: Fall, head injury TECHNIQUE: Imaging protocol: Computed tomography of the head without contrast. Radiation optimization: All CT scans at this facility use at least one of these dose optimization techniques: automated exposure control; mA and/or kV adjustment per patient size (includes targeted exams where dose is matched to clinical indication); or iterative reconstruction. COMPARISON: CT head wo con* [id number] 02/27/2022 8:30 AM RADIATION DOSE METRICS: Total DLP (mGy-cm): 933.3 FINDINGS: Brain: Wedge-shaped hypodensity involving right temporoparietal cortex consistent with subacute MCA infarct. No hemorrhage. Moderate bilateral periventricular and subcortical white matter hypodensities are present compatible with small-vessel ischemic disease. No extra-axial fluid collection. No midline shift. Cerebral ventricles: No ventriculomegaly. Paranasal sinuses: Mucosal thickening in the left maxillary antrum, posterior ethmoids, and sphenoid sinus. Mastoid air cells: Visualized mastoid air cells are well aerated. Bones/joints: Unremarkable. No acute fracture. Soft tissues: Unremarkable. CT/CT head wo con* [id number] IMPRESSION: Wedge-shaped hypodensity involving right temporoparietal cortex consistent with subacute MCA infarct. No hemorrhage.
--- NOTE | 2023-05-26 17:04 | XRR_ITS ---
PROCEDURE INFORMATION: Exam: XR Chest Exam date and time: 05/26/2023 5:11 PM Age: 88 years old Clinical indication: Injury or trauma; Fall; Blunt trauma (contusions or hematomas); Additional info: Shortness of breath TECHNIQUE: Imaging protocol: Radiologic exam of the chest. Views: 1 view. COMPARISON: CR (CHEST, ) 04/23/2023 5:21 AM FINDINGS: Lungs: Unremarkable. No consolidation or mass. Pleural spaces: Unremarkable. No pleural effusion. No pneumothorax. Heart/Mediastinum: Unremarkable. No cardiomegaly. Bones/joints: Multiple old rib fractures are noted on the left. No acute bony abnormality detected. XR/XR chest 1V [id number] IMPRESSION: No acute findings.
--- NOTE | 2023-05-26 17:04 | CTR_ITS ---
PROCEDURE INFORMATION: Exam: CT Cervical Spine Without Contrast Exam date and time: 05/26/2023 5:16 PM Age: 88 years old Clinical indication: Injury or trauma; Fall; Other: PT found down; Additional info: Fall, neck pain TECHNIQUE: Imaging protocol: Computed tomography of the cervical spine without contrast. Radiation optimization: All CT scans at this facility use at least one of these dose optimization techniques: automated exposure control; mA and/or kV adjustment per patient size (includes targeted exams where dose is matched to clinical indication); or iterative reconstruction. COMPARISON: MR cervical spin wo con* [id number] 08/09/2019 12:44 PM RADIATION DOSE METRICS: Total DLP (mGy-cm): 514.9 FINDINGS: Bones/joints: Mild anterolisthesis C3-C4. No fracture. Diffuse degenerative disc disease and facet arthropathy with canal stenosis at C5-C6 and C6-C7. Lungs: Lung apices are normal. Soft tissues: Unremarkable. CT/CT cervical spin wo con* [id number] IMPRESSION: No acute findings.
--- NOTE | 2023-05-26 17:13 | PC.NURSE ---
Pt arrives with soiled clothing, excoriation of skin in groin, redness and bruising to left arm and left hip. Pt was found on the floor in her home after a wellness check, was last seen by friends on Thursday. Soiled clothing removed from pt and skin cleansed, gown placed on patient.
--- NOTE | 2023-05-26 17:14 | ED_ITS ---
HPI - Neuro Symptoms/Deficit 2 General: Chief Complaint: Neuro Symptoms/Deficit Stated Complaint: Neuro Issue Time Seen by Provider: 05/26/23 17:01 History of Present Illness: Patient presents from home. Last known well time was at least 2 days ago. Pharmacy was try to get a hold of her and could not and apparently she was found down on the floor. She has some breakdown of skin on her left hip. She is complaining of head and neck pain. She has very slurred speech. Appears to have some facial droop and some neglect. She is complaining of head and neck pain. No chest pain. No abdominal pain. She is hypertensive on presentation. Review of Systems 2 Narrative: Constitutional symptoms: Negative except as documented in HPI. Skin symptoms: Negative except as documented in HPI. Eye symptoms: Negative except as documented in HPI. ENMT symptoms: Negative except as documented in HPI. Respiratory symptoms: Negative except as documented in HPI. Cardiovascular symptoms: Negative except as documented in HPI. Gastrointestinal symptoms: Negative except as documented in HPI. Genitourinary symptoms: Negative except as documented in HPI. Musculoskeletal symptoms: Negative except as documented in HPI. Neurologic symptoms: Negative except as documented in HPI. Psychiatric symptoms: Negative except as documented in HPI. Endocrine symptoms: Negative except as documented in HPI. 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 Joint instability Lumbar stenosis with neurogenic claudication Intervertebral disc disorder with radiculopathy of lumbar region Allergic rhinitis Polyneuropathy Spondylolisthesis, lumbar region Menopausal syndrome (hot flashes) Benign essential HTN Atrial flutter with rapid ventricular response This patient was taken off the oral anticoagulant, other details are not known AV heart block Central sleep apnea Fibromyalgia Dyslipidemia ASHD (arteriosclerotic heart disease) Nocturnal hypoxia Surgical History Status post right hemicolectomy H/O knee surgery H/O: hysterectomy H/O lumpectomy Family History Grandfather Diabetes Father Stroke Heart attack CAD (coronary artery disease) Mother Cancer Denies family history of Clotting disorder Dementia Chronic kidney disease (CKD) Suicide Anesthesia complication Bleeding disorder Lung disease Social History Smoking and tobacco/nicotine status: never used tobacco/nicotine Alcohol intake: never Substance/Drug Use: never Household members: none Marital status: / Current occupational status: retired Physical Exam 2 Narrative: EXAM NARRATIVE: General: Alert, no acute distress. Skin: Patient has decubitus breakdown on her left hip area and back. Head: Normocephalic, atraumatic. Neck: Supple, trachea midline. Eye: Extraocular movements are intact. Ears, nose, mouth and throat: mucosa moist. Cardiovascular: Regular, Normal peripheral perfusion. Respiratory: Lungs are clear to auscultation, respirations are non-labored, breath sounds are equal, Symmetrical chest wall expansion. Gastrointestinal: Soft, Nontender, Non distended, Normal bowel sounds. Musculoskeletal: Normal ROM, no deformity. Neurological: Patient is alert and answers questions appropriately and follows commands. However she has complete left-sided neglect. Left hemiplegia and left facial droop. Psychiatric: Cooperative, appropriate mood & affect. Course 2 Vital Signs: Vital signs: Vital Signs Pulse Rate 123 H 05/26/23 17:40 Respiratory Rate 15 05/26/23 17:40 Blood Pressure 186/103 05/26/23 17:40 Pulse Oximetry 96 05/26/23 17:40 Oxygen Delivery Me thod Room Air 05/26/23 17:40 MDM - Neuro Symptoms/Deficit Medical Decision Making Medical decision making: Differential diagnosis including but not limited to and based on the above HPI, review of systems and physical exam: Patient appears to have had a stroke. CT ordered to evaluate. Last known well time was at least 48 hours ago so she would not be a candidate for any sort of intervention at this time. Orders placed to evaluate differential diagnosis based on the above differential, HPI and physical exam Lab Review: Laboratory results were reviewed and interpreted by myself the emergency room physician. Leukocytosis and lactic acidosis. Fluids being given. Patient is hypertensive. She is also a bit tachycardic. CT of the head without contrast. Large right-sided stroke in the MCA territory. This appears subacute. No hemorrhage. No fractures. This was reviewed and interpreted by myself the emergency room physician. I also discussed the findings with the radiologist on-call Chest x-ray: No acute process. No infiltrate. No pneumothorax. No cardiomegaly. This was reviewed and interpreted by myself the ER physician. CT of the cervical spine: No fracture. Good alignment. No step-offs. This was reviewed and interpreted by myself the emergency room physician. I also reviewed the radiologist report. EKG: Time 1735 PM rate 110. Sinus tachycardia., No ST-T changes, no ectopy, normal [place] & QRS intervals, This was reviewed and interpreted by myself the ER physician at 1740 pm. Reexamination: Patient does communicate and will move her right side on command. However she seems to have a complete left-sided visual neglect with gaze to the right. She would not move her left hand or leg. She has left-sided facial droop. No change in her status while she has been here. Lab Data 05/26/23 17:00 05/26/23 17:[address] 05/26/23 17:03 IMPRESSION: Wedge-shaped hypodensity involving right temporoparietal cortex consistent with subacute MCA infarct. No hemorrhage. ADDENDUM: 05/26/23 [id number] THIS REPORT CONTAINS FINDINGS THAT MAY BE CRITICAL TO PATIENT CARE. The findings were verbally communicated via telephone conference with BRYAN SOARES at 5:46 PM CDT on 05/26/2023. The findings were acknowledged and understood. Cervical Spine CT 05/26/23 17:04 IMPRESSION: No acute findings. Chest X-Ray 05/26/23 17:04 IMPRESSION: No acute findings. Laboratory Results WBC 20.49 10^3/uL (3.29-11.43) H 05/26/23 17:00 RBC 5.58 10^6/uL (3.85-5.65) 05/26/23 17:00 Hgb 14.80 g/dL (11.27-16.99) 05/26/23 17:00 Hct 46.5 % (36-47) 05/26/23 17:00 MCV 83.3 fl (85-98) L 05/26/23 17:00 MCH 26.5 pg (27-33) L 05/26/23 17:00 MCHC 31.8 g/dL (30-55) 05/26/23 17:00 RDW 14.8 % (12.1-15.1) 05/26/23 17:00 Plt Count 326 10^3/cmm (157-399) 05/26/23 17:00 MPV 11.6 fL (7.4-10.4) H 05/26/23 17:00 Neut % (Auto) 91.5 % 05/26/23 17:00 Lymph % (Auto) 2.3 % 05/26/23 17:00 Benson % (Auto) 5.7 % 05/26/23 17:00 Eos % (Auto) 0.0 % 05/26/23 17:00 Baso % (Auto) 0.1 % 05/26/23 17:00 Neut # (Auto) 18.75 10^3/uL (1.8-7.7) H 05/26/23 17:00 Lymph # (Auto) 0.5 10^3/uL (0.8-4.8) L 05/26/23 17:00 Benson # (Auto) 1.2 10^3/uL (0.2-0.9) H 05/26/23 17:00 Eos # (Auto) 0.0 10^3/uL (0.0-0.8) 05/26/23 17:00 Baso # (Auto) 0.0 10^3/uL (0.0-0.1) 05/26/23 17:00 Nucleated RBC % (auto) 0 % 05/26/23 17:00 Nucleated RBCs # 0.0 /100WBC 05/26/23 17:00 Sodium 147 mmol/L (136-145) H 05/26/23 17:00 Potassium 3.5 mmol/L (3.5-5.1) 05/26/23 17:00 Chloride 101 mmol/L (98-107) 05/26/23 17:00 Carbon Dioxide 26 mmol/L (22-29) 05/26/23 17:00 Anion Gap 23.5 (5-19) H 05/26/23 17:00 BUN 27 mg/dL (8-23) H 05/26/23 17:00 Creatinine 0.9 mg/dL (0.5-0.9) 05/26/23 17:00 GFR Calculation Not Reportable 05/26/23 17:00 Glucose 162 mg/dL (65-115) H 05/26/23 17:00 Calculated Osmolality 313 mOsm/kg (285-295) H 05/26/23 17:00 Lactic Acid 5.2 mmol/L (0.5-2.2) H* 05/26/23 17:00 Calcium 10.1 mg/dL (8.5-10.5) 05/26/23 17:00 Total Bilirubin 0.9 mg/dL (0.15-1.2) 05/26/23 17:00 AST 31 U/L (0-32) 05/26/23 17:00 ALT 19 U/L (0-33) 05/26/23 17:00 Alkaline Phosphatase 105 U/L (35-105) 05/26/23 17:00 Creatine Kinase 486 U/L (26-192) H* 05/26/23 17:00 C-Reactive Protein 37.9 mg/L (0.0-4.9) H 05/26/23 17:00 Total Protein 7.3 g/dL (6.6-8.7) 05/26/23 17:00 Albumin 4.4 g/dL (3.5-5.2) 05/26/23 17:00 Globulin 2.9 g/dL (1.3-4.6) 05/26/23 17:00 All radiology interpretation(s) finalized by discharge Other Data Assessment and plan: Acute CVA. Left hemiplegia Left visual neglect. Rhabdomyolysis Leukocytosis Lactic acidosis Accelerated hypertension -IV fluids given. IV labetalol. I am treating for possible infection although no source identified but with a white count lactic acidosis and giving Zyvox some meropenem. -Patient outside the window for any kind of intervention at this time. Spoke with Dr. Nunez who is admitting -I discussed the patient with the hospitalist on-call who is admitting the patient. - Discussed findings and plan with patient. Answered any questions. - All laboratory values were reviewed and interpreted personally by myself, the ER physician - All imaging was reviewed and interpreted personally by myself, the ER physician. - Evaluation and treatment of this problem were appropriate in the emergency setting -I spent a total of >35 minutes of critical care time managing the patient, independent of any other practitioner. -The time involved in the performance of separately reportable procedures was not counted towards critical care time. Discharge Plan Discharge Patient Disposition: Admitted As Inpatient Clinical Impression: Cerebrovascular accident, Rhabdomyolysis, Acidosis, lactic, Leukocytosis, Left hemiplegia Condition: Stable Coding Level of Care Code ED [employer] for Madyson Mckeon
[2023-05-26 17:20] LABS: Basophils % 0.1 %; Hematocrit 46.5 % (36-47); Lymphocytes # 0.5 10^3/uL (0.8-4.8); Lymphocytes % 2.3 %; Mean Corpuscular HGB Conc 31.8 g/dL (30-55); Mean Corpuscular Hemoglobin 26.5 pg (27-33); Mean Corpuscular Volume 83.3 fl (85-98); Mean Platelet Volume 11.6 fL (7.4-10.4); Monocytes # 1.2 10^3/uL (0.2-0.9); Monocytes % 5.7 %; Neutrophils # 18.75 10^3/uL (1.8-7.7); Neutrophils % 91.5 %; Nucleated Red Blood Cells % 0 %; Platelet Count 326 10^3/cmm (157-399); Red Blood Count 5.58 10^6/uL (3.85-5.65); Red Cell Distribution Width 14.8 % (12.1-15.1); White Blood Count 20.49 10^3/uL (3.29-11.43)
[2023-05-26] MEDS: sodium chloride 0.9% 1,000 ML 999 ML IV (17:26)
[2023-05-26 17:36] LABS: Alanine Aminotransferase 19 U/L (0-33); Albumin Level 4.4 g/dL (3.5-5.2); Alkaline Phosphatase 105 U/L (35-105); Anion Gap 23.5 (5-19); Aspartate Amino Transferase 31 U/L (0-32); Blood Urea Nitrogen 27 mg/dL (8-23); C Reactive Protein 37.9 mg/L (0.0-4.9); Calcium 10.1 mg/dL (8.5-10.5); Carbon Dioxide 26 mmol/L (22-29); Chloride 101 mmol/L (98-107); Creatinine Clr Calc Pharmacy 51.5266; Globulin 2.9 g/dL (1.3-4.6); Glucose 162 mg/dL (65-115); Osmolality Calculated 313 mOsm/kg (285-295); Potassium 3.5 mmol/L (3.5-5.1); Sodium 147 mmol/L (136-145); Total Bilirubin 0.9 mg/dL (0.15-1.2); Total Protein 7.3 g/dL (6.6-8.7)
[2023-05-26 17:37] LABS: Creatine Phosphokinase 486 U/L (26-192)
[2023-05-26 17:40] VITALS: BP 186/103; PULSE 123; RESP 15; O2SAT 96
--- NOTE | 2023-05-26 17:41 | PC.NURSE ---
Pt on bedside electronic device monitor
[2023-05-26 17:43] LABS: Lactic Sepsis W/Reflex 5.2 mmol/L (0.5-2.2)
[2023-05-26] MEDS: labetalol 5 mg/mL SDV 20mL 20 MG IVP (17:56)
[2023-05-26 18:00] VITALS: BP 142/58; PULSE 102; RESP 19; O2SAT 96
[2023-05-26] MEDS: linezolid premix 600 MG/300 ML PREMIX 300 MG IV (18:13)
--- NOTE | 2023-05-26 18:25 | USR_ITS ---
PROCEDURE INFORMATION: Exam: US Duplex Bilateral Extracranial Arteries; Complete; Carotid Arteries Exam date and time: 05/26/2023 6:47 PM Age: 88 years old Clinical indication: Syncope and collapse; Additional info: CVA TECHNIQUE: Imaging protocol: Real-time duplex ultrasound scan of the bilateral extracranial arteries combining goodson scale, color Doppler and spectral waveform analysis with image documentation. Complete exam. Exam focused on the carotid arteries. COMPARISON: ([employer], NECK, CTA HEAD/NECK) 02/26/2022 5:11 PM FINDINGS: Right common carotid artery: Calcified plaque noted. No occlusion or stenosis. Waveforms are normal. Right internal carotid artery: Calcified plaque noted. No occlusion or stenosis. Waveforms are normal. Right ICA/CCA ratio: Within normal limits. Right external carotid artery: No stenosis in the origin. Right vertebral artery: Unremarkable. Antegrade flow. Left common carotid artery: Calcified plaque noted. No occlusion or stenosis. Waveforms are normal. Left internal carotid artery: Calcified plaque noted. No occlusion or stenosis. Waveforms are normal. Left ICA/CCA ratio: Within normal limits. Left external carotid artery: No stenosis in the origin. Left vertebral artery: Unremarkable. Antegrade flow. US/CV carotid duplex BI* [id number] IMPRESSION: No carotid arterial stenosis. REFERENCES: SRU CRITERIA. The degree of internal carotid artery stenosis is based on criteria defined by the Society of Radiologists in Ultrasound (SRU). Normal is no stenosis. Mild is less than 50% stenosis. Moderate is 50-69% stenosis. Severe is greater than 69% stenosis to near occlusion. Near occlusion is a markedly narrowed lumen. Total occlusion is no detectable patent lumen.
--- NOTE | 2023-05-26 18:30 | XRR_ITS ---
PROCEDURE INFORMATION: Exam: XR Right Knee Exam date and time: 05/26/2023 6:42 PM Age: 88 years old Clinical indication: Pain; Knee; Right; Additional info: Pain, fall TECHNIQUE: Imaging protocol: Radiologic exam of the right knee. Views: 1 or 2 views. COMPARISON: CR XR knee RT 3V* [id number] 10/07/2021 1:04 PM FINDINGS: Bones/joints: Prominent bony spurring involves the femoral condyles, tibial plateaus and patella. There is prominent joint space narrowing medially. No fracture or joint effusion noted. Soft tissues: Normal. XR/XR knee RT 1-2V [id number] IMPRESSION: Prominent osteoarthritis
--- NOTE | 2023-05-26 18:30 | XRR_ITS ---
PROCEDURE INFORMATION: Exam: XR Bilateral Hips Exam date and time: 05/26/2023 6:35 PM Age: 88 years old Clinical indication: Pelvic pain; Additional info: Fall TECHNIQUE: Imaging protocol: Radiologic exam of the bilateral hips. Views: 2 views of hips with pelvis when performed. COMPARISON: CR XR hip LT 2-3V wo/w pel* [id number] 06/10/2022 8:57 PM FINDINGS: Bones/joints: Mild spurring involves both acetabula. No fracture noted. Soft tissues: Unremarkable. XR/XR hip BI 2V wo/w pel [id number] IMPRESSION: No acute findings.
--- NOTE | 2023-05-26 18:30 | XRR_ITS ---
PROCEDURE INFORMATION: Exam: XR Left Knee Exam date and time: 05/26/2023 6:40 PM Age: 88 years old Clinical indication: Pain; Knee; Left; Additional info: Pain, fall TECHNIQUE: Imaging protocol: Radiologic exam of the left knee. Views: 1 or 2 views. COMPARISON: [place] [id number] ORTH 10/15/2021 1:28 PM FINDINGS: Bones/joints: Prominent bony spurring involves the femoral condyles, tibial plateaus and patella. There is prominent joint space narrowing medially. No fracture or joint effusion noted. Soft tissues: Normal. XR/XR knee LT 1-2V [id number] IMPRESSION: Prominent osteoarthritis
--- NOTE | 2023-05-26 18:31 | P.HP_ITS ---
Providers/Chief Complaint 2 Primary Care Provider: Oneil Ibrahim DO Chief Complaint: Neuro Issue History of Present Illness Raven Elizondo is a 88 year old female with a past medical history of hypertension, hyperlipidemia, recent history of coronary intervention CAD status post stenting, on aspirin and Plavix, who presents to [facility] due to acute CVA and altered mental status. Currently patient is alert to person, not to place, to time she can answer some basic questions but she has a left facial droop, slurring of her words, word finding difficulty, when asked her what happened she tells me that she fell and that her hips hurt her and her knees hurt her but that is all I can get from her, denies any neck pain, no chest pain, no shortness of breath no abdominal pain, according to ER physician patient's pharmacy has been trying to reach out to her to get her medications refilled however she did not answer back so that had a wellness check, upon arrival patient has complete left [place] with neglect, left facial droop word finding difficulties, her last known well normal I was told was Thursday, her CT of the head shows subacute MCA infarct involving the right temporal parietal cortex, no hemorrhage, she is hypertensive in the ER heart rate 102 pulse 1996% on room air Review of Systems 2 Const: Denies: fever(s) Card: Denies: chest pain Resp: Denies: dyspnea GI: Denies: abdominal pain Medications/Allergies Home Medications Medication Instructions Recorded Confirmed Last Taken Type metoprolol tartrate 100 mg tablet 100 mg PO BID #180 tabs 07/28/22 05/05/23 Unknown Rx nitroglycerin 0.4 mg sublingual 0.4 mg sublingual Q5M PRN chest 11/17/22 05/05/23 Unknown Rx tablet (Nitrostat) pain #50 tabs montelukast 10 mg tablet See Rx Instructions .Route 12/03/22 05/05/23 Unknown Rx .COMPLEX #90 tabs olopatadine 0.1 % eye drops (Eye 1 drp ophthalmic (eye) BID #5 mL 12/03/22 05/05/23 Unknown Rx Allergy Itch-Redness Relief) pregabalin 150 mg capsule (Lyrica) 150 mg PO TID #270 caps 02/17/23 05/05/23 Unknown Rx alprazolam 0.5 mg tablet 0.5 mg PO BID PRN anxiety #60 tabs 03/24/23 05/05/23 Unknown Rx magnesium oxide 400 mg (241.3 mg See Rx Instructions .Route 04/06/23 05/05/23 Unknown Rx magnesium) tablet .COMPLEX #60 tabs furosemide 20 mg tablet (Lasix) 20 mg PO DAILY PRN weight gain #10 04/26/23 05/05/23 Unknown Rx tabs ezetimibe 10 mg tablet See Rx Instructions .Route 04/29/23 05/05/23 Unknown Rx .COMPLEX #90 tabs aspirin 81 mg tablet,delayed 81 mg PO DAILY #100 tabs 05/05/23 05/05/23 Unknown Rx release clopidogrel 75 mg tablet 75 mg PO DAILY #90 tabs 05/05/23 05/05/23 Unknown Rx hydrocodone 10 mg-acetaminophen 1 tab PO BID PRN pain 30 days #60 05/05/23 05/05/23 Unknown Rx 325 mg tablet tabs lisinopril 5 mg tablet 5 mg PO DAILY #90 tabs 05/05/23 05/05/23 Unknown Rx pantoprazole 40 mg tablet,delayed See Rx Instructions .Route 05/15/23 Unknown Rx release .COMPLEX #60 tabs Allergies Allergy/AdvReac Type Severity Reaction Status Date / Time atorvastatin [From Lipitor] Allergy Unknown Verified 05/05/23 09:04 codeine Allergy Unknown Verified 05/05/23 09:04 morphine Allergy Unknown Verified 05/05/23 09:04 omega-3 acid ethyl esters Allergy Unknown Verified 05/05/23 09:04 [From Lovaza] Penicillins Allergy Unknown Verified 05/05/23 09:04 PFSH Acute 2 PFSH: Medical History Obesity (BMI 30.0-34.9) Congestive heart failure Respiratory acidosis Acute transmural anterior wall [place] Tubulovillous adenoma of colon Recurrent UTI Urinary incontinence, mixed URTI (infection of the upper respiratory tract) KHUSHI (generalized anxiety disorder) Polyneuropathy, 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 Joint instability Lumbar stenosis with neurogenic claudication Intervertebral disc disorder with radiculopathy of lumbar region Allergic rhinitis Polyneuropathy Spondylolisthesis, lumbar region Menopausal syndrome (hot flashes) Benign essential HTN Atrial flutter with rapid ventricular response This patient was taken off the oral anticoagulant, other details are not known AV heart block Central sleep apnea Fibromyalgia Dyslipidemia ASHD (arteriosclerotic heart disease) Nocturnal hypoxia Surgical History Status post right hemicolectomy H/O knee surgery H/O: hysterectomy H/O lumpectomy Family History Grandfather Diabetes Father Stroke Heart attack CAD (coronary artery disease) Mother Cancer Denies family history of Clotting disorder Dementia Chronic kidney disease (CKD) Suicide Anesthesia complication Bleeding disorder Lung disease Social History Smoking and tobacco/nicotine status: never used tobacco/nicotine Alcohol intake: never Substance/Drug Use: never Household members: none Marital status: / Current occupational status: retired Vitals/I&O/Wt Last Vital Signs Pulse 102 H 05/26/23 18:00 Resp 19 H 05/26/23 18:00 BP 142/58 05/26/23 18:00 Pulse Ox 96 05/26/23 18:00 O2 Del Method Room Air 05/26/23 18:00 Weight last 48 hrs Weight 99.79 kg Physical Exam 2 Const: COMMON NORMALS: no acute distress Eye: COMMON NORMALS: Equal, round and reactive pupils present Resp: COMMON NORMALS: normal respiratory effort, No retractions, No use of accessory muscles and clear to auscultation bilaterally AUSCULTATION: clear to auscultation bilaterally Cardio: COMMON NORMALS: no JVD, regular rate, regular rhythm, S1 normal heart sound present and S2 normal heart sound present RATE: regular rate RHYTHM: regular rhythm HEART SOUNDS: S1 normal heart sound present and S2 normal heart sound present GI: COMMON NORMALS: Normal to inspection, nondistended, normoactive bowel sounds present, Soft to palpation and non-tender Extremity: COMMON NORMALS: no pedal edema OTHER: Bilateral hip pain to palpation bilateral knee pain to palpation no neck pain on palpation Neuro: OTHER: Left-sided hemiplegia, left facial droop, left-sided neglect word finding difficulty, slurring of her words Data 05/26/23 17:00 05/26/23 17:00 Micro: Microbiology 04/09/24 18:06 Blood Culture - Preliminary Blood SPECIMEN COLLECTED 05/26/23 18:00 Blood Culture - Preliminary Blood SPECIMEN COLLECTED A&P Assessment and plan (1) Acute right MCA stroke: (2) Atrial flutter with rapid ventricular response: (3) Hypertension: Qualifiers: Hypertension type: primary hypertension Qualified Code(s): I10 - Essential (primary) hypertension (4) Atrial fibrillation: (5) Anticoagulated: (6) Dyslipidemia: Plan Acute CVA CT/CT head wo con* [id number] IMPRESSION: Wedge-shaped hypodensity involving right temporoparietal cortex consistent with subacute MCA infarct. No hemorrhage. ?Left-sided neglect, left-sided hemiaplasia, with word finding difficulty, left- sided facial droop ? Plan ? Neurochecks, NIH stroke scale aspiration precautions, next ?patient is a high aspiration risk will keep n.p.o. for now ? Speech therapy eval ? Aspirin 300 mg daily rectally ? Allow for permissive hypertension treat only if systolic blood pressure greater than 220 or diastolic greater than 120 ? PT OT ? IV fluids ? Monitor neurologic status closely ? Patient does have a history of atrial flutter she is not on anticoagulant therapy, currently on examination there is no evidence of atrial flutter or atrial fibrillation, will hold off on anticoagulation for now ? Patient is on aspirin Plavix for his history of CAD, if by tomorrow she does not have reasonable swallowing function, will have to put in the NG tube and start Plavix ? Full code ? Lovenox for DVT prophylaxis Rhabdomyolysis from prolonged immobility, IV fluids Fall, x-ray bilateral hips, x-ray of bilateral knees Leukocytosis with elevated lactic acid, could be from dehydration however she has a history of UTIs, chest x-ray no focal pneumonia, CRP 37.9 will continue meropenem for possible aspiration pneumonia, possible UTI will await UA follow hemodynamics closely Attestations 2 Medical Necessity Statement*: Patient requires hospitalization for acute CVA, inpatient, greater than 2 midnights, with also evidence of elevated lactic acid, possible UTI Diagnoses Acute right MCA stroke I63.511 Atrial flutter with rapid ventricular response I48.92 Primary hypertension I10 Hypertension type: primary hypertension Atrial fibrillation I48.91 Anticoagulated Z79.01 Dyslipidemia E78.5
[2023-05-26] MEDS: enoxaparin 40 mg/0.4 mL Syringe SUBCUT (18:52)
[2023-05-26] MEDS: aspirin 300 mg Supp PR (18:52)
--- NOTE | 2023-05-26 18:55 | PC.NURSE ---
Attempted report, nurse unavailable and will call me back
[2023-05-26 19:00] LABS: Reflex Lactate Order REFLEX LACTIC ORDERD
[2023-05-26 19:03] LABS: INR 1.08 (0.8-1.2)
[2023-05-26 19:08] LABS: Troponin(5th) Baseline 43 ng/L (0-10)
--- NOTE | 2023-05-26 19:17 | P.CONIM_ITS ---
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 The patient was reported to be at home on 05/24/2023. According to the caregiver who was at the patient's bedside in emergency department room #3, the patient complained of left-sided weakness and facial wants while the caregiver was there. The caregiver stated that she was assisting the patient with laundry on 05/24/2023. The patient was found down on 05/26/2023 with left-sided paralysis. The patient was brought to [facility] emergency department. In the emergency room a noncontrast head CT scan was obtained at 5:03 PM and revealed Wedge-shaped hypodensity involving right temporoparietal cortex consistent with subacute MCA infarct. No hemorrhage. NIH score = 20. Due to the patient's last known well being 05/24/2023 and large right MCA distribution stroke, the patient was not a candidate for thrombolytics and no thrombolytics were administered. Drug allergies: Lipitor type reaction unknown Codeine type reaction unknown Morphine type reaction unknown Trinidad-3 fatty acids (from Lovaza) type reaction unknown Penicillins type reaction unknown Current home medications: Aspirin 81 mg p.o. daily Plavix 75 mg p.o. daily Xanax 0.5 mg p.o. twice daily, as needed Ezetimibe 10 mg p.o. daily Lasix 20 mg p.o. daily, as needed Hydrocodone 10 mg / 25 mg tablets 1 p.o. twice daily, as needed pain Lisinopril 5 mg p.o. daily Magnesium oxide 400 mg p.o. daily Metoprolol 100 mg p.o. daily Singulair 10 mg p.o. daily Sublingual nitroglycerin 0.4 mg as needed chest pain Olopatadine 0.1% eyedrops 1 drop in each eye twice a day Protonix 40 mg p.o. daily Lyrica 150 mg p.o. 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 Fibromyalgia Dyslipidemia Allergic rhinitis Habits: None Review of Systems 2 General: Reports: 10 or more systems reviewed and unremarkable except in HPI and below Medications/Allergies Home Medications Medication Instructions Recorded Confirmed Last Taken Type metoprolol tartrate 100 mg tablet 100 mg PO BID #180 tabs 07/28/22 05/05/23 Unknown Rx nitroglycerin 0.4 mg sublingual 0.4 mg sublingual Q5M PRN chest 11/17/22 05/05/23 Unknown Rx tablet (Nitrostat) pain #50 tabs montelukast 10 mg tablet See Rx Instructions .Route 12/03/22 05/05/23 Unknown Rx .COMPLEX #90 tabs olopatadine 0.1 % eye drops (Eye 1 drp ophthalmic (eye) BID #5 mL 12/03/22 05/05/23 Unknown Rx Allergy Itch-Redness Relief) pregabalin 150 mg capsule (Lyrica) 150 mg PO TID #270 caps 02/17/23 05/05/23 Unknown Rx alprazolam 0.5 mg tablet 0.5 mg PO BID PRN anxiety #60 tabs 03/24/23 05/05/23 Unknown Rx magnesium oxide 400 mg (241.3 mg See Rx Instructions .Route 04/06/23 05/05/23 Unknown Rx magnesium) tablet .COMPLEX #60 tabs furosemide 20 mg tablet (Lasix) 20 mg PO DAILY PRN weight gain #10 04/26/23 05/05/23 Unknown Rx tabs ezetimibe 10 mg tablet See Rx Instructions .Route 04/29/23 05/05/23 Unknown Rx .COMPLEX #90 tabs aspirin 81 mg tablet,delayed 81 mg PO DAILY #100 tabs 05/05/23 05/05/23 Unknown Rx release clopidogrel 75 mg tablet 75 mg PO DAILY #90 tabs 05/05/23 05/05/23 Unknown Rx hydrocodone 10 mg-acetaminophen 1 tab PO BID PRN pain 30 days #60 05/05/23 05/05/23 Unknown Rx 325 mg tablet tabs lisinopril 5 mg tablet 5 mg PO DAILY #90 tabs 05/05/23 05/05/23 Unknown Rx pantoprazole 40 mg tablet,delayed See Rx Instructions .Route 05/15/23 Unknown Rx release .COMPLEX #60 tabs Allergies Allergy/AdvReac Type Severity Reaction Status Date / Time atorvastatin [From Lipitor] Allergy Unknown Verified 05/05/23 09:04 codeine Allergy Unknown Verified 05/05/23 09:04 morphine Allergy Unknown Verified 05/05/23 09:04 omega-3 acid ethyl esters Allergy Unknown Verified 05/05/23 09:04 [From Lovaza] Penicillins Allergy Unknown Verified 05/05/23 09:04 Current Medications Generic Name Dose Route Start Last Admin Trade Name Freq PRN Reason Stop Dose Admin Aspirin 300 mg 05/26/23 18:30 05/26/23 18:52 Aspirin 300 Mg Supp KS 300 mg DAILY OKSANA Administration Enoxaparin Sodium 40 mg 05/26/23 18:30 05/26/23 18:52 Enoxaparin 40 Mg/0.4 Ml Syringe SUBCUT 40 mg Q24H OKSANA Administration PFSH Acute 2 PFSH: Medical History Obesity (BMI 30.0-34.9) Congestive heart failure Respiratory acidosis Acute transmural anterior wall MO Tubulovillous adenoma of colon Recurrent UTI Urinary incontinence, mixed URTI (infection of the upper respiratory tract) KHUSHI (generalized anxiety disorder) Polyneuropathy, 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 Joint instability Lumbar stenosis with neurogenic claudication Intervertebral disc disorder with radiculopathy of lumbar region Allergic rhinitis Polyneuropathy Spondylolisthesis, lumbar region Menopausal syndrome (hot flashes) Benign essential HTN Atrial flutter with rapid ventricular response This patient was taken off the oral anticoagulant, other details are not known AV heart block Central sleep apnea Fibromyalgia Dyslipidemia ASHD (arteriosclerotic heart disease) Nocturnal hypoxia Surgical History Status post right hemicolectomy H/O knee surgery H/O: hysterectomy H/O lumpectomy Family History Grandfather Diabetes Father Stroke Heart attack CAD (coronary artery disease) Mother Cancer Denies family history of Clotting disorder Dementia Chronic kidney disease (CKD) Suicide Anesthesia complication Bleeding disorder Lung disease Social History Smoking and tobacco/nicotine status: never used tobacco/nicotine Alcohol intake: never Substance/Drug Use: never Household members: none Marital status: / Current occupational status: retired Vitals/I&O/Wt Last Vital Signs Pulse 102 H 05/26/23 18:00 Resp 19 H 05/26/23 18:00 BP 142/58 05/26/23 18:00 Pulse Ox 96 05/26/23 18:00 O2 Del Method Room Air 05/26/23 18:00 Weight last 48 hrs Weight 220 lb Physical Exam 2 Narrative: NIH score =20 The patient is alert and oriented to person. Patient follows commands. Head normocephalic patient has dried blood in the top of her head according to the patient she struck her head on a table in her home. There was no obvious sign of skull fracture. Noncontrast head CT did not report any skull fracture performed on 05/26/2023. Cranial nerves II through XII revealed left lower facial weakness. Speech dysarthric. Motor testing revealed left upper and left lower extremity paralysis. Extraocular movements revealed right gaze preference with inability of the patient to look past midline to the left. Patient has obvious left-sided neglect. Sensory examination intact to touch with extinction on double sensory stimulation on the left side of her body. Deep tendon reflexes revealed plantar responses bilaterally. There was no clonus. Throat clear. Lungs clear. Heart regular rhythm and rate extremities were negative for cyanosis. Data 05/26/23 17:00 05/26/23 17:00 Micro: Microbiology 05/26/23 18:06 Blood Culture - Preliminary Blood SPECIMEN COLLECTED 05/26/23 18:00 Blood Culture - Preliminary Blood SPECIMEN COLLECTED A&P Assessment and plan (1) Acute right MCA stroke: Impression: 1. Subacute right MCA distribution stroke with left lower facial weakness and left upper and left lower extremity paralysis and right gaze preference and left-sided neglect. Note: Since the patient's last known well was 05/24/2023 and large right MCA distribution stroke, patient was not a candidate for thrombolytics and no thrombolytics were administered. Due to the patient's age and the patient's last known well 05/24/2023, CT angiogram was not obtained since patient was not a candidate for thrombectomy. 2. History of atrial fibrillation/atrial flutter 3. History of lumbar stenosis with claudication 4. History of sensorimotor axonal peripheral polyneuropathy 5. History of spinal cord stimulator 6. History of tubulovillous adenoma of the colon status post right hemicolectomy 7. Central sleep apnea 8. Congestive heart failure Plan: 1. Agree with current treatment plan 2. Keep head of bed elevated to 30 degrees as tolerated to minimize cerebral swelling 3. Agree with obtaining carotid duplex study to assess for carotid or vertebral artery stenosis 4. Recommend obtaining cardiac evaluation to assess for embolic source for right MCA distribution stroke and history of atrial fibrillation and atrial flutter with rapid ventricular response 5. Recommend speech therapy, Occupational Therapy, and physical therapy consults 6. Isotonic fluids and no hypotonic fluids to minimize cerebral brain swelling 7. If anticoagulation is recommended for cardiac issues, recommend repeating noncontrast head CT prior to starting anticoagulation to evaluate for any hemorrhagic transformation of the patient's right MCA distribution stroke 8. Neurochecks per NIH stroke protocol to monitor for any worsening of the patient's subacute right MCA distribution stroke Consult Attestations 2 Medical Necessity Statement: The patient was evaluated by neurology for subacute right MCA distribution stroke with left-sided paralysis Coding Level of Care Code 13964 Diagnoses Acute right MCA stroke I63.511
[2023-05-26 19:35] LABS: NT Pro B Type Natriuretic Pept 9558 pg/mL (0-450); Procalcitonin 0.08 ng/mL (0-0.5); Thyroid Stimulating Hormone 0.69 uIU/mL (0.27-4.20)
[2023-05-26 20:18] VITALS: BMI 28.8
[2023-05-26 20:23] LABS: Troponin 5 2HR 39.53 ng/L (0-10)
[2023-05-26 20:28] LABS: Troponin 5 2HR Delta -3.47 ABS# (0-10)
--- NOTE | 2023-05-26 20:30 | ECG_ITS ---
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 Measurements Intervals [place] Rate: 106 P: 59 [place]: 148 QRS: -30 QRSD: 86 T: 180 QT: 355 QTc: 472 Interpretive Statements SINUS TACHYCARDIA BORDERLINE LEFT AXIS DEVIATION [QRS AXIS < -20] MODERATE VOLTAGE CRITERIA FOR LVH, CONSIDER NORMAL VARIANT [MEETS CRITERIA IN ONE OF: R(aVL), S(V1), R(V5), R(V5/V6)+S(V1)] ST DEVIATION AND MODERATE T-WAVE ABNORMALITY, CONSIDER ANTERIOR ISCHEMIA [-0.1+ mV T-WAVE IN V3/V4] Compared to ECG 05/26/2023 20:30:00 No significant changes Electronically Signed On 05-26-2023 21:23:51 CDT by Jorge Murcia M.D. [id number]
--- NOTE | 2023-05-26 20:30 | ECG_ITS ---
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 Measurements Intervals [place] Rate: 109 P: 90 [place]: 146 QRS: -30 QRSD: 88 T: 180 QT: 344 QTc: 465 Interpretive Statements SINUS TACHYCARDIA BORDERLINE LEFT AXIS DEVIATION [QRS AXIS < -20] MODERATE VOLTAGE CRITERIA FOR LVH, CONSIDER NORMAL VARIANT [MEETS CRITERIA IN ONE OF: R(aVL), S(V1), R(V5), R(V5/V6)+S(V1)] ST DEVIATION AND MODERATE T-WAVE ABNORMALITY, CONSIDER ANTERIOR ISCHEMIA [-0.1+ mV T-WAVE IN V3/V4] Compared to ECG 04/24/2023 07:49:06 T-wave abnormality now present Possible ischemia now present ST (T wave) deviation no longer present Myocardial infarct finding no longer present Electronically Signed On 05-26-2023 21:29:31 CDT by Jorge Murcia M.D. [id number]
[2023-05-26 20:39] VITALS: BP 151/84; PULSE 104; RESP 18; TEMP 37.3; O2SAT 96
[2023-05-26 20:56] LABS: Lactic Acid level (Lactate) 3.5 mmol/L (0.5-2.2)
[2023-05-26 21:08] LABS: Estmated Average Glucose 94; Hemoglobin A1C 4.9 % (4.0-6.0)
[2023-05-26 22:00] VITALS: PULSE 123
[2023-05-26 22:40] VITALS: BP 148/83; PULSE 121; RESP 20; O2SAT 93
[2023-05-26] MEDS: sodium chloride 0.9% 1,000 ML 125 ML IV (22:47)
[2023-05-26] MEDS: meropenem 500 MG in sodium chloride 0.9% (plus) 50 ML 100 MG IV (22:51)
[2023-05-26] MEDS: pantoprazole 40 mg SDV IVP (22:52)
[2023-05-26] MEDS: metoprolol tartrate 1 mg/1 mL SDV 5 mL 2.5 MG IVP (23:13)
--- NOTE | 2023-05-26 23:59 | PC.NURSE ---
patient altered unable to complete medication list, family will be back in morning.
[2023-05-27] VITALS (10 sets, daily range): BP systolic 136–176; BP diastolic 75–85; PULSE 83–123; RESP 14–24; TEMP 36.4–38.4; O2SAT 92–95
--- NOTE | 2023-05-27 00:26 | ECG_ITS ---
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 Measurements Intervals [place] Rate: 118 P: 74 [place]: 139 QRS: -29 QRSD: 88 T: 152 QT: 313 QTc: 440 Interpretive Statements SINUS TACHYCARDIA WITH OCCASIONAL SUPRAVENTRICULAR PREMATURE COMPLEXES BORDERLINE LEFT AXIS DEVIATION [QRS AXIS < -20] VOLTAGE CRITERIA FOR LVH [MEETS CRITERIA IN ONE OF: R(aVL), S(V1), R(V5), R(V5/V6)+S(V1)] NONSPECIFIC ST & T-WAVE ABNORMALITY Compared to ECG 05/26/2023 20:30:49 Possible ischemia no longer present T-wave abnormality still present Electronically Signed On 05-27-2023 18:44:02 CDT by Jorge Murcia M.D. [id number]
[2023-05-27 00:52] LABS: Troponin 5 6HR 48.72 ng/L (0-10); Troponin 5 6HR Delta 5.72 ng/L (0-12)
[2023-05-27] MEDS: metoprolol tartrate 1 mg/1 mL SDV 5 mL 2.5 MG IVP (01:01)
[2023-05-27 01:07] LABS: Urine Appearance Cloudy (CLEAR); Urine Color Yellow (Yellow)
[2023-05-27 01:08] LABS: Add Urine Microscopic? YES; Bilirubin Urine Neg (Negative); Blood Urine 3+ (Negative); Glucose Urine UA Norm (Normal); Ketones Urine 1+ (Negative); Leukocyte Esterase Urine 2+ (Negative); Nitrate Urine Negative (Negative); Protein Urine 3+ (Negative); RBC Urine 15-25 /hpf (0-2); Urobilinogen Urine Norm (Negative); WBC Urine 40-55 /hpf (0-5); pH Urine 5 (5-7)
[2023-05-27 01:09] LABS: Add Urine Culture? Yes; Bacteria Urine 4+ /hpf; Mucus Urine 2+ /hpf; Transitional Epi Cells Urine 0-4 /hpf
[2023-05-27 04:45] LABS: Basophils % 0.2 %; Hematocrit 40.2 % (36-47); Lymphocytes # 0.6 10^3/uL (0.8-4.8); Lymphocytes % 3.2 %; Mean Corpuscular HGB Conc 31.6 g/dL (30-55); Mean Corpuscular Hemoglobin 26.5 pg (27-33); Mean Corpuscular Volume 83.9 fl (85-98); Monocytes # 1.1 10^3/uL (0.2-0.9); Neutrophils # 16.21 10^3/uL (1.8-7.7); Neutrophils % 89.8 %; Nucleated Red Blood Cells % 0 %; Platelet Count 257 10^3/cmm (157-399); Red Blood Count 4.79 10^6/uL (3.85-5.65); White Blood Count 18.04 10^3/uL (3.29-11.43)
[2023-05-27] MEDS: metoprolol tartrate 1 mg/1 mL SDV 5 mL 5 MG IVP (05:02)
[2023-05-27 05:08] LABS: Cholesterol 141 mg/dL (0-200); HDL Cholesterol 47 mg/dL (60-100); LDL Cholesterol Calculated 70 mg/dL (50-129); LDL HDL Ratio 1.49 RATIO (0.00-3.22); Triglycerides 119 mg/dL (0-150)
[2023-05-27 05:09] LABS: Alanine Aminotransferase 15 U/L (0-33); Albumin Level 3.7 g/dL (3.5-5.2); Alkaline Phosphatase 85 U/L (35-105); Aspartate Amino Transferase 27 U/L (0-32); Blood Urea Nitrogen 26 mg/dL (8-23); Carbon Dioxide 23 mmol/L (22-29); Chloride 108 mmol/L (98-107); Creatinine Clr Calc Pharmacy 45.9263; Globulin 2.6 g/dL (1.3-4.6); Glucose 163 mg/dL (65-115); Magnesium 1.7 mg/dL (1.7-2.3); Osmolality Calculated 308 mOsm/kg (285-295); Phosphorus 2.9 mg/dL (2.5-4.5); Sodium 145 mmol/L (136-145); Total Bilirubin 0.6 mg/dL (0.15-1.2); Total Protein 6.3 g/dL (6.6-8.7)
[2023-05-27 05:10] LABS: Lactic Sepsis W/Reflex 1.5 mmol/L (0.5-2.2)
[2023-05-27] MEDS: sodium chloride 0.9% 1,000 ML 125 ML IV (06:23)
[2023-05-27] MEDS: meropenem 1,000 MG in sodium chloride 0.9% (plus) 50 ML 100 MG IV (06:24)
--- NOTE | 2023-05-27 08:40 | PC.PHAR ---
pt unable to verify all medications-pt states she takes whatever the pharmacy fills for her-medications entered are what ext med history shows has been filled recently-ext med history doesnt show lasix 20mg daily prn filled rx written 04/26/23
[2023-05-27] MEDS: aspirin 300 mg Supp PR (08:55)
--- NOTE | 2023-05-27 13:01 | XRR_ITS ---
PROCEDURE INFORMATION: Exam: XR Chest Exam date and time: 05/27/2023 12:11 PM Age: 88 years old Clinical indication: Device placement; Ng tube; Additional info: Verify ngt placement TECHNIQUE: Imaging protocol: Radiologic exam of the chest. Views: 1 view. COMPARISON: CR (CHEST, ) 05/26/2023 5:11 PM FINDINGS: Tubes, catheters and devices: NG tube terminates at the GE junction. Lungs: No consolidation. Pleural spaces: No sizable pleural effusion or pneumothorax. Heart/Mediastinum: No cardiomegaly. Bones/joints: Healed left lateral rib fractures.. XR/XR chest 1V portable [id number] IMPRESSION: NG tube terminates at the GE junction. Recommend advancement approximately 5 cm.
[2023-05-27] MEDS: clopidogrel 75 mg Tablet NG-TUBE (13:38)
[2023-05-27] MEDS: aspirin 81 mg Chew Tablet PO (13:38)
--- NOTE | 2023-05-27 15:02 | PM.PN ---
Subjective Subjective: - Patient was seen this morning -Speech therapy at bedside ? She is alert to person, not to place, not to time she tells me that her is up in [place], he works as a traveling salesman, she has 1 daughter, she has 1 neighbor who checks up on her, she does turn her head to the left but does have preference leaning to the right, has dense left hemiplegia, still remains a high aspiration risk, can follow some commands, moving the right side of her body right upper right lower extremity, pupils equal round reactive to light, left facial droop he does have word finding difficulty ? Plan was to place a nasogastric tube, as patient can get her Plavix, recently she had a stent placed, also received aspirin, ? She was also found to have a UTI as she was started on meropenem ? She does start to show evidence of fluid overload and decrease her fluids to 50 cc ? Spoke to PT OT, patient has some movement in her left quadricep muscles -I had a family meeting with patient's 2 daughters -I had an extensive goals of care discussion with patient's 2 daughters, they would like their mother to be DNR/DNI, they are the next of kin, Raven does not have any other close family members, she does not have any living well ? I had extensive discussion about what DNR and DNI would entail, they voiced understanding, all questions answered, agreed to proceed to DNR/DNI ? 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 Currently she has dense left hemiplegia, word finding difficulty left facial droop she is a high aspiration risk, ? I am worried that she is likely going to need a PEG tube placement but will have speech therapy reassess her tomorrow, I think that patient is roughly 2 to 3 days out of her stroke, vomiting continue permissive hypertension for now I would hold off on any anticoagulant therapy as she has a history of atrial fibrillation this certainly could be embolic stroke as she did have episode of tachycardia during the night but it seems more like sinus tachycardia and A-fib, but nonetheless I will hold off on anticoagulation therapy as there is a risk of hemorrhagic conversion ? But given her dense hemiplegia, left facial droop, slurring of words, high aspiration risk left facial droop, slurring of words, high aspiration risk, my worry is that this is going to be her baseline level of functioning certainly we can do PT OT work with her maybe she will gain some function of the left hand, but it can be a long process with physical therapy speech therapy placement at a [place] [facility] ? Patient's daughter tells me that their mother is not the one that would fight, she would not want life-sustaining measures, she would not want a feeding tube ? Patient's daughter are leaning towards comfort care hospice however they want to see how she does over the next 24 hours, discussed continue medical interventions, giving her time watching over the next 24 hours fluids which I will decrease to 50 cc permissive hypertension aspirin Plavix repeat head CT tomorrow morning and will determine where to go from there either continue medical interventions but what from family tells me it seems like they are moving towards hospice/comfort care -ng tube placed Vitals/I&O/Wt Last Vital Signs Temp 98.7 F 05/27/23 11:52 Pulse 87 05/27/23 11:52 Resp 15 05/27/23 11:52 BP 173/75 05/27/23 11:52 Pulse Ox 92 05/27/23 11:52 O2 Del Method Room Air 05/27/23 11:52 05/27/23 05/27/23 05/27/23 06:59 14:59 22:59 Intake Total 1000 / 2300 1050 / 1050 Balance 1000 / 2300 1050 / 1050 Weight last 48 hrs Weight 79.651 kg Weight 78.517 kg Weight 99.79 kg Physical Exam Const: COMMON NORMALS: no acute distress EXAM LIMITATIONS: altered mental status ORIENTATION/CONSCIOUSNESS: Yes awake and Yes confused; not oriented to person, not oriented to place and not oriented to time Eye: COMMON NORMALS: Equal, round and reactive pupils present PUPIL: Yes Equal, round and reactive pupils present Resp: COMMON NORMALS: normal respiratory effort, No retractions, No use of accessory muscles and clear to auscultation bilaterally AUSCULTATION: clear to auscultation bilaterally Cardio: COMMON NORMALS: regular rate, regular rhythm, S1 normal heart sound present and S2 normal heart sound present RATE: regular rate RHYTHM: regular rhythm HEART SOUNDS: S1 normal heart sound present and S2 normal heart sound present GI: COMMON NORMALS: Normal to inspection, nondistended, normoactive bowel sounds present, Soft to palpation and non-tender PALPATION: Yes Soft to palpation Extremity: COMMON NORMALS: no pedal edema Neuro: SENSORIUM/ORIENTATION: No oriented to person, No oriented to place and No oriented to time Urinary Catheter Management: Guevara: Cath Placed During This Visit: yes Urinary Catheter Date of Insertion: 05/27/23 Urinary Catheter Time of Insertion: 14:51 Data 05/27/23 04:35 05/27/23 04:35 Micro: Microbiology 05/26/23 18:06 Blood Culture - Preliminary Blood SPECIMEN COLLECTED 05/26/23 18:00 Blood Culture - Preliminary Blood SPECIMEN COLLECTED A&P Assessment and plan (1) Acute right MCA stroke: (2) Atrial flutter with rapid ventricular response: (3) Hypertension: Qualifiers: Hypertension type: primary hypertension Qualified Code(s): I10 - Essential (primary) hypertension (4) Atrial fibrillation: (5) Anticoagulated: (6) Dyslipidemia: (7) Goals of care, counseling/discussion: (8) NSTEMI (non-ST elevated myocardial infarction): (9) UTI (urinary tract infection): Plan Acute CVA CT/CT head wo con* 00800 IMPRESSION: Wedge-shaped hypodensity involving right temporoparietal cortex consistent with subacute MCA infarct. No hemorrhage. ?Left-sided neglect, left-sided hemiaplasia, with word finding difficulty, left-sided facial droop ? Plan ? Neurochecks, NIH stroke scale aspiration precautions, next ?patient is a high aspiration risk will keep n.p.o. for now, place NG tube, for aspirin Plavix ? Speech therapy eval ? Allow for permissive hypertension treat only if systolic blood pressure greater than 220 or diastolic greater than 120 ? PT OT ? IV fluids ? Monitor neurologic status closely ? Patient does have a history of atrial flutter she is not on anticoagulant therapy, currently on examination there is no evidence of atrial flutter or atrial fibrillation, will hold off on anticoagulation for now ?repeat head CT tomorrow ? Full code ? Lovenox for DVT prophylaxis Rhabdomyolysis from prolonged immobility, IV fluids Fall, x-ray bilateral hips, x-ray of bilateral knees, within normal limits NSTEMI, monitor UTI, with elevated lactic acid, continue meropenem Possible aspiration event, continue meropenem Goals of care discussion DNR/DNI patient's family leaning towards comfort care, however they want to give bony another 24 hours - Patient was seen this morning -Speech therapy at bedside ? She is alert to person, not to place, not to time she tells me that her is up in [place], he works as a traveling salesman, she has 1 daughter, she has 1 neighbor who checks up on her, she does turn her head to the left but does have preference leaning to the right, has dense left hemiplegia, still remains a high aspiration risk, can follow some commands, moving the right side of her body right upper right lower extremity, pupils equal round reactive to light, left facial droop he does have word finding difficulty ? Plan was to place a nasogastric tube, as patient can get her Plavix, recently she had a stent placed, also received aspirin, ? She was also found to have a UTI as she was started on meropenem ? She does start to show evidence of fluid overload and decrease her fluids to 50 cc ? Spoke to PT OT, patient has some movement in her left quadricep muscles -I had a family meeting with patient's 2 daughters -I had an extensive goals of care discussion with patient's 2 daughters, they would like their mother to be DNR/DNI, they are the next of kin, Raven does not have any other close family members, she does not have any living well ? I had extensive discussion about what DNR and DNI would entail, they voiced understanding, all questions answered, agreed to proceed to DNR/DNI ? 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 Currently she has dense left hemiplegia, word finding difficulty left facial droop she is a high aspiration risk, ? I am worried that she is likely going to need a PEG tube placement but will have speech therapy reassess her tomorrow, I think that patient is roughly 2 to 3 days out of her stroke, vomiting continue permissive hypertension for now I would hold off on any anticoagulant therapy as she has a history of atrial fibrillation this certainly could be embolic stroke as she did have episode of tachycardia during the night but it seems more like sinus tachycardia and A-fib, but nonetheless I will hold off on anticoagulation therapy as there is a risk of hemorrhagic conversion ? But given her dense hemiplegia, left facial droop, slurring of words, high aspiration risk left facial droop, slurring of words, high aspiration risk, my worry is that this is going to be her baseline level of functioning certainly we can do PT OT work with her maybe she will gain some function of the left hand, but it can be a long process with physical therapy speech therapy placement [place] a [place] [facility] ? Patient's daughter tells me that their mother is not the one that would fight, she would not want life-sustaining measures, she would not want a feeding tube ? Patient's daughter are leaning towards comfort care hospice however they want to see how she does over the next 24 hours, discussed continue medical interventions, giving her time watching over the next 24 hours fluids which I will decrease to 50 cc permissive hypertension aspirin Plavix repeat head CT tomorrow morning and will determine where to go from there either continue medical interventions but what from family tells me it seems like they are moving towards hospice/comfort care -ng tube placed Attestations Medical Necessity Statement*: Patient requires hospitalization, inpatient, greater than 2 midnights, for acute CVA, UTI, NSTEMI, rhabdomyolysis, goals of care discussion Diagnoses Acute right MCA stroke I63.511 Atrial flutter with rapid ventricular response I48.92 Primary hypertension I10 Hypertension type: primary hypertension Atrial fibrillation I48.91 Anticoagulated Z79.01 Dyslipidemia E78.5 Goals of care, counseling/discussion Z71.89 NSTEMI (non-ST elevated myocardial infarction) I21.4 UTI (urinary tract infection) N39.0
[2023-05-27] MEDS: enoxaparin 40 mg/0.4 mL Syringe SUBCUT (16:35)
--- NOTE | 2023-05-27 16:59 | PC.NURSE ---
Pt IV out since 1300. Still awaiting ultrasound IV. 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
[2023-05-27] MEDS: morphine 4 mg/mL SDV 1 mL IVP ×2 (17:45→18:18)
[2023-05-27] MEDS: LORazepam 2 mg/mL INJ 10 mL MDV IVP (17:45)
[2023-05-28] VITALS (18 sets, daily range): BP systolic 135–183; BP diastolic 72–90; PULSE 73–100; RESP 12–18; TEMP 36.1–37; O2SAT 94–96; BMI 30.3
[2023-05-28] MEDS: LORazepam 2 mg/mL INJ 10 mL MDV IVP ×3 (01:11→21:59)
[2023-05-28] MEDS: morphine 10 mg/0.5 mL oral liq UD SUBLINGUAL (01:11)
--- NOTE | 2023-05-28 12:00 | PC.OT ---
OT TREATMENT DISCONTINUED DUE TO PATIENT PLACED ON COMFORT CARE.
--- NOTE | 2023-05-28 12:53 | PC.NURSE ---
Ask patient if pain was present. Patient has stated no twice today. Family stated she has been resting well. Patient is talking a little bit.
[2023-05-28] MEDS: morphine 4 mg/mL SDV 1 mL IVP ×7 (13:20→22:22)
--- NOTE | 2023-05-28 13:27 | P.PN_ITS ---
Subjective 2 Subjective: Yesterday evening, I had a detailed discussion with patient's family, patient's 2 daughter, about goals of care, patient's daughter later in the evening had came to decision, and they proceed with comfort care, discussed the risk and benefits of comfort care, they voiced understanding, all questions answered, agreed to proceed with comfort care, patient was made comfort care, this morning she is seen she is alert, but falls back asleep, does not follow commands, patient's daughter is at bedside, plan is to move her to detention facility on hospice care, patient's daughter would like us to find a local facility Vitals/I&O/Wt Last Vital Signs Temp 97.9 F 05/28/23 07:30 Pulse 94 05/28/23 07:30 Resp 16 05/28/23 13:20 BP 165/72 05/28/23 07:30 Pulse Ox 96 05/28/23 13:20 O2 Del Method Room Air 05/28/23 07:30 05/27/23 05/28/23 05/28/23 22:59 06:59 14:59 Intake Total 0 / 1050 0 / 1050 Output Total 600 / 600 Balance 0 / 1050 -600 / 450 Weight last 48 hrs Weight 82.611 kg Weight 79.651 kg Weight 78.517 kg Weight 99.79 kg Physical Exam 2 Const: COMMON NORMALS: no acute distress Resp: COMMON NORMALS: normal respiratory effort, No retractions, No use of accessory muscles and clear to auscultation bilaterally AUSCULTATION: clear to auscultation bilaterally Cardio: COMMON NORMALS: regular rate, regular rhythm, S1 normal heart sound present and S2 normal heart sound present RATE: regular rate RHYTHM: r egular rhythm HEART SOUNDS: S1 normal heart sound present and S2 normal heart sound present GI: COMMON NORMALS: Normal to inspection, nondistended, normoactive bowel sounds present and non-tender Extremity: COMMON NORMALS: no pedal edema Urinary Catheter Management: Guevara: Cath Placed During This Visit: yes Reason for Continuing Indwelling Catheter: Hospice/Comfort/Palliative Care Urinary Catheter Date of Insertion: 05/27/23 Urinary Catheter Time of Insertion: 14:51 Data 05/27/23 04:35 05/27/23 04:35 Micro: Microbiology 05/27/23 00:53 Urine Culture - Preliminary Urine,Clean Catch Gram Negative Rods 05/26/23 18:00 Blood Culture - Preliminary Blood NEGATIVE TO DATE 05/26/23 18:06 Blood Culture - Preliminary Blood NEGATIVE TO DATE A&P Assessment and plan (1) Acute right MCA stroke: (2) Atrial flutter with rapid ventricular response: (3) Hypertension: Qualifiers: Hypertension type: primary hypertension Qualified Code(s): I10 - Essential (primary) hypertension (4) Atrial fibrillation: (5) Anticoagulated: (6) Dyslipidemia: (7) Goals of care, counseling/discussion: (8) NSTEMI (non-ST elevated myocardial infarction): (9) UTI (urinary tract infection): (10) Hospice care: Plan Hospice care, for acute CVA, left-sided hemiplegia, UTI, aspiration pneumonia rhabdo, fall, NSTEMI Acute CVA CT/CT head wo con* 15386 IMPRESSION: Wedge-shaped hypodensity involving right temporoparietal cortex consistent with subacute MCA infarct. No hemorrhage. ?Left-sided neglect, left-sided hemiaplasia, with word finding difficulty, left- sided facial droop ? Plan ? Neurochecks, NIH stroke scale aspiration precautions, next ?patient is a high aspiration risk will keep n.p.o. for now, place NG tube, for aspirin Plavix ? Speech therapy eval ? Allow for permissive hypertension treat only if systolic blood pressure greater than 220 or diastolic greater than 120 ? PT OT ? IV fluids ? Monitor neurologic status closely ? Patient does have a history of atrial flutter she is not on anticoagulant therapy, currently on examination there is no evidence of atrial flutter or atrial fibrillation, will hold off on anticoagulation for now ?repeat head CT tomorrow ? Full code ? Lovenox for DVT prophylaxis Rhabdomyolysis from prolonged immobility, IV fluids Fall, x-ray bilateral hips, x-ray of bilateral knees, within normal limits NSTEMI, monitor UTI, with elevated lactic acid, continue meropenem Possible aspiration event, continue meropenem Goals of care discussion DNR/DNI patient's family leaning towards comfort care, however they want to give bony another 24 hours - Patient was seen this morning -Speech therapy at bedside ? She is alert to person, not to place, not to time she tells me that her is up in [place], he works as a traveling salesman, she has 1 daughter, she has 1 neighbor who checks up on her, she does turn her head to the left but does have preference leaning to the right, has dense left hemiplegia, still remains a high aspiration risk, can follow some commands, moving the right side of her body right upper right lower extremity, pupils equal round reactive to light, left facial droop he does have word finding difficulty ? Plan was to place a nasogastric tube, as patient can get her Plavix, recently she had a stent placed, also received aspirin, ? She was also found to have a UTI as she was started on meropenem ? She does start to show evidence of fluid overload and decrease her fluids to 50 cc ? Spoke to PT OT, patient has some movement in her left quadricep muscles -I had a family meeting with patient's 2 daughters -I had an extensive goals of care discussion with patient's 2 daughters, they would like their mother to be DNR/DNI, they are the next of kin, Raven does not have any other close family members, she does not have any living well ? I had extensive discussion about what DNR and DNI would entail, they voiced understanding, all questions answered, agreed to proceed to DNR/DNI ? 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 Currently she has dense left hemiplegia, word finding difficulty left facial droop she is a high aspiration risk, ? I am worried that she is likely going to need a PEG tube placement but will have speech therapy reassess her tomorrow, I think that patient is roughly 2 to 3 days out of her stroke, vomiting continue permissive hypertension for now I would hold off on any anticoagulant therapy as she has a history of atrial fibrillation this certainly could be embolic stroke as she did have episode of tachycardia during the night but it seems more like sinus tachycardia and A-fib, but nonetheless I will hold off on anticoagulation therapy as there is a risk of hemorrhagic conversion ? But given her dense hemiplegia, left facial droop, slurring of words, high aspiration risk left facial droop, slurring of words, high aspiration risk, my worry is that this is going to be her baseline level of functioning certainly we can do PT OT work with her maybe she will gain some function of the left hand, but it can be a long process with physical therapy speech therapy placement at a senior care ? Patient's daughter tells me that their mother is not the one that would fight, she would not want life-sustaining measures, she would not want a feeding tube ? Patient's daughter are leaning towards comfort care hospice however they want to see how she does over the next 24 hours, discussed continue medical interventions, giving her time watching over the next 24 hours fluids which I will decrease to 50 cc permissive hypertension aspirin Plavix repeat head CT tomorrow morning and will determine where to go from there either continue medical interventions but what from family tells me it seems like they are moving towards hospice/comfort care -ng tube placed Attestations 2 Medical Necessity Statement*: Patient requires hospitalization for hospice care Diagnoses Acute right MCA stroke I63.511 Atrial flutter with rapid ventricular response I48.92 Primary hypertension I10 Hypertension type: primary hypertension Atrial fibrillation I48.91 Anticoagulated Z79.01 Dyslipidemia E78.5 Goals of care, counseling/discussion Z71.89 NSTEMI (non-ST elevated myocardial infarction) I21.4 UTI (urinary tract infection) N39.0 Hospice care Z51.5
[2023-05-29] VITALS (21 sets, daily range): BP systolic 48–103; BP diastolic 32–65; PULSE 86–150; RESP 4–20; TEMP 36.6–37.9; O2SAT 68–88
[2023-05-29] MEDS: morphine 4 mg/mL SDV 1 mL IVP ×24 (00:07→22:39)
[2023-05-29] MEDS: LORazepam 2 mg/mL INJ 10 mL MDV IVP ×14 (01:32→22:39)
[2023-05-29] MEDS: HYDROmorphone 1 mg/mL INJ 1 mL 2 MG IVP ×2 (08:33→10:12)
[2023-05-29] MEDS: haloperidol inj 5 mg/mL INJ 1 mL 2 MG IVP (10:04)
[2023-05-29] MEDS: fentaNYL 50 mcg Patch 1 PATCH TRANSDERMA (11:10)
[2023-05-29] MEDS: LORazepam 2 mg/mL INJ 10 mL MDV 4 MG IVP (11:10)
[2023-05-29] MEDS: glycopyrrolate 0.2 mg/mL SDV 2 mL 0.200000000000000011 MG IV (11:46)
--- NOTE | 2023-05-29 12:55 | P.PN_ITS ---
Subjective 2 Subjective: -Patient was examined this morning, arun ent's 2 daughters are at bedside, patient is in severe agitation this morning, very restless, moaning and appears to be in severe pain, becomes easily agitated, does not follow commands ? Patient's family is very upset, as patient's pain is not adequately being controlled, they do not want Raven to suffer, and they are adamant that she is suffering right now they have been by her bedside and she continues to appear to suffer very restless and moaning, in severe pain, and they feel that were not adequately treating her pain ? Had a detailed discussion with patient's family about the goals of care of comfort care, is not to hasten but to ease her pain and ease her suffering and I apologized our goal will be to ease her pain and ease her suffering allow her to pass away comfortably, but the goal will not be to hasten her ? During my discussion she continues to be very restless severe agitation moaning appears to be in severe pain, appears to be suffering ? Patient's family reports that when the had fallen into her apartment, they had found several bottles of empty hydrocodone and oxycodone, they tell that body has been on several different pain medications and she uses it more than prescribed, she has a very high pain tolerance, and she uses it more than prescribed and she stores pain medication, and uses it how she wishes ? I can confirm that patient sees Dr. Prince Ochoa for back pain she is on hydrocodone but is only given at 11/18/2024 1 tab twice daily she is on Lyrica, not sure how she got the rest of her pain medications ? However family tells me that she sees multiple physicians that she tends to collect all pain medications and use him at her well ? Based upon how much morphine she is used this morning, patient has a very high pain tolerance, we will have to get her pain under control with increased doses of morphine Dilaudid Ativan Haldol, patient family wants the suffering to stop, they want her to be comfortable ? Patient is on comfort care protocol ? I went over this with nursing staff ? As of 8 in the morning, patient was receiving morphine 10 mg every 45 minutes, but her pain persists continues to have agitation, moaning, in severe pain have confirmed this with nursing staff ? She is also received 2 mg of IV push Ativan ? I advised nursing staff to give patient 2 mg of Dilaudid, with her scheduled dose of Ativan to try to control her pain ? Reassessed, with nursing staff patient continues to according to nursing staff look miserable, continues to be in pain, she continues to get morphine 10 mg every 45 minutes continues to get her Ativan 2 mg every 30 minutes, ? As she continues to have severe agitation, she was given 2 mg IV push Haldol ? Reassessed with nursing staff continues to have severe restlessness agitation, appears to be suffering, was given 2 mg IV push Haldol ? Reassessed with nursing staff despite multiple doses of Haldol, Dilaudid, Ativan, morphine, she continues to suffer, continues to be in severe pain ? I spoke to director trading , about getting patient's pain and suffering under control, he advised trying fentanyl patch and potentially Precedex, and try to maximize her morphine ? Patient was started on 50 mcg fentanyl patch ? Continue to receive update from nursing staff, -I had ordered a Precedex drip, however I was advised by nursing staff that Precedex cannot be given on the floors it can only be given in the ICU however they could make an exception but they are concerned about breaking protocol by giving Precedex on the floor, and the repercussions associated ? Advised nursing staff that certainly can may move the patient to the ICU for Precedex to better control her agitation, however I think it would be traumatic on the family to move her into a new place, with new faces, especially patient is actively dying, just to receive the medication and I do think it would do therapeutic harm by moving her down stairs by disrupting the privacy the family has, and the physician, nursing, patient and family relationship ? I went and I spoke to family in detail, patient's family is very upset with administration, absent with nursing staff, upset that I can give body the medications that she needs to control her suffering, they are very upset that she cannot be given Precedex while she is here, ? They are upset that the morphine 10 mg is not controlling her suffering, they are upset that the 2 mg of Ativan is not controlling her agitation, nor is the Haldol controlling her agitation nor is that Dilaudid at 2 mg controlling her pain, I placed on the fentanyl patch however they do not feel that it is controlling its effect ? Patient's family is very upset that I cannot as her physician give her the medications that she needs as they feel that the hospital, administration, and the nursing directors are withholding medications that Raven needs ? I was able to apologize to patient's family, I advised him that this is not the case, we can give her the medications that she needs to control her pain control her suffering certainly there are medications that need close monitoring, and specialist nurses to give these medications such as Precedex, exception certainly can be made, but I have to adhere by my code of ethics, and by the rules that are laid down by the hospital, I will do my best to control raven suffering within the parameters set forth by me, we discussed doing more doses of Dilaudid because it is in my opinion I feel that after a few doses her pain is more under control, she is on a maximum dose of 10 mg of morphine, we could certainly go up on the dose of morphine however patient's family is adamant that more doses of morphine will make a difference, as her mom has been on multiple pain medications, they have not seen an effect however I did talk to them about potentially increasing the dose of morphine to titrate beyond 10 mg we can go up by 2 mg to better control her pain nonetheless have also added Dilaudid that can be given -Patient's family tells me that they hav e no issues with the nurses that have helped Raven this morning, they tell me that she she is doing the best that she can and they are very happy with the care that she has provided ? Currently patient is resting comfortably, intermittent agonal breathing, she does not awaken, but does at times moan out in pain, currently she does not seem like she is suffering, currently it seems that as if her pain is more under control, her suffering is more under control ? I had a very detailed discussion with family about comfort care, controlling her pain, controlling her suffering, easing the pain easing the suffering, but not hastening her I apologized to the family about the protocols that are built in the hospital about her medications given in certain locations, -I personally apologized to patient's fa annel I understand that they are going through a very difficult time they are watching their mother actively , their loved one is actively dying, they are tired, and there wishes to minimize jude suffering and I apologize for the situation I am doing the best I can I apologized for the way that they were treated by the nursing coordinators, although I do not feel this was the case ? I feel that it was miscommunication , nursing coordinators, have patient's interest, always at heart, and they try to optimize patient care, while keeping patient's safety and, protocols in place to protect patients, families, -Advised family if they have any questio ns to please let me know I will continue to monitor her very closely, and if we need to move first to a different part of the hospital to get her pain under control we will do so I will make sure that Raven does not suffer, but again the goal is not to hasten her and that was clear with the family about this ? Patient's family voiced understanding, all questions answered Vitals/I&O/Wt Last Vital Signs Temp 97.9 F 05/29/23 07:49 Pulse 150 H 05/29/23 11:40 Resp 7 L 05/29/23 08:33 BP 98/55 05/29/23 07:49 Pulse Ox 68 L 05/29/23 07:49 O2 Del Method Room Air 05/29/23 07:49 05/28/23 05/29/23 05/29/23 22:59 06:59 14:59 Intake Total 50 / 50 0 / 50 Output Total 750 / 750 Balance 50 / 50 -750 / -700 Weight last 48 hrs Weight 80.966 kg Weight 82.611 kg Physical Exam 2 Const: EXAM LIMITATIONS: altered mental status GENERAL APPEARANCE: in distress, lethargic, ill appearing and frail appearing O RIENTATION/CONSCIOUSNESS: Yes confused and Yes lethargic OTHER: Patient appears to be in severe pain, moaning, and agitation, very restless Resp: COMMON NORMALS: No retractions EFFORT & INSPECTION: Yes tachypneic AUSCULTATION: crackles and wheezes Cardio: COMMON NORMALS: regular rhythm, S1 normal heart sound present and S2 normal heart sound present RATE: tachycardic RHYTHM: regular rhythm H EART SOUNDS: S1 normal heart sound present and S2 normal heart sound present GI: INSPECTION: Yes Abdominal wall edema and Yes abdominal distension A USCULTATION: Yes Hypoactive bowel sounds present Extremity: COMMON NORMALS: no pedal edema Neuro: SENSORIUM/ORIENTATION: Yes lethargic Urinary Catheter Management: Guevara: Cath Placed During This Visit: yes Reason for Continuing Indwelling Catheter: Hospice/Comfort/Palliative Care Urinary Catheter Date of Insertion: 05/27/23 Urinary Catheter Time of Insertion: 14:51 Data 05/27/23 04:35 05/27/23 04:35 Micro: Microbiology 05/27/23 00:53 Urine Culture - Final Urine,Clean Catch Klebsiella pneumoniae A&P Assessment and plan (1) Acute right MCA stroke: (2) Atrial flutter with rapid ventricular response: (3) Hypertension: Qualifiers: Hypertension type: primary hypertension Qualified Code(s): I10 - Essential (primary) hypertension (4) Atrial fibrillation: (5) Anticoagulated: (6) Dyslipidemia: (7) Goals of care, counseling/discussion: (8) NSTEMI (non-ST elevated myocardial infarction): (9) UTI (urinary tract infection): (10) Hospice care: (11) Intractable pain: (12) Need for comfort care: Plan Hospice care, for acute CVA, left-sided hemiplegia, UTI, aspiration pneumonia rhabdo, fall, NSTEMI Acute CVA CT/CT head wo con* [id number] IMPRESSION: Wedge-shaped hypodensity involving right temporoparietal cortex consistent with subacute MCA infarct. No hemorrhage. ?Left-sided neglect, left-sided hemiaplasia, with word finding difficulty, left- sided facial droop ? Plan ? Neurochecks, NIH stroke scale aspiration precautions, next ?patient is a high aspiration risk will keep n.p.o. for now, place NG tube, for aspirin Plavix ? Speech therapy eval ? Allow for permissive hypertension treat only if systolic blood pressure greater than 220 or diastolic greater than 120 ? PT OT ? IV fluids ? Monitor neurologic status closely ? Patient does have a history of atrial flutter she is not on anticoagulant therapy, currently on examination there is no evidence of atrial flutter or atrial fibrillation, will hold off on anticoagulation for now ?repeat head CT tomorrow ? Full code ? Lovenox for DVT prophylaxis Rhabdomyolysis from prolonged immobility, IV fluids Fall, x-ray bilateral hips, x-ray of bilateral knees, within normal limits NSTEMI, monitor UTI, with elevated lactic acid, continue meropenem Possible aspiration event, continue meropenem Goals of care discussion comfort care Attestations 2 Medical Necessity Statement*: Patient requires hospitalization for acute CVA, on comfort care, with persistent severe pain, suffering, intractable pain, severe agitation difficult to control and High Time for a total of 80 minutes, includes reviewing past or interval history, examining/interviewing patient, placing orders, counseling patient/family/other support, updating patient/family/other support, discussing plan of care with staff, communicating with other healthcare providers, documenting encounter and coordinating care Diagnoses Acute right MCA stroke I63.511 Atrial flutter with rapid ventricular response I48.92 Primary hypertension I10 Hypertension type: primary hypertension Atrial fibrillation I48.91 Anticoagulated Z79.01 Dyslipidemia E78.5 Goals of care, counseling/discussion Z71.89 NSTEMI (non-ST elevated myocardial infarction) I21.4 UTI (urinary tract infection) N39.0 Hospice care Z51.5 Intractable pain R52 Need for comfort care
--- NOTE | 2023-05-29 13:19 | PC.SOCIAL ---
IMM Update pg 2 of IMM not updated @ this time as patient is currently on comfort care and not anticipating DC in the next 24-48hours.
--- NOTE | 2023-05-29 14:21 | PC.NURSE ---
SHIFT SUMMARY [id number] This RN comes onto shift, receives report from LAMONT Perez. Chris reports that pt has transitioned and is actively dying and in extreme pain. She reports that she has been giving 10mg of Morphine and 2mg of Ativan often. She reports this is unsuccessful with controlling pt pain. Upon assessment this RN notes that pt is in pain, groaning loudly. Family states that she is a prescription drug user and so she has an incredibly high medication tolerance. Family agrees that pt is in 10/10 pain. This RN immediately gives morphine and ativan, as ordered. This RN also contacts Dr. Nunez frequently, updating on pt pain status. Dr. Nunez assesses pt and agrees that pt is in severe pain. In addition to Morphine and Ativan - Haldol, Dilaudid, and Fentanyl patch given. Telemetry shows pt HR between 150-180, sustaining, and she is still groaning in pain. After multiple assessments, Dr. Nunez determines that Precedex is a good option for pt. This is explained to family. Family agrees with Precedex administration. After discussing this with family, administration determines that due to monitoring needed, Precedex is not appropriate for the med-surg floor and we should exhaust our options and give pain medication more frequently. This RN gives the medication frequently, checking on the patient often. Pt groaning lessens as this RN goes into the room. Family states they are noticing an improvement in pt comfort. Dr. Nunez reassesses pt. Family is concerned about not administering Precedex. Dr. Nunez, Michelle Dyson, RN, Dameon Urrutia, LAMONT, Saima Manzano RN, and this RN speak about possible options. Options are to send to ICU for precedex or continue pain management on the med-surg floor. This RN presents options to family, whom state that they are happy with this RN and would like to stay on the med-surg floor. Pt is no longer groaning, gasping for air, and does not appear to be in distress.
--- NOTE | 2023-05-29 15:58 | PC.NURSE ---
Pt comfortable. No groaning, gasping for air. Pt does have some cyanosis on legs and around lips. Family happy with pt pain control at this time. Slowing down on pain medication since she has reached a tolerable pain level based on assessment.
--- NOTE | 2023-05-29 18:03 | PC.NURSE ---
Pt continues to rest quietly. No agonal breathing or groaning noted at this time.
--- NOTE | 2023-05-29 20:40 | PC.NURSE ---
Pt's family remains at bedside. Pt is having 20 second periods of apnea at this time. Morphine administered for comfort.
[2023-05-29] MEDS: morphine 10 mg/0.5 mL oral liq UD SUBLINGUAL ×2 (20:57→23:19)
--- NOTE | 2023-05-29 23:24 | PC.NURSE ---
Teaching provided on pt status and current HR and rhythm. Pt has remained unchanged on apena. Pt's family is leaving the hospital to go shower and then return.
--- NOTE | 2023-05-30 00:01 | PC.NURSE ---
Telemetry reads asytole. Two nurse verification, no respirations or pulse present. Family notified of patient passing, will return to see patient prior to home picking her up.
--- NOTE | 2023-05-30 00:05 | PC.NURSE ---
MTS called regarding pt . Pt is not a candidate referral number #[id number].
--- NOTE | 2023-05-30 00:09 | PC.NURSE ---
Dr. Womack notified of pt passing away. Will notify home after pt's family returns and is ready.
--- NOTE | 2023-05-30 00:40 | PC.NURSE ---
Pt's family here and is ready to release pt to home. Douglas notified of pt passing. Awaiting home arrival.
--- NOTE | 2023-05-30 01:36 | PC.NURSE ---
Roberta here to clam picker pt body. Pt's glasses sent w/test director.
--- NOTE | 2023-05-30 07:50 | PM.DCS ---
Discharge Providers Date of Admission: 05/26/23 19:00 Date of Discharge: May 30, 2023 Attending Provider at Admission: Bartolo Nunez MD Attending Provider at Discharge: Bartolo Nunez MD Primary Care Provider: Oneil Ibrahim DO Diagnoses at Discharge Discharge Diagnosis (1) Acute right MCA stroke: Status: Acute (2) Atrial flutter with rapid ventricular response: Status: Acute Permanent problem details: This patient was taken off the oral anticoagulant, other details are not known (3) Hypertension: Status: Acute Qualifiers: Hypertension type: primary hypertension Qualified Code(s): I10 - Essential (primary) hypertension (4) Atrial fibrillation: Status: Chronic (5) Anticoagulated: Status: Acute (6) Dyslipidemia: Status: Chronic (7) Goals of care, counseling/discussion: Status: Acute (8) NSTEMI (non-ST elevated myocardial infarction): Status: Acute (9) UTI (urinary tract infection): Status: Resolved (10) Hospice care: Status: Acute (11) Intractable pain: Status: Acute (12) Need for comfort care: Status: Acute Reason for Visit Reason for Visit: Neuro Issue Physical Exam Urinary Catheter Management: Guevara: Cath Placed During This Visit: yes Reason for Continuing Indwelling Catheter: Hospice/Comfort/Palliative Care Urinary Catheter Date of Insertion: 05/27/23 Urinary Catheter Time of Insertion: 14:51 Discharge Data Studies Completed and Pending Completed Studies During Hospitalization Category Date Time Status CT cervical spin wo con* [id number] Stat Cat Scan 05/26/23 17:[address] head wo con* [id number] Stat Cat Scan 05/26/23 17:03 Completed XR chest 1V [id number] Stat Exams 05/26/23 17:04 Completed XR chest 1V portable [id number] Stat Exams 05/27/23 13:01 Completed XR hip BI 2V wo/[place] [id number] Stat Exams 05/26/23 18:30 Completed XR knee LT 1-2V 69294 Stat Exams 05/26/23 18:30 Completed XR knee RT 1-2V 64007 Stat Exams 05/26/23 18:30 Completed CV carotid duplex BI* [id number] Stat Ultrasound 05/26/23 18:25 Completed Pending at discharge Category Date Time Status Blood Culture Stat Lab 05/26/23 18:06 Results Radiology Impressions Head CT 05/26/23 17:03 IMPRESSION: Wedge-shaped hypodensity involving right temporoparietal cortex consistent with subacute MCA infarct. No hemorrhage. ADDENDUM: 05/26/23 [id number] THIS REPORT CONTAINS FINDINGS THAT MAY BE CRITICAL TO PATIENT CARE. The findings were verbally communicated via telephone conference with BRYAN SOARES at 5:46 PM CDT on 05/26/2023. The findings were acknowledged and understood. Cervical Spine CT 05/26/23 17:04 IMPRESSION: No acute findings. Carotid Doppler Study 05/26/23 18:25 IMPRESSION: No carotid arterial stenosis. REFERENCES: SRU CRITERIA. The degree of internal carotid artery stenosis is based on criteria defined by the Society of [employer]ologists in Ul[employer] (SRU). Normal is no stenosis. Mild is less than 50% stenosis. Moderate is 50-69% stenosis. Severe is greater than 69% stenosis to near occlusion. Near occlusion is a markedly narrowed lumen. Total occlusion is no detectable patent lumen. Hip/Pelvis X-Ray 05/26/23 18:30 IMPRESSION: No acute findings. Knee X-Ray 05/26/23 18:30 IMPRESSION: Prominent osteoarthritis Chest X-Ray 05/27/23 13:01 IMPRESSION: NG tube terminates at the GE junction. Recommend advancement approximately 5 cm. Laboratory Results WBC 18.04 10^3/uL (3.29-11.43) H 05/27/23 04:35 RBC 4.79 10^6/uL (3.85-5.65) 05/27/23 04:35 Hgb 12.70 g/dL (11.27-16.99) 05/27/23 04:35 Hct 40.2 % (36-47) 05/27/23 04:35 MCV 83.9 fl (85-98) L 05/27/23 04:35 MCH 26.5 pg (27-33) L 05/27/23 04:35 MCHC 31.6 g/dL (30-55) 05/27/23 04:35 RDW 15.0 % (12.1-15.1) 05/27/23 04:35 Plt Count 257 10^3/cmm (157-399) 05/27/23 04:35 MPV 11.0 fL (7.4-10.4) H 05/27/23 04:35 Neut % (Auto) 89.8 % 05/27/23 04:35 Lymph % (Auto) 3.2 % 05/27/23 04:35 [place] % (Auto) 6.0 % 05/27/23 04:35 Eos % (Auto) 0.0 % 05/27/23 04:35 Baso % (Auto) 0.2 % 05/27/23 04:35 Neut # (Auto) 16.21 10^3/uL (1.8-7.7) H 05/27/23 04:35 Lymph # (Auto) 0.6 10^3/uL (0.8-4.8) L 05/27/23 04:35 [place] # (Auto) 1.1 10^3/uL (0.2-0.9) H 05/27/23 04:35 Eos # (Auto) 0.0 10^3/uL (0.0-0.8) 05/27/23 04:35 Baso # (Auto) 0.0 10^3/uL (0.0-0.1) 05/27/23 04:35 Nucleated RBC % (auto) 0 % 05/27/23 04:35 Nucleated RBCs # 0.0 /100WBC 05/27/23 04:35 PT 14.30 SECONDS (12.1-14.9) 05/26/23 17:10 INR 1.08 (0.8-1.2) 05/26/23 17:10 Sodium 145 mmol/L (136-145) 05/27/23 04:35 Potassium 4.0 mmol/L (3.5-5.1) 05/27/23 04:35 Chloride 108 mmol/L (98-107) H 05/27/23 04:35 Carbon Dioxide 23 mmol/L (22-29) 05/27/23 04:35 Anion Gap 18.0 (5-19) 05/27/23 04:35 BUN 26 mg/dL (8-23) H 05/27/23 04:35 Creatinine 0.9 mg/dL (0.5-0.9) 05/27/23 04:35 GFR Calculation Not Reportable 05/27/23 04:35 Glucose 163 mg/dL (65-115) H 05/27/23 04:35 Estimat Average Glucose 94 05/26/23 17:00 Hemoglobin A1c 4.9 % (4.0-6.0) 05/26/23 17:00 Calculated Osmolality 308 mOsm/kg (285-295) H 05/27/23 04:35 Lactic Acid 1.5 mmol/L (0.5-2.2) 05/27/23 04:35 Lactic Acid (Sepsis) 3.5 mmol/L (0.5-2.2) H 05/26/23 19:40 Calcium 9.0 mg/dL (8.5-10.5) 05/27/23 04:35 Phosphorus 2.9 mg/dL (2.5-4.5) 05/27/23 04:35 Magnesium 1.7 mg/dL (1.7-2.3) 05/27/23 04:35 Total Bilirubin 0.6 mg/dL (0.15-1.2) 05/27/23 04:35 AST 27 U/L (0-32) 05/27/23 04:35 ALT 15 U/L (0-33) 05/27/23 04:35 Alkaline Phosphatase 85 U/L (35-105) 05/27/23 04:35 Creatine Kinase 486 U/L (26-192) H* 05/26/23 17:00 Troponin T Baseline 43 ng/L (0-10) H 05/26/23 17:00 Troponin T 120 Minute 39.53 ng/L (0-10) H 05/26/23 19:40 Delta Troponin T -3.47 ABS# (0-10) L 05/26/23 19:40 Troponin T Hi Sens 6Hr 48.72 ng/L (0-10) H 05/27/23 00:30 Troponin T Hi Sens 6Hr Delta 5.72 ng/L (0-12) 05/27/23 00:30 C-Reactive Protein 37.9 mg/L (0.0-4.9) H 05/26/23 17:00 NT-Pro-B Natriuret Pep 9558 pg/mL (0-450) H 05/26/23 17:00 Total Protein 6.3 g/dL (6.6-8.7) L 05/27/23 04:35 Albumin 3.7 g/dL (3.5-5.2) 05/27/23 04:35 Globulin 2.6 g/dL (1.3-4.6) 05/27/23 04:35 Triglycerides 119 mg/dL (0-150) 05/27/23 04:35 Cholesterol 141 mg/dL (0-200) 05/27/23 04:35 LDL Cholesterol, Calc 70 mg/dL (50-129) 05/27/23 04:35 HDL Cholesterol 47 mg/dL (60-100) L 05/27/23 04:35 LDL/HDL Ratio 1.49 RATIO (0.00-3.22) 05/27/23 04:35 Cholesterol/HDL Ratio 3.00 mg/dL (0.0-4.40) 05/27/23 04:35 Procalcitonin 0.08 ng/mL (0-0.5) 05/26/23 17:00 TSH 0.69 uIU/mL (0.27-4.20) 05/26/23 17:00 Urine Color Yellow (Yellow) 05/27/23 00:53 Urine Appearance Cloudy (CLEAR) A 05/27/23 00:53 Urine pH 5 (5-7) 05/27/23 00:53 Ur Specific [place] 1.020 (1.005-1.030) 05/27/23 00:53 Urine Protein 3+ (Negative) H 05/27/23 00:53 Urine Glucose (UA) Norm (Normal) 05/27/23 00:53 Urine Ketones 1+ (Negative) H 05/27/23 00:53 Urine Blood 3+ (Negative) H 05/27/23 00:53 Urine Nitrate Negative (Negative) 05/27/23 00:53 Urine Bilirubin Neg (Negative) 05/27/23 00:53 Urine Urobilinogen Norm mg/dL (Negative) 05/27/23 00:53 Ur Leukocyte Esterase 2+ (Negative) H 05/27/23 00:53 Urine RBC 15-25 /hpf (0-2) H 05/27/23 00:53 Urine WBC 40-55 /hpf (0-5) H 05/27/23 00:53 Ur Squamous Epith Cells None /hpf (0-5) 05/27/23 00:53 Ur Transition Epith Cell 0-4 /hpf 05/27/23 00:53 Amorphous Sediment Not Reportable 05/27/23 00:53 Urine Bacteria 4+ /hpf (NONE) H 05/27/23 00:53 Urine Mucus 2+ /hpf 05/27/23 00:53 Vitals Last Vital Signs Temp 100.2 F H 05/29/23 19:25 Pulse 116 H 05/29/23 22:27 Resp 5 L 05/29/23 22:39 BP 48/32 05/29/23 19:25 Pulse Ox 78 L 05/29/23 19:25 O2 Del Method Room Air 05/29/23 19:25 Discharge Plan Discharge Patient Disposition: Home Condition: Stable Prescriptions: No Action hydrocodone-acetaminophen 10-325 mg tablet 1 tab PO BID PRN (Reason: pain) 30 Days Qty: 60 0RF clopidogrel 75 mg tablet 75 mg PO DAILY Qty: 90 3RF aspirin 81 mg tablet,delayed release (DR/EC) 81 mg PO DAILY Qty: 100 3RF lisinopril 5 mg tablet 5 mg PO DAILY Qty: 90 3RF metoprolol tartrate 100 mg tablet 100 mg PO BID Qty: 180 3RF pregabalin [Lyrica] 150 mg capsule 150 mg PO TID Qty: 270 1RF alprazolam 0.5 mg tablet 0.5 mg PO BID PRN (Reason: anxiety) Qty: 60 1RF diltiazem HCl 180 mg capsule,extended release 24hr 180 mg PO DAILY isosorbide mononitrate 60 mg tablet extended release 24 hr 120 mg PO DAILY Nitrostat 0.4 mg Tablet, Sublingual 0.4 mg SUBLINGUAL Q5M PRN (Reason: Chest Pain) Rx Instructions: do not exceed 3 doses per episode estradiol 0.5 mg tablet 0.5 mg PO DAILY magnesium oxide 400 mg (241.3 mg magnesium) tablet 400 mg PO BID pantoprazole 40 mg tablet,delayed release (DR/EC) 40 mg PO BID Eye Allergy Itch-Redness Rlf 0.1 % drops 1 drp ophthalmic (eye) BID PRN (Reason: unknown) Rx Instructions: separate doses by at least 6-8 hours montelukast 10 mg tablet 10 mg PO DAILY ezetimibe 10 mg tablet 10 mg PO DAILY furosemide [Lasix] 20 mg tablet 20 mg PO DAILY PRN (Reason: weight gain) Qty: 10 0RF Referrals: Oneil Ibrahim DO [Primary Care Provider] - Patient Instructions: Opioid Safety Coding Level of Care Code Acute Code for Chg Fwd Diagnoses Acute right MCA stroke I63.511 Atrial flutter with rapid ventricular response I48.92 Primary hypertension I10 Hypertension type: primary hypertension Atrial fibrillation I48.91 Anticoagulated Z79.01 Dyslipidemia E78.5 Goals of care, counseling/discussion Z71.89 NSTEMI (non-ST elevated myocardial infarction) I21.4 UTI (urinary tract infection) N39.0 Hospice care Z51.5 Intractable pain R52 Need for comfort care
--- NOTE | 2023-06-07 12:23 | P.DES_ITS ---
Discharge Providers DDS Date of Admission: 05/26/23 19:00 Date Summary Completed: 06/07/23 Attending Provider at Admission: Bartolo Nunez MD Time of : 00:01 Attending Provider at Discharge: Bartolo Nunez MD Primary Care Provider: DO BLANE Choudhary Diagnoses Hospital Diagnoses (1) Acute right MCA stroke: (2) Atrial flutter with rapid ventricular response: Permanent Problem Comments: This patient was taken off the oral anticoagulant, other details are not known (3) Hypertension: Qualifiers: Hypertension type: primary hypertension Qualified Code(s): I10 - Essential (primary) hypertension (4) Atrial fibrillation: (5) Anticoagulated: (6) Dyslipidemia: (7) Goals of care, counseling/discussion: (8) NSTEMI (non-ST elevated myocardial infarction): (9) UTI (urinary tract infection): (10) Hospice care: (11) Intractable pain: (12) Need for comfort care: Reason for Visit Reason for Visit Neuro Issue Summary Date and Time of Date of : 05/30/23 Time of : 00:01 Summary Summary: Raven Elizondo is a 88 year old female with a past medical history of hypertension, hyperlipidemia, recent history of coronary intervention CAD status post stenting, on aspirin and Plavix, who presents to [facility] due to acute CVA and altered mental status. Currently patient is alert to person, not to place, to time she can answer some basic questions but she has a left facial droop, slurring of her words, word finding difficulty, when asked her what happened she tells me that she fell and that her hips hurt her and her knees hurt her but that is all I can get from her, denies any neck pain, no c hest pain, no shortness of breath no abdominal pain, according to ER physician patient's pharmacy has been trying to reach out to her to get her medications refilled however she did not answer back so that had a wellness check, upon arrival patient has complete left [place] with neglect, left facial droop word finding difficulties, her last known well normal I was told was Thursday, her CT of the head shows subacute MCA infarct involving the right temporal parietal cortex, Patient was admitted to [facility] for acute CVA, with left-sided neglect left-sided hemiplegia, word finding difficulty left-sided facial droop, with elevated lactic acid, dehydration, rhabdomyolysis, leukocytosis likely secondary to UTI, possible aspiration pneumonia, NSTEMI Acute CVA CT/CT head wo con* [id number] IMPRESSION: Wedge-shaped hypodensity involving right temporoparietal cortex consistent with subacute MCA infarct. No hemorrhage. ?Left-sided neglect, left-sided hemiaplasia, with word finding difficulty, left- sided facial droop ? Plan ? Neurochecks, NIH stroke scale aspiration precautions, next ?patient is a high aspiration risk will keep n.p.o. for now ? Speech therapy eval ? Aspirin 300 mg daily rectally ? Allow for permissive hypertension treat only if systolic blood pressure greater than 220 or diastolic greater than 120 ? PT OT ? IV fluids ? Monitor neurologic status closely ? Patient does have a history of atrial flutter she is not on anticoagulant therapy, currently on examination there is no evidence of atrial flutter or atrial fibrillation, will hold off on anticoagulation for now ? Patient is on aspirin Plavix for his history of CAD, if by tomorrow she does not have reasonable swallowing function, will have to put in the NG tube and start Plavix ? Full code ? Lovenox for DVT prophylaxis Rhabdomyolysis from prolonged immobility, IV fluids Fall, x-ray bilateral hips, x-ray of bilateral knees Leukocytosis with elevated lactic acid, could be from dehydration however she has a history of UTIs, chest x-ray no focal pneumonia, CRP 37.9 will continue meropenem for possible aspiration pneumonia, possible UTI will await UA follow hemodynamics closely -Urine culture positive for Klebsiella pneumonia, initially managed with broad- spectrum antibiotic therapy Lactic acid 5.2, improved to 1.5, secondary to rhabdo, dehydration, possible aspiration pneumonia, UTI - Patient was seen this morning 05/27/2023 NSTEMI, type I versus type II NSTEMI, continue patient's aspirin and Plavix, -Speech therapy at bedside? She is alert to person, not to place, not to time she tells me that her is up in [place], he works as a traveling salesman, she has 1 daughter, she has 1 neighbor who checks up on her, she does turn her head to the left but does have preference leaning to the right, has dense left hemiplegia, still remains a high aspiration risk, can follow some commands, moving the right side of her body right upper right lower extremity, pupils equal round reactive to light, left facial droop he does have word finding difficulty ? Plan was to place a nasogastric tube, as patient can get her Plavix, recently she had a stent placed, also received aspirin, ? She was also found to have a UTI as she was started on meropenem ? She does start to show evidence of fluid overload and decrease her fluids to 50 cc ? Spoke to PT OT, patient has some movement in her left quadricep muscles -I had a family meeting with patient's 2 daughters -I had an extensive goals of care discussion with patient's 2 daughters, they would like their mother to be DNR/DNI, they are the next of kin, Raven does not have any other close family members, she does not have any living well? I had extensive discussion about what DNR and DNI would entail, they voiced understanding, all questions answered, agreed to proceed to DNR/DNI ? We discussed in detail her hospitalization, what I think has happened is that she had a CVA large MCA stroke on the right with a dense left hemiplegia she fell she has multiple soft tissue hematomas on her head, on her back, on her legs, she spent roughly 2 days on the ground developed a UTI, rhabdomyolysis, was eventually discovered after a wellness check as she did not product picker her medications ? Currently she has dense left hemiplegia, word finding difficulty left facial droop she is a high aspiration risk, ? I am worried that she is likely going to need a PEG tube placement but will have speech therapy reassess her tomorrow, I think that patient is roughly 2 to 3 days out of her stroke, vomiting continue permissive hypertension for now I would hold off on any anticoagulant therapy as she has a history of atrial fibrillation this certainly could be embolic stroke as she did have episode of tachycardia during the night but it seems more like sinus tachycardia and A-fib, but nonetheless I will hold off on anticoagulation therapy as there is a risk of hemorrhagic conversion ? But given her dense hemiplegia, left facial droop, slurring of words, high aspiration risk left facial droop, slurring of words, high aspiration risk, my worry is that this is going to be her baseline level of functioning certainly we can do PT OT work with her maybe she will gain some function of the left hand, but it can be a long process with physical therapy speech therapy placement at a skilled nursing -NG tube was placed temporarily for patient's aspirin and Plavix as patient recently had cardiac stent placed, has a high risk of cardiovascular mortality if she does not receive her aspirin Plavix high risk of stent closing off high risk of cardiac , as family has not agreed to proceed with full comfort care/hospice as of yet, will need to optimize her medical management given her medical condition, high aspiration risk, she needs these life saving medications for now ? Patient's daughter tells me that their mother is not the one that would fight, she would not want life-sustaining measures, she would not want a feeding tube ? Patient's daughter are leaning towards comfort care hospice however they want to see how she does over the next 24 hours, discussed continue medical interventions, giving her time watching over the next 24 hours fluids which I will decrease to 50 cc permissive hypertension aspirin Plavix repeat head CT tomorrow morning and will determine where to go from there either continue medical interventions but what from family tells me it seems like they are moving towards hospice/comfort care -05/27/2023 I had a detailed discussion with patient's family, patient's 2 daughter, about goals of care, patient's daughter later in the evening had came to decision, and they proceed with comfort care, discussed the risk and benefits of comfort care, they voiced understanding, all questions answered, agreed to proceed with comfort care, patient was made comfort care -05/28/2023, patient was managed on hospice/comfort care --Patient was examined this morning, patient's 2 daughters are at bedside, patient is in severe agitation this morning, very restless, moaning and appears to be in severe pain, becomes easily agitated, does not follow commands? Patient's family is very upset, as patient's pain is not adequately being controlled, they do not want Raven to suffer, and they are adamant that she is suffering right now they have been by her bedside and she continues to appear to suffer very restless and moaning, in severe pain, and they feel that were not adequately treating her pain ? Had a detailed discussion with patient's family about the goals of care of comfort care, is not to hasten but to ease her pain and ease her suffering and I apologized our goal will be to ease her pain and ease her suffering allow her to pass away comfortably, but the goal will not be to hasten her ? During my discussion she continues to be very restless severe agitation moaning appears to be in severe pain, appears to be suffering ? Patient's family reports that when the had fallen into her apartment, they had found several bottles of empty hydrocodone and oxycodone, they tell that body has been on several different pain medications and she uses it more than prescribed, she has a very high pain tolerance, and she uses it more than prescribed and she stores pain medication, and uses it how she wishes ? I can confirm that patient sees Dr. Prince Ochoa for back pain she is on hydrocodone but is only given at 11/18/2024 1 tab twice daily she is on Lyrica, not sure how she got the rest of her pain medications ? However family tells me that she sees multiple physicians that she tends to collect all pain medications and use him at her well ? Based upon how much morphine she is used this morning, patient has a very high pain tolerance, we will have to get her pain under control with increased doses of morphine Dilaudid Ativan Haldol, patient family wants the suffering to stop, they want her to be comfortable ? Patient is on comfort care protocol ? I went over this with nursing staff ? As of 8 in the morning, patient was receiving morphine 10 mg every 45 minutes, but her pain persists continues to have agitation, moaning, in severe pain have confirmed this with nursing staff ? She is also received 2 mg of IV push Ativan ? I advised nursing staff to give patient 2 mg of Dilaudid, with her scheduled dose of Ativan to try to control her pain ? Reassessed, with nursing staff patient continues to according to nursing staff look miserable, continues to be in pain, she continues to get morphine 10 mg every 45 minutes continues to get her Ativan 2 mg every 30 minutes, ? As she continues to have severe agitation, she was given 2 mg IV push Haldol ? Reassessed with nursing staff continues to have severe restlessness agitation, appears to be suffering, was given 2 mg IV push Haldol ? Reassessed with nursing staff despite multiple doses of Haldol, Dilaudid, Ativan, morphine, she continues to suffer, continues to be in severe pain ? I spoke to director institution , about getting patient's pain and suffering under control, he advised trying fentanyl patch and potentially Precedex, and try to maximize her morphine ? Patient was started on 50 mcg fentanyl patch ? Continue to receive update from nursing staff, -I had ordered a Precedex drip, however I was advised by nursing staff that Precedex cannot be given on the floors it can only be given in the ICU however they could make an exception but they are concerned about breaking protocol by giving Precedex on the floor, and the repercussions associated? Advised nursing staff that certainly can may move the patient to the ICU for Precedex to better control her agitation, however I think it would be traumatic on the family to move her into a new place, with new faces, especially patient is actively dying, just to receive the medication and I do think it would do therapeutic harm by moving her down stairs by disrupting the privacy the family has, and the physician, nursing, patient and family relationship ? I went and I spoke to family in detail, patient's family is very upset with administration, absent with nursing staff, upset that I can give body the medications that she needs to control her suffering, they are very upset that she cannot be given Precedex while she is here, ? They are upset that the morphine 10 mg is not controlling her suffering, they are upset that the 2 mg of Ativan is not controlling her agitation, nor is the Haldol controlling her agitation nor is that Dilaudid at 2 mg controlling her pain, I placed on the fentanyl patch however they do not feel that it is controlling its effect ? Patient's family is very upset that I cannot as her physician give her the medications that she needs as they feel that the hospital, administration, and the nursing directors are withholding medications that Raven needs ? I was able to apologize to patient's family, I advised him that this is not the case, we can give her the medications that she needs to control her pain control her suffering certainly there are medications that need close monitoring, and specialist nurses to give these medications such as Precedex, exception certainly can be made, but I have to adhere by my code of ethics, and by the rules that are laid down by the hospital, I will do my best to control raven suffering within the parameters set forth by me, we discussed doing more doses of Dilaudid because it is in my opinion I feel that after a few doses her pain is more under control, she is on a maximum dose of 10 mg of morphine, we could certainly go up on the dose of morphine however patient's family is adamant that more doses of morphine will make a difference, as her mom has been on multiple pain medications, they have not seen an effect however I did talk to them about potentially increasing the dose of morphine to titrate beyond 10 mg we can go up by 2 mg to better control her pain nonetheless have also added Dilaudid that can be given -Patient's family tells me that they have no issues with the nurses that have helped Raven this morning, they tell me that she she is doing the best that she can and they are very happy with the care that she has provided? Currently patient is resting comfortably, intermittent agonal breathing, she does not awaken, but does at times moan out in pain, currently she does not seem like she is suffering, currently it seems that as if her pain is more under control, her suffering is more under control ? I had a very detailed discussion with family about comfort care, controlling her pain, controlling her suffering, easing the pain easing the suffering, but not hastening her I apologized to the family about the protocols that are built in the hospital about her medications given in certain locations, -I personally apologized to patient's family I understand that they are going through a very difficult time they are watching their mother actively , their loved one is actively dying, they are tired, and there wishes to minimize jude suffering and I apologize for the situation I am doing the best I can I apologized for the way that they were treated by the nursing coordinators, although I do not feel this was the case? I feel that it was miscommunication , nursing coordinators, have patient's interest, always at heart, and they try to optimize patient care, while keeping patient's safety and, protocols in place to protect patients, families, -Advised family if they have any questions to please let me know I will continue to monitor her very closely, and if we need to move first to a different part of the hospital to get her pain under control we will do so I will make sure that Raven does not suffer, but again the goal is not to hasten her and that was clear with the family about this ? Patient's family voiced understanding, all questions answered -Patient was managed on comfort care, for acute CVA, left-sided hemiplegia, time of 05/30/2023 00:01 Additional Data Confirmation of as documented by pronouncing clinician: no pulse and no respirations Family: contacted Additional persons at bedside: nursing staff Attending/PCP notified?: I am attending Was code activated?: No Advance directives?: No Discharge Plan Discharge Patient Disposition: At Medical Facility Condition: Stable Prescriptions: No Action hydrocodone-acetaminophen 10-325 mg tablet 1 tab PO BID PRN (Reason: pain) 30 Days Qty: 60 0RF clopidogrel 75 mg tablet 75 mg PO DAILY Qty: 90 3RF aspirin 81 mg tablet,delayed release (DR/EC) 81 mg PO DAILY Qty: 100 3RF lisinopril 5 mg tablet 5 mg PO DAILY Qty: 90 3RF metoprolol tartrate 100 mg tablet 100 mg PO BID Qty: 180 3RF pregabalin [Lyrica] 150 mg capsule 150 mg PO TID Qty: 270 1RF alprazolam 0.5 mg tablet 0.5 mg PO BID PRN (Reason: anxiety) Qty: 60 1RF diltiazem HCl 180 mg capsule,extended release 24hr 180 mg PO DAILY isosorbide mononitrate 60 mg tablet extended release 24 hr 120 mg PO DAILY Nitrostat 0.4 mg Tablet, Sublingual 0.4 mg SUBLINGUAL Q5M PRN (Reason: Chest Pain) Rx Instructions: do not exceed 3 doses per episode estradiol 0.5 mg tablet 0.5 mg PO DAILY magnesium oxide 400 mg (241.3 mg magnesium) tablet 400 mg PO BID pantoprazole 40 mg tablet,delayed release (DR/EC) 40 mg PO BID Eye Allergy Itch-Redness Rlf 0.1 % drops 1 drp ophthalmic (eye) BID PRN (Reason: unknown) Rx Instructions: separate doses by at least 6-8 hours montelukast 10 mg tablet 10 mg PO DAILY ezetimibe 10 mg tablet 10 mg PO DAILY furosemide [Lasix] 20 mg tablet 20 mg PO DAILY PRN (Reason: weight gain) Qty: 10 0RF Referrals: Oneil Ibrahim DO [Primary Care Provider] - Patient Instructions: Opioid Safety Probable Cause of Probable cause of : Cardiac arrest DS Attestations Time Spent in /Discharge Care*: greater than 30 min Quality - AMI: AMI present?: No Quality - Stroke: CVA present?: Yes Onset of Symptoms Date: 05/24/23 Symptom Onset Unknown: Yes Quality - VTE: VTE present?: No Coding Level of Care Code 65813 Total time (in minutes) for Discharge: 45 Diagnoses Acute right MCA stroke I63.511 Atrial flutter with rapid ventricular response I48.92 Primary hypertension I10 Hypertension type: primary hypertension Atrial fibrillation I48.91 Anticoagulated Z79.01 Dyslipidemia E78.5 Goals of care, counseling/discussion Z71.89 NSTEMI (non-ST elevated myocardial infarction) I21.4 UTI (urinary tract infection) N39.0 Hospice care Z51.5 Intractable pain R52 Need for comfort care
== END 2023-05-29 23:58 | disposition expired | DRG 64 ==
LOC: ER 18:30 → MEDSURG 19:00
PROVIDERS: Admitting Provider Family Medicine; Emergency Provider Emergency Medicine; PCP Family Medicine; Visit Provider Family Medicine
DX: I63.511 Cerebral infarction due to unspecified occlusion or stenosis of right middle cerebral artery (principal); I21.4 Non-ST elevation (NSTEMI) myocardial infarction; J69.0 Pneumonitis due to inhalation of food and vomit; G81.94 Hemiplegia, unspecified affecting left nondominant side; I48.20 Chronic atrial fibrillation, unspecified; N39.0 Urinary tract infection, site not specified; M62.82 Rhabdomyolysis; R48.2 Apraxia; R29.810 Facial weakness; R29.720 NIHSS score 20; I11.0 Hypertensive heart disease with heart failure; I50.9 Heart failure, unspecified; E78.5 Hyperlipidemia, unspecified; Z66 Do not resuscitate; I25.10 Atherosclerotic heart disease of native coronary artery without angina pectoris; Z95.5 Presence of coronary angioplasty implant and graft; E86.0 Dehydration; B96.1 Klebsiella pneumoniae [K. pneumoniae] as the cause of diseases classified elsewhere; W19.XXXA Unspecified fall, initial encounter; Z79.82 Long term (current) use of aspirin; Z79.02 Long term (current) use of antithrombotics/antiplatelets; Z51.5 Encounter for palliative care; R45.1 Restlessness and agitation; M25.552 Pain in left hip; M25.551 Pain in right hip; M25.562 Pain in left knee; M25.561 Pain in right knee
CPT/HCPCS: 36415; 51702; 70450; 71045; 72125; 73521; 73560; 80053; 80061; 81001; 82550; 83036; 83605; 83735; 83880; 84100; 84145; 84443; 84484; 85025; 85610; 86140; 87040; 87077; 87086; 87186; 92523; 92610; 93005; 93880; 94664; 96365; 96367; 96372; 96375; 97161; 97167; 97530; 97535; 99285; C9113; J1170; J1630; J1650; J2020; J2060; J2185; J2270; J3490; J7030